=== PATIENT | female | born 1955 | race Caucasian/White ===

== ENCOUNTER → 2017-08-15 16:45 | Outpatient (CLI) | payer OTHER, SELFPAY ==
--- NOTE | 2017-08-15 17:08 | RAD_ITS ---
STUDY: X-RAY CHEST REASON FOR EXAM: Female, 62 years old. Chest pain TECHNIQUE: Frontal and lateral views of the chest COMPARISON: 08/17/2016 FINDINGS: The lungs are clear. There are no pleural effusions. There is no pneumothorax. The heart is normal in size. Again noted is a pacemaker. The visualized osseous structures are within normal limits. RAD/Chest PA and Lateral IMPRESSION: No acute thoracic pathology. Electronically Signed: Alberto Jain, at 22:00 EDT Tel , Service support ,
[2017-08-15 18:38] LABS: Absolute Lymphocyte Count 2.48 X10^3/ul (0.83-4.51); Absolute Neutrophil Count 5.9 X10^3/uL (2.0-7.7); Basophil# 0.03 X10^3/uL; Basophil% 0.3 % (0-1); Eosinophil# 0.11 X10^3/uL; Eosinophils% 1.2 % (0-5); Hematocrit 45.6 % (37-47); Lymphocyte # 2.48 X10^3/ul (4.0); Lymphocyte % 26.6 % (19-41); Mean Corp Hgb Conc 32.9 g/gl (32-36); Mean Corpuscular Hgb 30.1 pg (27.0-32.0); Mean Corpuscular Volume 91.4 fL (81-99); Mean Platelet Vol. 10.1 fl (6.2-12.0); Monocyte# 0.77 X10^3/uL; Monocyte% 8.2 % (0-10); Neutrophil # 5.94 X10^3/uL (2.7-7.7); Neutrophil % 63.6 % (47-70); Platelet Count 294 K/mm3 (150-450); RBC Distribution Width CV 12.9 % (11.6-14.6); RBC Distribution Width SD 42.9 fl (35.1-43.9); Red Blood Count 4.99 M/mm3 (4.2-5.4); White Blood Count 9.3 K/mm3 (4.4-11.0)
[2017-08-15 18:51] LABS: POSITIVE COUNT NO; POSITIVE DIFFERENTIAL NO; POSITIVE MORPHOLOGY NO
[2017-08-15 18:56] LABS: AST(SGOT) 14 U/L (15-37); Alanine Aminotransfer ALT/SGPT 23 U/L (13-56); Albumin, Serum 3.8 g/dL (3.2-5.0); Alkaline Phosphatase 76 U/L (45-117); Anion Gap 6 (5-15); BUN 12 mg/dL (7-18); BUN/Creat Ratio 17.2 RATIO (10-20); Bilirubin, Direct 0.08 mg/dL (0.00-0.30); Calcium,Total 8.9 mg/dL (8.5-10.1); Chloride 107 mmol/L (98-107); EST Glomerular Filtration Rate 91 mL/min (>60); Est Glom Filt Rate - Afr Amer 110 mL/min (>60); Globulin 3.5 g/dL (2.2-4.2); Glucose 88 mg/dL (74-106); Potassium 3.8 mmol/L (3.5-5.1); Protein, Total 7.3 g/dL (6.4-8.2); Sodium Level 140 mmol/L (136-145)
== END ==
PROVIDERS: Family Provider Family Medicine; PCP Family Medicine; Visit Provider Family Medicine
DX: R07.9 Chest pain, unspecified (principal); M32.9 Systemic lupus erythematosus, unspecified
CPT/HCPCS: 36415; 71046; 80048; 80076; 85025

== ENCOUNTER → 2017-08-21 07:24 | Outpatient (CLI) | payer OTHER, SELFPAY ==
--- NOTE | 2017-08-21 07:28 | US_ITS ---
STUDY: ABDOMINAL ULTRASOUND - RIGHT UPPER QUADRANT REASON FOR VISIT: Female, 62 years old. Right upper quadrant TECHNIQUE: Ultrasound evaluation of the right upper quadrant was performed with real-time and static ortega-scale imaging. TECHNICAL QUALITY: Adequate. COMPARISON: CT October 15, 2016 FINDINGS: Liver: The liver measures 13.8 cm. There is increased echogenicity consistent with fatty infiltration. The bile ducts are within normal limits. There is hepatic color flow. The direction of portal flow is hepatopetal. There is no demonstrated mass lesion. Gallbladder: Normal distended gallbladder. The gallbladder wall measures 3 mm. There is a negative sonographic Bell's sign. There is no pericholecystic fluid. There is either an adherent non mobile gallstone of the gallbladder vs a gallbladder polyp. This measures 3 mm. Common Bile Duct (C.B.D.): The common bile duct measures 5.6 mm. Pancreas: Normal size of the head, body of the pancreas. There is normal echogenicity of the pancreas. There is no demonstrated pancreatic mass or cyst. Pancreatic tail is not seen. Right Kidney: Normal size of the right kidney. The right kidney measures 11.2 x 5.5 x 4.4 cm. Normal renal cortex. The right cortex measures 1.5 cm. There is no demonstrated renal mass or cyst. There is no right hydronephrosis. US/Abdomen Limited IMPRESSION: There is either an adherent non mobile gallstone of the gallbladder vs a gallbladder polyp. Electronically Signed: Luis Garcia MD at 17:40 EDT , Service support ,
== END ==
PROVIDERS: Family Provider Family Medicine; PCP Family Medicine; Visit Provider Family Medicine
DX: R10.11 Right upper quadrant pain (principal)
CPT/HCPCS: 76705

== ENCOUNTER → 2017-09-06 07:50 | Outpatient (CLI) | payer OTHER, SELFPAY ==
--- NOTE | 2017-09-06 07:54 | NM_ITS ---
CLINICAL: 62-year-old female with reported history of right upper quadrant abdominal pain. RADIONUCLIDE HEPATOBILIARY SCINTIGRAPHY COMPARISON: Abdominal ultrasound report 08/21/2017 FINDINGS: Following the intravenous administration of 5.1 mCi of 99m Tc Mebrofenin, hepatobiliary images reveal: 1. Relatively prompt and homogeneous radiopharmaceutical concentration is noted by a normal sized liver. No parenchymal defects are identified. 2. Gallbladder activity is identified at 15 minutes post radiopharmaceutical administration. 3. Small intestinal tract is observed at 30 minutes following tracer injection. 4. Washout of the radiopharmaceutical by the hepatic parenchyma appears qualitatively normal. The patient was administered a fatty meal (8 ounces BOOST-30 grams fat). The post fatty meal consumption gallbladder ejection fraction calculated at 60 minutes was noted to be 36.0 % (normal greater than 30%). DC/Hepatobilliary Img w/Pharm Int IMPRESSION: 1. NORMAL 99m Tc Mebrofenin hepatobiliary imaging examination with fatty meal ingestion. A. A gallbladder ejection fraction calculated to be greater than 30% following the administration of a consumed fatty meal makes the probability of functional hepatobiliary disease (gallbladder and/or sphincter of Oddi dyskinesia) and/or organic hepatobiliary disease (chronic acalculous cholecystitis and/or cystic duct syndrome) to be low. (Arabella and Syd, J Nucl Med 43: 1603, 2002). Electronically Signed: Boogie Robledo DO at 8:18 EDT Tel , Service support ,
== END ==
PROVIDERS: Family Provider Family Medicine; PCP Family Medicine; Visit Provider Family Medicine
DX: R10.11 Right upper quadrant pain (principal)
CPT/HCPCS: 78227; A9537

== ENCOUNTER 2017-09-27 08:58 | Day surgery (SDC) | payer OTHER, SELFPAY ==
[2017-09-27 09:34] VITALS: BP 101/80; PULSE 72; RESP 14; TEMP 36.7; O2SAT 99; BMI 25.9
[2017-09-27 11:22] VITALS: BP 101/80; BP 110/66; PULSE 69; RESP 16; TEMP 36.4; O2SAT 96
[2017-09-27 11:25] VITALS: BP 101/80; BP 103/75; PULSE 64; RESP 16; O2SAT 96
--- NOTE | 2017-09-27 11:25 | OP.PCM_ITS ---
Problem List (1) Dysphagia Status: Acute Qualifiers: Dysphagia type: esophageal phase Qualified Code(s): R13.10 - Dysphagia, unspecified (2) Screen for colon cancer Status: Acute Report of Operation Date of Procedure: 09/27/17 Pre-Operative Diagnosis: 1. Dysphasia. 2. Screening colon cancer Post-Operative Diagnosis: 1. Normal EGD. 2. Normal colonoscopy Surgery/Procedure Performed:: 1. EGD. 2. Colonoscopy Description of Procedure: The major risks and benefits associated with the procedure were explained to the patient in detail. The patient verbalized understanding and agreement with the same. The patient was then placed in the left lateral decubitus position. IV sedation was started by anesthesia. The endoscope was then advanced under direct visualization over the tongue, into the esophagus , stomach and duodenum. It was slowly withdrawn and the mucosa was carefully evaluated. Duodenal mucosal abnormalities were not visualized. Antegrade and retrograde views of the stomach were normal and did not reveal ulceration. The patient did have a small hiatal hernia. Gastric folds were normal. Careful examination of the remainder of the esophagus was normal. There did not appear to be any strictured or tightened areas of the esophagus in its entirety. The scope was then withdrawn from the patient. The patient was then turned for the colonoscopy portion of the procedure. A digital rectal exam was performed. This examination was within normal limits. A well-lubricated colonoscope was then inserted into the rectum and advanced under direct visualization to the level of the cecum. The bowel prep was good. The cecum was identified by both visual and anatomic landmarks. A photograph was taken of the end of the cecum. The scope was then fully withdrawn while examining the color, texture, anatomy and integrity of the mucosa from the cecum to the anal canal. The findings were consistent with normal colonic mucosa. Upon reaching the rectum the scope was retroflexed to examine the distal rectal vault. The scope was then straightened and was completely retrieved upon exiting the anal canal and the procedure was terminated. The patient was then transferred to the recovery room in stable condition. Recommendations for follow up: 10 years
[2017-09-27 11:30] VITALS: BP 101/80; BP 105/83; PULSE 63; RESP 16; O2SAT 95
[2017-09-27 11:36] VITALS: BP 101/80; BP 108/78; PULSE 63; RESP 16; TEMP 36.3; O2SAT 95
[2017-09-27 12:15] VITALS: BP 101/80
== END 2017-09-27 12:18 | disposition home or self-care (01) ==
LOC: EN 08:58 → AC 08:59
PROVIDERS: Family Provider Family Medicine; PCP Family Medicine; Visit Provider Surgery
PROC: 0DJD8ZZ Inspection of Lower Intestinal Tract, Via Natural or Artificial Opening Endoscopic (ICD-10-PCS; CPT 45378; principal; 2017-09-27 10:10)
DX: Z12.11 Encounter for screening for malignant neoplasm of colon (principal); R13.10 Dysphagia, unspecified; K44.9 Diaphragmatic hernia without obstruction or gangrene; J45.909 Unspecified asthma, uncomplicated; E78.00 Pure hypercholesterolemia, unspecified; K58.9 Irritable bowel syndrome, unspecified; K21.9 Gastro-esophageal reflux disease without esophagitis; F32.9 Major depressive disorder, single episode, unspecified; Z79.899 Other long term (current) drug therapy; Z79.82 Long term (current) use of aspirin; Z79.51 Long term (current) use of inhaled steroids; Z95.0 Presence of cardiac pacemaker; Z87.891 Personal history of nicotine dependence
CPT/HCPCS: 43235; 45378; J7120

== ENCOUNTER → 2018-02-24 11:01 | Outpatient (CLI) | payer OTHER, SELFPAY | PROVIDERS: Family Provider Family Medicine; PCP Family Medicine; Visit Provider Family Medicine | DX: R39.15 Urgency of urination (principal) | CPT/HCPCS: 87086; 87088 ==

== ENCOUNTER → 2018-02-28 07:37 | Outpatient (CLI) | payer OTHER, SELFPAY ==
--- NOTE | 2018-02-28 07:48 | US_ITS ---
HISTORY: GB POLYP TECHNIQUE: Beltran scale and color doppler imaging was performed of the gallbladder. COMPARISON: Right upper quadrant ultrasound 08/21/[address] abdomen and pelvis 10/15/2016 FINDINGS: With comparison to previous, no significant change. The gallbladder is adequately distended. The anterior wall of the gallbladder shows a 2.5 mm intraluminal focus compatible with a small polyp, unchanged. This area is nonshadowing. No gallstones or suspicious lesion. No pericholecystic edema. The common duct measures 3 mm in diameter which is normal. Visualized portions of the liver and pancreas are unremarkable. No intrahepatic biliary dilatation. Normal right kidney. No hydronephrosis. No ascites. US/Gallbladder IMPRESSION: 1. No acute disease or significant change. 2. Small gallbladder polyp, unchanged. Otherwise negative exam. at [id number] Reported and signed by: Jeremy Vance MD Electronically Signed: Jeremy Vance, at 3:54 EDT Tel , Service support ,
== END ==
PROVIDERS: Family Provider Family Medicine; PCP Family Medicine; Referring Provider Surgery; Visit Provider Surgery
DX: K82.4 Cholesterolosis of gallbladder (principal)
CPT/HCPCS: 76705

== ENCOUNTER → 2018-05-09 08:27 | Outpatient (CLI) | payer OTHER, SELFPAY ==
--- NOTE | 2018-05-09 08:30 | RAD_ITS ---
STUDY: X-RAY - ESOPHAGUS (BARIUM SWALLOW) WITH FLUOROSCOPY REASON FOR EXAM: Female, 63 years old. 9 month history of worsening dysphagia. TECHNIQUE: 14 view(s) of the esophagus were obtained following swallowing of barium. FLUOROSCOPY TIME (if supplied): (0:30) minutes/seconds COMPARISON: None. FINDINGS: There is no demonstrated esophageal foreign body. There is no demonstrated stricture or mucosal abnormality. Normal gastroesophageal junction, without a demonstrated hiatal hernia. The patient ingested a 12 mm tablet of barium without any difficulty. Normal visualized aortic arch and descending thoracic aorta. Normal visualized pulmonary parenchyma. Normal visualized osseous structures of the thorax. RAD/Esophagus Only IMPRESSION: Normal plain film x-ray examination (barium swallow) of the esophagus. Electronically Signed: Genaro Zabala MD at 9:29 EST Tel [phone], Service support ,
== END ==
PROVIDERS: Family Provider Family Medicine; PCP Family Medicine; Referring Provider Family Medicine; Visit Provider Family Medicine
DX: R13.10 Dysphagia, unspecified (principal)
CPT/HCPCS: 74220

== ENCOUNTER 2018-10-24 11:14 | Observation (INO) | payer OTHER, SELFPAY ==
[2018-09-18 15:59] VITALS: BMI 27.7
[2018-10-24] VITALS (8 sets, daily range): BP systolic 115–155; BP diastolic 67–93; PULSE 63–69; RESP 14–18; TEMP 36.4–36.8; O2SAT 95–97; BMI 28.2; BMI 27.9
--- NOTE | 2018-10-24 11:14 | EKG12_ITS ---
Test Reason : CP Blood Pressure : / mmHG Vent. Rate : 076 BPM Atrial Rate : 076 BPM P-R Int : 232 ms QRS Dur : 090 ms QT Int : 378 ms P-R-T Axes : 033 -21 126 degrees QTc Int : 425 ms Atrial-paced rhythm with prolonged AV conduction Moderate voltage criteria for LVH, may be normal variant Cannot rule out Septal infarct , age undetermined T wave abnormality, consider lateral ischemia Abnormal ECG Confirmed by FADIA AGUILAR, EVA ([id number]), senior editor DORYS DANIELS ([id number]) on 10/28/2018 11:48:13 AM Referred By: Liset Botello Confirmed By:EVA LOAIZA MD
--- NOTE | 2018-10-24 11:23 | RAD_ITS ---
STUDY: X-RAY CHEST REASON FOR EXAM: Female, 63 years old. Chest pain TECHNIQUE: AP COMPARISON: 08/15/2017 FINDINGS: EKG leads project over the chest. Two lead cardiac conduction device is seen via the left subclavian vein with lead tips projecting over the right atrium and right ventricle, respectively. The lungs are clear and expanded. There is no demonstrated pleural abnormality. Normal size heart. Normal mediastinum and salina. Normal visualized pulmonary arteries. Normal visualized aortic arch and descending thoracic aorta. Normal visualized thoracic spine. Normal visualized ribs, clavicles, and shoulders. There is no demonstrated abnormality of the visualized soft tissue structures of the upper abdomen. RAD/Chest 1 View (Portable) IMPRESSION: Stable, nonacute portable x-ray examination of the chest. Electronically Signed: López Jose MD at 11:56 EDT , Service support ,
--- NOTE | 2018-10-24 11:23 | EKG12_ITS ---
Test Reason : CP ADMIT Blood Pressure : / mmHG Vent. Rate : 062 BPM Atrial Rate : 062 BPM P-R Int : 202 ms QRS Dur : 094 ms QT Int : 452 ms P-R-T Axes : 035 -15 120 degrees QTc Int : 458 ms Normal sinus rhythm Minimal voltage criteria for LVH, may be normal variant Septal infarct , age undetermined Nonspecific T-wave Abnormality Abnormal ECG Confirmed by FADIA AGUILAR, EVA ([id number]), film editor supervisor SHANNAN GREEN ([id number]) on 10/29/2018 12:42:01 PM Referred By: Liset Botello Confirmed By:EVA LOAIZA MD
[2018-10-24] MEDS: Aspirin 81 MG TAB.CHEW 324 MG PO (11:28)
--- NOTE | 2018-10-24 11:34 | ED.DCSUM_ITS ---
- ER Visit Summary Date of Service: 10/24/18 Chief Complaint: Chest pain, shortness of breath History of Present Illness: The patient is a 63 F presents to the emergency department with chest tightness. Patient states that over the past 3 days, she has had episodes where she felt like her heart is been racing. She had a dull ache across her anterior chest. She states that she exerts herself and walks a distance, she gets short of breath. Patient does have history of prior pacemaker implant. She has no history of coronary vascular disease. She denies any fevers or chills. She denies any weight gain. She denies any leg swelling. She did see her primary care in the office and had an EKG done yesterday. This was reviewed with her real estate acquisition analyst from [facility]. She was going to be worked up as an outpatient, but today in discussion with the nurse practitioner at her physician's office she was referred into the emergency department. She has no history of pulmonary embolus. Physical Examination: Vital signs reviewed General: Well-nourished, well-developed Head: Normocephalic, atraumatic Eyes: Pupils equal and reactive, extraocular muscles intact Neck, supple, no lymphadenopathy Heart: Regular rate and rhythm Respiratory: No distress, clear bilaterally Abdomen: Soft, nontender, nondistended, no peritoneal signs Back: Nontender Extremities: Nontender, no edema, no cords Skin: Normal color no rash Neuro: Alert and oriented, no focal or lateralizing deficits Test Results: [] Emergency Department Course and Treatment: EKG was obtained on patient arrival. There is T wave inversion across the precordium, but it is unchanged from prior. I do have concern given patient's history. She is been having exertional chest tightness and dyspnea. Chest x-ray is unremarkable. Labs including cardiac enzymes are normal. At this point, I do feel the safest thing would be observation for provocative testing. Patient was discussed with hospitalist.] Treatment Plan: [] Disposition: Admission Impression: [1. Chest pain 2. Exertional dyspnea] This note was generated with [place] [employer] dictation software. It may contain incorrect words, spelling, and punctuation that were not noted in review of the chart prior to signing ED Disposition - Plan for ED Patient: Referrals: Linda Loving DO [Primary Care Provider] -
[2018-10-24 11:36] LABS: Absolute Neutrophil Count 4.4 X10^3/uL (2.0-7.7); Basophil# 0.03 X10^3/uL; Basophil% 0.4 % (0-1); Eosinophil# 0.13 X10^3/uL; Eosinophils% 1.8 % (0-5); Hematocrit 43.6 % (37-47); Hemoglobin 14.7 g/dl (12.0-15.0); Lymphocyte % 30.2 % (19-41); Mean Corp Hgb Conc 33.7 g/gl (32-36); Mean Corpuscular Hgb 30.2 pg (27.0-32.0); Mean Corpuscular Volume 89.5 fL (81-99); Monocyte# 0.54 X10^3/uL; Monocyte% 7.4 % (0-10); Neutrophil # 4.38 X10^3/uL (2.7-7.7); Neutrophil % 60.1 % (47-70); Platelet Count 262 K/mm3 (150-450); RBC Distribution Width CV 12.4 % (11.6-14.6); RBC Distribution Width SD 40.3 fl (35.1-43.9); Red Blood Count 4.87 M/mm3 (4.2-5.4); White Blood Count 7.3 K/mm3 (4.4-11.0)
[2018-10-24 11:38] LABS: POSITIVE COUNT NO; POSITIVE DIFFERENTIAL NO; POSITIVE MORPHOLOGY NO
[2018-10-24 11:57] LABS: Anion Gap 2 (5-15); BUN 12 mg/dL (7-18); BUN/Creat Ratio 16.3 RATIO (10-20); Calcium,Total 9.1 mg/dL (8.5-10.1); Chloride 107 mmol/L (98-107); Creatinine, Serum 0.73 mg/dL (0.55-1.02); EST Glomerular Filtration Rate 85 mL/min (>60); Est Glom Filt Rate - Afr Amer 103 mL/min (>60); Glucose 98 mg/dL (74-106); Magnesium 2.2 mg/dL (1.6-2.6); Sodium Level 138 mmol/L (136-145)
--- NOTE | 2018-10-24 12:16 | HP.PCM_ITS ---
Problem List (1) Chest pain Status: Acute Qualifiers: Chest pain type: unspecified Qualified Code(s): R07.9 - Chest pain, unspecified (2) Seizure Status: Chronic (3) SLE (systemic lupus erythematosus related syndrome) Status: Chronic History of Present Illness Date of Admission: 10/24/18 Chief Complaint: Chest pain The patient is a 63 year old F with PMHx of SLE, seizure disorder, history of pacemaker for sick sinus syndrome, who comes in with complaints of chest pressure/discomfort, progressive shortness of breath especially on exertion ongoing for months worse over the last 2 days. This is after some lightheadedness and palpitation. She has a feeling of unwell. She smokes a couple of cigarettes monthly. There is a strong family history of heart disease in the mother with heart blockages, father had bypass surgery. Vitals in the ED showed temperature 97.6 F, heart rate 60, blood pressure 155/85 , respiratory rate 70, SPO2 97% on room air. CBC DM BMP was unremarkable. BM peptide was 47.7. Troponin was negative. EKG showed T wave inversions in the lateral leads, comparison with previous EKG showed the same pattern Past Medical History Past Medical History (Chronic Problems): Chronic Problems (Last Updated 09/05/18 @ 08:32 by Rosalina Middleton) Seizure (Chronic) SLE (systemic lupus erythematosus related syndrome) (Chronic) Family history of breast cancer (Chronic) Intertrigo (Chronic) Shoulder pain (Chronic) Chronic thoracic back pain (Chronic) Chronic cervical pain (Chronic) Breast hypertrophy (Chronic) Medical History: Medical History (Last Updated 09/05/18 @ 08:32 by Rosalina Middleton) Anxiety F41.9 Asthma J45.909 Dysphagia R13.10 GERD (gastroesophageal reflux disease) K21.9 Gallstones K80.20 H/O: hysterectomy Z90.710 History of pneumonia Z87.01 IBS (irritable bowel syndrome) K58.9 Lupus L93.0 Osteoarthritis M19.90 Pleural effusion J90 Seasonal allergies J30.2 Seizure R56.9 Seizure disorder G40.909 Chronic bronchitis J42 Allergies Penicillins Allergy (Verified 09/18/18 15:59) Rash epinephrine Adverse Reaction (Verified 09/18/18 15:59) Other I PASS OUT Home Medications: Ambulatory Orders Medication Instructions Recorded Albuterol IH (ProAir) [Proair Hfa 1 - 2 puff INHALATION Q4H PRN PRN 11/16/15 (SP)Vent Pts] Aspirin [Aspirin, Baby] 81 mg PO DAILY@0800 11/16/15 Budesonide/Formoterol 160/4.5 2 puff INHALATION BID 11/16/15 [Symbicort 160/4.5 Mcg Inhaler (SP)] Sertraline HCl [Zoloft] 100 mg PO DAILY 11/16/15 levETIRAcetam tablet [Keppra] 1,000 mg PO DAILY 11/16/15 Biotin 5 mg PO DAILY 10/15/16 levETIRAcetam tablet [Keppra] 1,000 mg PO QHS 10/15/16 hydroxychloroquine 200 mg tablet 200 mg PO BID 09/11/17 Bran/Gum/Fib/Taty/Psyl/Kelp/Pec 1,000 mg PO DAILY 09/19/17 [Fiber 6 Tablet] Cholecalciferol (Vitamin D3) 5,000 unit PO DAILY 09/19/17 [Vitamin D3] Cyanocobalamin [Vitamin B12] 1,000 mcg PO DAILY@0800 09/19/17 Turmeric Root Extract [Turmeric] 500 mg PO DAILY 09/19/17 meloxicam 15 mg tablet 15 mg PO PRN PRN 09/05/18 Surgical History: Surgical History (Last Updated 09/05/18 @ 08:33 by Rosalina Middleton) History of hysterectomy Z90.710 History of knee surgery Z98.890 Pacemaker Z95.0 S/P tonsillectomy Z90.89 Surgical History: hysterectomy, total knee arthroplasty, tonsillectomy, - - s/p pacemaker insertion, foot surgery Psychiatric History: No pertinent psych hx 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 pertinent DESIGN 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 history Lives: Spouse/ Significant Other Smoking Status: Current some day smoker Tobacco Use: Cigarettes Alcohol: Occasional Drugs: None - *Family History Maternal Family History: Family History (Last Updated 09/05/18 @ 08:47 by Rosalina Middleton) Mother Breast cancer CAD (coronary artery disease) Anxiety High cholesterol Skin cancer Father Cancer CAD (coronary artery disease) Asthma High cholesterol History Items: Heart Disease Paternal Family History: Family History (Last Updated 09/05/18 @ 08:47 by Rosalina Middleton) Mother Breast cancer CAD (coronary artery disease) Anxiety High cholesterol Skin cancer Father Cancer CAD (coronary artery disease) Asthma High cholesterol History Items: Heart Disease Review of Systems Constitutional: Denies: Anorexia, Chills, Fever, Night Sweats, Malaise, Weakness, Weight Change Eyes: Denies: Blurred vision, Cataracts, Conjunctivae Inflammation, Pain, Redness HEENT: Denies: Difficulty Hearing, Difficulty Swallowing, Head Aches, Hearing Changes, Sinus Congestion, Sinus Drainage Cardiovascular: Reports: Chest Pain, Chest Tightness, Light Headedness. Denies: Claudication, Orthopnea, Palpitations, Paroxysmal Noc. Dyspnea Respiratory: Reports: Shortness of Breath, Shortness of breath upon exertion. Denies: Cough, Shortness of breath at rest, Sputum production Gastrointestinal: Denies: Abdominal Pain, Nausea, Vomiting Genitourinary: Denies: Dysuria, Frequency, Hematuria, Incontinence Musculoskeletal: Denies: Joint Pain, Joint stiffness, Joint swelling, Joint Tenderness Skin: Denies: Rash, Wounds Neurological: Denies: Numbness, Tingling, Focal weakness Psychiatric: Denies: Anxiety, Depression, Homicidal Ideations, Suicidal Ideations Hematologic/ Lymphatic: Denies: Easy Bruising, Easy Bleeding VTE Information - Inpt Only VTE Present on Admission: No VTE Pharm Prophylaxis ordered?: Yes Patient Problems: Active and Suspected Problems (Last Updated 09/05/18 @ 08:32 by Rosalina Middleton) Chest pain (Acute) - Physical Exam General: Alert, Oriented x3, Cooperative, No apparent distress HEENT: Atraumatic, PERRLA, EOMI, Normocephalic Oral: Moist Mucosa Neck: Supple, No JVD, Negative Carotid Bruits Lungs: Clear to auscultation, Normal air movement Cardiovascular: Regular rate, Regular Rhythm, Normal S1, Normal S2, No murmurs Abdomen: Bowel Sounds Present, Soft, Non Tender, Non-Distended, No Hepato- splenomegaly Extremities: No edema Skin: No rashes, No breakdown Musculoskeletal: No Tenderness to Palpation of Joints or Extremities Lymphatic: No Cervical, Supraclavicular, or Inguinal Adenopathy Neurological: Cranial nerves II-XII grossly intact, Neuro grossly intact Psych/Mental Status: Normal Affect, Appropriate Vital Signs Temp Pulse Resp BP Pulse Ox 97.6 F L 65 14 151/93 H 95 10/24/18 11:15 10/24/18 12:01 10/24/18 12:01 10/24/18 12:01 10/24/18 12:01 Oxygen Delivery Method Room Air Weight: 81.7 kg Body Mass Index (BMI) 28.2 Laboratory Tests Past 24 Hrs 10/24/18 10/24/18 10/24/18 11:25 11:25 11:25 WBC 7.3 RBC 4.87 Hgb 14.7 Hct 43.6 MCV 89.5 MCH 30.2 MCHC 33.7 RDW 12.4 RDW Differential 40.3 Plt Count 262 MPV 10.0 Immature Gran % (Auto) 0.100 Neut % (Auto) 60.1 Lymph % (Auto) 30.2 [place] % (Auto) 7.4 Eos % (Auto) 1.8 Baso % (Auto) 0.4 Absolute Neuts (auto) 4.4 Absolute Lymphs (auto) 2.20 Total Counted Not Reportable Sodium 138 Potassium 4.0 Chloride 107 Carbon Dioxide 29.0 Anion Gap 2 L BUN 12 Creatinine 0.73 Estim Creat Clear Calc 78.70 Est GFR (MDRD) Af Amer 103 Est GFR (MDRD) Non-Af 85 BUN/Creatinine Ratio 16.3 Glucose 98 Calcium 9.1 Magnesium 2.2 Troponin I < 0.015 B-Natriuretic Peptide Pending Assessment/Plan All Active Problems (Last Updated 09/05/18 @ 08:32 by Rosalina Middleton) Chest pain (Acute) Dysphagia (Acute) Screen for colon cancer (Acute) 63 year old F with PMHx of SLE, seizure disorder, history of pacemaker for sick sinus syndrome, who comes in with complaints of chest pressure/discomfort, progressive shortness of breath especially on exertion ongoing for months worse over the last 2 days. 1. Chest pain, concerning for possible ACS, EKG shows T wave inversions in the lateral leads, troponins x1 negative Plan: Admit to PCU, continue to monitor on telemetry, aspirin 81 mg p.o. daily, nitro as needed 2D echo, stress test in a.m., lipid profile in a.m. 2. Seizure disorder, continue on Keppra 3. SLE, on Plaquenil 4. DVT PPx- early ambulation Code Visit OBSV E&M: 09296 Initial observation care L3
[2018-10-24 12:22] LABS: BNP,B-Type NATRIURETIC PEPTIDE 47.7 pg/mL (0-100)
[2018-10-24 13:24] LABS: Thyroid Stim Hormone (TSH) 1.53 uIU/mL (0.358-3.74)
--- NOTE | 2018-10-24 15:16 | ECHOD_ITS ---
Reason For Study: Dyspnea/SOB Procedure This was a 2D Doppler, Color Flow transthoracic echocardiogram. The exam was of adequate technical quality. Exam performed portable in patient room. Left Ventricle Normal LV size. Left ventricular systolic function is normal. The estimated ejection fraction is 60 %. Transmitral doppler flow suggestive of impaired relaxation of left ventricle. No regional wall motion abnormalities noted. Right Ventricle Normal RV size. ICD or pacer leads identified within the right ventricle. Normal systolic function. Atria The left atrium is mildly enlarged. Normal right atrium. ICD or pacer leads identified within the right atrium. No doppler evidence for ASD. Mitral Valve There is no mitral annular calcification. Normal mitral valve. Trivial mitral valve insufficiency. Tricuspid Valve Normal tricuspid valve. Mild tricuspid valve insufficiency. Right ventricular systolic pressure estimated to be 24 mmHg. Aortic Valve Trisinus/trileaflet aortic valve. Mild focal aortic valve calcification. Trivial aortic valve insufficiency. Pulmonic Valve The pulmonic valve is not well visualized. Trivial pulmonic valve insufficiency. Great Vessels Normal sized aortic root. Pericardium/Pleural No pericardial effusion. MMode/2D Measurements & Calculations LVIDd: 4.4 cm IVSd: 1.1 cm Ao root diam: 3.4 cm LVIDs: 2.6 cm LVPWd: 1.0 cm LA dimension: 3.6 cm FS: 39.8 % LAV(MOD-bp): 57.3 ml LA A4 area: 18.9 cm2 RA A4 area: 15.4 cm2 LAV(MOD-bp) Indexed: 29.8 ml/m2 LAV(MOD-sp2): 64.4 ml LAV(MOD-sp4): 49.8 ml Time Measurements MV dec time: 0.25 sec Doppler Measurements & Calculations MV E max gerardo: 90.1 cm/sec Lat Peak E' Gerardo: 11.8 cm/sec Med Peak E' Gerardo: 5.9 cm/sec MV A max gerardo: 101.4 cm/sec E/E' lat: 7.6 E/E' med: 15.2 MV E/A: 0.89 MV V2 max: 109.8 cm/sec MV P1/2t max gerardo: 95.3 cm/sec Ao V2 max: 113.6 cm/sec MV max P.8 mmHg MV P1/2t: 107.9 msec Ao max P.2 mmHg MV V2 mean: 66.1 cm/sec MV dec slope: 258.9 cm/sec2 MV mean P.0 mmHg MVA(P1/2t): 2.0 cm2 MV V2 VTI: 37.0 cm LV V1 max: 97.8 cm/sec PA V2 max: 93.4 cm/sec TR max gerardo: 228.6 cm/sec LV V1 max P.8 mmHg TR max P.9 mmHg Interpretation Summary Left ventricular systolic function is normal. The estimated ejection fraction is 60 %. The left atrium is mildly enlarged. Trivial mitral valve insufficiency. Mild tricuspid valve insufficiency. Mild focal aortic valve calcification. Trivial aortic valve insufficiency. Trivial pulmonic valve insufficiency. Right ventricular systolic pressure estimated to be 24 mmHg. Transmitral doppler flow suggestive of impaired relaxation of left ventricle ICD or pacer leads identified within the right atrium ICD or pacer leads identified within the right ventricle. Ordering Physician: Liset Botello Referring Physician: Linda Loving Performed By: Dawood Barrientos RCS
[2018-10-24] MEDS: 0.9% Normal Saline 1,000 ML 75 ML IV (15:23)
[2018-10-24] MEDS: Budesonide Respules 0.5 MG/2 ML AMPUL.NEB. INHALATION (19:12)
[2018-10-24] MEDS: Albuterol 2.5 MG/3 ML VIAL.NEB. INHALATION (19:12)
[2018-10-24] MEDS: Hydroxychloroquine 200 MG Tablet PO (21:32)
[2018-10-24] MEDS: levETIRAcetam 1,000 MG Tablet 1000 MG PO (21:33)
[2018-10-25] VITALS (7 sets, daily range): BP systolic 112–117; BP diastolic 64–78; PULSE 66–72; RESP 16; TEMP 36.5–37.1; O2SAT 94–96
[2018-10-25 04:47] LABS: Absolute Lymphocyte Count 2.95 X10^3/ul (0.83-4.51); Absolute Neutrophil Count 4.1 X10^3/uL (2.0-7.7); Basophil# 0.04 X10^3/uL; Basophil% 0.5 % (0-1); Eosinophil# 0.11 X10^3/uL; Eosinophils% 1.4 % (0-5); Hematocrit 40.8 % (37-47); Hemoglobin 13.7 g/dl (12.0-15.0); Lymphocyte # 2.95 X10^3/ul (4.0); Lymphocyte % 38.7 % (19-41); Mean Corp Hgb Conc 33.6 g/gl (32-36); Mean Corpuscular Hgb 30.7 pg (27.0-32.0); Mean Corpuscular Volume 91.5 fL (81-99); Mean Platelet Vol. 9.7 fl (6.2-12.0); Monocyte# 0.45 X10^3/uL; Monocyte% 5.9 % (0-10); Neutrophil # 4.06 X10^3/uL (2.7-7.7); Neutrophil % 53.4 % (47-70); Platelet Count 221 K/mm3 (150-450); RBC Distribution Width CV 12.6 % (11.6-14.6); RBC Distribution Width SD 41.7 fl (35.1-43.9); Red Blood Count 4.46 M/mm3 (4.2-5.4); White Blood Count 7.6 K/mm3 (4.4-11.0)
[2018-10-25 04:49] LABS: POSITIVE COUNT NO; POSITIVE DIFFERENTIAL NO; POSITIVE MORPHOLOGY NO
[2018-10-25 04:50] LABS: Prothrombin Time (Protime)PT. 12.8 SECONDS (11.7-14.9)
[2018-10-25 04:56] LABS: Anion Gap 7 (5-15); BUN 10 mg/dL (7-18); BUN/Creat Ratio 16.3 RATIO (10-20); Calcium,Total 8.5 mg/dL (8.5-10.1); Chloride 111 mmol/L (98-107); Creatinine, Serum 0.62 mg/dL (0.55-1.02); EST Glomerular Filtration Rate 105 mL/min (>60); Est Glom Filt Rate - Afr Amer 127 mL/min (>60); Estimated Creatinine Clearance 92.66 ml/min; Glucose 88 mg/dL (74-106); Sodium Level 144 mmol/L (136-145)
--- NOTE | 2018-10-25 05:55 | EKG12_ITS ---
Test Reason : AM EKG Blood Pressure : / mmHG Vent. Rate : 064 BPM Atrial Rate : 064 BPM P-R Int : 268 ms QRS Dur : 088 ms QT Int : 436 ms P-R-T Axes : 045 -13 111 degrees QTc Int : 449 ms Normal Sinus Rhythm Nonspecific T wave abnormality Abnormal ECG Confirmed by FADIA AGUILAR, EVA ([id number]), online content editor SHANNAN GREEN ([id number]) on 10/29/2018 12:41:31 PM Referred By: Liset Botello Confirmed By:EVA LOAIZA MD
[2018-10-25] MEDS: Aspirin 81 MG TAB.CHEW PO (06:00)
[2018-10-25] MEDS: Albuterol 2.5 MG/3 ML VIAL.NEB. INHALATION (07:03)
[2018-10-25] MEDS: Budesonide Respules 0.5 MG/2 ML AMPUL.NEB. INHALATION (07:03)
--- NOTE | 2018-10-25 10:07 | STRESSREP ---
Stress Test Report Date: 10-25-18 Procedure: Pharmacologic stress nuclear imaging study Indications: Chest pain; sick sinus syndrome; permanent pacemaker placement Consent: Per the patient Procedure: The patient underwent pharmacologic (Regadenoson) evaluation with a peak heart rate of 106 beats per minute (66 %predicted maximal heart rate) and a peak blood pressure of 140/90 mmHg. The baseline ECG demonstrated normal sinus rhythm; nonspecific T wave abnormality. The peak pharmacologic ECG demonstrated continued nonspecific T wave abnormality. There were no cardiac dysrhythmias pretest, during pharmacologic infusion, or recovery. There was no complaint of chest discomfort during pharmacologic infusion or recovery. The examination was discontinued secondary to completion of protocol. Impression: 1. Pharmacologic (Regadenoson) evaluation 2. Peak pharmacologic ECG with continued nonspecific T wave abnormality. 3. There were no cardiac dysrhythmias pretest, during pharmacologic infusion, or recovery. 4. Nuclear images pending Myocardial perfusion imaging study: Technique: The patient was injected with 12.0 millicuries of technetium 99m Cardiolite and subsequently rest SPECT Cardiolite nuclear imaging was obtained in the horizontal long, vertical long, and short axis views. The patient underwent pharmacologic (Regadenoson) evaluation with a peak heart rate of 106 beats per minute (66 % percent predicted maximal heart rate) and a peak blood pressure of 140/90 mmHg. The patient was injected with 35.8 millicuries of technetium 99m Cardiolite and subsequently stress SPECT Cardiolite nuclear imaging was obtained in the horizontal long, vertical long, and short axis views. A gated Cardiolite study at peak stress was obtained. Interpretation: Rest and stress SPECT Cardiolite nuclear imaging status post realignment, normalization, and attenuation correction demonstrate relative uniform tracer uptake and myocardial perfusion appearing within normal limits. There is end systolic thickening and brightening. The gated Cardiolite study demonstrates myocardial thickening and inward wall motion. The reported LVEF is 79 %. Impression: 1. Rest and stress SPECT Cardiolite nuclear imaging demonstrate relative uniform tracer uptake and myocardial perfusion appearing within normal limits. 2. The gated Cardiolite study reports an LVEF of 79 %. This note was generated with [employer] software. It may contain incorrect words, spelling, and punctuation that were not noted in checking the note before signing.
[2018-10-25] MEDS: Cyanocobalamin 500 MCG Tablet 1000 MCG PO (10:37)
[2018-10-25] MEDS: Sertraline 100 MG Tablet PO (10:38)
[2018-10-25] MEDS: levETIRAcetam 1,000 MG Tablet 1000 MG PO (10:38)
[2018-10-25] MEDS: Hydroxychloroquine 200 MG Tablet PO (10:38)
--- NOTE | 2018-10-25 10:46 | PCM.DC ---
- Discharge Diagnoses Current Active Problems: Current Active and Chronic Problems (Last Updated 09/05/18 @ 08:32 by Rosalina Middleton) Chest pain (Acute) Seizure (Chronic) SLE (systemic lupus erythematosus related syndrome) (Chronic) Reason(s) for Visit for Discharge Instructions: Chest pain, shortness of breath You will use the following diet at home:: Cardiac Your food should be the consistency of: Regular Your liquids should be the consistency of: Regular/Thin Discharge Activity: Return to Normal Activity Additional Instructions: Continue to take all your medications. Continue to be on a low salt, low fat diet. You are advised to quit smoking. Follow-up with your fraud prevention analyst as scheduled. Allergies/Adverse Reactions: Allergies Penicillins Allergy (Verified 09/18/18 15:59) Rash epinephrine Adverse Reaction (Verified 09/18/18 15:59) Other I PASS OUT Medications to take at Discharge Albuterol IH (ProAir) [Proair Hfa] 1 - 2 puff INHALATION Q4H PRN PRN 11/16/15 Aspirin [Aspirin, Baby] 81 mg PO DAILY@0800 11/16/15 Budesonide/Formoterol 160/4.5 [Symbicort 160/4.5 Mcg Inhaler (SP)] 2 puff INHALATION BID 11/16/15 Sertraline HCl [Zoloft] 100 mg PO DAILY 11/16/15 levETIRAcetam tablet [Keppra tablet] 1,000 mg PO DAILY 11/16/15 Biotin 5 mg PO DAILY 10/15/16 levETIRAcetam tablet [Keppra tablet] 1,000 mg PO QHS 10/15/16 hydroxychloroquine 200 mg tablet 200 mg PO BID 09/11/17 Bran/Gum/Fib/Taty/Psyl/Kelp/Pec [Fiber 6 Tablet] 1,000 mg PO DAILY 09/19/17 Cholecalciferol (Vitamin D3) [Vitamin D3] 5,000 unit PO DAILY 09/19/17 Cyanocobalamin [Vitamin B12] 1,000 mcg PO DAILY@0800 09/19/17 Turmeric Root Extract [Turmeric] 500 mg PO DAILY 09/19/17 meloxicam 15 mg tablet 15 mg PO PRN PRN 09/05/18 Acetaminophen [Tylenol Tablet] 650 mg PO Q6H PRN PRN tab 10/25/18 Primary Care Physician: Linda Loving DO [Primary Care Provider] - Please follow up with your Primary Care Physician in: within 1-2 weeks Test Results: Test results from this visit will be discussed in further detail at your follow-up appointment, if applicable. When: Follows with Dr. Hodges as scheduled or within 1-2 weeks Proposed Discharge Date: 10/25/18
--- NOTE | 2018-10-25 10:57 | DS.PCM_ITS ---
Discharge Date and Diagnosis Date of Admission: 10/24/18 Date of Discharge: 10/25/18 - Primary Discharge Diagnosis Active and Suspected Problems (Last Updated 09/05/18 @ 08:32 by Rosalina Middleton) Chest pain (Acute) - Secondary Discharge Diagnosis Chronic Problems (Last Updated 09/05/18 @ 08:32 by Rosalina Middleton) Seizure (Chronic) SLE (systemic lupus erythematosus related syndrome) (Chronic) Family history of breast cancer (Chronic) Intertrigo (Chronic) Shoulder pain (Chronic) Chronic thoracic back pain (Chronic) Chronic cervical pain (Chronic) Breast hypertrophy (Chronic) Hospital Course and Treatment Imaging Results: 10/25/18 05:55 Nuclear Stress Test - Chemical [NM] AM (NON MEDS) Clinical Impression(s) from Imaging Studies Chest X-Ray 10/24/18 11:23 IMPRESSION: Stable, nonacute portable x-ray examination of the chest. Electronically Signed: López Jose MD at 11:56 EDT , Service support , None Operations: None Procedures: Stress test Summary of Care Provided: 63 year old F with PMHx of SLE, seizure disorder, history of pacemaker for sick sinus syndrome, who comes in with complaints of chest pressure/discomfort, progressive shortness of breath especially on exertion ongoing for months worse over the last 2 days. EKG shows T wave inversions in the lateral leads, troponins x 3 negative. 2D echo and stress test was unremarkable. She has pacemaker was interrogated with no charges or events. She was recommended to quit smoking and follow-up with a manager field investigations and radio division officer. Subjective: On day of discharge, patient was seen and examined. Denies chest pain, dizziness. Objective: Physical Exam General: Alert, Oriented x3, Cooperative, No apparent distress HEENT: Atraumatic, PERRLA, EOMI, Normocephalic Oral: Moist Mucosa Neck: Supple, No JVD, Negative Carotid Bruits Lungs: Clear to auscultation, Normal air movement Cardiovascular: Regular rate, Regular Rhythm, Normal S1, Normal S2, No murmurs Abdomen: Bowel Sounds Present, Soft, Non Tender, Non-Distended, No Hepato- splenomegaly Extremities: No edema Skin: No rashes, No breakdown Musculoskeletal: No Tenderness to Palpation of Joints or Extremities Lymphatic: No Cervical, Supraclavicular, or Inguinal Adenopathy Neurological: Cranial nerves II-XII grossly intact, Neuro grossly intact Psych/Mental Status: Normal Affect, Appropriate - Physical Exam Vital Signs Temp Pulse Resp BP Pulse Ox 98.4 F 72 16 112/67 96 10/25/18 07:37 10/25/18 07:37 10/25/18 07:37 10/25/18 07:37 10/25/18 07:37 Oxygen Delivery Method Room Air Weight: 79.8 kg Body Mass Index (BMI) 27.9 Intake and Output for Last 24 Hours 10/23/18 10/24/18 10/25/18 23:59 23:59 23:59 Intake Total 1453 / 1453 337 / 337 Balance 1453 / 1453 337 / 337 Laboratory Tests Past 24 Hrs 10/24/18 10/24/18 10/24/18 11:25 11:25 11:25 WBC 7.3 RBC 4.87 Hgb 14.7 Hct 43.6 MCV 89.5 MCH 30.2 MCHC 33.7 RDW 12.4 RDW Differential 40.3 Plt Count 262 MPV 10.0 Immature Gran % (Auto) 0.100 Neut % (Auto) 60.1 Lymph % (Auto) 30.2 [place] % (Auto) 7.4 Eos % (Auto) 1.8 Baso % (Auto) 0.4 Absolute Neuts (auto) 4.4 Absolute Lymphs (auto) 2.20 Total Counted Not Reportable PT INR APTT Sodium 138 Potassium 4.0 Chloride 107 Carbon Dioxide 29.0 Anion Gap 2 L BUN 12 Creatinine 0.73 Estim Creat Clear Calc 78.70 Est GFR (MDRD) Af Amer 103 Est GFR (MDRD) Non-Af 85 BUN/Creatinine Ratio 16.3 Glucose 98 Calcium 9.1 Magnesium 2.2 Troponin I < 0.015 B-Natriuretic Peptide 47.7 TSH 10/24/18 10/24/18 10/24/18 11:25 14:28 17:07 WBC RBC Hgb Hct MCV MCH MCHC RDW RDW Differential Plt Count MPV Immature Gran % (Auto) Neut % (Auto) Lymph % (Auto) [place] % (Auto) Eos % (Auto) Baso % (Auto) Absolute Neuts (auto) Absolute Lymphs (auto) Total Counted PT INR APTT Sodium Potassium Chloride Carbon Dioxide Anion Gap BUN Creatinine Estim Creat Clear Calc Est GFR (MDRD) Af Amer Est GFR (MDRD) Non-Af BUN/Creatinine Ratio Glucose Calcium Magnesium Troponin I < 0.015 < 0.015 B-Natriuretic Peptide TSH 1.53 10/25/18 10/25/18 10/25/18 04:25 04:25 04:25 WBC 7.6 RBC 4.46 Hgb 13.7 Hct 40.8 MCV 91.5 MCH 30.7 MCHC 33.6 RDW 12.6 RDW Differential 41.7 Plt Count 221 MPV 9.7 Immature Gran % (Auto) 0.100 Neut % (Auto) 53.4 Lymph % (Auto) 38.7 [place] % (Auto) 5.9 Eos % (Auto) 1.4 Baso % (Auto) 0.5 Absolute Neuts (auto) 4.1 Absolute Lymphs (auto) 2.95 Total Counted Not Reportable PT 12.8 INR 1.0 APTT 25.0 Sodium 144 Potassium 4.0 Chloride 111 H Carbon Dioxide 26.0 Anion Gap 7 BUN 10 Creatinine 0.62 Estim Creat Clear Calc 92.66 Est GFR (MDRD) Af Amer 127 Est GFR (MDRD) Non-Af 105 BUN/Creatinine Ratio 16.3 Glucose 88 Calcium 8.5 Magnesium Troponin I B-Natriuretic Peptide TSH Discharge Diet: No Restrictions Discharge Activity: Return to Normal Activity Home Medications: Medications to take at Discharge Albuterol IH (ProAir) [Proair Hfa] 1 - 2 puff INHALATION Q4H PRN PRN 11/16/15 Aspirin [Aspirin, Baby] 81 mg PO DAILY@0800 11/16/15 Budesonide/Formoterol 160/4.5 [Symbicort 160/4.5 Mcg Inhaler (SP)] 2 puff INHALATION BID 11/16/15 Sertraline HCl [Zoloft] 100 mg PO DAILY 11/16/15 levETIRAcetam tablet [Keppra tablet] 1,000 mg PO DAILY 11/16/15 Biotin 5 mg PO DAILY 10/15/16 levETIRAcetam tablet [Keppra tablet] 1,000 mg PO QHS 10/15/16 hydroxychloroquine 200 mg tablet 200 mg PO BID 09/11/17 Bran/Gum/Fib/Taty/Psyl/Kelp/Pec [Fiber 6 Tablet] 1,000 mg PO DAILY 09/19/17 Cholecalciferol (Vitamin D3) [Vitamin D3] 5,000 unit PO DAILY 09/19/17 Cyanocobalamin [Vitamin B12] 1,000 mcg PO DAILY@0800 09/19/17 Turmeric Root Extract [Turmeric] 500 mg PO DAILY 09/19/17 meloxicam 15 mg tablet 15 mg PO PRN PRN 09/05/18 Acetaminophen [Tylenol Tablet] 650 mg PO Q6H PRN PRN tab 10/25/18 Primary Care Physician: Linda Loving DO [Primary Care Provider] - Please follow up with your Primary Care Physician in: within 1-2 weeks When: Follows with Dr. Hodges as scheduled or within 1-2 weeks Disposition: Home Minutes spent on discharge:: 40 Patient Condition:: Stable Medical Necessity - Tobacco Use Smoking Status: Current some day smoker Tobacco Use: Cigarettes Meaningful Use Info Meaningful Use Diagnoses (Choose all that apply): None applicable Code Visit Inpatient E&M: 98453 Disch Hosp
== END 2018-10-25 10:45 | disposition home or self-care (01) ==
LOC: ED 12:17 → PCU 12:36
PROVIDERS: Admitting Provider Internal Medicine; Emergency Provider Emergency Medicine; Family Provider Family Medicine; PCP Family Medicine; Referring Provider Internal Medicine; Visit Provider Internal Medicine
DX: R07.89 Other chest pain (principal); R06.09 Other forms of dyspnea; M32.9 Systemic lupus erythematosus, unspecified; G40.909 Epilepsy, unspecified, not intractable, without status epilepticus; K21.9 Gastro-esophageal reflux disease without esophagitis; J45.909 Unspecified asthma, uncomplicated; M19.90 Unspecified osteoarthritis, unspecified site; F17.210 Nicotine dependence, cigarettes, uncomplicated; Z95.0 Presence of cardiac pacemaker; Z79.899 Other long term (current) drug therapy; Z79.82 Long term (current) use of aspirin
CPT/HCPCS: 36415; 71045; 78452; 80048; 83735; 83880; 84443; 84484; 85025; 85610; 85730; 93005; 93017; 93306; 94640; 96360; 96361; 99218; 99285; A9500; J7030; A4216; G0378; J2785

== ENCOUNTER 2018-11-18 12:35 | Observation (INO) | payer OTHER, SELFPAY ==
[2018-09-18 15:59] VITALS: BMI 27.7
[2018-11-12 08:46] VITALS: BMI 27.9
[2018-11-18] VITALS (15 sets, daily range): BP systolic 82–127; BP diastolic 46–95; PULSE 63–85; RESP 14–20; TEMP 36.3–37.1; O2SAT 91–97; BMI 27.7
--- NOTE | 2018-11-18 00:27 | PCM.HP.BLA ---
History and Physical Date of Admission: 11/18/18 HISTORY OF PRESENT ILLNESS 63 year old woman presents with complaints of bilateral macromastia as well as associated painful symptomatology of neck pain, thoracic back pain, bilateral shoulder pain from shoulder grooving from the weight of her breasts on her bra straps, and inframammary intertrigo for which she uses powders for relief. She denies any trauma to her breasts. Denies any nipple discharge. She has seen a Chiropractor in the recent past for her painful symptomatology without much relief. Her last mammogram was 05/09/18. It showed no significant masses, calcifications, or other findings seen in either breast. There is no mammographic evidence of malignancy. Cardiac device partially obscures visualization of the left axilla. She has a family history of breast cancer. She was recently diagnosed with lupus 2 years ago and is on Plaquenil. She has had a pacemaker for 10 years in the left upper chest wall, and it was revised 2 years ago. Her next pacemaker appointment at [facility] is in November. She presents at this time for further evaluation and treatment. We have obtained medical approval for the procedure, and it is scheduled for 11/18/18. PAST MEDICAL HISTORY Anxiety Asthma Dysphagia GERD (gastroesophageal reflux disease) Gallstones History of pneumonia IBS (irritable bowel syndrome) Lupus Osteoarthritis Pleural effusion Seizure disorder Chronic bronchitis PAST SURGICAL HISTORY hysterectomy knee surgery Pacemaker tonsillectomy ALLERGIES epinephrine Penicillins MEDICATIONS Albuterol IH (ProAir) [Proair Hfa] Aspirin [Aspirin, Baby] Budesonide/Formoterol [Symbicort Inhaler (SP)] Sertraline HCl [Zoloft] Biotin levETIRAcetam tablet [Keppra tablet] hydroxychloroquine Bran/Gum/Fib/Taty/Psyl/Kelp/Pec [Fiber 6 Tablet] Cholecalciferol (Vitamin D3) [Vitamin D3] Cyanocobalamin [Vitamin B12] Turmeric Root Extract [Turmeric] meloxicam diazepam FAMILY HISTORY Mother - Breast cancer, CAD (coronary artery disease), Anxiety, High cholesterol, Skin cancer Father - Cancer, CAD (coronary artery disease), Asthma, High cholesterol SOCIAL HISTORY Smoking Status: Current some day smoker alcohol intake: current alcohol intake frequency: a few times a month substance use type: does not use REVIEW OF SYSTEMS General - Denies fever and weight loss. Has fatigue. Eyes - Denies cataracts and glaucoma. ENT - Denies nasal congestion and sore throat. Endocrine - Denies excessive thirst and urination. Skin - Denies suspicious lesions and skin cancer. Has inframammary intertrigo for which she uses powders for relief. Musculoskeletal - Has joint pain, joint stiffness, weakness of muscles and joints, and arthritis. Has neck pain and back pain. Her neck and back pain involve cervical and thoracic area. Has bilateral shoulder pain from shoulder grooving from the weight of her breasts on her bra straps. Neuro - Denies headaches. Cardiovascular - Denies chest pain and shortness of breath with exertion. Has fatigue. Had pacemaker placed 10 years ago in left upper chest wall and it was revised 2 years ago. Psych - Denies anxiety and depression. Respiratory - Denies shortness of breath and chronic cough. Has asthma. Gastrointestinal - Denies nausea, vomiting, diarrhea and constipation. Hematologic - Denies abnormal bruising and bleeding. Genitourinary - Denies hematuria and urinary frequency. PHYSICAL EXAMINATION General - Alert and oriented. Patient's bra size is DDD. HEENT - PERRL. EOMI. Throat is clear. Neck - Supple. No bony tenderness. There is some pericervical soft tissue tenderness. Lungs- Clear to auscultation. Heart - Regular rate and rhythm. Breasts - Patient has bilateral macromastia. No breast masses palpable. No axillary adenopathy noted. Distance from midclavicular line on the left to the nipple is 32 cm and from the nipple to the inframammary fold is 11 cm. Distance from midclavicular line on the right to the nipple is 32 cm and from nipple to the inframammary fold is 11 cm. Nipple areolar complex diameter is 6 cm bilaterally. No active inframammary intertrigo noted at this time. Abdomen - Soft and non distended. Back - No bony tenderness noted. There is perivertebral soft tissue tenderness in the upper thoracic area. Extremities - FROM. No axillary adenopathy. Radial pulses are palpable. There is some bilateral shoulder tenderness with shoulder grooving from the weight of her breasts on her bra straps. Neuro - CN II-XII grossly intact. Psych - Normal and mood and affect. ASSESSMENT 1. Bilateral macromastia. 2. Neck pain. 3. Thoracic back pain. 4. Bilateral shoulder pain from shoulder grooving from the weight of the breasts on her bra straps. 5. Inframammary intertrigo. 6. Family history of breast cancer. PLAN Discussed with the patient the procedure of breast reduction mammoplasty. I feel this procedure would be beneficial in this patient as it would help relieve her painful symptomatology. Her last mammogram was 05/09/18. It showed no significant masses, calcifications, or other findings seen in either breast. There is no mammographic evidence of malignancy. Cardiac device partially obscures visualization of the left axilla. At some point postoperatively in about a year, would like to get a breast reduction baseline mammogram. I would remove approximately 600 g of breast tissue per side. We will send the tissue to pathology for analysis to rule out carcinoma. Discussed with patient the extent of scarring for this procedure. The biggest risk for wound healing problems is the T-zone area. Usually wound care and sometimes antibiotics are necessary for healing in this area. She would have drains in for a few days depending on the amount of tissue that is removed. She will be on antibiotics until the drains are removed. She is at more risk of wound healing problems because of her history of lupus and being on Plaquenil when compared to the general population. In general, the final breast size will probably be in the C range. Patient voices understanding. Surgery will be done under general anesthesia with a surgical observation overnight stay in the hospital. We have obtained medical approval from her insurance carrier. The surgery is scheduled for 11/18/18. Patient was informed of the risks and complications of the procedure including alternatives to surgery. These were discussed with her personally. She voices understanding and wishes to proceed. Some of the risks and complications were included in a form from the [employer]. Patient's preop questions were answered personally and to her satisfaction. Consents have been signed. I talked to the patient's Tape Fastener Machine Operator, Dr. Hodges, who stated the pacemaker should be ok as long as the incisions are not directly over the pacemaker. I told him that the incisions are inferior to and at the nipple areolar complex. The patient was a little nervous about her upcoming surgery. I wrote a script for Valium (10 tabs) that she can take preoperatively for anxiety as well as postoperatively for muscle spasm.
--- NOTE | 2018-11-18 07:30 | BR_PTH ---
PATIENT: BIANCA JONES LOC: [id number] U#:[id number] AGE/SX: 63/F ROOM: [facility] RE11/18/[address]: Dr. Toni Sawyer MD : 1955 BED: 1 DIS: 11/19/2018 SPEC #: [id number] RECD: 11/19/18 07:54 STATUS: ANDRE REQ #: [id number] JESUS: 11/18/18 07:[address]: Toni Sawyer DEPT: SURGICAL PATHOLOGY RECD BY: Jean Claude Read ENTERED: 11/19/18 11:05 SP TYPE: MAMOPLASTY OTHR DR: Dr. Linda Loving DO Tissues: B - Right breast, NOS A - Left breast, NOS Procedures: Surgery Specimen Level IV HEADER OPERATION: Breast reduction mammoplasty PRE-OP DIAGNOSIS: Bilateral macromastia; neck pain; thoracic back pain; bilateral shoulder duran from shoulder grooving from weight of breast on bra straps; inframammary intertrigo; family history breast CA TISSUE SUBMITTED: A - Left breast tissue, B - Right breast tissue MICROSCOPIC DIAGNOSIS A. Left breast, reduction mammoplasty: Densely collagenized stroma with nonproliferative fibrocystic change. No evidence of malignancy. B. Right breast, reduction mammoplasty: Densely collagenized stroma with nonproliferative fibrocystic change. No evidence of malignancy. AM:mack 11/20/18 COMMENT Case has been reviewed in consultation with Dr. Gross who concurs with the above diagnosis. IDC:SJ MICROSCOPIC DESCRIPTION Slides are reviewed. GROSS DESCRIPTION A - Received in fixative is one container labeled with the patient's name and designated left breast tissue. The specimen consists of multiple pieces of fibroadipose tissue with a few of the pieces showing jones-white skin ellipse. The specimen weighs 668 gm and measures in aggregate 20 x 20 x 6 cm. No skin lesion is identified. Sections reveal jones-yellow adipose cut surfaces mixed with jones-white fibrous areas. No mass lesion is identified. Sections reveal yellow adipose cut surfaces with scant fibrous areas. Vice Chairman sections are submitted in six cassettes. Cassette 1 also contains the skin piece. B - Received in fixative is one container labeled with the patient's name and designated right breast tissue. The specimen consists of multiple pieces of fibroadipose tissue with a few of the pieces showing jones-white skin ellipse. The specimen weighs 690 gm and measures in aggregate 22 x 19 x 7 cm. No skin lesion is identified. Sections reveal jones-yellow adipose cut surfaces mixed with jones-white fibrous areas. No mass lesion is identified. Sections reveal yellow adipose cut surfaces with scant fibrous areas. Vice Chairman sections are submitted in six cassettes. Cassette 1 also contains the skin piece. / SJ:rg 11/19/18 TC:5 CPT: 10858 x2
--- NOTE | 2018-11-18 12:28 | OP.PCM_ITS ---
Report of Operation Date of Procedure: 11/18/18 Pre-Operative Diagnosis: 1. Bilateral macromastia. 2. Neck pain. 3. T horacic back pain. 4. Bilateral shoulder pain from shoulder grooving from the weight of the breasts on her bra straps. 5. Inframammary intertrigo. 6. Family history of breast cancer. Post-Operative Diagnosis: Same. Surgery/Procedure Performed:: Bilateral breast reduction mammaplasty. Description of Surgical Findings:: 63 year old woman presents with complaints of bilateral macromastia as well as associated painful symptomatology of neck pain, thoracic back pain, bilateral shoulder pain from shoulder grooving from the weight of her breasts on her bra straps, and inframammary intertrigo for which she uses powders for relief. She denies any trauma to her breasts. Denies any nipple discharge. She has seen a Chiropractor in the recent past for her painful symptomatology without much relief. Her last mammogram was 05/09/18. It showed no significant masses, calcifications, or other findings seen in either breast. There is no mammographic evidence of malignancy. Cardiac device partially obscures visualization of the left axilla. She has a family history of breast cancer. She was recently diagnosed with lupus 2 years ago and is on Plaquenil. She has had a pacemaker for 10 years in the left upper chest wall, and it was revised 2 years ago. Her next pacemaker appointment at [facility] is in November. Patient was informed of the risks and complications of the procedure including alternatives to surgery. These were discussed with the patient personally. Patient voices understanding and wishes to proceed. Some of the risks and complications were included in a form from the [place] [employer]. IV Fluids - 2300 ml. Urine Output - 1500 ml. Tissue removed from the left breast - 646 grams. Tissue removed from the right breast - 662 grams. I used Nathaly absorbable hemostat, (I used 4 vials, 2 in each breast). Reference Number - [id number]. Lot Number - [id number]. Expiration - June 26, 2023. acid pumper: Lobo Wilkinson. Type of Anesthesia:: General Specimen's removed: 1. Left breast tissue to Pathology. 2. Right breast tissue to Pathology. Drains: Demetrius x2 (one in each breast). Estimated Blood Loss (mL): 150 ml. Fluids Replaced: 3800 ml (IV Fluids 2300 ml, Urine Output 1500 ml). Description of Procedure: The patient was taken to the operating room and in the sitting position, preoperative markings were made. The sternum midline was marked down to the umbilicus. The inframammary folds were marked bilaterally. The midclavicular line was then marked down to the nipple, then from the nipple to the inframammary fold. The inframammary fold was then superimposed on the midclavicular line and I made a point 1 cm below that to be the new position of the nipple-areolar complex. 7 cm lines were then drawn divergent from that point to encompass the nipple-areolar complex. The distance between the divergent lines was 9 cm. The patient was then placed in the supine position and placed under general anesthesia and her breasts were prepped and draped in usual fashion. SCDs were placed for DVT prophylaxis. Perioperative antibiotics were given intravenously. A Brush catheter was also placed. I then tattooed the preoperative markings with methylene blue and 25-gauge needle. I also tattooed the 12 o'clock position of the nipple-areolar complex to help with positioning of the nipple-areolar complex when it is brought through the keyhole incision at the end of the procedure to minimize kinking and twisting of the central breast mound pedicle. I then grace straight lines down from the lines drawn divergent around the nipple-areolar complex down to the inframammary fold. The width of the pedicle is 9 cm. I then used a 42 mm circular template for a new size of the nipple-areolar complex. The central markings were infiltrated with Xylocaine and epinephrine. The central skin was then deepithelialized. I started on the left side first and then went to the right side. I then mobilized medial and lateral breast flaps at the level of Vickie's fascia down to within a centimeter of the chest wall. This was met in the midline of the breast with dissection at the level of Vickie's fascia down to within a centimeter of the chest wall. Care was taken to keep the pacemaker out away from the dissection. When I elevated the breast skin flaps superiorly, the pacemaker was palpable. No exposure of the pacemaker was seen. Once the central breast mound pedicle was from the skin envelope, the reduction was then begun. Most of the tissue was removed from the superior aspect of the breast and the lateral aspect of the breast. I then sutured the leading edge of the medial and lateral breast flaps to the midline of the inframammary fold with 2-0 Vicryl suture. The vertical incision was approximated using surgical clips. The excess tissue from the medial and lateral breast flaps were excised and the horizontal incision was approximated using surgical clips. The patient was then placed in a sitting position. Using a vertical limb length of 4 cm, I grace the new position of the new nipple-areolar complexes on both breasts. They were in good position on the central aspect of the breast mound. Good symmetry was noted between the left breast and the right breast. Good shape and contour and projection was noted and appeared clinically to be a full C cup. The patient was then placed back in the supine position and the surgical clips were removed. The breast wounds were then irrigated with saline. Hemostasis was obtained using electrocautery. The tissue removed from the left breast was 646 grams. The tissue removed from the right breast was 662 grams. The tissue that was removed from the breasts was sent to Pathology for analysis to rule out carcinoma. After hemostasis was obtained using electrocautery, I then sprayed Nathaly absorbable hemostat into both breast wounds. I used two vials for each side. I then placed a size 15 Demetrius drain into each breast wound to be brought through the lateral aspect of the horizontal incision. I then closed the breast wounds by first approximating the leading edge of the medial and lateral breast flaps to the midline of the inframammary fold with 2-0 Vicryl suture. The deep dermis and subcutaneous tissue of the vertical incision and the horizontal incisions were approximated using 3-0 Monocryl interrupted sutures. The horizontal incision was then approximated using 4-0 V-Loc unidirectional barbed running subcuticular suture. I also placed a few 4-0 Prolene vertical mattress interrupted sutures at the level of the Tzone. The vertical incision was then closed on the skin with 4-0 Prolene interrupted sutures. With a vertical limb length of 4 cm, I grace a circular incision where the nipple-areolar complex would be brought through this keyhole incision. Incisions were made and the nipple areolar complex was brought through the keyhole incision. The 12 o'clock position of the nipple-areolar complex was lined up with the 12 o'clock position of the breast skin. The nipple-areolar complex was secured to the breast skin using 3-0 Monocryl interrupted sutures for deep dermis and subcutaneous tissue. The skin was approximated using 4-0 Prolene simple interrupted sutures. This was then covered with Histoacryl skin tissue adhesive. I sutured the drain to the skin using 3-0 nylon suture. At the end of the procedure, the breasts were soft with no evidence of vascular compromise. No evidence of hematomas were noted. The nipples were viable. I then dressed the breasts with a Kerlix gauze and a surgical bra. The patient tolerated the procedure well and will be sent to the recovery room in satisfactory condition. She will be admitted for surgical observation overnight stay. She will go home tomorrow once she is tolerating oral pain medication. I will remove the drains in a few days. She will be maintained on antibiotics until the drains are removed. She will keep her head elevated during the initial postoperative period. She will be maintained on a lifting restriction and keep her head elevated during the initial postoperative period. Postoperatively, she may get a compression sports bra as well. She will have the Brush removed in the morning. She will be sent home on antibiotics and pain medicine for a few days. Sutures will be removed in 1-2 weeks. Grafts/Implants Used: None. - Complications None. - Admit VTE Documentation VTE Present on Admission: No VTE Mechan Device Prophylaxis: SCD's VTE Pharm Prophylaxis ordered?: Yes Code Visit Surgery Charges CPT - 72702 ICD-10 - N62, M54.2, M54.6, M25.519, L30.4, Z80.3 25124-97 N62, M54.2, M54.6, M25.519, L30.4, Z80.3
--- NOTE | 2018-11-18 14:56 | NURSING ---
PACU IVF BAG OF LR SET AT 60- MAR ADJUSTED ACCORDINGLY
[2018-11-18] MEDS: HYDROmorphone 1 MG/ML Syringe IV (15:05)
[2018-11-18] MEDS: Lactated Ringers 1,000 ML 60 ML IV (16:51)
[2018-11-18] MEDS: oxyCODONE 5 MG Tablet 10 MG PO ×2 (17:27→21:34)
[2018-11-18] MEDS: Albuterol 2.5 MG/3 ML VIAL.NEB. INHALATION (19:54)
[2018-11-18] MEDS: Budesonide Respules 0.5 MG/2 ML AMPUL.NEB. INHALATION (19:54)
[2018-11-18] MEDS: Docusate Sodium 100 MG Capsule PO (21:42)
[2018-11-18] MEDS: Hydroxychloroquine 200 MG Tablet PO (21:42)
[2018-11-18] MEDS: levETIRAcetam 1,000 MG Tablet 1000 MG PO (21:43)
[2018-11-19] MEDS: oxyCODONE 5 MG Tablet 10 MG PO ×4 (01:47→15:00)
[2018-11-19 02:01] VITALS: BP 110/53; PULSE 79; RESP 18; TEMP 36.8; O2SAT 93
[2018-11-19 06:05] LABS: Hematocrit 33.4 % (37-47); Hemoglobin 11.3 g/dL (12.0-15.0); Mean Corp Hgb Conc 33.8 g/dL (32-36); Mean Corpuscular Hgb 31.3 pg (27.0-32.0); Mean Corpuscular Volume 92.5 fL (81-99); Mean Platelet Vol. 10.1 fl (6.2-12.0); Platelet Count 207 K/mm3 (150-450); RBC Distribution Width CV 12.3 % (11.6-14.6); RBC Distribution Width SD 41.2 fl (35.1-43.9); Red Blood Count 3.61 M/mm3 (4.2-5.4); White Blood Count 14.3 K/mm3 (4.4-11.0)
[2018-11-19] MEDS: Enoxaparin 30 MG/0.3 ML Syringe SC (06:08)
[2018-11-19 06:26] LABS: Anion Gap 7 (5-15); BUN 14 mg/dL (7-18); BUN/Creat Ratio 22.2 RATIO (10-20); Calcium,Total 8.5 mg/dL (8.5-10.1); Chloride 109 mmol/L (98-107); Creatinine, Serum 0.63 mg/dL (0.55-1.02); EST Glomerular Filtration Rate 102 mL/min (>60); Est Glom Filt Rate - Afr Amer 123 mL/min (>60); Estimated Creatinine Clearance 91.19 ml/min; Glucose 106 mg/dL (74-106); Potassium 3.9 mmol/L (3.5-5.1); Prealbumin 20.5 mg/dL (20.0-40.0); Sodium Level 144 mmol/L (136-145)
[2018-11-19 07:07] VITALS: PULSE 82; RESP 17
[2018-11-19] MEDS: Albuterol 2.5 MG/3 ML VIAL.NEB. INHALATION (07:10)
[2018-11-19] MEDS: Budesonide Respules 0.5 MG/2 ML AMPUL.NEB. INHALATION (07:10)
[2018-11-19 07:53] VITALS: BP 98/50; PULSE 77; RESP 18; TEMP 36.9; O2SAT 92
[2018-11-19] MEDS: Sertraline 100 MG Tablet PO (10:06)
[2018-11-19] MEDS: Cyanocobalamin 500 MCG Tablet 1000 MCG PO (10:06)
[2018-11-19] MEDS: Acetaminophen 325 MG Tablet 650 MG PO (10:07)
[2018-11-19] MEDS: Hydroxychloroquine 200 MG Tablet PO (10:07)
[2018-11-19] MEDS: Docusate Sodium 100 MG Capsule PO (10:07)
[2018-11-19] MEDS: levETIRAcetam 1,000 MG Tablet 1000 MG PO (10:07)
[2018-11-19] MEDS: Lactated Ringers 1,000 ML 60 ML IV (10:08)
[2018-11-19 13:30] VITALS: BP 96/54; PULSE 72; RESP 16; TEMP 37; O2SAT 92
--- NOTE | 2018-11-19 17:37 | PCM.PN.SRG ---
Subjective: Postop #1 Patient is resting comfortably. - Physical Exam General: Alert, Oriented x3 HEENT: PERRLA, EOMI Oral: Moist Mucosa Neck: Supple Abdomen: Soft, Non-Distended Skin: Incision - Breast incisions dry and intact. Breasts are soft and symmetrical. Nipples are viable. No clinical evidence of hematoma. Minimal skin bruising that is resolving. No vascular compromise seen on the skin flaps. Neurological: Cranial nerves II-XII grossly intact Psych/Mental Status: Normal Affect, Appropriate Vital Signs Temp Pulse Resp BP Pulse Ox 98.6 F 72 16 96/54 L 92 11/19/18 13:30 11/19/18 13:30 11/19/18 13:30 11/19/18 13:30 11/19/18 13:30 Oxygen Delivery Method Room Air Weight: 177 lb 4.026 oz Body Mass Index (BMI) 27.7 Intake and Output for Last 24 Hours 11/17/18 11/18/18 11/19/18 23:59 23:59 23:59 Intake Total 3560 / 5677 4942 / 4942 Output Total 505 / 980 1225 / 1225 Balance 3055 / 4697 3717 / 3717 Drainage 135 ml. Laboratory Tests Past 24 Hrs 11/19/18 11/19/18 05:46 05:46 WBC 14.3 H RBC 3.61 L Hgb 11.3 L Hct 33.4 L MCV 92.5 MCH 31.3 MCHC 33.8 RDW Std Deviation 41.2 RDW Coeff of Pete 12.3 Plt Count 207 MPV 10.1 Sodium 144 Potassium 3.9 Chloride 109 H Carbon Dioxide 28.0 Anion Gap 7 BUN 14 Creatinine 0.63 Estim Creat Clear Calc 91.19 Est GFR (MDRD) Af Amer 123 Est GFR (MDRD) Non-Af 102 BUN/Creatinine Ratio 22.2 H Glucose 106 Calcium 8.5 Prealbumin 20.5 Medical Necessity - Tobacco Use Smoking Status: Current some day smoker Tobacco Use: Cigarettes Assessment/Plan All Active Problems (Last Updated 09/05/18 @ 08:32 by Rosalina Middleton) Superficial thrombophlebitis of left upper extremity (Acute) Swelling of left upper extremity (Acute) Chest pain (Acute) Dysphagia (Acute) Screen for colon cancer (Acute) 1. Bilateral macromastia. 2. Neck pain. 3. Thoracic back pain. 4. Bilateral shoulder pain from shoulder grooving from the weight of the breasts on her bra straps. 5. Inframammary intertrigo. 6. Family history of breast cancer. 7. s/p bilateral breast reduction mammaplasty. Breasts are soft and symmetrical. Nipples are viable. No clinical evidence of hematoma. She is tolerating po analgesia. Will remove her drains in the office later this week. Will maintain on antibiotics until the drains are removed. Discharge home today. Keep head elevated. Continue surgical bra and lifting restriction. Prealbumin was 20.5. Encourage nutritional supplementation with protein to help the healing process. Wrote scripts for Cleocin until the drains are removed (15 tabs) and for Acidophilus Probiotic to minimize colitis (10 tabs). Wrote script for Percocet for pain (40 tabs). Wrote scripts for Phenergan for nausea (30 tabs) and a refill and for Colace for constipation (60 tabs). Followup office on 11/21/18, to remove the drains.
--- NOTE | 2018-11-19 17:43 | DCINST_ITS ---
You will use the following diet at home:: No restrictions Discharge Activity: May not drive while taking narcotic pain medications., May Not Shower - until the drains are removed in the office., - - keep head elevated. no heavy liftng. May shower in (days): 3 - after the drains are removed in the office. May resume sexual activity in: No Restrictions Weight Bearing Status: Weight bearing as tolerated Lifting Restrictions: 20 lbs. Keep extremity elevated above heart level: - - elevate head. Call your doctor if your incision/area has: Continuous Slow Oozing, Sudden Increased Bleeding, Increased Pain/ Swelling, Increased Redness, Foul Smelling Discharge, Swelling at the incision site, - - nipples turning black. Call your doctor if you observe: Fever of 101 or Higher, Coldness, Increased Pain, Shortness of breath, Chest pain, Calf discomfort, Uncontrolled pain Suture Line Care: - - dry dressings daily. Change Dressing in (Days):: 1 - dry dressings daily. Cleanse incision/area with: - - may get incisions wet in the shower after the drains are removed in the office. Drain: Suction - daisy drain x2 to bulb suction. empty and record drainage output daily. Allergies/Adverse Reactions: Allergies epinephrine Allergy (Verified 11/12/18 08:45) SEIZURE I PASS OUT Penicillins Allergy (Verified 11/12/18 08:45) Rash Medications to take at Discharge Albuterol IH (ProAir) [Proair Hfa] 1 - 2 puff INHALATION Q4H PRN PRN 11/16/15 Budesonide/Formoterol 160/4.5 [Symbicort 160/4.5 Mcg Inhaler (SP)] 2 puff INHALATION BID 11/16/15 Sertraline HCl [Zoloft] 100 mg PO DAILY 11/16/15 levETIRAcetam tablet [Keppra tablet] 1,000 mg PO DAILY 11/16/15 Biotin 5 mg PO DAILY 10/15/16 levETIRAcetam tablet [Keppra tablet] 1,000 mg PO QHS 10/15/16 hydroxychloroquine 200 mg tablet 200 mg PO BID 09/11/17 Bran/Gum/Fib/Taty/Psyl/Kelp/Pec [Fiber 6 Tablet] 1,000 mg PO DAILY 09/19/17 Cholecalciferol (Vitamin D3) [Vitamin D3] 5,000 unit PO DAILY 09/19/17 Cyanocobalamin [Vitamin B12] 1,000 mcg PO DAILY@0800 09/19/17 diazepam 5 mg tablet 5 mg PO QHS PRN #10 tab 11/17/18 Acetaminophen [Tylenol Tablet] 650 mg PO Q4H PRN PRN tab 11/19/18 Albuterol Aerosols [Ventolin Aerosols] 2.5 mg INHALATION Q6HWA.RT vial.neb. 11/19/18 Budesonide Aerosol [Pulmicort Respules] 0.5 mg INHALATION Q12H.RT ampul.neb. 11/19/18 Clindamycin HCl [Cleocin] 300 mg PO TID #15 cap 11/19/18 Docusate Sodium [Colace] 100 mg PO BID #60 cap 11/19/18 Lactobacillus Acidophilus [Acidophilus Probiotic] 0.5 mg PO BID #10 tab 11/19/18 Oxycodone HCl/Acetaminophen [Percocet 5/325] 1 tab PO Q4H PRN PRN 7 Days #40 tab 11/19/18 proMETHazine tablet [Phenergan tablet] 25 mg PO 4X/DAY PRN PRN #30 tab 11/19/18 The following prescriptions were given: Lactobacillus Acidophilus [Acidophilus Probiotic] 0.5 mg PO BID #10 tab Prescription Printed Clindamycin HCl [Cleocin] 300 mg PO TID #15 cap Prescription Printed Docusate Sodium [Colace] 100 mg PO BID #60 cap Prescription Printed Oxycodone HCl/Acetaminophen [Percocet 5/325] 1 tab PO Q4H PRN PRN 7 Days #40 tab PRN Reason: Pain Prescription Printed proMETHazine tablet [Phenergan tablet] 25 mg PO 4X/DAY PRN PRN #30 tab PRN Reason: NAUSEA/VOMITING Prescription Printed Primary Care Physician: Linda Loving DO [Primary Care Provider] - Test Results: Test results from this visit will be discussed in further detail at your follow- up appointment, if applicable. Please Follow Up With: Toni Sawyer MD When: saturday11/21/18. call [phone] for appt. Proposed Discharge Date: 11/19/18
== END 2018-11-19 18:20 | disposition home or self-care (01) ==
LOC: ACINP 13:23 → MS3 14:08
PROVIDERS: Admitting Provider Surgery; Family Provider Family Medicine; PCP Family Medicine; Referring Provider Surgery; Visit Provider Surgery
PROC: 0H0U0ZZ Alteration of Left Breast, Open Approach (ICD-10-PCS; CPT 19318; principal; 2018-11-18 07:15)
DX: N62 Hypertrophy of breast (principal); L30.4 Erythema intertrigo; M54.2 Cervicalgia; M54.6 Pain in thoracic spine; F41.9 Anxiety disorder, unspecified; J45.909 Unspecified asthma, uncomplicated; K58.9 Irritable bowel syndrome, unspecified; G40.909 Epilepsy, unspecified, not intractable, without status epilepticus; M19.90 Unspecified osteoarthritis, unspecified site; K21.9 Gastro-esophageal reflux disease without esophagitis; M32.9 Systemic lupus erythematosus, unspecified; F17.210 Nicotine dependence, cigarettes, uncomplicated; Z80.3 Family history of malignant neoplasm of breast; Z79.899 Other long term (current) drug therapy; Z79.82 Long term (current) use of aspirin; Z95.0 Presence of cardiac pacemaker; E78.00 Pure hypercholesterolemia, unspecified; F32.9 Major depressive disorder, single episode, unspecified
CPT/HCPCS: 00402; 19318; 36415; 80048; 84134; 85027; 88305; 94640; 96365; 96366; 96372; 96375; 99218; J7120; G0378; G0379; J2405; Q9968

== ENCOUNTER → 2018-11-24 16:52 | Outpatient (CLI) | payer OTHER, SELFPAY ==
[2018-11-24 15:34] VITALS: BMI 27.7
--- NOTE | 2018-11-24 16:30 | VDUE_ITS ---
Reason For Study: PAIN Left Proximal Left jugular vein is spontaneous, widely patent, phasic, with no intraluminal echogenicity noted. Left subclavian vein is spontaneous, widely patent, phasic, with no intraluminal echogenicity noted. Left Arm Left axillary vein is spontaneous, patent, phasic, competent, compressible and demonstrates augmentation. Left brachial vein is compressible. Left cephalic vein is compressible. Basilic vein intraluminal echogenicity extends fromprox upper arm to mid forearm.. Left Lower Arm Left radial vein is compressible. Left ulnar vein is compressible. Interpretation Summary Deep veins of the left upper extremity are patent and compressible segmentally. There is no evidence of deep vein thrombosis. Acute superficial thrombophlebitis is noted in the left basilic vein from the proximal upper arm to the mid-forearm. The left cephalic vein is patent and compressible. Ordering Physician: Toni Sawyer Referring Physician: Linda Loving Performed By: Nolvia Cotton, GAGE, RVT ?
== END ==
PROVIDERS: Family Provider Family Medicine; PCP Family Medicine; Referring Provider Surgery; Visit Provider Surgery
DX: M79.89 Other specified soft tissue disorders (principal)
CPT/HCPCS: 93971

== ENCOUNTER → 2018-12-17 17:58 | Outpatient (CLI) | payer OTHER, SELFPAY ==
[2018-12-17 17:11] VITALS: BMI 27.7
== END ==
PROVIDERS: Family Provider Family Medicine; PCP Family Medicine; Visit Provider Nurse Practitioner Family
DX: N62 Hypertrophy of breast (principal); F17.200 Nicotine dependence, unspecified, uncomplicated
CPT/HCPCS: 87070; 87075; 87077; 87186; 87205

== ENCOUNTER → 2019-01-23 15:47 | Outpatient (CLI) | payer OTHER, SELFPAY ==
[2019-01-23 10:00] VITALS: BMI 27.7
== END ==
PROVIDERS: Family Provider Family Medicine; PCP Family Medicine; Referring Provider Nurse Practitioner Family; Visit Provider Nurse Practitioner Family
DX: T81.89XA Other complications of procedures, not elsewhere classified, initial encounter (principal)
CPT/HCPCS: 87070; 87075; 87077; 87186; 87205

== ENCOUNTER 2019-04-16 05:50 | Day surgery (SDC) | payer OTHER, SELFPAY ==
[2019-02-20 09:57] VITALS: BMI 27.7
[2019-03-20 10:11] VITALS: BMI 27.7
[2019-04-16] VITALS (7 sets, daily range): BP systolic 112–124; BP diastolic 62–85; PULSE 64–83; RESP 16–18; TEMP 36.1–36.7; O2SAT 93–100; BMI 27.4
--- NOTE | 2019-04-16 00:06 | PCM.HP.BLA ---
History and Physical Date of Admission: 04/16/19 HISTORY OF PRESENT ILLNESS 64 year old woman presents with a nonhealing ulcer right lateral nipple area that developed after a bilateral breast reduction mammaplasty on 11/18/18. She developed some postop wounds in the Tzone bilaterally which healed with wound care and antibiotics. She also developed a postop wound in the right lateral nipple area that has persisted. Wound culture from 12/17/18 grew Staphylococcus epidermidis and Corynebacterium amycolatum. She was placed on Bactrim and finished them. Wound cultures from 01/23/19 had no growth on the left breast. The right breast had MRSE and Staphylococcus epidermidis. She was placed on Levaquin and has finished them. PAST MEDICAL HISTORY Anxiety Asthma Dysphagia GERD (gastroesophageal reflux disease) Gallstones History of pneumonia IBS (irritable bowel syndrome) Lupus Osteoarthritis Pleural effusion Seizure disorder Chronic bronchitis PAST SURGICAL HISTORY hysterectomy knee surgery Pacemaker tonsillectomy bilateral breast reduction mammaplasty - 11/18/18 ALLERGIES epinephrine Penicillins MEDICATIONS Albuterol IH (ProAir) [Proair Hfa] Budesonide/Formoterol [Symbicort Inhaler (SP)] Sertraline HCl [Zoloft] Biotin levETIRAcetam tablet [Keppra tablet] hydroxychloroquine Bran/Gum/Fib/Taty/Psyl/Kelp/Pec [Fiber 6 Tablet] Cholecalciferol (Vitamin D3) [Vitamin D3] Cyanocobalamin [Vitamin B12] diazepam Tylenol Ventolin Colace Fluticasone Acidophilus Nystatin Phenergan FAMILY HISTORY Mother - Breast cancer, CAD (coronary artery disease), Anxiety, High cholesterol, Skin cancer Father - Cancer, CAD (coronary artery disease), Asthma, High cholesterol SOCIAL HISTORY Smoking Status: Current some day smoker alcohol intake: current alcohol intake frequency: a few times a month substance use type: does not use REVIEW OF SYSTEMS General - Denies fever and weight loss. Has fatigue. Eyes - Denies cataracts and glaucoma. ENT - Denies nasal congestion and sore throat. Endocrine - Denies excessive thirst and urination. Skin - Denies suspicious lesions and skin cancer. Has inframammary intertrigo for which she uses powders for relief. Musculoskeletal - Has joint pain, joint stiffness, weakness of muscles and joints, and arthritis. Has neck pain and back pain. Her neck and back pain involve cervical and thoracic area. Has nonhealing ulcer right lateral nipple after bilateral breast reduction mammaplasty. Has bilateral shoulder pain from shoulder grooving from the weight of her breasts on her bra straps. Neuro - Denies headaches. Cardiovascular - Denies chest pain and shortness of breath with exertion. Has fatigue. Had pacemaker placed 10 years ago in left upper chest wall and it was revised 2 years ago. Psych - Denies anxiety and depression. Respiratory - Denies shortness of breath and chronic cough. Has asthma. Gastrointestinal - Denies nausea, vomiting, diarrhea and constipation. Hematologic - Denies abnormal bruising and bleeding. Genitourinary - Denies hematuria and urinary frequency. PHYSICAL EXAMINATION General - Alert and oriented. Patient's bra size was DDD before the bilateral breast reduction mammaplasty. HEENT - PERRL. EOMI. Throat is clear. Neck - Supple. No bony tenderness. There is some pericervical soft tissue tenderness. Lungs- Clear to auscultation. Heart - Regular rate and rhythm. Breasts - Patient had recent bilateral breast reduction mammaplasty. Incisions are healed except for small nonhealing ulcer right lateral nipple. Measures 1 x 0.7 x 0.8 cm. Good granulation tissue seen. Edges of the ulcer show scar tissue curling inward. Abdomen - Soft and non distended. Back - No bony tenderness noted. There is perivertebral soft tissue tenderness in the upper thoracic area. Extremities - FROM. No axillary adenopathy. Radial pulses are palpable. There is some bilateral shoulder tenderness with shoulder grooving from the weight of her breasts on her bra straps. Neuro - CN II-XII grossly intact. Psych - Normal and mood and affect. ASSESSMENT 1. Nonhealing ulcer right lateral nipple. 2. H/o bilateral breast reduction mammaplasty. 3. Family history of breast cancer. 4. Smoker. PLAN Discussed with the patient that the healing scar tissue is turning inward which is making it difficult to heal. Recommend operative intervention with excisional debridement of the skin edges with complex secondary wound closure. This will give us a better chance of healing. Will culture the wound at the time of surgery. A positive culture will necessitate antibiotic therapy. Tissue will also be sent to Pathology for analysis to rule out carcinoma. Patient was informed of the risks and complications of the procedure including alternatives to surgery. These were discussed with the patient personally. Patient voices understanding and wishes to proceed. Some of the risks and complications were included in a form from the [employer]. Encouraged patient to stop smoking as it may have deleterious effects on wound healing. Surgery will be done under general anesthesia on an outpatient basis.
[2019-04-16 06:45] LABS: Hematocrit 43.6 % (37-47); Hemoglobin 14.6 g/dL (12.0-15.0); Mean Corp Hgb Conc 33.5 g/dL (32-36); Mean Corpuscular Hgb 30.1 pg (27.0-32.0); Mean Corpuscular Volume 89.9 fL (81-99); Platelet Count 273 K/mm3 (150-450); RBC Distribution Width CV 12.6 % (11.6-14.6); RBC Distribution Width SD 41.6 fl (35.1-43.9); Red Blood Count 4.85 M/mm3 (4.2-5.4); White Blood Count 6.7 K/mm3 (4.4-11.0)
[2019-04-16] MEDS: Lactated Ringers 1,000 ML 40 ML IV (06:54)
[2019-04-16] MEDS: Magnesium Sulfate 4gm/100mL 4 GM/100 ML IV.SOLN. IV (06:54)
[2019-04-16 06:57] LABS: Partial Thromboplast Time 26.3 Seconds (24.1-36.2)
[2019-04-16] MEDS: Lactated Ringers 1,000 ML 60 ML IV (07:00)
[2019-04-16 07:01] LABS: Anion Gap 4 (5-15); BUN 14 mg/dL (7-18); BUN/Creat Ratio 18.2 RATIO (10-20); Calcium,Total 8.9 mg/dL (8.5-10.1); Chloride 111 mmol/L (98-107); Creatinine, Serum 0.77 mg/dL (0.55-1.02); EST Glomerular Filtration Rate 81 mL/min (>60); Est Glom Filt Rate - Afr Amer 98 mL/min (>60); Glucose 105 mg/dL (74-106); Sodium Level 142 mmol/L (136-145)
[2019-04-16] MEDS: Scopolamine 1mg/72hr Patch 1 PATCH TRANSDERM. (07:01)
[2019-04-16] MEDS: Gabapentin 600 MG Tablet PO (07:02)
[2019-04-16] MEDS: Acetaminophen 500 MG Tablet 1000 MG PO (07:02)
[2019-04-16] MEDS: levoFLOXacin IV 500 MG/100 ML BAG 100 MG IV (07:24)
--- NOTE | 2019-04-16 07:30 | BRBX_PTH ---
PATIENT: BIANCA JONES LOC: [facility] U#:[id number] AGE/SX: 64/F ROOM: RE04/16/[address]: Dr. Toni Sawyer MD : [id number] BED: DIS: 04/16/2019 SPEC #: [id number] RECD: 04/16/19 10:11 STATUS: ANDRE ZEESHAN #: [id number] JESUS: 04/16/19 07:[address]: Toni Sawyer DEPT: SURGICAL PATHOLOGY RECD BY: Jean Claude Read ENTERED: 04/16/19 12:50 SP TYPE: BREAST BX OTHR DR: Dr. Linda Loving DO Tissues: Right breast, NOS Procedures: Surgery Specimen Level IV HEADER OPERATION: Debridement wound with secondary closure, nipple PRE-OP DIAGNOSIS: Nonhealing ulcer right lateral nipple TISSUE SUBMITTED: Right breast tissue MICROSCOPIC DIAGNOSIS Right breast tissue: Pieces of skin with underlying benign breast tissue with acute and chronic inflammation and fat necrosis. Epidermal inclusion cyst. SEVERIANO:mack 04/17/19 MICROSCOPIC DESCRIPTION Slides are reviewed. GROSS DESCRIPTION Received in fixative is one container labeled with the patient's name and designated right breast tissue. The specimen consists of a piece of skin with underlying tissue measuring 2.5 x 0.6 cm and up to 2 cm in thickness. The specimen is inked, serially sectioned and submitted entirely in three cassettes. / SEVERIANO:mack 04/16/19 TC:2 CPT: 04971
--- NOTE | 2019-04-16 08:40 | OP.PCM_ITS ---
Report of Operation Date of Procedure: 04/16/19 Pre-Operative Diagnosis: 1. Nonhealing ulcer right lateral nipple. 2. H/o bilateral breast reduction mammaplasty. 3. Family history of breast cancer. 4. Smoker. Post-Operative Diagnosis: Same. Surgery/Procedure Performed:: Surgical preparation right breast at lateral nipple with excisional debridement nonhealing ulcer with 6 cm complex secondary wound closure. Description of Surgical Findings:: 64 year old woman presents with a nonhealing ulcer right lateral nipple area that developed after a bilateral breast reduction mammaplasty on 11/18/18. She developed some postop wounds in the T[place] bilaterally which healed with wound care and antibiotics. She also developed a postop wound in the right lateral nipple area that has persisted. Wound culture from 12/17/18 grew Staphylococcus e pidermidis and Corynebacterium amycolatum. She was placed on Bactrim and finished them. Wound cultures from 01/23/19 had no growth on the left breast. The right breast had MRSE and Staphylococcus epidermidis. She was placed on Levaquin and has finished them. Patient was informed of the risks and complications of the procedure including alternatives to surgery. These were discussed with the patient personally. Patient voices understanding and wishes to proceed. Some of the risks and complications were included in a form from the [employer]. Encouraged patient to stop smoking as it may have deleterious effects on wound healing. I used Nathaly absorbable hemostat. Reference Number - [id number]. Lot Number - [id number]. Expiration - December 25, 2023. rehabilitation construction specialist: None Type of Anesthesia:: General Specimen's removed: Right breast tissue to Pathology and Microbiology. Drains: None. Estimated Blood Loss (mL): 5 ml. Description of Procedure: Patient was taken to OR in supine position and was placed under general anesthesia. The right breast was prepped and draped in the usual fashion. Ioban draping was also used. SCD's were placed for DVT prophylaxis. Perioperative antibiotics were given intravenously. Using xylocaine with epinephrine, the nonhealing ulcer right breast at lateral nipple was infiltrated. After waiting 5 minutes for the anesthetic to take effect, I made a crescenteric incision around the ulcer at the level of the lateral nipple. Dissection was carried down into the subcutaneous tissue. Extensive scar tissue was seen and excised and debrided until soft breast tissue was seen. No pus was seen. The wound was irrigated with Irrisept 0.05% Chlorhexidine solution and then followed with saline irrigation. Hemostasis was obtained with electrocautery. The tissue that was excised and debrided was sent to Pathology for analysis to rule out carcinoma and to Microbiology for culture. A positive culture will necessitate antibiotic therapy. I sprayed Nathaly absorbable hemostat into the breast wound to minimize seroma formation. I felt the wound was not large enough to warrant placement of a drain. The wound was then closed in a multiple layered complex fashion. The length of the crescenteric incision for closure was 6 cm. I used 3-0 Monocryl figure of eight interrupted sutures for the deep breast tissue. The deep dermis and subcutaneous tissue was approximated with 3-0 Monocryl interrupted sutures. The skin was approximated with 4-0 Prolene simple interrupted and vertical mattress interrupted sutures. Antibiotic ointment was applied to the incision followed by Kerlix gauze dressing and a surgical bra. Patient tolerated the procedure well and was sent to PACU in satisfactory condition. Patient will be sent home on antibiotics and pain medication. She will keep her head elevated during the initial postoperative period. Patient will followup in a week for a wound check and for discussion of the pathology report and for discussion of the microbiology report. The sutures will be removed in two weeks. Grafts/Implants Used: None. - Complications None. - Admit VTE Documentation VTE Present on Admission: No VTE Mechan Device Prophylaxis: SCD's VTE Pharm Prophylaxis ordered?: No Code Visit Surgery Charges CPT - 40513 ICD-10 - L98.492, N62, M32.9, F17.200 48521 L98.492, N62, M32.9, F17.200
--- NOTE | 2019-04-16 09:04 | PCM.DC ---
You will use the following diet at home:: No restrictions, Other - encourage nutritional supplementation with protein to help the healing process. Discharge Activity: May Shower - in two days., - - no heavy lifting. keep head elevated. May shower in (days): 2 May resume sexual activity in: No Restrictions Weight Bearing Status: Weight bearing as tolerated Lifting Restrictions: 20 lbs. Keep extremity elevated above heart level: - - elevate head. Call your doctor if your incision/area has: Continuous Slow Oozing, Sudden Increased Bleeding, Increased Pain/ Swelling, Increased Redness, Foul Smelling Discharge, Swelling at the incision site Call your doctor if you observe: Fever of 101 or Higher, Coldness, Increased Pain, Shortness of breath, Chest pain, Calf discomfort, Uncontrolled pain Suture Line Care: - - dry dressing daily. Change Dressing in (Days):: 2 - dry dressing daily. Remove Dressing in (days):: 2 Cleanse incision/area with: - - may get incision wet in the shower in two days. Allergies/Adverse Reactions: Allergies epinephrine Allergy (Verified 04/16/19 06:37) SEIZURE I PASS OUT Penicillins Allergy (Verified 04/16/19 06:37) Rash Medications to take at Discharge Albuterol IH (ProAir) [Proair Hfa] 1 - 2 puff INHALATION Q4H PRN PRN 11/16/15 Sertraline HCl [Zoloft] 100 mg PO DAILY 11/16/15 levETIRAcetam tablet [Keppra tablet] 1,000 mg PO DAILY 11/16/15 Biotin 5 mg PO DAILY 10/15/16 levETIRAcetam tablet [Keppra tablet] 1,000 mg PO QHS 10/15/16 hydroxychloroquine 200 mg tablet 200 mg PO BID 09/11/17 Bran/Gum/Fib/Taty/Psyl/Kelp/Pec [Fiber 6 Tablet] 1,000 mg PO DAILY 09/19/17 Cholecalciferol (Vitamin D3) [Vitamin D3] 5,000 unit PO DAILY 09/19/17 Cyanocobalamin [Vitamin B12] 1,000 mcg PO DAILY@0800 09/19/17 diazepam 5 mg tablet 5 mg PO QHS PRN #10 tab 11/17/18 Albuterol Aerosols [Ventolin Aerosols] 2.5 mg INHALATION Q6HWA.RT vial.neb. 11/19/18 Budesonide Aerosol [Pulmicort Respules] 0.5 mg INHALATION Q12H.RT ampul.neb. 11/19/18 Docusate Sodium [Colace] 100 mg PO BID #60 cap 11/19/18 nystatin 100,000 unit/mL oral suspension 5 ml PO 4X/DAY 14 Days #300 ml 01/20/19 Fluticasone/Vilanterol [Breo Ellipta 200-25 Mcg INH] 1 puff IH DAILY 04/15/19 Lactobacillus Acidophilus/Fos [Acidophilus Probiotic Tablet] 1 ea PO BID #20 tab 04/16/19 Oxycodone HCl/Acetaminophen [Percocet 5/325] 1 tab PO Q6H PRN PRN 7 Days #30 tab 04/16/19 levoFLOXacin tablet [Levaquin tablet] 500 mg PO DAILY #10 tab 04/16/19 levoFLOXacin tablet [Levaquin tablet] 500 mg PO DAILY #10 tab 04/16/19 proMETHazine tablet [Phenergan tablet] 25 mg PO 4X/DAY PRN PRN #30 tab 04/16/19 The following prescriptions were given: Lactobacillus Acidophilus/Fos [Acidophilus Probiotic Tablet] 1 ea PO BID #20 tab Transmission Status: Received by [facility] #30 levoFLOXacin tablet [Levaquin tablet] 500 mg PO DAILY #10 tab Transmission Status: Received by [facility] #30 levoFLOXacin tablet [Levaquin tablet] 500 mg PO DAILY #10 tab Transmission Status: Received by [facility] #30 Oxycodone HCl/Acetaminophen [Percocet 5/325] 1 tab PO Q6H PRN PRN 7 Days #30 tab PRN Reason: Pain Score 4-5/10 Transmission Status: Received by [facility] #30 proMETHazine tablet [Phenergan tablet] 25 mg PO 4X/DAY PRN PRN #30 tab PRN Reason: Nausea Transmission Status: Received by [facility] #30 Primary Care Physician: Linda Loving DO [Primary Care Provider] - Test Results: Test results from this visit will be discussed in further detail at your follow-up appointment, if applicable. Please Follow Up With: Toni Sawyer MD When: one week. call [phone] for appt. Proposed Discharge Date: 04/16/19
[2019-04-16] MEDS: oxyCODONE 5 MG Tablet PO ×2 (09:29)
== END 2019-04-16 11:18 | disposition home or self-care (01) ==
LOC: SDC 05:51 → AC 05:52
PROVIDERS: Anesthesiology; Family Provider Family Medicine; PCP Family Medicine; Referring Provider Surgery; Visit Provider Surgery
PROC: (CPT 13160; principal; 2019-04-16 07:15)
DX: L98.492 Non-pressure chronic ulcer of skin of other sites with fat layer exposed (principal); N60.81 Other benign mammary dysplasias of right breast; N62 Hypertrophy of breast; Z80.3 Family history of malignant neoplasm of breast; M32.9 Systemic lupus erythematosus, unspecified; F32.9 Major depressive disorder, single episode, unspecified; F41.9 Anxiety disorder, unspecified; J45.909 Unspecified asthma, uncomplicated; M19.90 Unspecified osteoarthritis, unspecified site; G40.909 Epilepsy, unspecified, not intractable, without status epilepticus; F17.200 Nicotine dependence, unspecified, uncomplicated; Z95.0 Presence of cardiac pacemaker; Z79.899 Other long term (current) drug therapy
CPT/HCPCS: 00400; 13160; 15002; 36415; 80048; 85027; 85730; 87015; 87070; 87075; 87102; 87116; 87176; 87205; 87206; 88305; J7120; J2405

== ENCOUNTER → 2019-05-08 09:05 | Outpatient (CLI) | payer OTHER, SELFPAY ==
[2019-04-16 07:06] VITALS: BMI 27.4
[2019-04-28 09:43] VITALS: BMI 27.4
--- NOTE | 2019-05-08 09:07 | US_ITS ---
STUDY: ABDOMINAL ULTRASOUND - RIGHT UPPER QUADRANT REASON FOR VISIT: Female, 64 years old F/U GALLBLADDER POLYP TECHNIQUE: Ultrasound evaluation of the right upper quadrant was performed with real-time and static ortega-scale imaging. TECHNICAL QUALITY: Limited. Examination limited by bowel gas. COMPARISON: 02/28/2018. FINDINGS: Liver: The liver measures 16.5 cm. There is increased echogenicity consistent with fatty infiltration. The bile ducts are within normal limits. There is hepatic color flow. The direction of portal flow is hepatopetal. There is no demonstrated mass lesion. Gallbladder: Normal distended gallbladder. The gallbladder wall measures 1.9 mm. There is a negative sonographic Bell''s sign. There is no pericholecystic fluid. A small gallbladder polyp demonstrated measuring 0.2 x 0.2 cm. No gallstones or sludge. Common Bile Duct (C.B.D.): The common bile duct measures 4.0 mm. Pancreas: Partial obscuration of the head and tail of the pancreas with normal size of the visualized head, body and tail of the pancreas. There is normal echogenicity of the visualized pancreas. There is no demonstrated pancreatic mass or cyst. Right Kidney: Normal size of the right kidney. The right kidney measures 10.7 x 6.2 x 4.3 cm. Normal renal cortex. The right cortex measures 1.2 cm. There is no demonstrated renal mass or cyst. There is no right hydronephrosis. US/Abdomen Limited IMPRESSION: Small gallbladder polyp measuring 0.3 x 0.2 cm with no stones or signs of acute cholecystitis. Diffuse fatty liver. Suboptimally seen pancreas, remainder of the right upper quadrant ultrasound unremarkable. Electronically Signed: Oly Kirk MD at 4:02 EST , Service support ,
== END ==
PROVIDERS: Family Provider Family Medicine; PCP Family Medicine; Referring Provider Surgery; Visit Provider Surgery
DX: L98.492 Non-pressure chronic ulcer of skin of other sites with fat layer exposed (principal); M32.9 Systemic lupus erythematosus, unspecified; T81.89XA Other complications of procedures, not elsewhere classified, initial encounter
CPT/HCPCS: 76705; 87070; 87205

== ENCOUNTER 2019-06-12 16:31 | Emergency (ER) | payer OTHER, SELFPAY ==
[2019-05-29 10:07] VITALS: BMI 27.4
[2019-06-12 16:35] VITALS: BP 132/87; PULSE 70; RESP 15; TEMP 37; O2SAT 96; BMI 29.1
--- NOTE | 2019-06-12 17:23 | NURSING ---
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 no answer. pt does not wish to have a drug screen done at this time. states will talk to her boss tomorrow.
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
[2019-06-12] MEDS: Acetaminophen 500 MG Tablet 1000 MG PO (17:36)
[2019-06-12 17:40] VITALS: BP 141/91; RESP 18
== END 2019-06-12 17:50 | disposition home or self-care (01) ==
LOC: ED 17:41
PROVIDERS: Emergency Provider Emergency Medicine; PCP Family Medicine
DX: S09.90XA Unspecified injury of head, initial encounter (principal); Y04.2XXA Assault by strike against or bumped into by another person, initial encounter; Y93.F9 Activity, other caregiving; Y92.199 Unspecified place in other specified residential institution as the place of occurrence of the external cause; Y99.0 Civilian activity done for income or pay; G40.909 Epilepsy, unspecified, not intractable, without status epilepticus; M32.9 Systemic lupus erythematosus, unspecified; F17.200 Nicotine dependence, unspecified, uncomplicated; Z79.899 Other long term (current) drug therapy; Z88.0 Allergy status to penicillin; Z90.710 Acquired absence of both cervix and uterus; Z95.0 Presence of cardiac pacemaker
CPT/HCPCS: 99283

== ENCOUNTER 2019-06-16 17:42 | Emergency (ER) | payer OTHER, SELFPAY ==
[2019-06-16 16:44] VITALS: BMI 29.0
[2019-06-16 17:44] VITALS: BP 138/87; PULSE 72; RESP 18; TEMP 36.6; O2SAT 96; BMI 27.4
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
[2019-06-16] MEDS: Ondansetron ODT 4 MG Tablet 8 MG PO (20:10)
[2019-06-16 20:11] VITALS: BP 143/101; PULSE 67; RESP 16; O2SAT 94
== END 2019-06-16 20:13 | disposition home or self-care (01) ==
LOC: ED 18:22
PROVIDERS: Emergency Provider Emergency Medicine; PCP Family Medicine
DX: S06.0X0A Concussion without loss of consciousness, initial encounter (principal); Y04.2XXA Assault by strike against or bumped into by another person, initial encounter; Y93.F9 Activity, other caregiving; Y92.199 Unspecified place in other specified residential institution as the place of occurrence of the external cause; Y99.0 Civilian activity done for income or pay; G40.909 Epilepsy, unspecified, not intractable, without status epilepticus; M32.9 Systemic lupus erythematosus, unspecified; M54.6 Pain in thoracic spine; G89.29 Other chronic pain; F17.200 Nicotine dependence, unspecified, uncomplicated; Z79.82 Long term (current) use of aspirin; Z79.899 Other long term (current) drug therapy; Z88.0 Allergy status to penicillin; Z90.710 Acquired absence of both cervix and uterus; Z95.0 Presence of cardiac pacemaker
CPT/HCPCS: 70450; 99283

== ENCOUNTER 2019-08-03 13:00 | Outpatient (RCR) | payer OTHER, SELFPAY ==
[2019-06-22 15:34] VITALS: BMI 27.4
[2019-07-03 10:05] VITALS: BMI 27.4
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
--- NOTE | 2019-08-05 15:00 | HP.PTDCSUM ---
It has been my pleasure to treat BIANCA JONES referred by SOTO Jimenez, with the diagnosis of Contusion, head for a total of 11 visit(s). Discharge Date: 08/05/19 Please see the following information for a summary of their discharge status. Subjective: Back to work today. I have a headache. 10/06. % Improvement: 95 Objective/Function: continues to have mild symptoms with ground to overheads. went for a walk and lifted weights on saturday, yoga and a walk yesterday. compliant with home exercises. Goal 1:: VOR without goofy symptoms x 1 minute Goal Progress: Goal Met Goal 2:: patient feel 90% better with focus and concentration/dizzyness Goal Progress: Goal Met Goal 3:: Patient back to normal workout without any symptoms. Goal Progress: ready Goal 4:: Pt ready to return to work without screentime limitations. Goal Progress: Goal Met Goal 5:: DHI < 10% disability. Goal Progress: ? Plan: Pt cancelled last visit as she is doing well adn can do her exercises at home. She does not wish to reschedule follow up due to doing well and approval expiring. D/C If there are questions or concerns regarding this patient's physical therapy, please feel free to call me at [phone]. Thank you for the referral of this patient. Sincerely, Julian Mei, DPT, OCS, CSCS
== END 2019-08-03 19:00 | disposition home or self-care (01) ==
LOC: PT 13:00
PROVIDERS: PCP Family Medicine; Referring Provider Physician Assistant Surgical; Visit Provider Physician Assistant Surgical
DX: S00.83XD Contusion of other part of head, subsequent encounter (principal)
CPT/HCPCS: 97110; 97162; 97530

== ENCOUNTER → 2019-11-03 17:41 | Outpatient (CLI) | payer OTHER, SELFPAY ==
[2019-07-31 10:00] VITALS: BMI 27.4
== END ==
PROVIDERS: PCP Family Medicine; Referring Provider Family Medicine; Visit Provider Family Medicine
DX: Z20.828 Contact with and (suspected) exposure to other viral communicable diseases (principal)
CPT/HCPCS: 87635; G2023; U0003

== ENCOUNTER 2019-12-28 09:45 | Emergency (ER) | payer OTHER, SELFPAY ==
[2019-07-31 10:00] VITALS: BMI 27.4
[2019-12-28 09:48] VITALS: BP 140/103; PULSE 63; RESP 16; TEMP 36.3; O2SAT 96; BMI 27.4
--- NOTE | 2019-12-28 09:58 | CT_ITS ---
STUDY: CT ABDOMEN AND PELVIS WITH CONTRAST REASON FOR EXAM: Female, 64 years old. RLQ PAIN X 4 DAYS RADIATION DOSAGE (If Supplied By Facility): CTDIvol = ( 14.22 ) mGy, DLP = ( 1033.49 ) mGycm TECHNIQUE: Transaxial images were obtained from the dome of the diaphragm to the symphysis pubis without oral contrast. Oral and IV Gastrografin and 100mL Isovue-300 was administered. Sagittal and coronal images were reconstructed. Individualized dose optimization techniques were used for this CT. COMPARISON: None. FINDINGS: The visualized lung bases are unremarkable. The visualized portions of the heart are within normal limits. There is decreased attenuation of the liver consistent with steatosis. Normal gallbladder and extrahepatic biliary system. Normal spleen. Normal pancreas. Normal bilateral adrenal glands. Unremarkable right kidney. Unremarkable left kidney. Normal visualized stomach. Normal small intestine. Normal colon. The appendix is visualized and appears normal. Normal abdominal aorta. Normal inferior vena cava. Normal retroperitoneum. Normal urinary bladder. Normal abdominal wall. Normal osseous structures. CT/Abdomen/Pelvis WITH Contrast IMPRESSION: The appendix is visualized and appears normal. Electronically Signed: Milagro Mahmood MD at 12:58 EDT Tel , Service support ,
--- NOTE | 2019-12-28 09:59 | ED.VISSUMM ---
- ER Visit Summary Date of Service: 12/28/19 Chief Complaint: Abdominal pain History of Present Illness: The patient is a 64 F presenting with right lower quadrant abdominal pain. Patient states this started 3 days ago. She has pain in the right lower quadrant. She has associated nausea and vomiting. She states she had diarrhea on Saturday but this has resolved. She denies urinary complaints. Denies fever. She has had a decreased appetite. Denies other complaints. Physical Examination: Vitals are stable. Patient is afebrile. Alert no acute distress. HEENT exam is unremarkable. Neck is supple. Lungs are clear and equal bilaterally. Heart is regular rate and rhythm. Abdomen is soft right lower quadrant tenderness with no guarding or rebound Extremities are unremarkable. Skin is warm and dry. Remainder of exam is unremarkable. Emergency Department Course and Treatment: Patient was given IV morphine, Zofran. CBC, chemistries unremarkable. Liver lipase normal. Urinalysis unremarkable. CT abdomen pelvis shows the appendix is visualized and appears normal. On re-evaluation, patient is resting comfortably. She feels improved. She is given prescription for Bentyl and Zofran. She is advised to follow-up with her primary care physician. Advised return to ED for worsening complaints. Disposition: Discharge home Impression: Abdominal pain This note was generated with Peer5 dictation software. It may contain incorrect words, spelling, and punctuation that were not noted in review of the chart prior to signing ED Disposition - Plan for ED Patient: Instructions: ED Abdominal Pain Unkn Cause Fem Prescriptions: Dicyclomine HCl [Bentyl] 20 mg PO TIDAC #20 cap Prescription Printed Ondansetron [Zofran Odt] 4 mg PO Q8H PRN PRN #10 tab PRN Reason: Nausea Prescription Printed Referrals: Garland Soto MD [STAFF PHYSICIAN] - Linda Loving DO [Primary Care Provider] -
[2019-12-28 10:07] LABS: Absolute Lymphocyte Count 1.78 X10^3/uL (0.83-4.51); Absolute Neutrophil Count 6.1 X10^3/uL (2.0-7.7); Basophil# 0.06 X10^3/uL; Basophil% 0.7 % (0-1); Eosinophil# 0.12 X10^3/uL; Eosinophils% 1.3 % (0-5); Hematocrit 46.8 % (37-47); Hemoglobin 15.2 g/dL (12.0-15.0); Lymphocyte # 1.78 X10^3/ul (4.0); Mean Corp Hgb Conc 32.5 g/dL (32-36); Mean Corpuscular Hgb 30.4 pg (27.0-32.0); Mean Corpuscular Volume 93.6 fL (81-99); Mean Platelet Vol. 9.7 fl (6.2-12.0); Monocyte# 0.82 X10^3/uL; Monocyte% 9.2 % (0-10); NRBC Flagged by Analyzer 0 % (0-5); Neutrophil # 6.12 X10^3/uL (2.7-7.7); Neutrophil % 68.7 % (47-70); Platelet Count 299 K/mm3 (150-450); RBC Distribution Width CV 12.7 % (11.6-14.6); RBC Distribution Width SD 43.5 fl (35.1-43.9); White Blood Count 8.9 K/mm3 (4.4-11.0)
[2019-12-28] MEDS: Ondansetron 4 MG/2 ML Vial IV (10:12)
[2019-12-28] MEDS: Morphine 4 MG/ML Syringe IV (10:12)
[2019-12-28 10:23] LABS: ALB/GLOB Ratio 1.2 RATIO (0.9-2.4); AST(SGOT) 12 U/L (15-37); Alanine Aminotransfer ALT/SGPT 28 U/L (13-56); Albumin, Serum 4.3 g/dL (3.2-5.0); Alkaline Phosphatase 74 U/L (45-117); Anion Gap 4 (5-15); BUN 11 mg/dL (7-18); BUN/Creat Ratio 15.3 RATIO (10-20); Calcium,Total 9.5 mg/dL (8.5-10.1); Chloride 109 mmol/L (98-107); Creatinine, Serum 0.72 mg/dL (0.55-1.02); EST Glomerular Filtration Rate 87 mL/min (>60); Est Glom Filt Rate - Afr Amer 105 mL/min (>60); Estimated Creatinine Clearance 75.84 ml/min; Globulin 3.5 g/dL (2.2-4.2); Glucose 98 mg/dL (74-106); Lipase 152 U/L (73-393); Potassium 4.2 mmol/L (3.5-5.1); Protein, Total 7.8 g/dL (6.4-8.2); Sodium Level 142 mmol/L (136-145)
[2019-12-28 10:40] LABS: Bacteria 0 SEEN /hpf (None Seen); Mucous, Urine 0 SEEN /hpf (<or=2+); Red Blood Cells-Urine 0 SEEN /hpf (0-5); White Blood Cells 0 SEEN /hpf (0-5)
[2019-12-28 10:57] LABS: Color, Urine Yellow (Yellow); Glucose, Dipstick Normal (Normal); Ketone-Dipstick Negative (Negative); Leukocyte Esterase-Dipstick Negative /ul (Negative); Nitrite-Dipstick Negative (Negative); Occult Blood-Urine Negative /ul (Negative); Protein-Dipstick Negative (Negative); Urine Bilirubin Dipstick Negative (Negative); Urine Clarity Sl. Cloudy (Clear); Urine Urobilinogen Normal (Normal); Urine pH 6.5 (5.0 - 8.0)
[2019-12-28 11:04] LABS: Squamous Epithelial Cells - UA 0-5 SEEN /hpf (5-10)
[2019-12-28 12:32] VITALS: RESP 18
--- NOTE | 2019-12-28 13:25 | ED.DEP ---
ED Disposition - Plan for ED Patient: Instructions: ED Abdominal Pain Unkn Cause Fem Prescriptions: Dicyclomine HCl [Bentyl] 20 mg PO TIDAC #20 cap Prescription Printed Ondansetron [Zofran Odt] 4 mg PO Q8H PRN PRN #10 tab PRN Reason: Nausea Prescription Printed Referrals: Linda Loving DO [Primary Care Provider] - Garland Soto MD [STAFF PHYSICIAN] -
== END 2019-12-28 13:47 | disposition home or self-care (01) ==
PROVIDERS: Emergency Provider Emergency Medicine; PCP Family Medicine
DX: R10.31 Right lower quadrant pain (principal); R11.2 Nausea with vomiting, unspecified; Z79.82 Long term (current) use of aspirin
CPT/HCPCS: 74177; 80053; 81001; 83690; 85025; 96374; 96375; 99283; J7050; Q9967; A4216; J2405

== ENCOUNTER → 2020-01-01 07:56 | Outpatient (CLI) | payer OTHER, SELFPAY ==
[2019-12-30 09:25] VITALS: BMI 27.4
--- NOTE | 2020-01-01 07:56 | NM_ITS ---
CLINICAL: 64-year-old female with reported history of right upper quadrant abdominal pain and nausea. CCK RADIONUCLIDE HEPATOBILIARY SCINTIGRAPHY COMPARISON: CT of the abdomen-pelvis report 12/28/2019 fatty meal hepatobiliary scintigraphy study report 09/06/2017 FINDINGS: Following the intravenous administration of 6.0 mCi of 99m Tc Mebrofenin, hepatobiliary images reveal: 1. Relatively prompt and homogeneous radiopharmaceutical concentration is noted by a normal sized liver. No parenchymal defects are identified. 2. Gallbladder activity is identified at 10 minutes post radiopharmaceutical administration. 3. Small intestinal tract is observed at 30 minutes following tracer injection. 4. Washout of the radiopharmaceutical by the hepatic parenchyma appears qualitatively normal. Cholecystokinin (0.02 ug/kg) was administered intravenously over a 30-minute period. The post CCK gallbladder ejection fraction calculated at 20 minutes following Cholecystokinin administration was noted to be 84.0 % (normal greater than 35%). During 30 minutes of post CCK imaging, there is no scintigraphic evidence of reflux of the radiotracer into the common hepatic duct or refilling of the gallbladder. [place]/Hepatobilliary Img w/Pharm Int IMPRESSION: 1. NORMAL 99m Tc Mebrofenin hepatobiliary imaging examination with Cholecystokinin. A. A gallbladder ejection fraction calculated to be greater than 35% following the administration of Cholecystokinin makes the probability of functional hepatobiliary disease (gallbladder and/or sphincter of Oddi dyskinesia) and/or organic hepatobiliary disease (chronic acalculous cholecystitis and/or cystic duct syndrome) to be low. (Waleska Krause et al, Journal of Nuclear Medicine 32:1695, 1990). B. Overall compared to the previous fatty meal hepatobiliary scintigraphy study report dated 09/06/2017, there is no significant interval change. Electronically Signed: Boogie Robledo DO at 23:00 EDT Tel , Service support ,
== END ==
PROVIDERS: PCP Family Medicine; Referring Provider Surgery; Visit Provider Surgery
DX: R10.11 Right upper quadrant pain (principal)
CPT/HCPCS: 78227; A9537; J2805

== ENCOUNTER → 2020-01-06 15:43 | Outpatient (CLI) | payer OTHER, SELFPAY ==
[2020-01-05 14:33] VITALS: BMI 27.4
--- NOTE | 2020-01-06 15:58 | RAD_ITS ---
STUDY: X-RAY CHEST REASON FOR EXAM: Female, 64 years old. COUGH, MILD WHEEZE, NAUSEA. UNDERLYING ASTHMA TECHNIQUE: Frontal and lateral views of the chest. COMPARISON: 10/24/2018. FINDINGS: Normal lung volumes. Ill-defined focal pulmonary opacity in the right apex measuring 5.4 cm greatest dimension. This was not present previously. It could represent infiltrate or mass. CT with contrast is recommended. Mild atelectasis or scarring suggested in both lung bases. Normal size heart. Pacemaker is seen with leads terminating in the right atrium and right ventricle. Normal mediastinum and salina. Normal visualized pulmonary arteries. Normal visualized aortic arch and descending thoracic aorta. Normal visualized thoracic spine. Normal visualized ribs, clavicles, and shoulders. There is no demonstrated abnormality of the visualized soft tissue structures of the upper abdomen. RAD/Chest PA and Lateral IMPRESSION: Ill-defined focal pulmonary opacity in the right apex measuring 5.4 cm greatest dimension. Possible mass. CT with contrast is recommended. Electronically Signed: Roberto Santamaria MD at 19:40 EDT , Service support ,
== END ==
PROVIDERS: PCP Family Medicine; Referring Provider Family Medicine; Visit Provider Family Medicine
DX: R05 Cough (principal)
CPT/HCPCS: 71046

== ENCOUNTER → 2020-01-07 14:55 | Outpatient (CLI) | payer OTHER, SELFPAY ==
[2020-01-05 14:33] VITALS: BMI 27.4
--- NOTE | 2020-01-07 15:07 | CT_ITS ---
STUDY: CT CHEST WITH CONTRAST REASON FOR EXAM: Female, 64 years old. OPACITY IN RT LUNG RADIATION DOSAGE (If Supplied By Facility): CTDIvol = ( 13.74 ) mGy, DLP = ( 477.91 ) mGycm TECHNIQUE: Transaxial imaging was performed following intravenous administration of IV 100mL Isovue-300. Individualized dose optimization techniques were used for this CT. COMPARISON: None. FINDINGS: Normal lung volumes. Widespread bilateral pulmonary opacities are seen. These are prominent in both apices right worse than left, the right perihilar region, patchy foci of pulmonary opacities are seen in both lower lobes, lingula, and lung bases. No pleural effusions. Normal heart and pericardium. Pacemaker is seen with leads terminating in the right atrium and right ventricle. Normal mediastinum. Normal hilar regions. Normal enhanced pulmonary arteries. Normal aorta arch and descending thoracic aorta. Normal osseous structures. There is no demonstrated abnormality of the visualized upper abdomen. CT/Chest WITH Contrast IMPRESSION: Widespread bilateral pulmonary opacities, most consistent with nonspecific multifocal pneumonia. Electronically Signed: Roberto Santamaria MD at 22:56 EDT , Service support ,
== END ==
PROVIDERS: PCP Family Medicine; Referring Provider Family Medicine; Visit Provider Family Medicine
DX: R91.8 Other nonspecific abnormal finding of lung field (principal); R05 Cough
CPT/HCPCS: 71260; Q9967

== ENCOUNTER → 2020-01-15 17:04 | Outpatient (CLI) | payer OTHER, SELFPAY ==
[2019-07-31 10:00] VITALS: BMI 27.4
[2020-01-05 14:33] VITALS: BMI 27.4
== END ==
PROVIDERS: PCP Family Medicine; Referring Provider Family Medicine; Visit Provider Family Medicine
DX: Z20.828 Contact with and (suspected) exposure to other viral communicable diseases (principal)
CPT/HCPCS: 87635; C9803; U0003

== ENCOUNTER → 2020-02-29 15:07 | Outpatient (CLI) | payer OTHER, SELFPAY ==
[2020-01-05 14:33] VITALS: BMI 27.4
--- NOTE | 2020-02-29 15:11 | RAD_ITS ---
STUDY: X-RAY CHEST REASON FOR EXAM: Female, 64 years old. Cough, recently had pneumonia about 3 weeks ago. TECHNIQUE: PA and lateral views of the chest. COMPARISON: 01/06/2020. CT chest 01/07/2020. FINDINGS: There is a multilead permanent pacemaker. Airspace disease in the right upper lung has improved, near completely resolved in the left upper lung. Airspace disease in the bilateral mid and lower lung parenchyma has increased. There is no demonstrated pleural abnormality. Normal size heart. Normal mediastinum and salina. Normal visualized pulmonary arteries. Normal visualized aortic arch and descending thoracic aorta. Normal visualized thoracic spine. Normal visualized ribs, clavicles, and shoulders. There is no demonstrated abnormality of the visualized soft tissue structures of the upper abdomen. RAD/Chest PA and Lateral IMPRESSION: Bilateral infiltrates/pneumonia mid and lower lung parenchyma, improved aeration in the right upper lung, near complete resolution of disease in the left upper lung. Electronically Signed: Julia Rosario MD at 5:41 EST , Service support ,
== END ==
PROVIDERS: PCP Family Medicine; Visit Provider Family Medicine
DX: J45.30 Mild persistent asthma, uncomplicated (principal)
CPT/HCPCS: 71046

== ENCOUNTER 2020-03-07 17:45 | Inpatient (IN) | payer OTHER, SELFPAY ==
[2020-01-05 14:33] VITALS: BMI 27.4
[2020-03-07] VITALS (7 sets, daily range): BP systolic 123–138; BP diastolic 37–82; PULSE 75–94; RESP 18–20; TEMP 36.6–37.3; O2SAT 89–98; BMI 27.3; BMI 27.8; BMI 27.9
--- NOTE | 2020-03-07 18:50 | ED.DCSUM_ITS ---
History of Present Illness Chief Complaint: Shortness of Breath Informant: Patient Narrative: Patient sent to the emergency department for admission for acute interstitial pneumonitis. Patient sees Dr. Joy for pulmonology. He reports to me as does she that during the second week of December she developed pleuritic pain on the right chest. She had an x-ray thought to have a possible mass. CT scan showed bilateral parenchymal disease coarse interstitial no air bronchograms. She was given antibiotics with about 30% improvement followed by 10 days of steroids with a 90% improvement. For mid-January for the next 3 weeks she reportedly was doing well up until 28 February. She then developed cough mostly nonproductive. She had worsening x-ray on February 28. She was treated with Levaquin and is currently on day 6 with 1 more dose tomorrow. She was tested for the coronavirus about 1-1/2 weeks ago and negative. She does carry a diagnosis of lupus and is on Plaquenil. She has no documented history of lupus lung disease. In the office she reports she had oxygen levels around 90 to 91% and did desaturate down to 87. - Past Medical History (1) SLE (systemic lupus erythematosus related syndrome) Status: Chronic (2) Seizure Status: Chronic Past Medical History - Allergies and Home Meds Allergies/Adverse Reactions: Allergies epinephrine Allergy (Verified 03/07/20 17:45) SEIZURE I PASS OUT Penicillins Allergy (Verified 03/07/20 17:45) Rash Primary Care Physician: Linda Loving DO [Primary Care Provider] - Prior records reviewed: Yes Surgical History: noncontributory, hysterectomy, total knee arthroplasty, tonsillectomy, - - s/p pacemaker insertion, foot surgery Smoking Status: Former smoker Drugs: None - Family History Maternal Family History: Family History (Last Reviewed 01/05/20 @ 14:32 by Mackenzie Fried) Mother Breast cancer CAD (coronary artery disease) Anxiety High cholesterol Skin cancer Father Cancer CAD (coronary artery disease) Asthma High cholesterol Family History: Reports: Heart Disease Paternal Family History: Family History (Last Reviewed 01/05/20 @ 14:32 by Mackenzie Fried) Mother Breast cancer CAD (coronary artery disease) Anxiety High cholesterol Skin cancer Father Cancer CAD (coronary artery disease) Asthma High cholesterol Family History: Reports: Heart Disease Review of Systems General: Denies: Chills, Fever, Sweats Eyes: Denies: Visual changes - bilaterally, Diplopia ENT: Denies: Rhinorrhea, Sore throat Cardiovascular: Denies: Chest pain, Palpitations Respiratory: Reports: Dyspnea, Cough. Denies: Dyspnea on exertion Gastrointestinal: Denies: Abdominal pain, Nausea, Vomiting, Diarrhea, Melena, Hematochezia Genitourinary: Denies: Dysuria, Hematuria, Frequency Musculoskeletal: Denies: Back pain, Extremity Pain Skin: Denies: Rash, Wounds Neurological: Denies: Headache, Weakness, Numbness Physical Exam Vital Signs/Narrative: Vital Signs Temp Pulse Resp BP Pulse Ox 03/07/20 17:45 97.9 F 94 18 135/37 H 90 Inital Vital Signs reviewed: Yes General: Well nourished, Well developed, No Acute Distress Head: Normocephalic, Atraumatic Eyes: Perrl, EOMI ENT: Moist mucous membranes, No rhinorrhea Neck: Supple, Nontender Cardiovascular: Regular rate, Regular rhythm, No murmurs Respiratory: No distress, CTA bilaterally, Chest nontender, - - Decreased breath sounds Abdomen: Soft, Nontender, Nondistended, Normal bowel sounds Back: Nontender, Normal Inspection Extremities: Nontender, No edema Skin: Normal color, No rash Neurological: Alert, Oriented x3, Cranial nerves II-XII grossly intact, Normal Strength, Normal Sensation Psychological: Normal affect, Normal Mood ED Disposition - Plan for ED Patient: Disposition: Acute Care [facility] Diagnosis: Acute interstitial pneumonitis, Hypoxemia Referrals: Linda Loving DO [Primary Care Provider] -
[2020-03-07 19:21] LABS: Absolute Neutrophil Count 8.4 X10^3/uL (2.0-7.7); Basophil# 0.08 X10^3/uL; Basophil% 0.7 % (0-1); Eosinophil# 0.55 X10^3/uL; Eosinophils% 4.8 % (0-5); Hematocrit 44.2 % (37-47); Hemoglobin 14.5 g/dL (12.0-15.0); Lymphocyte % 13.9 % (19-41); Mean Corp Hgb Conc 32.8 g/dL (32-36); Mean Corpuscular Hgb 30.1 pg (27.0-32.0); Mean Corpuscular Volume 91.7 fL (81-99); Mean Platelet Vol. 9.5 fl (6.2-12.0); Monocyte# 0.81 X10^3/uL; NRBC Flagged by Analyzer 0 % (0-5); Neutrophil # 8.44 X10^3/uL (2.7-7.7); Neutrophil % 73.3 % (47-70); Platelet Count 451 K/mm3 (150-450); RBC Distribution Width CV 12.1 % (11.6-14.6); RBC Distribution Width SD 40.6 fl (35.1-43.9); Red Blood Count 4.82 M/mm3 (4.2-5.4); White Blood Count 11.5 K/mm3 (4.4-11.0)
[2020-03-07 19:27] LABS: Erythrocyte Sedimentation Rate 47 mm/hr (0-30)
[2020-03-07 19:39] LABS: ALB/GLOB Ratio 0.8 RATIO (0.9-2.4); AST(SGOT) 8 U/L (15-37); Alanine Aminotransfer ALT/SGPT 15 U/L (13-56); Albumin, Serum 3.1 g/dL (3.2-5.0); Alkaline Phosphatase 97 U/L (45-117); Anion Gap 8 (5-15); BUN 11 mg/dL (7-18); BUN/Creat Ratio 13.5 RATIO (10-20); Calcium,Total 8.7 mg/dL (8.5-10.1); Chloride 104 mmol/L (98-107); Creatinine, Serum 0.81 mg/dL (0.55-1.02); EST Glomerular Filtration Rate 76 mL/min (>60); Est Glom Filt Rate - Afr Amer 92 mL/min (>60); Estimated Creatinine Clearance 70.03 ml/min; Glucose 100 mg/dL (74-106); Potassium 3.9 mmol/L (3.5-5.1); Protein, Total 7.1 g/dL (6.4-8.2); Sodium Level 138 mmol/L (136-145)
[2020-03-07] MEDS: Ipratropium/Albuterol Sulfate 3 ML AMPUL.NEB INHALATION (19:40)
--- NOTE | 2020-03-07 19:54 | CT_ITS ---
STUDY: CT CHEST WITHOUT CONTRAST REASON FOR EXAM: Female, 64 years old. SOB x 1 week. History of lupus and pacemaker RADIATION DOSAGE (If Supplied By Facility): CTDIvol = ( 10.68 ) mGy, DLP = ( 371.05 ) mGycm TECHNIQUE: Transaxial imaging was performed without the administration of intravenous contrast material. Multiplanar coronal and sagittal images were reformatted. Individualized dose optimization techniques were used for this CT. COMPARISON: 01/07/2020 FINDINGS: There are bilateral ground glass, patchy and linear opacities throughout the lungs. Normal heart and pericardium. There is a dual-lead pacer device in place. Normal mediastinum. Normal hilar regions. Normal unenhanced pulmonary arteries. Normal aorta arch and descending thoracic aorta. There are multi-level degenerative changes of the thoracic spine. There is no demonstrated abnormality of the visualized upper abdomen. CT/Chest without Contrast IMPRESSION: Bilateral patchy, groundglass and linear opacities suggestive of underlying multifocal pneumonia associated with atelectasis. Electronically Signed: Malorie Garcia MD at 20:24 EST Tel , Service support ,
[2020-03-07] MEDS: MethylPREDNISolone 125 MG/2 ML Vial 60 MG IV (20:16)
[2020-03-07] MEDS: Ceftriaxone 1 GM/50 ML BAG IV (20:18)
[2020-03-07] MEDS: 0.9% Normal Saline 1,000 ML 150 ML IV (20:56)
--- NOTE | 2020-03-07 22:53 | HP.PCM_ITS ---
Problem List (1) Acute hypoxemic respiratory failure Status: Acute (2) Seizure disorder Status: Chronic (3) Acute interstitial pneumonitis Status: Acute (4) Hypoxemia Status: Acute (5) Nonhealing skin ulcer with fat layer exposed Status: Chronic (6) Superficial thrombophlebitis of left upper extremity Status: Resolved Comment: left basilic vein from proximal upper arm to mid forearm (7) Current smoker on some days Status: Chronic (8) Swelling of left upper extremity Status: Resolved (9) Seizure Status: Chronic (10) SLE (systemic lupus erythematosus related syndrome) Status: Chronic (11) Family history of breast cancer Status: Chronic (12) Intertrigo Status: Chronic (13) Shoulder pain Status: Chronic (14) Chronic thoracic back pain Status: Chronic (15) Chronic cervical pain Status: Chronic (16) Breast hypertrophy Status: Chronic History of Present Illness Date of Admission: 03/07/20 Chief Complaint: SOB The patient is a 64 year old F with a significant history of lupus; asthma; seizure disorder and permanent pacemaker who presents to the emergency department with persistent shortness of breath. In December 2019 patient had a chest x-ray which appeared abnormal. Patient has been on multiple courses of antibiotics and steroids. She has intermittent productive cough which on rare occasions is productive for greenish sputum. She was subsequently referred to Dr. Joy's photoengraving machine operator/tender. Upon seeing Dr. Joy patient was sent to the emergency department for admission. Past Medical History Past Medical History (Chronic Problems): Chronic Problems (Last Reviewed 03/07/20 @ 23:[address] Sukhwinder Muse MD) Seizure disorder (Chronic) Nonhealing skin ulcer with fat layer exposed (Chronic) Current smoker on some days (Chronic) Seizure (Chronic) SLE (systemic lupus erythematosus related syndrome) (Chronic) Family history of breast cancer (Chronic) Intertrigo (Chronic) Shoulder pain (Chronic) Chronic thoracic back pain (Chronic) Chronic cervical pain (Chronic) Breast hypertrophy (Chronic) Medical History: Medical History (Last Reviewed 03/07/20 @ 23:[address] Sukhwinder Muse MD) Intertrigo (Chronic) L30.4 Shoulder pain (Chronic) M25.519 Chronic thoracic back pain (Chronic) M54.6, G89.29 Chronic cervical pain (Chronic) M54.2, G89.29 Breast hypertrophy (Chronic) N62 Anxiety F41.9 Asthma J45.909 Difficulty balancing R29.818 Dysphagia R13.10 Fatigue R53.83 GERD (gastroesophageal reflux disease) K21.9 Gallstones K80.20 History of pneumonia Z87.01 IBS (irritable bowel syndrome) K58.9 Loss of consciousness R40.20 Lupus L93.0 Osteoarthritis M19.90 Pleural effusion J90 Seasonal allergies J30.2 Seizure R56.9 Seizure disorder G40.909 Chronic bronchitis J42 Allergies epinephrine Allergy (Verified 03/07/20 17:45) SEIZURE I PASS OUT Penicillins Allergy (Verified 03/07/20 17:45) Rash Home Medications: Ambulatory Orders Medication Instructions Recorded hydroxychloroquine 200 mg tablet 200 mg PO BID 09/11/17 Cholecalciferol (Vitamin D3) 5,000 unit PO DAILY 09/19/17 [Vitamin D3] Cyanocobalamin [Vitamin B12] 1,000 mcg PO DAILY@0800 09/19/17 aspirin 81 mg chewable tablet 81 mg PO DAILY 06/16/19 Calcium Polycarbophil [Fibercon] 2 tab PO DAILY 12/28/19 Fluticasone/Vilanterol [Breo 1 puff INHALATION DAILY 03/07/20 Ellipta 200-25 Mcg INH] Levetiracetam [Keppra] 1,000 mg PO BID 03/07/20 Sertraline HCl [Zoloft] 100 mg PO DAILY 03/07/20 Surgical History: Surgical History (Last Reviewed 03/07/20 @ 23:[address] Sukhwinder Muse MD) H/O: hysterectomy Z90.710 History of hysterectomy Z90.710 History of knee surgery Z98.890 Pacemaker Z95.0 S/P tonsillectomy Z90.89 S/P bilateral breast reduction Z98.890 bilateral breast reduction mammaplasty. Tissue removed from the left breast was 646 grams. Tissue removed from the right breast was 662 grams. 11/18/18 Status post repair of complex wound Z98.890 surgical preparation right breast at lateral nipple with excisional debridement nonhealing ulcer with 6 cm complex secondary wound closure - 04/16/19 Surgical History: hysterectomy, total knee arthroplasty, tonsillectomy, - - s/p pacemaker insertion, foot surgery Psychiatric History: No pertinent psych hx TALEND ETL DEVELOPER History: No pertinent TALEND ETL DEVELOPER history Smoking Status: Former smoker Drugs: None - *Family History Maternal Family History: Family History (Last Reviewed 03/07/20 @ 23:[address] Sukhwinder Muse MD) Mother Breast cancer CAD (coronary artery disease) Anxiety High cholesterol Skin cancer Father Cancer CAD (coronary artery disease) Asthma High cholesterol History Items: Heart Disease Paternal Family History: Family History (Last Reviewed 03/07/20 @ 23:[address] Sukhwinder Muse MD) Mother Breast cancer CAD (coronary artery disease) Anxiety High cholesterol Skin cancer Father Cancer CAD (coronary artery disease) Asthma High cholesterol History Items: Heart Disease Review of Systems Constitutional: Denies: Chills, Fever, Weight Change HEENT: Denies: Head Aches, Sinus Congestion, Sinus Drainage Cardiovascular: Denies: Chest Pain, Palpitations Respiratory: Reports: Cough, Shortness of Breath, Sputum production, Wheezing. Denies: Shortness of breath at rest Gastrointestinal: Denies: Abdominal Pain, Nausea, Vomiting Genitourinary: Denies: Dysuria Musculoskeletal: Denies: Joint Pain, Joint Tenderness Skin: Denies: Rash, Wounds Neurological: Denies: Numbness, Tingling, Focal weakness Psychiatric: Denies: Anxiety, Depression, Homicidal Ideations, Suicidal Ideations Hematologic/ Lymphatic: Denies: Easy Bruising, Easy Bleeding VTE Information - Inpt Only VTE Present on Admission: No VTE Mechan Device Prophylaxis: SCD's VTE Pharm Prophylaxis ordered?: No Patient Problems: Active and Suspected Problems (Last Reviewed 03/07/20 @ 23:[address] Sukhwinder Muse MD) Acute interstitial pneumonitis (Acute) Hypoxemia (Acute) Acute hypoxemic respiratory failure (Acute) - Physical Exam Vitals/I&O's: Vital Signs Temp Pulse Resp BP Pulse Ox 97.8 F 79 20 H 131/82 H 98 03/07/20 22:32 03/07/20 22:32 03/07/20 22:32 03/07/20 22:32 03/07/20 22:32 Oxygen Flow Rate (L/min) 2 Oxygen Delivery Method Nasal Cannula Weight: 79.2 kg Body Mass Index (BMI) 27.3 Intake and Output for Last 24 Hours 03/05/20 03/06/20 03/07/20 23:59 23:59 23:59 Intake Total 50 / 50 Balance 50 / 50 General: Alert, Oriented x3, Cooperative HEENT: Atraumatic, PERRLA, EOMI, Normocephalic Neck: Supple, No JVD, Negative Carotid Bruits Lungs: Rales Cardiovascular: Regular rate, Normal S1, Normal S2, No murmurs Abdomen: Bowel Sounds Present, Soft, Non Tender Extremities: No edema, Capillary Refill Less than 3 Seconds Skin: No rashes, No breakdown Musculoskeletal: No Tenderness to Palpation of Joints or Extremities Neurological: Cranial nerves II-XII grossly intact Psych/Mental Status: Normal Affect, Appropriate Laboratory Results 03/07/20 19:10: WBC 11.5 H, RBC 4.82, Hgb 14.5, Hct 44.2, MCV 91.7, MCH 30.1, MCHC 32.8, RDW Std Deviation 40.6, RDW Coeff of Pete 12.1, Plt Count 451 H, MPV 9.5, Immature Gran % (Auto) 0.300, Neut % (Auto) 73.3 H, Lymph % (Auto) 13.9 L, [place] % (Auto) 7.0, Eos % (Auto) 4.8, Baso % (Auto) 0.7, Absolute Neuts (auto) 8.4 H, Absolute Lymphs (auto) 1.60, Nucleated RBC % 0, ESR 47 H 03/07/20 19:10: Sodium 138, Potassium 3.9, Chloride 104, Carbon Dioxide 26.0, Anion Gap 8, BUN 11, Creatinine 0.81, Estim Creat Clear Calc 70.03, Est GFR (MDRD) Af Amer 92, Est GFR (MDRD) Non-Af 76, BUN/Creatinine Ratio 13.5, Glucose 100, Calcium 8.7, Total Bilirubin 0.30, AST 8 L, ALT 15, Alkaline Phosphatase 97, C-React Prot Ext Range 87.70 H, Total Protein 7.1, Albumin 3.1 L, Globulin 4.0, Albumin/Globulin Ratio 0.8 L 03/07/20 19:10: Lactic Acid 1.0 03/07/20 19:35: COVID-19 ([facility]UMI) Not Detected Current Medications Sodium Chloride () 1,000 mls @ 150 mls/hr IV .Q6H40M ADRI Last Admin: 03/07/20 20:56 Dose: 150 mls/hr Documented by: Assessment/Plan All Active Problems (Last Reviewed 03/07/20 @ 23:[address] Sukhwinder Muse MD) Acute interstitial pneumonitis (Acute) Hypoxemia (Acute) Acute hypoxemic respiratory failure (Acute) Superficial thrombophlebitis of left upper extremity (Resolved) Swelling of left upper extremity (Resolved) Acute hypoxemic respiratory insufficiency secondary to acute interstitial pneumonitis. Patient required oxygen supplementation to maintain appropriate oxygen saturation. Chest CT interpreted by radiologist and actual chest CT image independently reviewed by myself: Bilateral patchy, groundglass and linear opacities suggestive of underlying multifocal pneumonia associated with atelectasis. Sent to the emergency department by Dr. Joy he with plan to admit and with the following recommendations: Rocephin 1 g every 24 hours; Solu-Medrol 60 mg IV every 12 hours first dose now; hold aspirin products for possible bronchoscopy on Saturday03/09/2003/18/2020. Ordered as recommended. Also recommended was repeat Covid test that returned negative. Also respiratory pathogen panel was ordered and the ED recommendation; follow. Incentive spirometer ordered Oxygen as needed. Consult to Dr. Joy, photoengraving machine operator/tender. History of asthma On Breo Ellipta. Albuterol and Pulmicort ordered while inpatient. Seizure disorder Keppra continued SLE Plaquenil continued Depression/anxiety Zoloft continued DVT prophylaxis Declined subcutaneous injection. SCD ordered. Encouraged to ambulate. Inpatient E&M: 62333 Init Hosp L2
[2020-03-08] VITALS (15 sets, daily range): BP systolic 110–136; BP diastolic 66–90; PULSE 73–91; RESP 16–26; TEMP 36.6–37.1; O2SAT 90–96
[2020-03-08] MEDS: levETIRAcetam 1,000 MG Tablet 1000 MG PO ×3 (00:32→22:21)
[2020-03-08] MEDS: Hydroxychloroquine 200 MG Tablet PO (00:33)
[2020-03-08] MEDS: MethylPREDNISolone 125 MG/2 ML Vial 60 MG IV ×2 (06:25→22:20)
[2020-03-08] MEDS: Albuterol 2.5 MG/3 ML VIAL.NEB. INHALATION ×3 (07:16→18:41)
[2020-03-08 07:19] LABS: Absolute Lymphocyte Count 0.86 X10^3/uL (0.83-4.51); Absolute Neutrophil Count 6.4 X10^3/uL (2.0-7.7); Basophil# 0.03 X10^3/uL; Basophil% 0.4 % (0-1); Eosinophil# 0.12 X10^3/uL; Eosinophils% 1.6 % (0-5); Hematocrit 40.6 % (37-47); Hemoglobin 12.9 g/dL (12.0-15.0); Lymphocyte # 0.86 X10^3/ul (4.0); Lymphocyte % 11.4 % (19-41); Mean Corp Hgb Conc 31.8 g/dL (32-36); Mean Corpuscular Hgb 29.5 pg (27.0-32.0); Mean Corpuscular Volume 92.9 fL (81-99); Mean Platelet Vol. 9.7 fl (6.2-12.0); Monocyte# 0.12 X10^3/uL; Monocyte% 1.6 % (0-10); NRBC Flagged by Analyzer 0 % (0-5); Neutrophil # 6.39 X10^3/uL (2.7-7.7); Neutrophil % 84.6 % (47-70); POSITIVE MORPHOLOGY YES; Platelet Count 430 K/mm3 (150-450); RBC Distribution Width CV 11.9 % (11.6-14.6); RBC Distribution Width SD 40.9 fl (35.1-43.9); Red Blood Count 4.37 M/mm3 (4.2-5.4); White Blood Count 7.6 K/mm3 (4.4-11.0)
[2020-03-08 07:25] LABS: Differential Indicated SCAN CRITERIA MET
--- NOTE | 2020-03-08 07:37 | PN_ITS ---
Patient Problems: Active and Suspected Problems (Last Reviewed 03/07/20 @ 23:[address] Sukhwinder Muse MD) Acute interstitial pneumonitis (Acute) Hypoxemia (Acute) Acute hypoxemic respiratory failure (Acute) Subjective: Patient since admission with improvement in her dyspnea, still ongoing coughing and fatigue but significantly improved with administration of steroids she notes. Patient evaluation today also by Dr. Joy with intention for continued antibiotic therapy, steroid regimen as well as planned 03/09/2020 bronchoscopy with likely intention for BAL cultures. Patient denies fevers, chills, nausea, emesis, abdominal pain, chest pain. Objective: Physical Examination: General: awake, alert, oriented x 3 and cooperative, seated upright in the medical surgical bed, fatigued appearance otherwise no acute distress. Skin: normal color, turgor, no icterus, cyanosis. HEENT: AT/NC, EOMI, PERRLA, mildly dry MM, improved since initial ED presentation. Lungs: Diminished breath sounds, greater bases, improved effort, soft occasional end expiratory wheeze, no rales or rhonchi. Heart: Regular rate and rhythm; no gallop, rub audible. Abdomen: soft, NTTP, ND, normal BS. Extremities: no cyanosis, clubbing, or edema. Neurological: patient awake, alert, oriented as noted; cognitive function in tact; pupils equally reactive to light and accomodation; cranial nerves II-XII grossly normal, moving all 4 extremities, no focal deficits, strength moderately to severely global decrease secondary to acute presentation. Psychiatric: affect appears fatigued otherwise normal, no acute evidence of depressive or anxiety feelings. Vitals/I&O's: Vital Signs Temp Pulse Resp BP Pulse Ox 97.9 F 74 20 H 115/69 91 03/08/20 05:45 03/08/20 07:17 03/08/20 07:17 03/08/20 05:45 03/08/20 07:17 Oxygen Flow Rate (L/min) 2 Oxygen Delivery Method Nasal Cannula Weight: 178 lb 2.136 oz Body Mass Index (BMI) 27.8 Intake and Output for Last 24 Hours 03/06/20 03/07/20 03/08/20 23:59 23:59 23:59 Intake Total 50 / 350 1850 / 1850 Output Total 0 / 0 Balance 50 / 350 1850 / 1850 Laboratory Results 03/07/20 19:10: WBC 11.5 H, RBC 4.82, Hgb 14.5, Hct 44.2, MCV 91.7, MCH 30.1, MCHC 32.8, RDW Std Deviation 40.6, RDW Coeff of Pete 12.1, Plt Count 451 H, MPV 9.5, Immature Gran % (Auto) 0.300, Neut % (Auto) 73.3 H, Lymph % (Auto) 13.9 L, [place] % (Auto) 7.0, Eos % (Auto) 4.8, Baso % (Auto) 0.7, Absolute Neuts (auto) 8.4 H, Absolute Lymphs (auto) 1.60, Nucleated RBC % 0, ESR 47 H 03/07/20 19:10: Sodium 138, Potassium 3.9, Chloride 104, Carbon Dioxide 26.0, Anion Gap 8, BUN 11, Creatinine 0.81, Estim Creat Clear Calc 70.03, Est GFR (MDRD) Af Amer 92, Est GFR (MDRD) Non-Af 76, BUN/Creatinine Ratio 13.5, Glucose 100, Calcium 8.7, Total Bilirubin 0.30, AST 8 L, ALT 15, Alkaline Phosphatase 97, C-React Prot Ext Range 87.70 H, Total Protein 7.1, Albumin 3.1 L, Globulin 4.0, Albumin/Globulin Ratio 0.8 L 03/07/20 19:10: Lactic Acid 1.0 03/07/20 19:35: COVID-19 (BHUMI) Not Detected 03/08/20 06:26: FRANCES Screen Pending, JULIO CESAR-1 Antibody Pending, SS-A/Ro IgG Antibody Pending, SS-B/La IgG Antibody Pending, Sm (Basilio) Antibody Pending, RUBBER PRODUCTION MACHINE OPERATOR Antibody Pending, Scl-70 Scleroderma Ab Pending, Double Strand DNA Ab Pending, Centromere B Antibody Pending 03/08/20 06:26: WBC 7.6, RBC 4.37, Hgb 12.9, Hct 40.6, MCV 92.9, MCH 29.5, MCHC 31.8 L, RDW Std Deviation 40.9, RDW Coeff of Pete 11.9, Plt Count 430, MPV 9.7, Immature Gran % (Auto) 0.400, Neut % (Auto) 84.6 H, Lymph % (Auto) 11.4 L, [place] % (Auto) 1.6, Eos % (Auto) 1.6, Baso % (Auto) 0.4, Absolute Neuts (auto) 6.4, Absolute Lymphs (auto) 0.86, Nucleated RBC % 0, ESR Pending 03/08/20 06:26: Sodium Pending, Potassium Pending, Chloride Pending, Carbon Dioxide Pending, Anion Gap Pending, BUN Pending, Creatinine Pending, Est GFR (MDRD) Af Amer Pending, Est GFR (MDRD) Non-Af Pending, BUN/Creatinine Ratio Pending, Glucose Pending, Calcium Pending, C-React Prot Ext Range Pending Current Medications Acetaminophen (Acetaminophen 325 Mg Tablet) 650 mg PO Q6H PRN PRN PRN Reason: Pain Score 1-10/Temp > 100.7 F Albuterol Sulfate (Albuterol 2.5 Mg/3 Ml Vial.Neb.) 2.5 mg INHALATION Q6HWA.RT [facility] Last Admin: 03/08/20 07:16 Dose: 2.5 mg Documented by: Calcium Polycarbophil (Calcium Polycarbophil 625 Mg Tablet) 1,250 mg PO DAILY [facility] Cholecalciferol (Cholecalciferol (Vit D3) 1,000 Unit (25mcg)) 5,000 unit PO DAILY [facility] Cyanocobalamin (Cyanocobalamin 500 Mcg Tablet) 1,000 mcg PO DAILY@0800 [facility] Hydroxychloroquine Sulfate (Hydroxychloroquine 200 Mg Tablet) 200 mg PO BID [facility] Last Admin: 03/08/20 00:33 Dose: 200 mg Documented by: Ceftriaxone Sodium 2 gm/ (Sodium Chloride) 50 mls @ 100 mls/hr IV Q24 [facility] Azithromycin 500 mg/ Dextrose 255 mls @ 250 mls/hr IV Q24 [facility] Levetiracetam (Levetiracetam 1,000 Mg Tablet) 1,000 mg PO BID [facility] Last Admin: 03/08/20 00:32 Dose: 1,000 mg Documented by: Melatonin (Melatonin 3 Mg Tablet) 3 mg PO QHS PRN PRN PRN Reason: INSOMNIA Methylprednisolone (Methylprednisolone 125 Mg/2 Ml Vial) 60 mg IV Q12 [facility] Last Admin: 03/08/20 06:25 Dose: 60 mg Documented by: Ondansetron HCl (Ondansetron 4 Mg/2 Ml Vial) 4 mg IV Q8H PRN PRN PRN Reason: NAUSEA/VOMITING Sertraline HCl (Sertraline 100 Mg Tablet) 100 mg PO DAILY ADRI Sodium Chloride (0.9% Saline Lock 10 Ml Syringe) 10 - 40 ml IV UD PRN PRN Reason: SALINE FLUSH STROKE Vital Signs/Narrative: Vital Signs Temp Pulse Resp BP Pulse Ox 03/08/20 07:17 74 20 H 91 03/08/20 05:45 97.9 F 73 16 115/69 96 03/08/20 05:30 96 Medical Necessity - Tobacco Use Smoking Status: Former smoker Tobacco Use: Cigarettes Assessment/Plan All Active Problems (Last Reviewed 03/07/20 @ 23:[address] Sukhwinder Muse MD) Acute interstitial pneumonitis (Acute) Hypoxemia (Acute) Acute hypoxemic respiratory failure (Acute) Superficial thrombophlebitis of left upper extremity (Resolved) Swelling of left upper extremity (Resolved) The patient is a 64 y/o F w/ PMHx: Hx Tobacco use, Seizure disorder, SLE, Chronic pain syndrome secondary to chronic back pain, Asthma following w/ Dr. Joy who presents to the [facility] ED on 03/07/20 with history of worsening dyspnea, cough as well as chest x-ray outpatient prompting requested admission per jane oneil's compliance vice president. 1. Acute Hypoxia secondary to Acute Asthma Exacerbation secondary to Acute Interstitial Pneumonitis: ED presentation with patient decreasing 90% on room air at rest with decreased greater than 88% on room air with activity, ED CBC with WC 11.5 with left shift, ESR 47, CRP 87.7, Covid testing negative, negative respiratory viral panel, CT chest with bilateral patchy ground-glass and linear opacities suggestive of underlying multifocal pneumonia with atelectasis. Patient admitted to the medical surgical floor, maintain on oxygen with wean as tolerated to room air, continue ATC albuterol, maintain on IV solumedrol, maintain on IV Rocephin and Azithromycin, HOB, IS parameters w/ pending sputum cultures and urine antigens as well as immunological work-up inclusive of FRANCES screen, Julio Cesar 1 antibody, SS?A/R IgG, SS?B/LA IgG antibody, Basilio antibody, RUBBER PRODUCTION MACHINE OPERATOR antibody, SCL?70 scleroderma antibody, double-stranded ALESHA antibody, centromere B antibody to be followed by patient's compliance vice president, Dr. Joy, continued evaluation per Dr. Joy with planned 03/09/2020 bronchoscopy. 2. Seizure disorder: We will continue patient home Keppra regimen. 3. Anxiety and depression: We will continue patient home Zoloft regimen. 4. Former tobacco use: Encourage continued tobacco cessation. 5. SLE: We will continue patient home hydroxychloroquine regimen. 6. Chronic pain syndrome: Secondary to chronic back pain: Encourage continued positional changes, as needed regimens as needed. 7. DVT prophylaxis: SCDs, hold chemoprophylaxis given planned 03/09/2020 bronchoscopy. 8. Code status: Full Code. Inpatient E&M: 79619 Subs Hosp L3
[2020-03-08 07:51] LABS: Anion Gap 6 (5-15); BUN 8 mg/dL (7-18); BUN/Creat Ratio 13.5 RATIO (10-20); Calcium,Total 8.3 mg/dL (8.5-10.1); Chloride 112 mmol/L (98-107); Creatinine, Serum 0.59 mg/dL (0.55-1.02); EST Glomerular Filtration Rate 109 mL/min (>60); Erythrocyte Sedimentation Rate 37 mm/hr (0-30); Est Glom Filt Rate - Afr Amer 132 mL/min (>60); Estimated Creatinine Clearance 96.14 ml/min; Glucose 134 mg/dL (74-106); Potassium 4.2 mmol/L (3.5-5.1); Sodium Level 142 mmol/L (136-145)
[2020-03-08] MEDS: Cyanocobalamin 500 MCG Tablet 1000 MCG PO (09:11)
[2020-03-08] MEDS: Sertraline 100 MG Tablet PO (09:11)
[2020-03-08] MEDS: 0.9% Saline Lock 10 ML Syringe IV (10:40)
--- NOTE | 2020-03-08 10:45 | CASEMGMT ---
ILYA AQUINO Face to Face with patient for initial transition planning/care coordination assessment. RN CM introduced self and role at [facility]. Patient lying in bed, alert and oriented. Patient willing to participate in assessment and is able to answer all questions appropriately. Care providers, pharmacy, and demographics verified. Patient wishes to discharge home, denies need for home health at this time. Patient states she has no further needs or concerns at this time. CM to follow for discharge planning needs that may arise. PCP: Fabienne Specialists: Rufino, charge loader; Maxi, clamper; Mckayla, neurologist; Tracie, inspector integrated circuits [facility] Preferred Pharmacy: [facility] Insurance: MMO Prescription Benefit: yes Living Will/HPOA: yes, Juan Pavon LNOK: Living Arrangements: Patient states she lives with in a 1 story home with 3 steps and railing to enter the home. Patient states she is independent at home. Transportation: self, DME/HHC: Patient states she has nebulizer at home. Patient denies need for HHC. Disposition Plan: Patient to discharge home with family support and follow-up plans in place. Colette OLIVO, RN, CM
--- NOTE | 2020-03-08 11:53 | NURSING ---
Notified RT of increase in oxygen and pt requesting breathing tx.
--- NOTE | 2020-03-08 14:12 | NURSING ---
Patient becoming very short of breath with 15-20 minutes recovery time following activity. Spoke with patient and head gauge unit operator about using bedside commode to limit strenuous activity.
--- NOTE | 2020-03-08 16:20 | CHAPLAIN ---
Type of Pastoral Visit _x__ Initial Visit ___ Follow-up Visit ___ On-call Visit ___ General Patient Visit ___ Spiritual Assessment ___ Family Conference ___ Bereavement ___ Rapid Response ___ Code Blue ___ Other (describe below) Pastoral Care Referral From _x__ Patient ___ Family ___ Nurse ___ Physician ___ Speech Language Pathology Assistant ___ Watch Leader ___ Other (describe below) Sacrament/Intervention _x__ Active listening ___ Anointing ___ Congregation ___ Bereavement ___ Communion _x__ Bettina exploration ___ ___ Life review _x__ Prayer ___ Reconciliation ___ Sacrament of Sick _x__ Supportive presence ___ Wedding ___ Other (describe below) Pastoral Comments patient indicates her needs as the uncertainty of new issues with her breathing and being here without visitors is lonely; pt requests prayers because I know that will help me; pt is of the Zoroastrian bettina but is not currently attending oriental orthodox services; pt discusses her need to find a oriental orthodox community
[2020-03-09] VITALS (19 sets, daily range): BP systolic 108–140; BP diastolic 63–90; PULSE 68–98; RESP 16–20; TEMP 36.4–37.2; O2SAT 87–95; BMI 27.8
--- NOTE | 2020-03-09 | FLU_PTH ---
PATIENT: BIANCA JONES LOC: MS3 U#:[id number] AGE/SX: 64/F ROOM: DE321 RE03/07/[address]: Dr. Debbie Chin MD : [id number] BED: 1 DIS: 03/09/2020 SPEC #: [id number] RECD: 03/09/20 14:11 STATUS: ANDRE REAbe #: [id number] JESUS: 03/09/20 00:[address]: Doug Joy V DEPT: CYTOLOGY RECD BY: Mervin Reina ENTERED: 03/10/20 08:36 SP TYPE: Fluid OTHR DR: MD Dr. Sukhwinder Esteves MD Dr. Lisa Malys, Tissues: Bronchus of right middle lobe Procedures: Special Stain Group II Special Stain Group I Surgery Specimen Level IV AFB Stain (control) GMS Stain (control) Cytospin Fluid HEADER OPERATION: Bronchoscopy (MAC) PRE-OP DIAGNOSIS: Acute interstitial pneumonitis; hypoxemia TISSUE SUBMITTED: Bronchoscopy fluid for cytology DIAGNOSIS CYTOLOGY Bronchoscopy fluid for cytology (cytospin and cell block): Negative for malignant cells. Special stain for fungi is positive for organisms (septate hyphae and spores), consistent with aspergillus species; matched control is appropriate. Special stain for acid fast bacilli is negative for organisms; matched control is appropriate. See comment. SJ:mack 03/11/20 COMMENT Correlation with clinical, radiologic findings and appropriate follow up are necessary. This case is discussed with Dr. Joy on 03/11/20. CYTOLOGY STUDY Slides are reviewed. CYTOLOGY GROSS Received is 25 ml of red cloudy fluid labeled with the patient's name and and designated per the requisition as bronchoscopy. Submitted for cytology preparation including cell block. / mack 03/10/20 TC:2 CPT: 68929, 82621, 12745 x2
[2020-03-09 05:33] LABS: Absolute Lymphocyte Count 0.88 X10^3/uL (0.83-4.51); Basophil# 0.02 X10^3/uL; Basophil% 0.1 % (0-1); Hematocrit 42.4 % (37-47); Hemoglobin 13.5 g/dL (12.0-15.0); Lymphocyte # 0.88 X10^3/ul (4.0); Lymphocyte % 6.3 % (19-41); Mean Corp Hgb Conc 31.8 g/dL (32-36); Mean Corpuscular Hgb 29.7 pg (27.0-32.0); Mean Corpuscular Volume 93.2 fL (81-99); Mean Platelet Vol. 9.9 fl (6.2-12.0); Monocyte# 0.09 X10^3/uL; Monocyte% 0.6 % (0-10); NRBC Flagged by Analyzer 0 % (0-5); Neutrophil # 13.03 X10^3/uL (2.7-7.7); Neutrophil % 92.7 % (47-70); Platelet Count 453 K/mm3 (150-450); RBC Distribution Width CV 11.9 % (11.6-14.6); RBC Distribution Width SD 41.2 fl (35.1-43.9); Red Blood Count 4.55 M/mm3 (4.2-5.4); White Blood Count 14.1 K/mm3 (4.4-11.0)
[2020-03-09 05:58] LABS: ALB/GLOB Ratio 0.8 RATIO (0.9-2.4); AST(SGOT) 9 U/L (15-37); Alanine Aminotransfer ALT/SGPT 15 U/L (13-56); Albumin, Serum 2.9 g/dL (3.2-5.0); Alkaline Phosphatase 83 U/L (45-117); Anion Gap 6 (5-15); BUN 13 mg/dL (7-18); BUN/Creat Ratio 15.8 RATIO (10-20); Calcium,Total 8.8 mg/dL (8.5-10.1); Chloride 109 mmol/L (98-107); Creatinine, Serum 0.82 mg/dL (0.55-1.02); EST Glomerular Filtration Rate 75 mL/min (>60); Est Glom Filt Rate - Afr Amer 90 mL/min (>60); Estimated Creatinine Clearance 69.17 ml/min; Globulin 3.7 g/dL (2.2-4.2); Glucose 145 mg/dL (74-106); Potassium 4.2 mmol/L (3.5-5.1); Protein, Total 6.6 g/dL (6.4-8.2); Sodium Level 141 mmol/L (136-145)
[2020-03-09] MEDS: Albuterol 2.5 MG/3 ML VIAL.NEB. INHALATION (06:44)
--- NOTE | 2020-03-09 07:03 | PCM.PN.HOSP ---
Patient Problems: Active and Suspected Problems (Last Reviewed 03/07/20 @ 23:[address] Sukhwinder Muse MD) Acute interstitial pneumonitis (Acute) Hypoxemia (Acute) Acute hypoxemic respiratory failure (Acute) Subjective: Patient overnight with no acute events per self and per nursing report. Patient did have transient increase in her oxygen requirement the evening prior but improved and states she is feeling less dyspneic this morning, less coughing with continued similar antibiotic therapy and steroid regimen. Planned bronchoscopy this afternoon and per discussion with pulmonary medicine possible discharge pending response following bronchoscopy. Patient denies fevers, chills, nausea, emesis, abdominal pain, chest pain. Objective: Physical Examination: General: awake, alert, oriented x 3 and cooperative, seated upright in the medical surgical bed, less fatigued than day prior, more comfortable. Skin: normal color, turgor, no icterus, cyanosis. HEENT: AT/NC, EOMI, PERRLA, MMM Lungs: Diminished breath sounds, greater bases, right greater than left, resolved prior noted wheezing, no obvious rales or rhonchi. Heart: Regular rate and rhythm; no gallop, rub audible. Abdomen: soft, NTTP, ND, normal BS. Extremities: no cyanosis, clubbing, or edema. Neurological: patient awake, alert, oriented as noted; cognitive function intact; pupils equally reactive to light and accomodation; cranial nerves II-XII grossly normal, moving all 4 extremities, no focal deficits, strength removed, mildly to moderately global decrease secondary to acute presentation. Psychiatric: affect appears improved, more normal, no acute evidence of depressive or anxiety feelings. Vitals/I&O's: Vital Signs Temp Pulse Resp BP Pulse Ox 97.9 F 68 16 140/90 H 92 03/09/20 04:00 03/09/20 06:45 03/09/20 06:45 03/09/20 04:00 03/09/20 06:45 Oxygen Flow Rate (L/min) 3 Oxygen Delivery Method Nasal Cannula Weight: 178 lb 2.136 oz Body Mass Index (BMI) 27.8 Intake and Output for Last 24 Hours 03/07/20 03/08/20 03/09/20 23:59 23:59 23:59 Intake Total 50 / 350 4005 / 4005 300 / 300 Output Total 0 / 0 Balance 50 / 350 4005 / 4005 300 / 300 Microbiology Past 72 Hours 03/07/20 19:35 Mucosa - Nose Respiratory Panel (PCR) - Final Laboratory Results 03/08/20 06:26: FRANCES Screen Pending, JULIO CESAR-1 Antibody Pending, SS-A/Ro IgG Antibody Pending, SS-B/La IgG Antibody Pending, Sm (Basilio) Antibody Pending, AIRLINE STATION AGENT Antibody Pending, Scl-70 Scleroderma Ab Pending, Double Strand DNA Ab Pending, Centromere B Antibody Pending 03/08/20 06:26: WBC 7.6, RBC 4.37, Hgb 12.9, Hct 40.6, MCV 92.9, MCH 29.5, MCHC 31.8 L, RDW Std Deviation 40.9, RDW Coeff of Pete 11.9, Plt Count 430, MPV 9.7, Immature Gran % (Auto) 0.400, Neut % (Auto) 84.6 H, Lymph % (Auto) 11.4 L, [place] % (Auto) 1.6, Eos % (Auto) 1.6, Baso % (Auto) 0.4, Absolute Neuts (auto) 6.4, Absolute Lymphs (auto) 0.86, Nucleated RBC % 0, ESR 37 H 03/08/20 06:26: Sodium 142, Potassium 4.2, Chloride 112 H, Carbon Dioxide 24.0, Anion Gap 6, BUN 8, Creatinine 0.59, Estim Creat Clear Calc 96.14, Est GFR (MDRD) Af Amer 132, Est GFR (MDRD) Non-Af 109, BUN/Creatinine Ratio 13.5, Glucose 134 H, Calcium 8.3 L, C-React Prot Ext Range 62.30 H 03/09/20 05:06: WBC 14.1 H, RBC 4.55, Hgb 13.5, Hct 42.4, MCV 93.2, MCH 29.7, MCHC 31.8 L, RDW Std Deviation 41.2, RDW Coeff of Pete 11.9, Plt Count 453 H, MPV 9.9, Immature Gran % (Auto) 0.300, Neut % (Auto) 92.7 H, Lymph % (Auto) 6.3 L, [place] % (Auto) 0.6, Eos % (Auto) 0.0, Baso % (Auto) 0.1, Absolute Neuts (auto) 13.0 H, Absolute Lymphs (auto) 0.88, Nucleated RBC % 0 03/09/20 05:06: Sodium 141, Potassium 4.2, Chloride 109 H, Carbon Dioxide 26.0, Anion Gap 6, BUN 13, Creatinine 0.82, Estim Creat Clear Calc 69.17, Est GFR (MDRD) Af Amer 90, Est GFR (MDRD) Non-Af 75, BUN/Creatinine Ratio 15.8, Glucose 145 H, Calcium 8.8, Total Bilirubin 0.30, AST 9 L, ALT 15, Alkaline Phosphatase 83, Total Protein 6.6, Albumin 2.9 L, Globulin 3.7, Albumin/Globulin Ratio 0.8 L Current Medications Acetaminophen (Acetaminophen 325 Mg Tablet) 650 mg PO Q6H PRN PRN PRN Reason: Pain Score 1-10/Temp > 100.7 F Albuterol Sulfate (Albuterol 2.5 Mg/3 Ml Vial.Neb.) 2.5 mg INHALATION Q6HWA.RT [facility] Last Admin: 03/09/20 06:44 Dose: 2.5 mg Documented by: Calcium Polycarbophil (Calcium Polycarbophil 625 Mg Tablet) 1,250 mg PO DAILY [facility] Last Admin: 03/08/20 09:11 Dose: 1,250 mg Documented by: Cholecalciferol (Cholecalciferol (Vit D3) 1,000 Unit (25mcg)) 5,000 unit PO DAILY [facility] Last Admin: 03/08/20 09:11 Dose: 5,000 unit Documented by: Cyanocobalamin (Cyanocobalamin 500 Mcg Tablet) 1,000 mcg PO DAILY@0800 [facility] Last Admin: 03/08/20 09:11 Dose: 1,000 mcg Documented by: Ceftriaxone Sodium 2 gm/ (Sodium Chloride) 50 mls @ 100 mls/hr IV Q24 [facility] Last Infusion: 03/08/20 11:09 Dose: Infused Documented by: Azithromycin 500 mg/ Dextrose 255 mls @ 250 mls/hr IV Q24 [facility] Last Infusion: 03/08/20 12:44 Dose: Infused Documented by: Levetiracetam (Levetiracetam 1,000 Mg Tablet) 1,000 mg PO BID [facility] Last Admin: 03/08/20 22:21 Dose: 1,000 mg Documented by: Melatonin (Melatonin 3 Mg Tablet) 3 mg PO QHS PRN PRN PRN Reason: INSOMNIA Methylprednisolone (Methylprednisolone 125 Mg/2 Ml Vial) 60 mg IV Q12 [facility] Last Admin: 03/08/20 22:20 Dose: 60 mg Documented by: Ondansetron HCl (Ondansetron 4 Mg/2 Ml Vial) 4 mg IV Q8H PRN PRN PRN Reason: NAUSEA/VOMITING Sertraline HCl (Sertraline 100 Mg Tablet) 100 mg PO DAILY [facility] Last Admin: 03/08/20 09:11 Dose: 100 mg Documented by: Sodium Chloride (0.9% Saline Lock 10 Ml Syringe) 10 - 40 ml IV UD PRN PRN Reason: SALINE FLUSH Last Admin: 03/08/20 10:40 Dose: 10 ml Documented by: STROKE Vital Signs/Narrative: Vital Signs Temp Pulse Resp BP Pulse Ox 03/09/20 06:45 68 16 92 03/09/20 05:00 18 95 03/09/20 04:00 97.9 F 77 16 140/90 H 95 Medical Necessity - Tobacco Use Smoking Status: Former smoker Tobacco Use: Cigarettes Assessment/Plan All Active Problems (Last Reviewed 03/07/20 @ 23:[address] Sukhwinder Muse MD) Acute interstitial pneumonitis (Acute) Hypoxemia (Acute) Acute hypoxemic respiratory failure (Acute) Superficial thrombophlebitis of left upper extremity (Resolved) Swelling of left upper extremity (Resolved) The patient is a 64 y/o F w/ PMHx: Hx Tobacco use, Seizure disorder, SLE, Chronic pain syndrome secondary to chronic back pain, Asthma following w/ Dr. Joy who presents to the [facility] ED on 03/07/20 with history of worsening dyspnea, cough as well as chest x-ray outpatient prompting requested admission per patient's concrete inspector. 1. Acute Hypoxia secondary to Acute Asthma Exacerbation secondary to Acute Interstitial Pneumonitis: ED presentation with patient decreasing 90% on room air at rest with decreased greater than 88% on room air with activity, ED CBC with WC 11.5 with left shift, ESR 47, CRP 87.7, Covid testing negative, negative respiratory viral panel, CT chest with bilateral patchy ground-glass and linear opacities suggestive of underlying multifocal pneumonia with atelectasis. Patient admitted to the medical surgical floor, maintained on oxygen with wean as tolerated to room air with initially 03/08/2020 evening increased oxygen needs but clinically improved into the morning, continue ATC albuterol, maintained on IV solumedrol, maintained on IV Rocephin and Azithromycin, HOB, IS parameters w/ pending sputum cultures, negative urine antigens, negative PCR as well as immunological work-up inclusive of FRANCES screen, Julio Cesar 1 antibody, SS?A/R IgG, SS?B/LA IgG antibody, Basilio antibody, AIRLINE STATION AGENT antibody, SCL?70 scleroderma antibody, double-stranded ALESHA antibody, centromere B antibody to be followed by patient's concrete inspector, Dr. Joy. 03/09/[address] Joy with planned BAL. Will await reassessment following bronchoscopy for possible discharge to home. 2. Seizure disorder: We will continue patient home Keppra regimen. 3. Anxiety and depression: We will continue patient home Zoloft regimen. 4. Former tobacco use: Encourage continued tobacco cessation. 5. SLE: We will continue patient home hydroxychloroquine regimen. 6. Chronic pain syndrome: Secondary to chronic back pain: Encourage continued positional changes, as needed regimens as needed. 7. DVT prophylaxis: SCDs, pending reassessment may resume chemoprophylaxis versus discharge as noted. 8. Code status: Full Code. Inpatient E&M: 96929 Subs Hosp L2
[2020-03-09] MEDS: 0.9% Saline Lock 10 ML Syringe IV ×2 (10:18→14:51)
[2020-03-09] MEDS: MethylPREDNISolone 125 MG/2 ML Vial 60 MG IV (10:20)
--- NOTE | 2020-03-09 10:44 | PCM.PROGNOTE ---
Patient Problems: Active and Suspected Problems (Last Reviewed 03/07/20 @ 23:[address] Sukhwinder Muse MD) Acute interstitial pneumonitis (Acute) Hypoxemia (Acute) Acute hypoxemic respiratory failure (Acute) - Physical Exam Vitals/I&O's: Vital Signs Temp Pulse Resp BP Pulse Ox 99.0 F 74 18 114/68 95 03/09/20 08:58 03/09/20 08:58 03/09/20 08:58 03/09/20 08:58 03/09/20 08:58 Oxygen Flow Rate (L/min) 3 Oxygen Delivery Method Nasal Cannula Weight: 80.8 kg Body Mass Index (BMI) 27.8 Intake and Output for Last 24 Hours 03/07/20 03/08/20 03/09/20 23:59 23:59 23:59 Intake Total 50 / 350 4005 / 4005 300 / 300 Output Total 0 / 0 Balance 50 / 350 4005 / 4005 300 / 300 General: Alert, Oriented x3, Cooperative HEENT: Atraumatic, PERRLA, EOMI, Normocephalic Oral: Moist Mucosa Neck: Supple, No JVD, Negative Carotid Bruits Lungs: - - Diminished breath sounds right base fine rales left chest 20% right base 10% Rales no wheezing, expiratory phase slightly prolonged dry cough but less pronounced, good expansion of the chest no accessory muscle use cough on full inspiration Cardiovascular: Regular rate, No murmurs, - - Resolved tachycardia Abdomen: Bowel Sounds Present, Soft, Non Tender Extremities: No edema, Capillary Refill Less than 3 Seconds Skin: No rashes, No breakdown Musculoskeletal: No Tenderness to Palpation of Joints or Extremities Neurological: Cranial nerves II-XII grossly intact Psych/Mental Status: Normal Affect, Appropriate Microbiology Past 72 Hours 03/07/20 19:35 Mucosa - Nose Respiratory Panel (PCR) - Final Laboratory Results 03/09/20 05:06: WBC 14.1 H, RBC 4.55, Hgb 13.5, Hct 42.4, MCV 93.2, MCH 29.7, MCHC 31.8 L, RDW Std Deviation 41.2, RDW Coeff of Pete 11.9, Plt Count 453 H, MPV 9.9, Immature Gran % (Auto) 0.300, Neut % (Auto) 92.7 H, Lymph % (Auto) 6.3 L, [place] % (Auto) 0.6, Eos % (Auto) 0.0, Baso % (Auto) 0.1, Absolute Neuts (auto) 13.0 H, Absolute Lymphs (auto) 0.88, Nucleated RBC % 0 03/09/20 05:06: Sodium 141, Potassium 4.2, Chloride 109 H, Carbon Dioxide 26.0, Anion Gap 6, BUN 13, Creatinine 0.82, Estim Creat Clear Calc 69.17, Est GFR (MDRD) Af Amer 90, Est GFR (MDRD) Non-Af 75, BUN/Creatinine Ratio 15.8, Glucose 145 H, Calcium 8.8, Total Bilirubin 0.30, AST 9 L, ALT 15, Alkaline Phosphatase 83, Total Protein 6.6, Albumin 2.9 L, Globulin 3.7, Albumin/Globulin Ratio 0.8 L Current Medications Acetaminophen (Acetaminophen 325 Mg Tablet) 650 mg PO Q6H PRN PRN PRN Reason: Pain Score 1-10/Temp > 100.7 F Albuterol Sulfate (Albuterol 2.5 Mg/3 Ml Vial.Neb.) 2.5 mg INHALATION Q6HWA.RT [facility] Last Admin: 03/09/20 06:44 Dose: 2.5 mg Documented by: Calcium Polycarbophil (Calcium Polycarbophil 625 Mg Tablet) 1,250 mg PO DAILY [facility] Last Admin: 03/09/20 09:34 Dose: Not Given Documented by: Cholecalciferol (Cholecalciferol (Vit D3) 1,000 Unit (25mcg)) 5,000 unit PO DAILY [facility] Last Admin: 03/09/20 09:34 Dose: Not Given Documented by: Cyanocobalamin (Cyanocobalamin 500 Mcg Tablet) 1,000 mcg PO DAILY@0800 [facility] Last Admin: 03/09/20 09:34 Dose: Not Given Documented by: Ceftriaxone Sodium 2 gm/ (Sodium Chloride) 50 mls @ 100 mls/hr IV Q24 [facility] Last Admin: 03/09/20 10:19 Dose: 100 mls/hr Documented by: Azithromycin 500 mg/ Dextrose 255 mls @ 250 mls/hr IV Q24 [facility] Last Infusion: 03/08/20 12:44 Dose: Infused Documented by: Levetiracetam (Levetiracetam 1,000 Mg Tablet) 1,000 mg PO BID [facility] Last Admin: 03/08/20 22:21 Dose: 1,000 mg Documented by: Melatonin (Melatonin 3 Mg Tablet) 3 mg PO QHS PRN PRN PRN Reason: INSOMNIA Methylprednisolone (Methylprednisolone 125 Mg/2 Ml Vial) 60 mg IV Q12 [facility] Last Admin: 03/09/20 10:20 Dose: 60 mg Documented by: Ondansetron HCl (Ondansetron 4 Mg/2 Ml Vial) 4 mg IV Q8H PRN PRN PRN Reason: NAUSEA/VOMITING Sertraline HCl (Sertraline 100 Mg Tablet) 100 mg PO DAILY [facility] Last Admin: 03/09/20 09:34 Dose: Not Given Documented by: Sodium Chloride (0.9% Saline Lock 10 Ml Syringe) 10 - 40 ml IV UD PRN PRN Reason: SALINE FLUSH Last Admin: 03/09/20 10:18 Dose: 10 ml Documented by: Medical Necessity - Tobacco Use Smoking Status: Former smoker Tobacco Use: Cigarettes Assessment/Plan All Active Problems (Last Reviewed 03/07/20 @ 23:[address] Sukhwinder Muse MD) Acute interstitial pneumonitis (Acute) Hypoxemia (Acute) Acute hypoxemic respiratory failure (Acute) Superficial thrombophlebitis of left upper extremity (Resolved) Swelling of left upper extremity (Resolved) Continues to respond to Solu-Medrol 2/kg/day There is less chest wall pain The patient has improved dyspnea Exertional dyspnea still noted walking 10 feet, desaturations noted walking 10 feet Currently on oxygen at 3 L Viral panel negative Sputum pending Coronavirus negative The case was discussed with the local city detective who will follow the patient in 2 to 4 weeks line Shift to oral antibiotics, recall that the patient just finished a course of Levaquin and oral antibiotics might include a cephalosporin for another 3 days If there is any suggestion of staff over Pseudomonas on the bronchial lavage, and antibiotic changes warranted I would recommend discharge on 30 mg prednisone twice daily for 3 days then 30 mg a day following until office visit in 1 to 2 weeks On follow-up I will take x-ray, CRP and plan pulmonary function studies The case is discussed with Dr. Chin and with her city detective All questions were addressed about bronchoscopy today including risks and benefits of the procedure. Consent is obtained. The patient is in agreement with bronchoscopy with lavage, remain off of aspirin and Plavix for another 5 days. Patients with lupus pneumonitis tend to have a vascular component which can produce hemoptysis As for discharge the patient might be able to be discharged today with supplemental O2 or tomorrow on room air depending on saturations after the procedure Acceptable saturation is 90% or better I suggest Phenergan with codeine on discharge 1 teaspoon 3 times a day Aerosol treatments and incentive spirometry will be of less value given the fact that this inflammatory process will take at least 4 weeks to resolve Bronchial lavage will be sent for AFB fungal bacterial cultures as well as pneumocystis
--- NOTE | 2020-03-09 12:15 | EKG12_ITS ---
Test Reason : POST OP Blood Pressure : / mmHG Vent. Rate : 074 BPM Atrial Rate : 074 BPM P-R Int : 190 ms QRS Dur : 086 ms QT Int : 410 ms P-R-T Axes : 037 -11 073 degrees QTc Int : 455 ms Normal sinus rhythm T wave abnormality, consider lateral ischemia Abnormal ECG When compared with ECG of 09-MAR-2020 13:36, MANUAL COMPARISON REQUIRED, DATA IS UNCONFIRMED Confirmed by VIVIANE AGUILAR, PATTI ([id number]), general expeditor SHANNAN GREEN ([id number]) on 03/14/2020 1:14:28 PM Referred By: Sukhwinder Muse Confirmed By:VAUGHN PAN MD
[2020-03-09] MEDS: Phenylephrine 0.25% 15 ML NASAL.SRY 15 SPRAY NASAL (12:58)
[2020-03-09] MEDS: Lidocaine 2% Jelly 1 APPLIC Tube (13:20)
[2020-03-09 13:27] LABS: ANTINUCLEAR ANTIBODIES DIRECT Negative (Negative)
--- NOTE | 2020-03-09 13:36 | EKG12_ITS ---
Test Reason : PREOP Blood Pressure : / mmHG Vent. Rate : 072 BPM Atrial Rate : 072 BPM P-R Int : 238 ms QRS Dur : 084 ms QT Int : 426 ms P-R-T Axes : 029 -09 007 degrees QTc Int : 466 ms Atrial-paced rhythm with prolonged AV conduction Nonspecific T wave abnormality Abnormal ECG Confirmed by VIVIANE AGUILAR, PATTI ([id number]), graphics editor DORYS DANIELS ([id number]) on 03/15/2020 9:56:50 AM Referred By: Sukhwinder Muse Confirmed By:VAUGHN PAN MD
--- NOTE | 2020-03-09 13:42 | OP.BRONCH_ITS ---
Patient Name: Perla Pavon Procedure Date: 03/09/2020 12:39 PM Date of : 1955 Age: 64 Procedure: Bronchoscopy Indications: Diffuse infiltrate Providers: Doug Joy MD Referring MD: Sukhwinder Muse Medicines: Lidocaine 2% applied to nares 1 mL, Lidocaine 2% applied to cords 4 mL, Lidocaine 2% subglottic space 4 mL Complications: No immediate complications Procedure: Pre-Anesthesia Assessment: - A History and Physical has been performed. The patient's medications, allergies and sensitivities have been reviewed. After I obtained informed consent, the scope was passed under direct vision. Throughout the procedure, the patient's blood pressure, pulse, and oxygen saturations were monitored continuously. The Bronchoscope was introduced through the mouth and advanced to the tracheobronchial tree of both lungs. The procedure was accomplished without difficulty. Moderate Sedation: An independent trained observer was present and continuously monitored the patient. Findings: The endotracheal tube is in good position. The visualized portion of the trachea is of normal caliber. The darius is sharp. The tracheobronchial tree was examined to at least the first subsegmental level. Bronchial mucosa and anatomy are normal; there are no endobronchial lesions, and no secretions. The oropharynx appears normal. The larynx appears normal. The vocal cords appear normal. The subglottic space is normal. The trachea is of normal caliber. The darius is sharp. The tracheobronchial tree was examined to at least the first subsegmental level. Bronchial mucosa and anatomy are normal; there are no endobronchial lesions, and no secretions. Bronchoalveolar lavage was performed in the RML lateral segment (B4) and in the RML medial segment (B5) of the lung and sent for cell count, bacterial culture, viral smears & culture, and fungal & AFB analysis, cell count, bacterial culture, viral smears & culture, fungal & AFB analysis and cytology for immunocompromised host protocol and cell count and differential. 100 mL of fluid were instilled. 30 mL were returned. The return was bloody. There were no mucoid plugs in the return fluid. Impression: - Diffuse infiltrate - The airway examination was normal. - The airway examination was normal. - Bronchoalveolar lavage was performed. Recommendation: - Observe patient in PACU for 1 hour for observation. Procedure Code(s): --- Professional --- 72793, Bronchoscopy, rigid or flexible, including fluoroscopic guidance, when performed; with bronchial alveolar lavage Diagnosis Code(s): --- Professional --- R91.8, Other nonspecific abnormal finding of lung field CPT copyright 2017 [employer]. All rights reserved. The codes documented in this report are preliminary and upon loader malt house review may be revised to meet current compliance requirements. MD Doug Montes MD 03/09/2020 1:42:26 PM This report has been signed electronically. Number of Addenda: 0 Note Initiated On: 03/09/2020 12:39 PM
[2020-03-09 14:31] LABS: Cytology, Body Fluid / CSF SEE PATHOLOGY REPORT
[2020-03-09] MEDS: Acetaminophen/Codeine #3 Tablet 1 TABLET PO (15:10)
--- NOTE | 2020-03-09 15:18 | PCM.DC ---
- Discharge Diagnoses Current Active Problems: Current Active and Chronic Problems (Last Reviewed 03/07/20 @ 23:[address] Sukhwinder Muse MD) 1. Acute Hypoxia secondary to Acute Asthma Exacerbation secondary to Acute Interstitial Pneumonitis, Possible Lupus Pneumonitis 2. Seizure disorder 3. Anxiety and depression 4. Former tobacco use 5. SLE 6. Chronic pain syndrome You will use the following diet at home:: Regular Your food should be the consistency of: Regular Your liquids should be the consistency of: Regular/Thin Discharge Activity: May not drive while taking narcotic pain medications., - - Mild activity until re-assessment per Dr. Joy. Avoid moderate or aggressive activity until cleared. Call your doctor if you observe: Fever of 101 or Higher, Inability to urinate, Inability to have a bowel movement, Shortness of breath, Dizziness, Fainting spells, Chest pain, Uncontrolled pain Instructions: ED PNEUMONITIS Adult, Using Oxygen at Home, Using Oxygen Safely, Traveling with Oxygen Pending Tests on Discharge: Pending immunological testing and bronchoscopy BAL cultures per Pulmonary at discharge. These will be reviewed with you at your follow-up or you will be contacted if an antibiotic change is necessary. Allergies/Adverse Reactions: Allergies epinephrine Allergy (Verified 03/07/20 17:45) SEIZURE I PASS OUT Penicillins Allergy (Verified 03/07/20 17:45) Rash Medications to take at Discharge hydroxychloroquine 200 mg tablet 200 mg PO BID 09/11/17 Cholecalciferol (Vitamin D3) [Vitamin D3] 5,000 unit PO DAILY 09/19/17 Cyanocobalamin [Vitamin B12] 1,000 mcg PO DAILY@0800 09/19/17 Fluticasone/Vilanterol [Breo Ellipta 200-25 Mcg INH] 1 puff INHALATION DAILY 03/07/20 Levetiracetam [Keppra] 1,000 mg PO BID 03/07/20 Sertraline HCl [Zoloft] 100 mg PO DAILY 03/07/20 Albuterol IH (ProAir) [Proair Hfa] 2 puff INHALATION Q6H PRN 7 Days #1 inhaler 03/09/20 Azithromycin 500 mg PO DAILY #1 tab 03/09/20 Cefdinir [Omnicef [equiv]] 300 mg PO Q12H #6 cap 03/09/20 Prednisone 10 mg PO UD 14 Days #51 tab 03/09/20 proMETHazine/codeine soln [Phenergan with Codeine oral solution] 5 ml PO TID PRN 5 Days #4 ml 03/09/20 The following prescriptions were given: Azithromycin 500 mg PO DAILY #1 tab Transmission Status: Pending to [facility] Cefdinir [Omnicef [equiv]] 300 mg PO Q12H #6 cap Transmission Status: Pending to [facility] proMETHazine/codeine soln [Phenergan with Codeine oral solution] 5 ml PO TID PRN 5 Days #4 ml PRN Reason: coughing Prescription Printed Prednisone 10 mg PO UD 14 Days #51 tab Prescription Printed Albuterol IH (ProAir) [Proair Hfa] 2 puff INHALATION Q6H PRN 7 Days #1 inhaler PRN Reason: dyspnea, wheezing Transmission Status: Pending to [facility] Primary Care Physician: Linda Loving DO [Primary Care Provider] - Please follow up with your Primary Care Physician in: Follow-up within 2-3 days to review admission. Test Results: Test results from this visit will be discussed in further detail at your follow-up appointment, if applicable. Please Follow Up With: Doug Joy MD When: Follow-up within 1-2 weeks. Please Follow Up With: Rheumatology When: Please follow-up with your sewer line repairer within 2-4 weeks. Proposed Discharge Date: 03/09/20
--- NOTE | 2020-03-09 15:25 | DS.PCM_ITS ---
Discharge Date and Diagnosis - Problem List Patient Problems: Active and Suspected Problems (Last Reviewed 03/07/20 @ 23:[address] Sukhwinder Muse MD) Acute interstitial pneumonitis (Acute) Hypoxemia (Acute) Acute hypoxemic respiratory failure (Acute) Date of Admission: 03/07/20 Date of Discharge: 03/09/20 - Primary Discharge Diagnosis Acute Problems: Active Problems (Last Reviewed 03/07/20 @ 23:[address] Sukhwinder Muse MD) 1. Acute Hypoxia secondary to Acute Asthma Exacerbation secondary to Acute Interstitial Pneumonitis, Possible Lupus Pneumonitis 2. Seizure disorder 3. Anxiety and depression 4. Former tobacco use 5. SLE 6. Chronic pain syndrome - Secondary Discharge Diagnosis Chronic Problems: Chronic Problems (Last Reviewed 03/07/20 @ 23:[address] Sukhwinder Muse MD) Seizure disorder (Chronic) Nonhealing skin ulcer with fat layer exposed (Chronic) Current smoker on some days (Chronic) Seizure (Chronic) SLE (systemic lupus erythematosus related syndrome) (Chronic) Family history of breast cancer (Chronic) Intertrigo (Chronic) Shoulder pain (Chronic) Chronic thoracic back pain (Chronic) Chronic cervical pain (Chronic) Breast hypertrophy (Chronic) Hospital Course and Treatment Pulmonary medicine Operations: None Procedures: Bronchoscopy, EKG Summary of Care Provided: The patient is a 64 y/o F w/ PMHx: Hx Tobacco use, Seizure disorder, SLE, Chronic pain syndrome secondary to chronic back pain, Asthma following w/ Dr. Joy who presented to the [facility] ED on 03/07/20 with history of worsening dyspnea, cough as well as chest x-ray outpatient prompting requested admission per patient's veneer grader. ED presentation with patient decreasing 90% on room air at rest with decreased greater than 88% on room air with activity, ED CBC with WC 11.5 with left shift, ESR 47, CRP 87.7, Covid testing negative, negative respiratory viral panel, CT chest with bilateral patchy ground-glass and linear opacities suggestive of underlying multifocal pneumonia with atelectasis. Patient admitted to the medical surgical floor, maintained on oxygen with wean as tolerated to room air with initially 03/08/2020 evening increased oxygen needs but clinically improved into the morning, continue ATC albuterol, maintained on IV solumedrol, maintained on IV Rocephin and Azithromycin, HOB, IS parameters w/ pending sputum cultures, negative urine antigens, negative PCR as well as immunological work-up inclusive of FRANCES screen, Julio Cesar 1 antibody, SS?A/R IgG, SS?B/LA IgG antibody, Basilio antibody, INTERNAL COMBUSTION ENGINE INSPECTOR antibody, SCL?70 scleroderma antibody, double-stranded ALESHA antibody, centromere B antibody to be followed by patient's veneer grader, Dr. Joy. 03/09/[address] Joy with BAL with evidence of right middle lobe infiltrate with BAL performed. Following bronchoscopy per pulmonary given stable patient discharged to home with follow-up with pulmonary medicine within 1 to 2 weeks, rheumatology within 2 to 4 weeks, PCP within 2 to 3 days on regimen of 30 mg prednisone twice daily x3 days then transition to 30 mg daily until follow-up office visit with 3 additional days of antibiotic therapy including 1 additional day azithromycin and 3 days of Omnicef with plan antibiotic change if BAL culture results and any alteration needs. Per Dr. Joy also gave patient prescription for Phenergan with codeine at discharge. Patient oxygenation assessment for discharge home with noted 93% on room air at rest, 87% on room air ambulating and improvement to 93% on 3 L nasal cannula. Patient was set up for discharge home on 3 L nasal cannula. Patient Problems: Active and Suspected Problems (Last Reviewed 03/07/20 @ 23:[address] Sukhwinder Muse MD) Acute interstitial pneumonitis (Acute) Hypoxemia (Acute) Acute hypoxemic respiratory failure (Acute) - Physical Exam Vitals/I&O's: Vital Signs Temp Pulse Resp BP Pulse Ox 98.8 F 77 16 108/63 92 03/09/20 14:53 03/09/20 14:53 03/09/20 14:53 03/09/20 14:53 03/09/20 14:53 Oxygen Flow Rate (L/min) 2 Oxygen Delivery Method Nasal Cannula Weight: 178 lb 2.136 oz Body Mass Index (BMI) 27.8 Intake and Output for Last 24 Hours 03/07/20 03/08/20 03/09/20 23:59 23:59 23:59 Intake Total 50 / 350 4005 / 4005 605 / 605 Output Total 0 / 0 Balance 50 / 350 4005 / 4005 605 / 605 Microbiology Past 72 Hours 03/08/20 23:35 Urine, Clean Catch Legionella Antigen - Final 03/08/20 23:35 Urine, Clean Catch Streptococcus pneumoniae Antigen (M - Final 03/08/20 22:50 Sputum, Expectorated/Coughed Gram Stain - Final 03/07/20 19:35 Mucosa - Nose Respiratory Panel (PCR) - Final Laboratory Results 03/08/20 06:26: FRANCES Screen Negative, JULIO CESAR-1 Antibody Not Reportable, SS-A/Ro IgG Antibody Not Reportable, SS-B/La IgG Antibody Not Reportable, Sm (Basilio) Antibody Not Reportable, INTERNAL COMBUSTION ENGINE INSPECTOR Antibody Not Reportable, Scl-70 Scleroderma Ab Not Reportable, Double Strand DNA Ab Not Reportable, Centromere B Antibody Not Reportable 03/09/20 05:06: WBC 14.1 H, RBC 4.55, Hgb 13.5, Hct 42.4, MCV 93.2, MCH 29.7, MCHC 31.8 L, RDW Std Deviation 41.2, RDW Coeff of Pete 11.9, Plt Count 453 H, MPV 9.9, Immature Gran % (Auto) 0.300, Neut % (Auto) 92.7 H, Lymph % (Auto) 6.3 L, [place] % (Auto) 0.6, Eos % (Auto) 0.0, Baso % (Auto) 0.1, Absolute Neuts (auto) 13.0 H, Absolute Lymphs (auto) 0.88, Nucleated RBC % 0 03/09/20 05:06: Sodium 141, Potassium 4.2, Chloride 109 H, Carbon Dioxide 26.0, Anion Gap 6, BUN 13, Creatinine 0.82, Estim Creat Clear Calc 69.17, Est GFR (MDRD) Af Amer 90, Est GFR (MDRD) Non-Af 75, BUN/Creatinine Ratio 15.8, Glucose 145 H, Calcium 8.8, Total Bilirubin 0.30, AST 9 L, ALT 15, Alkaline Phosphatase 83, Total Protein 6.6, Albumin 2.9 L, Globulin 3.7, Albumin/Globulin Ratio 0.8 L 03/09/20 14:27: Fluid Source Pending, Fluid Color Pending, Fluid Appearance Pending, Fluid WBC Pending, Fluid RBC Pending, Fluid Tot Cell Count Pending, Fl Pathologist Comment Pending, Fluid Comment 2 Pending 03/09/20 14:27: Miscellaneous Cytology Pending Current Medications Acetaminophen (Acetaminophen 325 Mg Tablet) 650 mg PO Q6H PRN PRN PRN Reason: Pain Score 1-10/Temp > 100.7 F Albuterol Sulfate (Albuterol 2.5 Mg/3 Ml Vial.Neb.) 2.5 mg INHALATION Q6HWA.RT [facility] Last Admin: 03/09/20 06:44 Dose: 2.5 mg Documented by: Calcium Polycarbophil (Calcium Polycarbophil 625 Mg Tablet) 1,250 mg PO DAILY [facility] Last Admin: 03/09/20 09:34 Dose: Not Given Documented by: Cholecalciferol (Cholecalciferol (Vit D3) 1,000 Unit (25mcg)) 5,000 unit PO DAILY [facility] Last Admin: 03/09/20 09:34 Dose: Not Given Documented by: Cyanocobalamin (Cyanocobalamin 500 Mcg Tablet) 1,000 mcg PO DAILY@0800 [facility] Last Admin: 03/09/20 09:34 Dose: Not Given Documented by: Ceftriaxone Sodium 2 gm/ (Sodium Chloride) 50 mls @ 100 mls/hr IV Q24 [facility] Last Infusion: 03/09/20 10:49 Dose: Infused Documented by: Azithromycin 500 mg/ Dextrose 255 mls @ 250 mls/hr IV Q24 [facility] Last Infusion: 03/09/20 12:04 Dose: Infused Documented by: Sodium Chloride () 250 mls @ 15 mls/hr IV .[id number] PRN PRN Reason: Additional IVPB Infusion Levetiracetam (Levetiracetam 1,000 Mg Tablet) 1,000 mg PO BID [facility] Last Admin: 03/09/20 11:01 Dose: Not Given Documented by: Melatonin (Melatonin 3 Mg Tablet) 3 mg PO QHS PRN PRN PRN Reason: INSOMNIA Methylprednisolone (Methylprednisolone 125 Mg/2 Ml Vial) 60 mg IV Q12 [facility] Last Admin: 03/09/20 10:20 Dose: 60 mg Documented by: Ondansetron HCl (Ondansetron 4 Mg/2 Ml Vial) 4 mg IV Q8H PRN PRN PRN Reason: NAUSEA/VOMITING Sertraline HCl (Sertraline 100 Mg Tablet) 100 mg PO DAILY [facility] Last Admin: 03/09/20 09:34 Dose: Not Given Documented by: Sodium Chloride (0.9% Saline Lock 10 Ml Syringe) 10 - 40 ml IV UD PRN PRN Reason: SALINE FLUSH Last Admin: 03/09/20 14:51 Dose: 10 ml Documented by: Discharge Activity: May not drive while taking narcotic pain medications., - - Mild activity until re-assessment per Dr. Joy. Avoid moderate or aggressive activity until cleared. Call your doctor if you observe: Fever of 101 or Higher, Inability to urinate, Inability to have a bowel movement, Shortness of breath, Dizziness, Fainting spells, Chest pain, Uncontrolled pain Home Medications: Medications to take at Discharge hydroxychloroquine 200 mg tablet 200 mg PO BID 09/11/17 Cholecalciferol (Vitamin D3) [Vitamin D3] 5,000 unit PO DAILY 09/19/17 Cyanocobalamin [Vitamin B12] 1,000 mcg PO DAILY@0800 09/19/17 Fluticasone/Vilanterol [Breo Ellipta 200-25 Mcg INH] 1 puff INHALATION DAILY 03/07/20 Levetiracetam [Keppra] 1,000 mg PO BID 03/07/20 Sertraline HCl [Zoloft] 100 mg PO DAILY 03/07/20 Albuterol IH (ProAir) [Proair Hfa] 2 puff INHALATION Q6H PRN 7 Days #1 inhaler 03/09/20 Azithromycin 500 mg PO DAILY #1 tab 03/09/20 Cefdinir [Omnicef [equiv]] 300 mg PO Q12H #6 cap 03/09/20 Prednisone 10 mg PO UD 14 Days #51 tab 03/09/20 proMETHazine/codeine soln [Phenergan with Codeine oral solution] 5 ml PO TID PRN 5 Days #4 ml 03/09/20 Following Prescriptions Were Given to Patient: Azithromycin 500 mg PO DAILY #1 tab Transmission Status: Received by [facility] Cefdinir [Omnicef [equiv]] 300 mg PO Q12H #6 cap Transmission Status: Received by [facility] proMETHazine/codeine soln [Phenergan with Codeine oral solution] 5 ml PO TID PRN 5 Days #4 ml PRN Reason: coughing Prescription Printed Prednisone 10 mg PO UD 14 Days #51 tab Prescription Printed Albuterol IH (ProAir) [Proair Hfa] 2 puff INHALATION Q6H PRN 7 Days #1 inhaler PRN Reason: dyspnea, wheezing Transmission Status: Received by [facility] Primary Care Physician: Linda Loving DO [Primary Care Provider] - Please follow up with your Primary Care Physician in: Follow-up within 2-3 days to review admission. Please Follow Up With: Doug Joy MD When: Follow-up within 1-2 weeks. Please Follow Up With: Rheumatology When: Please follow-up with your operations and intelligence assistant within 2-4 weeks. Patient Instructions: Traveling with Oxygen, Using Oxygen Safely, Using Oxygen at Home, ED PNEUMONITIS Adult Disposition: Home with Home Health Minutes spent on discharge:: 35 Patient Condition:: Fair Medical Necessity - Tobacco Use Smoking Status: Former smoker Tobacco Use: Cigarettes Meaningful Use Info Meaningful Use Diagnoses (Choose all that apply): None applicable Inpatient E&M: [id number] [facility]
[2020-03-09 16:26] LABS: Appearance/Body Fluid CLOUDY; Color/Body Fluid RED; Red Cell Count/Body Fluid 8300 /mm3; Source- Body Fluid BRONCHIAL LAVAGE
[2020-03-09 16:28] LABS: White Blood Count/Body Fluid 30 /mm3
--- NOTE | 2020-03-09 17:17 | CASEMGMT ---
Social Work Note SW updated that pt will need oxygen at discharge. Charge Nurse spoke with pt, pt has no preference in company as long as the company accepts pt's insurance. LINN placed a call to [facility], spoke with Customer Service. SW updated that [facility] is in network with pt's insurance (MMO). SW completed quick script and faxed to [facility] with facesheet, insurance cards, oxygen testing, and discharge summary. LINN placed another call to [facility] and spoke with Margarita. LINN informed [place] that oxygen script has been faxed and tank will need to be delivered to [facility]. SW in to speak with pt. SW introduced self and role at [facility]. Pt is alert and orientated x3. LINN updated pt that oxygen script was sent to [facility] and per [facility] they accept pt's insurance. LINN explained that a tank will be delivered to [facility] and the product support representative will go over the information with pt. LINN informed pt that pt will need to call [facility] once she arrives home and [facility] will come to pt's home to set up concentrator with pt. Pt states understanding, denied additional needs or concerns. Colette Joiner BREAD ICER, PACU RN
[2020-03-09 18:04] LABS: Lymphocytes 5 %; Monocytes 1 %; Neutrophil (Segs) 47 %; Other Cell Type/BF 47 %
[2020-03-09 18:06] LABS: Body Fluid QC Type(s) BF1Q
[2020-03-10 13:39] LABS: Pathologist Comment/Body Fluid Reviewed
--- NOTE | 2020-03-10 15:34 | CASEMGMT ---
RN CM Discharge F/U Phone Call LACMckenna: 11 Strata: 3 Discharge date: 03/09/2020 Call date: 03/10/2020 Call time: [id number] Admission dx: Acute hypoxemic resp insufficiency Pt states has been doing 'good' since discharge. Pt states plans to call Dr. Joy or PCP tomorrow to see if she needs to continue with her aspirin as it had been stopped for procedure. This RN CM reassured her that speaking with them would be the best option, voiced understanding. Pt states she has not set up any f/u appt's yet and then became very quiet and didn't really answer question about appt or O2 set up at home. This RN CM then asked about suggestions for WC at this time and pt states 'We don't have time to get into all that at this time.' This RN CM then asked if everything was ok with pt and she said 'There are too many things to discuss and this call is useless as well because you will not answer my question either.' This RN CM advised pt again that physician needs to make decisions in regards to whether pt should or should not take her med and to f/u with them would be best. Pt then hung up on this RN CM at that time. Message left for Enrrique, pt advocate, in regards to pt at this time. SStkavitha RN CM
== END 2020-03-09 18:52 | disposition home or self-care (01) | DRG 196 ==
LOC: ED 22:20 → MS3 22:56
PROVIDERS: Internal Medicine Pulmonary Disease; Admitting Provider Hospitalist; Emergency Provider Emergency Medicine; PCP Family Medicine; Referring Provider Hospitalist; Visit Provider Family Medicine
PROC: 0BJ08ZZ Inspection of Tracheobronchial Tree, Via Natural or Artificial Opening Endoscopic (ICD-10-PCS; CPT 31622; principal; 2020-03-09 12:40)
DX: J84.114 Acute interstitial pneumonitis (principal); J96.01 Acute respiratory failure with hypoxia; J45.901 Unspecified asthma with (acute) exacerbation; Z79.899 Other long term (current) drug therapy; M32.9 Systemic lupus erythematosus, unspecified; G40.909 Epilepsy, unspecified, not intractable, without status epilepticus; G89.4 Chronic pain syndrome; K21.9 Gastro-esophageal reflux disease without esophagitis; F32.9 Major depressive disorder, single episode, unspecified; F41.9 Anxiety disorder, unspecified; F17.210 Nicotine dependence, cigarettes, uncomplicated; Z78.0 Asymptomatic menopausal state; Z79.82 Long term (current) use of aspirin; Z79.51 Long term (current) use of inhaled steroids; Z87.01 Personal history of pneumonia (recurrent); Z86.72 Personal history of thrombophlebitis; Z87.891 Personal history of nicotine dependence; Z95.0 Presence of cardiac pacemaker
CPT/HCPCS: 71250; 80048; 80053; 83605; 85025; 85652; 86038; 86140; 86225; 86235; 87015; 87070; 87077; 87101; 87116; 87205; 87206; 87449; 87633; 87635; 88108; 88305; 88312; 88313; 89050; 93005; 94640; 97802; 99251; 99285; J7030; A4216; G0463; J0696; U0002

== ENCOUNTER → 2020-03-14 09:30 | Outpatient (CLI) | payer OTHER, SELFPAY ==
[2020-03-09 11:36] VITALS: BMI 27.8
--- NOTE | 2020-03-14 09:52 | RAD_ITS ---
STUDY: X-RAY CHEST REASON FOR EXAM: Female, 64 years old. PNEUMONIA F/U. HX SOB, COUGH. PT ST IMPROVEMENT TECHNIQUE: PA and lateral views of the chest. COMPARISON: Comparison is made with prior study dated 02/29/2020. FINDINGS: Since prior study, there has been moderate degree of improved aeration of both lungs. Persistent atelectasis and/or infiltrates persist at the lung bases slightly worse on the right side. There is no demonstrated pleural abnormality. Normal size heart. A left-sided dual-chamber pacemaker is seen. Normal mediastinum and salina. Normal visualized pulmonary arteries. There is atherosclerotic tortuosity of the aortic arch and descending thoracic aorta. Normal visualized thoracic spine. Normal visualized ribs, clavicles, and shoulders. There is no demonstrated abnormality of the visualized soft tissue structures of the upper abdomen. RAD/Chest PA and Lateral IMPRESSION: Improved aeration as compared to prior study. Residual increased markings at the lung bases persist slightly worse on the right side. Electronically Signed: Genaro Zabala, at 14:00 EST , Service support ,
[2020-03-14 12:11] LABS: CRP < 2.90 mg/L (0.0-3.0)
== END ==
PROVIDERS: PCP Family Medicine; Referring Provider Internal Medicine Pulmonary Disease; Visit Provider Internal Medicine Pulmonary Disease
DX: J18.9 Pneumonia, unspecified organism (principal)
CPT/HCPCS: 36415; 71046; 86140

== ENCOUNTER → 2020-03-30 12:10 | Outpatient (CLI) | payer OTHER, SELFPAY ==
[2020-03-09 11:36] VITALS: BMI 27.8
[2020-03-30 12:16] LABS: Bacteria 0 SEEN /hpf (None Seen); Mucous, Urine 0 SEEN /hpf (<or=2+); Red Blood Cells-Urine 0 SEEN /hpf (0-5); White Blood Cells 0 SEEN /hpf (0-5)
[2020-03-30 12:57] LABS: Color, Urine Yellow (Yellow); Glucose, Dipstick Normal (Normal); Ketone-Dipstick Negative (Negative); Leukocyte Esterase-Dipstick Negative /ul (Negative); Nitrite-Dipstick Negative (Negative); Occult Blood-Urine Negative /ul (Negative); Protein-Dipstick Negative (Negative); Urine Bilirubin Dipstick Negative (Negative); Urine Clarity Sl. Cloudy (Clear); Urine Urobilinogen Normal (Normal); Urine pH 6.5 (5.0 - 8.0)
[2020-03-30 13:09] LABS: Squamous Epithelial Cells - UA 0-5 SEEN /hpf (5-10)
[2020-03-30 13:15] LABS: Absolute Lymphocyte Count 1.75 X10^3/uL (0.83-4.51); Absolute Neutrophil Count 8.7 X10^3/uL (2.0-7.7); Basophil# 0.03 X10^3/uL; Basophil% 0.3 % (0-1); Eosinophil# 0.04 X10^3/uL; Eosinophils% 0.4 % (0-5); Hematocrit 47.7 % (37-47); Hemoglobin 14.9 g/dL (12.0-15.0); Lymphocyte # 1.75 X10^3/ul (4.0); Mean Corp Hgb Conc 31.2 g/dL (32-36); Mean Corpuscular Hgb 29.9 pg (27.0-32.0); Mean Corpuscular Volume 95.8 fL (81-99); Mean Platelet Vol. 9.7 fl (6.2-12.0); Monocyte% 3.7 % (0-10); NRBC Flagged by Analyzer 0 % (0-5); Neutrophil # 8.68 X10^3/uL (2.7-7.7); Neutrophil % 79.1 % (47-70); Platelet Count 241 K/mm3 (150-450); RBC Distribution Width CV 13.5 % (11.6-14.6); RBC Distribution Width SD 47.9 fl (35.1-43.9); Red Blood Count 4.98 M/mm3 (4.2-5.4)
[2020-03-30 13:26] LABS: ALB/GLOB Ratio 1.3 RATIO (0.9-2.4); AST(SGOT) 9 U/L (15-37); Alanine Aminotransfer ALT/SGPT 29 U/L (13-56); Albumin, Serum 3.9 g/dL (3.2-5.0); Alkaline Phosphatase 57 U/L (45-117); Anion Gap 6 (5-15); BUN 13 mg/dL (7-18); BUN/Creat Ratio 15.1 RATIO (10-20); CRP < 2.90 mg/L (0.0-3.0); Calcium,Total 9.1 mg/dL (8.5-10.1); Chloride 106 mmol/L (98-107); Creatinine, Serum 0.86 mg/dL (0.55-1.02); EST Glomerular Filtration Rate 71 mL/min (>60); Est Glom Filt Rate - Afr Amer 86 mL/min (>60); Globulin 2.9 g/dL (2.2-4.2); Glucose 111 mg/dL (74-106); Potassium 4.2 mmol/L (3.5-5.1); Protein, Total 6.8 g/dL (6.4-8.2); Sodium Level 141 mmol/L (136-145)
[2020-03-30 13:34] LABS: Erythrocyte Sedimentation Rate 2 mm/hr (0-30)
[2020-03-31 16:09] LABS: Complement C3 78 mg/dL (82-167)
[2020-03-31 16:17] LABS: Anti-dsDNA Ab 5 IU/mL (0-9)
== END ==
PROVIDERS: PCP Family Medicine
DX: M32.9 Systemic lupus erythematosus, unspecified (principal)
CPT/HCPCS: 36415; 80053; 81001; 85025; 85652; 86140; 86160; 86225

== ENCOUNTER → 2020-04-05 10:43 | Outpatient (CLI) | payer OTHER, SELFPAY ==
[2020-03-09 11:36] VITALS: BMI 27.8
--- NOTE | 2020-04-05 10:56 | RAD_ITS ---
STUDY: X-RAY CHEST REASON FOR EXAM: Female, 65 years old. PNEUMONITIS SINCE -- LUPUS TECHNIQUE: PA and lateral views of the chest. COMPARISON: Comparison is made with prior study dated 03/14/2020. FINDINGS: Minimal residual increased linear markings are seen in the right middle lobe. Minimal left basilar atelectasis is seen as well. There is no demonstrated pleural abnormality. Normal size heart. A left-sided dual-chamber pacemaker is seen. Normal mediastinum and salina. Normal visualized pulmonary arteries. Normal visualized aortic arch and descending thoracic aorta. Normal visualized thoracic spine. Normal visualized ribs, clavicles, and shoulders. There is no demonstrated abnormality of the visualized soft tissue structures of the upper abdomen. RAD/Chest PA and Lateral IMPRESSION: Improved aeration of both lungs with minimal linear changes at both lung bases. Electronically Signed: Genaro Zabala, at 15:55 EST , Service support ,
[2020-04-05 11:38] LABS: Hematocrit 43.6 % (37-47); Mean Corp Hgb Conc 32.1 g/dL (32-36); Mean Corpuscular Volume 93.4 fL (81-99); Mean Platelet Vol. 9.6 fl (6.2-12.0); Platelet Count 243 K/mm3 (150-450); RBC Distribution Width CV 13.4 % (11.6-14.6); RBC Distribution Width SD 46.2 fl (35.1-43.9); Red Blood Count 4.67 M/mm3 (4.2-5.4); White Blood Count 10.7 K/mm3 (4.4-11.0)
[2020-04-05 12:08] LABS: AST(SGOT) 8 U/L (15-37); Alanine Aminotransfer ALT/SGPT 28 U/L (13-56); Albumin, Serum 3.7 g/dL (3.2-5.0); Alkaline Phosphatase 52 U/L (45-117); BUN 12 mg/dL (7-18); Bilirubin, Direct 0.09 mg/dL (0.00-0.30); CPK Total, Creatine Kinase 67 U/L (26-192); Globulin 2.9 g/dL (2.2-4.2); Protein, Total 6.6 g/dL (6.4-8.2)
== END ==
PROVIDERS: PCP Family Medicine; Visit Provider Internal Medicine Pulmonary Disease
DX: J18.9 Pneumonia, unspecified organism (principal); J45.909 Unspecified asthma, uncomplicated; R05 Cough
CPT/HCPCS: 36415; 71046; 80076; 82550; 84520; 85027

== ENCOUNTER → 2020-05-06 07:29 | Outpatient (CLI) | payer OTHER, SELFPAY ==
[2020-03-09 11:36] VITALS: BMI 27.8
--- NOTE | 2020-05-06 07:31 | BI_ITS ---
MAMMOGRAPHY - BILATERAL SCREENING REASON FOR EXAM: Female, 65 years old. Routine annual screening examination. PERTINENT HISTORY: Mother with breast cancer. Prior bilateral breast reduction surgery. TECHNIQUE: Digital bilateral breast nic (3D mammographic acquisition) in the CC and MLO projections. 2-D mediolateral oblique (MLO) and craniocaudad (CC) views of both breasts were obtained. CAD: Full Field Digital Mammography with Computer Added Detection was performed. COMPARISON: Comparison is made with prior examination dated 05/09/2018. FINDINGS: Breast Composition: There are scattered areas of fibroglandular density. There now is evidence of a 6.3 mm x 8.1 mm nodule in the slightly inferior lateral portion of the right breast. Correlation with ultrasound is recommended for further evaluation. A left-sided pacemaker battery pack is seen in the axillary region of the left breast. No other significant abnormalities are identified. BI/SCREEN MAMM (CAD) W/NIC BILAT IMPRESSION: 6.3 mm x 8.1 mm nodule in the slightly inferior lateral portion of the right breast. Correlation with ultrasound is recommended. ASSESSMENT CATEGORY: BIRADS Category 0: Incomplete. Need additional imaging evaluation. A letter regarding these results will be sent to the patient by the facility within 30 days. Approximately 10% of breast cancers are not detected by mammography. A normal mammogram should not delay biopsy of a clinically suspicious abnormality. [id number] Electronically Signed: Genaro Zabala, at 8:47 EST , Service support ,
== END ==
PROVIDERS: PCP Family Medicine; Referring Provider Family Medicine; Visit Provider Family Medicine
DX: Z12.31 Encounter for screening mammogram for malignant neoplasm of breast (principal)
CPT/HCPCS: 77063; 77067

== ENCOUNTER → 2020-05-09 14:32 | Outpatient (CLI) | payer OTHER, SELFPAY ==
[2020-03-09 11:36] VITALS: BMI 27.8
--- NOTE | 2020-05-09 14:33 | US_ITS ---
STUDY: ULTRASOUND BREAST - RIGHT REASON FOR EXAM: Female, 65 years old. Abnormal screening mammogram. TECHNIQUE: Axial and longitudinal images of the RIGHT breast were performed with a high resolution ultrasound transducer. # OF IMAGES: 53 COMPARISON: Comparison is made with prior mammogram dated 05/06/2020. FINDINGS: RIGHT Breast: The mammographic abnormality corresponds to an 8 mm x 7 mm x 4 mm cyst along the superficial aspect of the breast at 7 o''clock position and 4 cm from the nipple. US/Breast Limited Unilateral IMPRESSION: Superficial cyst measuring 8 mm x 7 mm x 4 mm corresponds with mammographic abnormality. ASSESSMENT CATEGORY: BIRADS Category 2: Benign. A letter regarding these results will be sent to the patient by the facility within 30 days. Electronically Signed: Genaro Zabala, at 15:41 EST , Service support ,
[2020-05-09 15:26] LABS: Erythrocyte Sedimentation Rate 12 mm/hr (0-30)
[2020-05-09 15:29] LABS: Hematocrit 43.4 % (37-47); Mean Corp Hgb Conc 32.3 g/dL (32-36); Mean Corpuscular Hgb 30.1 pg (27.0-32.0); Mean Corpuscular Volume 93.3 fL (81-99); Mean Platelet Vol. 9.2 fl (6.2-12.0); Platelet Count 300 K/mm3 (150-450); RBC Distribution Width CV 14.2 % (11.6-14.6); RBC Distribution Width SD 48.9 fl (35.1-43.9); Red Blood Count 4.65 M/mm3 (4.2-5.4); White Blood Count 9.3 K/mm3 (4.4-11.0)
[2020-05-09 15:37] LABS: AST(SGOT) 11 U/L (15-37); Alanine Aminotransfer ALT/SGPT 25 U/L (13-56); Albumin, Serum 3.6 g/dL (3.2-5.0); Alkaline Phosphatase 65 U/L (45-117); BUN 11 mg/dL (7-18); Protein, Total 6.6 g/dL (6.4-8.2)
== END ==
PROVIDERS: Internal Medicine Pulmonary Disease; PCP Family Medicine; Referring Provider Family Medicine; Visit Provider Family Medicine
DX: R92.2 Inconclusive mammogram (principal); J18.9 Pneumonia, unspecified organism; R05 Cough; J45.909 Unspecified asthma, uncomplicated
CPT/HCPCS: 36415; 76642; 80076; 84520; 85027; 85652

== ENCOUNTER → 2020-07-25 13:49 | Outpatient (CLI) | payer OTHER, SELFPAY ==
--- NOTE | 2020-07-25 14:10 | RAD_ITS ---
STUDY: X-RAY CHEST REASON FOR EXAM: Female, 65 years old. Shortness of breath, got tested for covid today, hx of pneumonia x 2 last year. TECHNIQUE: PA and lateral views of the chest. COMPARISON: Comparison is made with prior study dated 04/05/2020. FINDINGS: Mild increased linear markings at the lung bases with areas of confluence. This is worse in the left lower lobe. This may represent bibasilar infiltrates. Follow-up is recommended. There is no demonstrated pleural abnormality. Normal size heart. Normal mediastinum and salina. Normal visualized pulmonary arteries. Normal visualized aortic arch and descending thoracic aorta. Normal visualized thoracic spine. Normal visualized ribs, clavicles, and shoulders. There is no demonstrated abnormality of the visualized soft tissue structures of the upper abdomen. RAD/Chest PA and Lateral IMPRESSION: Increased markings in both lower lobes slightly worse on the left side. Early bibasilar infiltrates should be ruled out. Electronically Signed: Genaro Zabala MD at 18:50 EDT , Service support ,
[2020-07-25 15:41] LABS: Probe Check PASS; Specimen Processing Control PASS
== END ==
PROVIDERS: Referring Provider Nurse Practitioner Acute Care; Visit Provider Nurse Practitioner Acute Care
DX: R06.02 Shortness of breath (principal); R05 Cough; Z20.822 Contact with and (suspected) exposure to COVID-19
CPT/HCPCS: 71046; 87635; C9803; U0002

== ENCOUNTER → 2020-08-19 10:41 | Outpatient (CLI) | payer OTHER, SELFPAY ==
--- NOTE | 2020-08-19 10:44 | RAD_ITS ---
INDICATION: shortness of breath EXAMINATION/TECHNIQUE: X-RAY - XR Chest 2 Views COMPARISON: 07/25/2020. FINDINGS: Left-sided cardiac device. Bilateral interstitial and airspace opacities. The cardiomediastinal silhouette is unremarkable. No pleural effusion or pneumothorax. No acute osseous abnormalities. RAD/Chest PA and Lateral IMPRESSION: Bilateral interstitial and airspace opacities could represent infection and/or edema. Electronically Signed: Manas Vines MD at 17:19 EDT Tel , Service support ,
[2020-08-19 11:11] LABS: Absolute Lymphocyte Count 1.71 X10^3/uL (0.83-4.51); Absolute Neutrophil Count 5.4 X10^3/uL (2.0-7.7); Basophil# 0.04 X10^3/uL; Basophil% 0.5 % (0-1); Eosinophils% 4.9 % (0-5); Hematocrit 45.1 % (37-47); Hemoglobin 14.3 g/dL (12.0-15.0); Lymphocyte # 1.71 X10^3/ul (0.83-4.51); Lymphocyte % 20.9 % (19-41); Mean Corp Hgb Conc 31.7 g/dL (32-36); Mean Corpuscular Hgb 29.7 pg (27.0-32.0); Mean Corpuscular Volume 93.6 fL (81-99); Mean Platelet Vol. 9.4 fl (6.2-12.0); Monocyte# 0.59 X10^3/uL; Monocyte% 7.2 % (0-10); NRBC Flagged by Analyzer 0 % (0-5); Neutrophil # 5.41 X10^3/uL (2.7-7.7); Neutrophil % 66.3 % (47-70); Platelet Count 245 K/mm3 (150-450); RBC Distribution Width CV 12.3 % (11.6-14.6); RBC Distribution Width SD 42.6 fl (35.1-43.9); Red Blood Count 4.82 M/mm3 (4.2-5.4); White Blood Count 8.2 K/mm3 (4.4-11.0)
[2020-08-19 11:33] LABS: ALB/GLOB Ratio 1.2 RATIO (0.9-2.4); AST(SGOT) 23 U/L (15-37); Alanine Aminotransfer ALT/SGPT 45 U/L (13-56); Albumin, Serum 3.8 g/dL (3.2-5.0); Alkaline Phosphatase 71 U/L (45-117); Anion Gap 3 (5-15); BUN 11 mg/dL (7-18); BUN/Creat Ratio 13.1 RATIO (10-20); Calcium,Total 9.2 mg/dL (8.5-10.1); Chloride 108 mmol/L (98-107); Cholesterol 284 mg/dL (200); Creatinine, Serum 0.84 mg/dL (0.55-1.02); EST Glomerular Filtration Rate 73 mL/min (>60); Est Glom Filt Rate - Afr Amer 88 mL/min (>60); Globulin 3.2 g/dL (2.2-4.2); Glucose 94 mg/dL (74-106); High Density Lipoprotein 79 mg/dL; Potassium 3.7 mmol/L (3.5-5.1); Sodium Level 140 mmol/L (136-145); Triglycerides 120 mg/dL; Very Low Density Lipoprotein 24 mg/dL (5-40)
== END ==
PROVIDERS: PCP Family Medicine; Referring Provider Nurse Practitioner Acute Care; Visit Provider Nurse Practitioner Acute Care
DX: R06.02 Shortness of breath (principal); E78.2 Mixed hyperlipidemia; E78.5 Hyperlipidemia, unspecified; Z51.81 Encounter for therapeutic drug level monitoring
CPT/HCPCS: 36415; 71046; 80053; 80061; 85025

== ENCOUNTER → 2020-08-22 14:36 | Outpatient (CLI) | payer OTHER, SELFPAY ==
--- NOTE | 2020-08-22 14:39 | EKG12_ITS ---
Test Reason : MED CHANGE Blood Pressure : / mmHG Vent. Rate : 077 BPM Atrial Rate : 077 BPM P-R Int : 170 ms QRS Dur : 134 ms QT Int : 358 ms P-R-T Axes : 010 -21 126 degrees QTc Int : 405 ms Normal sinus rhythm Left ventricular hypertrophy Poor R wave progression Septal MS, age undetermined, cannot be excluded ST/T wave abnormality, consider metabolic effect, medication effect, myocardial ischemia Abnormal ECG Confirmed by FADIA AGUILAR, EVA ([id number]), editor managing newspaper DORYS DANIELS ([id number]) on 08/23/2020 8:37:48 AM Referred By: Steven Thornton Confirmed By:EVA LOAIZA MD
== END ==
PROVIDERS: PCP Family Medicine; Referring Provider Internal Medicine Critical Care Medicine; Visit Provider Internal Medicine Critical Care Medicine
DX: R09.02 Hypoxemia (principal)
CPT/HCPCS: 93005

== ENCOUNTER → 2020-08-24 11:53 | Outpatient (CLI) | payer OTHER, SELFPAY | PROVIDERS: PCP Family Medicine; Referring Provider Nurse Practitioner Acute Care; Visit Provider Nurse Practitioner Acute Care | DX: R05 Cough (principal) | CPT/HCPCS: 87070; 87101; 87106; 87205 ==

== ENCOUNTER → 2021-03-20 | Outpatient (CLI) | payer OTHER, SELFPAY | END | disposition home or self-care (01) | LOC: LABSPEC 12:39 | PROVIDERS: PCP Family Medicine; Visit Provider Family Medicine | DX: Z20.828 Contact with and (suspected) exposure to other viral communicable diseases (principal) | CPT/HCPCS: 87633; 87635; U0005; U0003 ==

== ENCOUNTER 2021-06-06 18:00 | Outpatient (CLI) | payer OTHER, SELFPAY | END 2021-06-06 23:59 | disposition home or self-care (01) | PROVIDERS: PCP Family Medicine; Visit Provider Family Medicine | DX: U07.1 COVID-19 (principal) | CPT/HCPCS: 87635; U0003; U0005 ==

== ENCOUNTER → 2022-05-18 | Outpatient (CLI) | payer MEDICARE, OTHER, SELFPAY ==
[2022-05-18 11:40] LABS: Erythrocyte Sedimentation Rate 4 mm/hr (0-30)
[2022-05-18 11:57] LABS: ALB/GLOB Ratio 1.4 RATIO (0.9-2.4); AST(SGOT) 16 U/L (15-37); Alanine Aminotransfer ALT/SGPT 26 U/L (13-56); Albumin, Serum 3.9 g/dL (3.2-5.0); Alkaline Phosphatase 53 U/L (45-117); Anion Gap 7 (5-15); BUN 11 mg/dL (7-18); BUN/Creat Ratio 14.9 RATIO (10-20); CRP 8.51 mg/L (0.0-3.0); Calcium,Total 9.1 mg/dL (8.5-10.1); Chloride 110 mmol/L (98-107); Creatinine, Serum 0.74 mg/dL (0.55-1.02); EST Glomerular Filtration Rate 84 mL/min (>60); Est Glom Filt Rate - Afr Amer 102 mL/min (>60); Globulin 2.8 g/dL (2.2-4.2); Glucose 103 mg/dL (74-106); Lipase 135 U/L (73-393); Potassium 4.2 mmol/L (3.5-5.1); Protein, Total 6.7 g/dL (6.4-8.2); Sodium Level 145 mmol/L (136-145)
== END | disposition home or self-care (01) ==
LOC: LAB 10:17
PROVIDERS: PCP Family Medicine; Referring Provider Family Medicine; Visit Provider Family Medicine
DX: R19.7 Diarrhea, unspecified (principal); R10.9 Unspecified abdominal pain; R30.0 Dysuria
CPT/HCPCS: 36415; 80053; 83690; 85652; 86140; 87086; 87088

== ENCOUNTER → 2022-05-25 | Outpatient (CLI) | payer MEDICARE, OTHER, SELFPAY ==
--- NOTE | 2022-05-25 07:58 | US_ITS ---
STUDY: ABDOMINAL ULTRASOUND REASON FOR EXAM: Female, 67 years old. ABD PAIN, diarrhea TECHNIQUE: Transabdominal ultrasound was performed with real-time and static ortega scale imaging. TECHNICAL QUALITY: Adequate. COMPARISON: Comparison is made with prior study dated 05/08/2019. FINDINGS: Liver: The liver measures 17.7 cm. There is increased echogenicity consistent with fatty infiltration. The bile ducts are within normal limits. There is hepatic color flow. The direction of portal flow is hepatopetal. There is no demonstrated mass lesion. Portal vein measurement: Gallbladder: Normal distended gallbladder. The gallbladder wall measures 2.4 mm. There is a negative sonographic Bell''s sign. There is no pericholecystic fluid. There are no gallstones. There is a 2 mm polyp adherent to the gallbladder wall. Common Bile Duct (C.B.D.): The common bile duct measures 3.4 mm. Pancreas: Normal size of the head, body and tail of the pancreas. 2 There is no demonstrated pancreatic mass or cyst. Spleen: Normal size of the spleen. The spleen measures 10.8 cm x 4.3 cm x 4 cm. Right Kidney: Normal size of the right kidney. The right kidney measures 10.4 cm x 4.5 cm x 4.6 cm. Normal renal cortex. The right cortex measures 1.7 cm. There is no demonstrated renal mass or cyst. There is no right hydronephrosis. Left Kidney: Normal size of the left kidney. The left kidney measures 9.8 cm x 4.5 cm x 4.7 cm. Normal renal cortex. The left cortex measures 1.4 cm. There is a 1.2 cm x 1.2 cm x 1.2 cm left renal cyst. There is no left hydronephrosis. Aorta: Unremarkable. I.V.C.: The IVC is patent. There is no ascites. US/Abdomen Complete IMPRESSION: Borderline hepatomegaly. Fatty infiltration of the liver. Stable 2 mm gallbladder polyp. Small left renal cyst. Electronically Signed: Genaro Zabala MD at 14:17 EST ,
== END | disposition home or self-care (01) ==
LOC: US 07:56
PROVIDERS: PCP Family Medicine; Visit Provider Family Medicine
DX: K80.20 Calculus of gallbladder without cholecystitis without obstruction (principal); R19.7 Diarrhea, unspecified; R10.9 Unspecified abdominal pain
CPT/HCPCS: 76700

== ENCOUNTER → 2022-06-25 | Outpatient (CLI) | payer MEDICARE, OTHER, SELFPAY ==
--- NOTE | 2022-06-25 09:54 | NM_ITS ---
CLINICAL: 67-year-old female with history of abdominal pain. RADIONUCLIDE HEPATOBILIARY SCINTIGRAPHY COMPARISON: Previous hepatobiliary scintigraphy study dated 01/01/2020, abdominal ultrasound report 05/25/2022 FINDINGS: Following the intravenous administration of 5.0 mCi of 99m Tc Mebrofenin, hepatobiliary images reveal: 1. Relatively prompt and homogeneous radiopharmaceutical concentration is noted by a normal sized liver. No parenchymal defects are identified. 2. Gallbladder activity is identified at 15 minutes post radiopharmaceutical administration. 3. Small intestinal tract is observed at 45 minutes following tracer injection. 4. Washout of the radiopharmaceutical by the hepatic parenchyma appears qualitatively normal. Cholecystokinin (0.02 ug/kg) was administered intravenously over a 30-minute period. The post CCK gallbladder ejection fraction calculated at 20 minutes following Cholecystokinin administration was noted to be 91.0 % (normal greater than 35%) compared to 84% defined on the examination dated 01/01/2020. During 30 minutes of post CCK imaging, there is no scintigraphic evidence of reflux of the radiotracer into the common hepatic duct or refilling of the gallbladder. There is scintigraphic evidence of post CCK duodenal gastric reflux. NM/Hepatobilliary Img w/Pharm Int IMPRESSION: 1. A gallbladder ejection fraction calculated to be greater than 35% following the administration of Cholecystokinin makes the probability of functional hepatobiliary disease (gallbladder and/or sphincter of Oddi dyskinesia) and/or organic hepatobiliary disease (chronic acalculous cholecystitis and/or cystic duct syndrome) to be low. (Waleska Krause et al, Journal of Nuclear Medicine 32:1695, 1990). 2. There is scintigraphic evidence of post CCK duodenal-gastric reflux. (Deysi et al, Nucl Med Mirella [employer] Press pg. 35, 1980). 3. Compared to the study dated 01/01/2020, there is interim development of post cholecystokinin duodenal-gastric reflux. Electronically Signed: Boogie Robledo, at 19:48 EST ,
== END | disposition home or self-care (01) ==
PROVIDERS: PCP Family Medicine; Referring Provider Family Medicine; Visit Provider Family Medicine
DX: K80.20 Calculus of gallbladder without cholecystitis without obstruction (principal); R19.7 Diarrhea, unspecified; R10.9 Unspecified abdominal pain
CPT/HCPCS: 78227; A9537; J2805

== ENCOUNTER → 2022-07-23 | Outpatient (CLI) | payer MEDICARE, OTHER, SELFPAY ==
--- NOTE | 2022-07-23 09:09 | RAD_ITS ---
HISTORY: PAIN. TECHNIQUE: XR Hips Bilateral with Pelvis when performed; 2 Views. COMPARISON: CT 12/28/2019. FINDINGS: OSSEOUS STRUCTURES: No acute displaced fracture identified. Note that overlapping bowel shadows may obscure osseous detail. Mineralization unremarkable. JOINT SPACES: No dislocation. Very mild degenerative changes of the hips with small osteophytes. RAD/Hips B/L min 2 views w/ Pelvis IMPRESSION: No acute displaced fracture or dislocation identified. Electronically Signed: Laura Amaya MD at 10:48 EDT ,
[2022-07-23 10:12] LABS: Erythrocyte Sedimentation Rate < 1 mm/hr (0-30)
[2022-07-23 10:16] LABS: Absolute Lymphocyte Count 1.95 X10^3/uL (0.83-4.51); Absolute Neutrophil Count 3.3 X10^3/uL (2.0-7.7); Basophil# 0.06 X10^3/uL; Eosinophil# 0.14 X10^3/uL; Eosinophils% 2.4 % (0-5); Hematocrit 43.3 % (37-47); Hemoglobin 13.8 g/dL (12.0-15.0); Lymphocyte # 1.95 X10^3/ul (0.83-4.51); Lymphocyte % 33.2 % (19-41); Mean Corp Hgb Conc 31.9 g/dL (32-36); Mean Corpuscular Hgb 30.1 pg (27.0-32.0); Mean Corpuscular Volume 94.3 fL (81-99); Mean Platelet Vol. 10.1 fl (6.2-12.0); Monocyte# 0.41 X10^3/uL; NRBC Flagged by Analyzer 0 % (0-5); Neutrophil # 3.29 X10^3/uL (2.7-7.7); Neutrophil % 56.1 % (47-70); Platelet Count 266 K/mm3 (150-450); RBC Distribution Width CV 12.2 % (11.6-14.6); RBC Distribution Width SD 42.5 fl (35.1-43.9); Red Blood Count 4.59 M/mm3 (4.2-5.4); White Blood Count 5.9 K/mm3 (4.4-11.0)
[2022-07-23 10:46] LABS: ALB/GLOB Ratio 1.4 RATIO (0.9-2.4); AST(SGOT) 14 U/L (15-37); Alanine Aminotransfer ALT/SGPT 26 U/L (13-56); Albumin, Serum 3.9 g/dL (3.2-5.0); Alkaline Phosphatase 63 U/L (45-117); Anion Gap 3 (5-15); BUN 12 mg/dL (7-18); BUN/Creat Ratio 15.9 RATIO (10-20); CRP 3.96 mg/L (0.0-3.0); Calcium,Total 9.2 mg/dL (8.5-10.1); Chloride 109 mmol/L (98-107); Creatinine, Serum 0.76 mg/dL (0.55-1.02); EST Glomerular Filtration Rate 82 mL/min (>60); Est Glom Filt Rate - Afr Amer 99 mL/min (>60); Globulin 2.8 g/dL (2.2-4.2); Glucose 99 mg/dL (74-106); LDH 185 U/L (84-246); Potassium 3.9 mmol/L (3.5-5.1); Protein, Total 6.7 g/dL (6.4-8.2); Sodium Level 141 mmol/L (136-145)
[2022-07-24 14:09] LABS: PROEL- A/G Ratio 1.7 (0.7-1.7); PROEL- Alpha-1 Globulin 0.2 g/dL (0.0-0.4); PROEL- Alpha-2 Globulin 0.7 g/dL (0.4-1.0); PROEL- Beta Globulin 0.9 g/dL (0.7-1.3); PROEL- Gamma Globulin 0.6 g/dL (0.4-1.8); PROEL- Globulin, Total 2.4 g/dL (2.2-3.9); PROEL- TOTAL PROTEIN 6.4 g/dL (6.0-8.5)
== END | disposition home or self-care (01) ==
LOC: LAB 08:59
PROVIDERS: PCP Family Medicine; Referring Provider Family Medicine; Visit Provider Family Medicine
DX: R10.9 Unspecified abdominal pain (principal); M32.9 Systemic lupus erythematosus, unspecified; M79.10 Myalgia, unspecified site; Z51.81 Encounter for therapeutic drug level monitoring; M25.551 Pain in right hip; M25.552 Pain in left hip
CPT/HCPCS: 36415; 73521; 80053; 83615; 84165; 85025; 85652; 86140

== ENCOUNTER → 2023-02-04 | Outpatient (CLI) | payer MEDICARE, OTHER, SELFPAY ==
[2023-02-04 17:54] LABS: Absolute Lymphocyte Count 1.68 X10^3/uL (0.83-4.51); Absolute Neutrophil Count 3.7 X10^3/uL (2.0-7.7); Basophil# 0.04 X10^3/uL; Basophil% 0.7 % (0-1); Eosinophil# 0.07 X10^3/uL; Eosinophils% 1.2 % (0-5); Hematocrit 43.2 % (37-47); Hemoglobin 14.3 g/dL (12.0-15.0); Lymphocyte # 1.68 X10^3/ul (0.83-4.51); Lymphocyte % 28.7 % (19-41); Mean Corp Hgb Conc 33.1 g/dL (32-36); Mean Corpuscular Hgb 30.3 pg (27.0-32.0); Mean Corpuscular Volume 91.5 fL (81-99); Mean Platelet Vol. 10.7 fl (6.2-12.0); Monocyte# 0.39 X10^3/uL; Monocyte% 6.7 % (0-10); NRBC Flagged by Analyzer 0 % (0-5); Neutrophil # 3.66 X10^3/uL (2.7-7.7); Neutrophil % 62.4 % (47-70); Platelet Count 273 K/mm3 (150-450); RBC Distribution Width CV 11.9 % (11.6-14.6); Red Blood Count 4.72 M/mm3 (4.2-5.4); White Blood Count 5.9 K/mm3 (4.4-11.0)
[2023-02-04 18:21] LABS: ALB/GLOB Ratio 1.4 RATIO (0.9-2.4); AST(SGOT) 20 U/L (15-37); Alanine Aminotransfer ALT/SGPT 31 U/L (13-56); Alkaline Phosphatase 56 U/L (45-117); Anion Gap 8 (5-15); BUN 7 mg/dL (7-18); BUN/Creat Ratio 10.9 RATIO (10-20); Chloride 105 mmol/L (98-107); Creatinine, Serum 0.64 mg/dL (0.55-1.02); EST Glomerular Filtration Rate 98 mL/min (>60); Est Glom Filt Rate - Afr Amer 118 mL/min (>60); Globulin 2.8 g/dL (2.2-4.2); Glucose 97 mg/dL (74-106); Potassium 4.1 mmol/L (3.5-5.1); Protein, Total 6.8 g/dL (6.4-8.2); Sodium Level 138 mmol/L (136-145)
== END | disposition home or self-care (01) ==
PROVIDERS: Family Medicine; PCP Nurse Practitioner Family; Referring Provider Nurse Practitioner Family; Visit Provider Nurse Practitioner Family
DX: R10.31 Right lower quadrant pain (principal)
CPT/HCPCS: 36415; 80053; 85025

== ENCOUNTER → 2023-02-11 | Outpatient (CLI) | payer MEDICARE, OTHER, SELFPAY ==
--- NOTE | 2023-02-11 07:36 | US_ITS ---
STUDY: ABDOMINAL ULTRASOUND REASON FOR EXAM: Female, 67 years old. RT SIDED PAIN,DIARRHEA TECHNIQUE: Transabdominal ultrasound was performed with real-time and static ortega scale imaging. TECHNICAL QUALITY: Limited. Examination limited due to a combination of factors including obesity and bowel gas. COMPARISON: 05/25/2022. FINDINGS: Liver: The liver measures 17.4 cm. There is increased echogenicity consistent with fatty infiltration. The bile ducts are within normal limits. There is hepatic color flow. The direction of portal flow is hepatopetal. There is no demonstrated mass lesion. Portal vein measurement: Gallbladder: Normal distended gallbladder. The gallbladder wall measures 2.8 mm. There is a negative sonographic Bell''s sign. There is no pericholecystic fluid. There are no gallstones. There is a 4 mm polyp. Common Bile Duct (C.B.D.): The common bile duct measures 4 mm. Pancreas: Normal size of the head, body and tail of the pancreas. There is normal echogenicity of the pancreas. There is no demonstrated pancreatic mass or cyst. Spleen: Normal size of the spleen. The spleen measures 11.0 cm. Right Kidney: Normal size of the right kidney. The right kidney measures 10.5 cm. Normal renal cortex. The right cortex measures 1.5 cm. There is no demonstrated renal mass or cyst. There is no right hydronephrosis. Left Kidney: Normal size of the left kidney. The left kidney measures 10.6 cm. Normal renal cortex. The left cortex measures 1.4 cm. There is a 1.2 cm cyst. There is no left hydronephrosis. Aorta: 2.7 cm. I.V.C.: The IVC is patent. There is no ascites. US/Abdomen Complete IMPRESSION: Limited as above. Small gallbladder polyp. No acute or significant abnormalities. Electronically Signed: Roberto Santamaria MD at 22:52 EDT ,
== END | disposition home or self-care (01) ==
LOC: US 07:33
PROVIDERS: PCP Family Medicine; Referring Provider Nurse Practitioner Family; Visit Provider Nurse Practitioner Family
DX: R10.9 Unspecified abdominal pain (principal); R19.7 Diarrhea, unspecified
CPT/HCPCS: 76700

== ENCOUNTER → 2023-03-04 | Outpatient (CLI) | payer MEDICARE, OTHER, SELFPAY ==
--- NOTE | 2023-03-04 17:44 | CT_ITS ---
INDICATION: Abdominal pain EXAMINATION: CT ABDOMEN AND PELVIS with CONTRAST - CT Abdomen And Pelvis W/ Contrast Injection TECHNIQUE: Multiple axial images were obtained of the abdomen and pelvis following administration of IV contrast. Planar reconstructions obtained. A radiation dose optimization technique was used for this scan. RADIATION DOSAGE (If Supplied By Facility): CTDIvol = ( 13.59 ) mGy, DLP = ( 905.81 ) mGycm IV Contrast dosage and agent: 100 mL Isovue-370 Oral contrast: Oral contrast is present. COMPARISON: No pertinent previous studies for comparison.. FINDINGS: LOWER THORAX: Lungs are clear. Cardiac contour is normal, no pericardial effusion. No coronary vascular calcifications noted. Transvenous pacer leads are present. HEPATOBILIARY: Liver: The liver is homogeneous and shows no evidence of focal lesion. There is diffuse fatty infiltration. Gallbladder: The gallbladder is unremarkable. Pancreas: Pancreas is normal size configuration and density. No mass is noted. Spleen: The spleen is homogeneous and normal in size. . BOWEL: Stomach: The stomach is normal in size configuration, no evidence of focal masses, abnormal calcifications. No hiatal hernia noted. Bowel: Small and large have normal configuration, no masses or bowel obstruction noted. Appendix: The visualized appendix has normal appearance.: GENITOURINARY: Adrenals: Both adrenal glands are normal in size. Kidneys: Kidneys appear symmetric in size. No calcifications are seen in the collecting system. There is no hydronephrosis or surrounding fluid. Bladder: Normal Pelvic organs: The visualized pelvic organs are normal in size and configuration. No masses or adenopathy noted. RETROPERITONEUM: There is normal appearance of the abdominal aorta and inferior vena cava. LYMPH NODES: No evidence of retroperitoneal or para-aortic masses fluid collections or adenopathy. PERITONEAL CAVITY: No ascites noted ANTERIOR ABDOMINAL WALL: Normal, no hernia identified. BONES AND SOFT TISSUES: The skeleton shows no evidence for fractures or destructive lesions. OTHER: None CT/Abdomen/Pelvis WITH Contrast IMPRESSION: 1. No masses bowel obstruction abscess free fluid or free air. A normal appendix is identified. 2. No evidence of renal calcifications or obstructive uropathy. 3. No evidence cholelithiasis. 4. Diffuse hepatic steatosis is noted. Electronically Signed: Boogie Alva MD at 19:47 EST ,
== END | disposition home or self-care (01) ==
LOC: CT 17:42
PROVIDERS: PCP Family Medicine; Referring Provider Surgery; Visit Provider Surgery
DX: R10.9 Unspecified abdominal pain (principal)
CPT/HCPCS: 74177; Q9967

== ENCOUNTER 2023-05-22 12:19 | Day surgery (SDC) | payer MEDICARE, OTHER, SELFPAY ==
--- NOTE | 2023-05-09 10:26 | EKG12_ITS ---
Test Reason : PRE OP Blood Pressure : / mmHG Vent. Rate : 079 BPM Atrial Rate : 042 BPM P-R Int : 000 ms QRS Dur : 092 ms QT Int : 354 ms P-R-T Axes : 000 -28 079 degrees QTc Int : 405 ms Normal sinus rhythm Abnormal ECG Confirmed by JUSTIN AGUILAR, PHILIP ([id number]), photography editor SHANE YANEZ ([id number]) on 05/10/2023 7:27:59 AM Referred By: Garland Soto Confirmed By:PHILIP ANDERSON MD
[2023-05-09 11:46] LABS: Partial Thromboplast Time 25.3 Seconds (24.1-36.2)
[2023-05-22] VITALS (10 sets, daily range): BP systolic 113–155; BP diastolic 69–93; PULSE 62–75; RESP 16–18; TEMP 36.2–37.4; O2SAT 93–99; BMI 26.3
--- NOTE | 2023-05-22 | GALL_PTH ---
PATHOLOGY RESULTS PATIENT: BIANCA JONES LOC: [facility] [place] [facility] [place] U[place][id number] AGE/SX: 68/F ROOM: RE05/22/[address]: Dr. Garland Soto MD : [id number] BED: DIS: 05/22/2023 SPEC #: [id number] RECD: 05/22/23 15:47 STATUS: ANDRE REAbe #: [id number] JESUS: 05/22/23 00:[address]: Garland Soot DEPT: SURGICAL PATHOLOGY RECD BY: Gabriele Hilliard ENTERED: 05/23/23 08:46 SP TYPE: CASIE STAHL DR: Dr. Linda Loving DO Tissues: Gallbladder, NOS Procedures: Surgery Specimen Level III HEADER OPERATION: Laparoscopic cholecystectomy with IOC PRE-OP DIAGNOSIS: Dyskinesia of gallbladder, polyp of gallbladder TISSUE SUBMITTED: Gallbladder MICROSCOPIC DIAGNOSIS Gallbladder, cholecystectomy: Mild chronic cholecystitis and cholesterolosis. See comment. SJ:mack 05/24/2023 COMMENT No stones are identified in the container or in the gallbladder. MICROSCOPIC DESCRIPTION Slides are reviewed. GROSS DESCRIPTION Received is one container labeled with the patient's name and designated gallbladder. The specimen consists of a gallbladder measuring 9.0 cm in length and up to 4.0 cm in diameter. The external surface is pink-jones, smooth and glistening for the most part. Focally it is granular, hemorrhagic and contains cautery artifact. The gallbladder contains green-yellow mucoid bile. No stones are identified in the container or in the gallbladder. The mucosa is bile-stained and without any mass lesions. The gallbladder wall measures up to 0.1 cm in thickness. The mucosa also shows several yellowish streaks consistent with cholesterolosis. Home Health Billing Specialist sections from the gallbladder and the cystic duct are submitted in one cassette. / SJ:mack 05/23/2023 TC:3 CPT: 82581
--- OUTSIDE RECORDS SUMMARY | 2023-05-22 12:49 | XMS RPT_ITS | CCD ---
Author Name Unknown Address [address] [place] [address] Organization [facility] Care Team Providers Care Welfare Worker Name Role Phone FLOR BATEMAN (FEL) Unavailable Unavailab FLOR Mccoy (FEL) Unavailable Unavailab le CHRIS, TAYLOR F Unavailable Unavailable CHRIS, TAYLOR F Unavailable Unavailable NO REFERRING Unavailable Unavailable CHRIS, TAYLOR F Unavailable Unavailable CHRIS, TAYLOR F Unavailable Unavailable NO REFERRING Unavailable Unavailable CHRIS, TAYLOR F Unavailable Unavailable [facility] Unavailable Unavailable Linda Loving Unavailable KENA DUARTE JR. Unavailable Unavailabl e LINDA LOVING Unavailable Unavailable DR LINDA LOVING DO Primary Care Physician Erica Loving DOa Willi Primary Care Provider [phone] No, Referral Unavailable Unavailable Yunior Hodges MD Unavailable Linda Loving DO Primary Care Provider Yunior Hodges MD Unavailable Linda Loving DO Primary Care Provider Fabienne JIMENEZ Linda A Primary Care Provider No, Referral Unavailable Unavailable Yunior Hodges MD Unavailable Linda Loving Unavailable Unavailable Unavailable DO LINDA LOVING Primary Care Unavailable DO LINDA LOVING Referring Unavailable DO ABIMBOLA BUTLER Attending Unavailable No, Referral Unavailable Unavailable Yunior Hodges MD Unavailable DEREJE CHAPPELL Attending Unavailable LINDA LOVING Primary Care Unavailable LANDRY, DEREJE Attending Unavailable MALYS, LINDA A Primary Care Unavailable MALYS, LINDA A Primary Care Unavailable LANDRY, DEREJE Referring Unavailable LANDRY, DEREJE Referring Unavailable MALYS, LINDA A Primary Care Unavailable KALKA, MIRIAM Referring Unavailable MALYS, LINDA A Primary Care Unavailable FADELL, MEIER A Attending Unavailable MALYS, LINDA A Primary Care Unavailable LANDRY, DEREJE Referring Unavailable MALYS, LINDA A Primary Care Unavailable MARY, YUNIOR Referring Unavailable MALYS, LINDA A Primary Care Unavailable ANINA, LUZ Attending Unavailable MALYS, LINDA A Primary Care Unavailable NAINA, LUZ Referring Unavailable MALYS, LINDA A Primary Care Unavailable LANDRY, DEREJE Referring Unavailable MALYS, LINDA A Primary Care Unavailable KALKA, MIRIAM Referring Unavailable MALYS, LINDA A Primary Care Unavailable MALYS, LINDA A Referring Unavailable MALYS, LINDA A Primary Care Unavailable SALINAS HASSAN Attending Unavailable MALYS, LINDA A Referring Unavailable MALYS, LINDA A Primary Care Unavailable ENEIDA, SHWETA Attending Unavailable MALYS, LINDA A Primary Care Unavailable MALYS, LINDA A Primary Care Unavailable SHREYA GRULLON Referring Unavailabl e AMORY, SHREYA RAY Attending Unavailabl e MALYS, LINDA A Primary Care Unavailable ENEIDA, SHWETA Referring Unavailable MALYS, LINDA A Primary Care Unavailable ENEIDA, SHWETA Referring Unavailable MALYS, LINDA A Primary Care Unavailable CHRIS, TAYLOR Attending Unavailable MALYS, LINDA A Primary Care Unavailable KALKA, MIRIAM Referring Unavailable MALYS, LINDA A Primary Care Unavailable Allergies Allergy Classification Reported Allergen(s) Allergy Type Date of Onset Reaction(s) Facility (20 sources) EPINEPHrine; Translations: [EPINEPHRINE] Drug Allergy 9 [facility] (15 sources) Penicillins; Translations: [PENICILLINS] Propensity to adverse reactions to drug (disorder) 5 Rash [facility] (4 sources) OTHER; Translations: [OTHER] Propensity to adverse reactions (disorder) 7 [facility] (1 source) Penicillin; Translations: [penicillin] Drug Allergy [facility] (20 sources) Environmental allergies [Other] Propensity to adverse reactions 7 [facility] Medications Current Medications Medication Drug Class(es) Dates Sig (Normalized) Sig (Original) azithromycin 500 mg oral tablet (1 source) Macrolide Antimicrobial Start: 05-23-2022 End: 05-26-2022 take 1 tablet by mouth once daily azithromycin (ZITHROMAX) 500 mg tablet Indications: Shigella infection Take 1 tablet by mouth once daily for 3 days. 3 tablet 0 05/23/2022 05/26/2022 Active Completed/Discontinued Medications Medication Drug Class(es) Dates Sig (Normalized) Sig (Original) [id number] 200 actuat albuterol 0.09 mg/actuat metered dose inhaler (20 sources) beta2-Adrenergic Agonist Start: 01-07-2023 take 2 puff(s) by inhalation every six hours as needed for cough albuterol HFA (PROAIR HFA) 90 mcg/actuation inhaler Indications: Interstitial pulmonary disease (HCC) , Lung nodules , Mild persistent asthma without complication , Nocturnal hypoxia , Shortness of breath , Systemic lupus erythematosus, unspecified SLE type, unspecified organ involvement status (HCC) , AGUILA (obstructive sleep apnea) Inhale 2 Puffs as instructed every 6 hours as needed for wheezing/shortness of breath (or cough). 18 g 3 01/07/2023 Active Problems Active Problems Problem Classification Problem Date Documented Da te Episodic/Chronic Abdominal pain (2 sources) Upper abdominal pain; Translations: [Right upper quadrant pain] Episodic Anxiety disorders (20 sources) Anxiety; Translations: [Anxiety state] Onset: 7 10-08-2016 Chronic Asthma (20 sources) Uncomplicated mild persistent asthma; Translations: [Mild persistent asthma, uncomplicated] Onset: 1 09-19-2020 Chronic Cardiac dysrhythmias (20 sources) Sinus node dysfunction; Translations: [Sick sinus syndrome] Onset: 9 Chronic Complications of surgical procedures or medical care (1 source) Non dose-related adverse reaction to medication; Translations: [Unspecified adverse effect of drug or medicament, initial encounter] Episodic Conduction disorders (20 sources) Cardiac pacemaker in situ; Translations: [Presence of cardiac pacemaker] Onset: 9 11-29-2008 Chronic Diseases of white blood cells (2 sources) Leukocytosis; Translations: [Leukocytosis] Onset: 7 10-26-2016 Chronic Disorders of lipid metabolism (20 sources) Hyperlipidemia; Translations: [Hyperlipidemia, unspecified] Onset: 6 01-25-2006 Chronic Epilepsy; convulsions (20 sources) Localization-related (focal) (partial) symptomatic epilepsy and epileptic syndromes with complex partial seizures, intractable, without status epilepticus; Translations: [Epilepsy] Onset: 7 10-08-2016 Chronic Esophageal disorders (20 sources) Gastroesophageal reflux disease; Translations: [Gastro-esophageal reflux disease without esophagitis] Onset: 1 12-12-2020 Chronic Esophageal disorders (3 sources) Presbyesophagus; Translations: [Other specified disorders of esophagus] Episodic Immunity disorders (20 sources) Hypogammaglobulinemia; 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] Onset: 1 09-29-2020 Chronic Intestinal infection (2 sources) Infection by Shigella; Translations: [Shigellosis, unspecified] Episodic Mood disorders (20 sources) Recurrent major depression in partial remission; Translations: [Major depressive disorder, recurrent, in partial remission] Onset: 6 02-27-2016 Chronic Nutritional deficiencies (1 source) Vitamin D deficiency; Translations: [Vitamin D deficiency] Onset: 7 10-08-2016 Chronic Osteoarthritis (6 sources) Degenerative joint disease of hand; Translations: [Arthritis] Onset: 7 10-08-2016 Chronic Other acquired deformities (1 source) Scoliosis deformity of spine; Translations: [Scoliosis] Onset: 7 10-26-2016 Chronic Other acquired deformities (1 source) Scoliosis of lumbar spine Chronic Other aftercare (1 source) Taking high risk medication; Translations: [Other residential (current) drug therapy] 04-10-2023 Episodic Other aftercare (2 sources) Other extermination supervisor (current) drug therapy; Translations: [High risk medication use] Onset: 3 Episodic Other bone disease and musculoskeletal deformities (3 sources) Osteopenia; Translations: [Other specified disorders of bone density and structure, multiple sites] Episodic Other female genital disorders (1 source) Vaginal irritation; Translations: [Other specified noninflammatory disorders of vagina] Episodic Other gastrointestinal disorders (3 sources) Irritable bowel syndrome; Translations: [Irritable bowel syndrome] Chronic Other gastrointestinal disorders (3 sources) Esophageal dysphagia; Translations: [Other dysphagia] Episodic Other gastrointestinal disorders (1 source) Loose stool; Translations: [Other fecal abnormalities] Episodic Other hematologic conditions (3 sources) Immune system finding; Translations: [Other specified abnormalities of plasma proteins] Episodic Other lower respiratory disease (20 sources) Interstitial lung disease; Translations: [Interstitial pulmonary disease, unspecified] Onset: 1 12-12-2020 Chronic Other lower respiratory disease (2 sources) Interstitial pulmonary disease, unspecified; Translations: [ILD (interstitial lung disease) (HCC)] Onset: 3 Chronic Other lower respiratory disease (1 source) Restrictive lung disease; Translations: [Other disorders of lung] Episodic Other upper respiratory disease (20 sources) Allergic rhinitis; Translations: [Allergic rhinitis, unspecified] Onset: 7 02-03-2007 Chronic Other upper respiratory disease (2 sources) Allergic rhinitis due to house dust mite; Translations: [Other allergic rhinitis] Chronic Other upper respiratory disease (2 sources) Allergic rhinitis due to pollen; Translations: [Allergic rhinitis due to pollen] Chronic Pleurisy; pneumothorax; pulmonary collapse (4 sources) Pleural effusion; Translations: [Pleurisy] Onset: 7 10-26-2016 Episodic Residual codes; unclassified (20 sources) Hypersomnia; Translations: [Hypersomnia, unspecified] Onset: 7 07-10-2006 Chronic Residual codes; unclassified (20 sources) Hypoxia; Translations: [Idiopathic sleep related nonobstructive alveolar hypoventilation] Onset: 1 09-29-2020 Chronic Residual codes; unclassified (20 sources) Obstructive sleep apnea syndrome; Translations: [Obstructive sleep apnea (adult) (pediatric)] Onset: 2 06-20-2021 Chronic Residual codes; unclassified (2 sources) Abnormal finding on evaluation procedure; Translations: [Abnormal immunological finding in serum] Onset: 7 10-26-2016 Episodic Residual codes; unclassified (1 source) Postmenopausal state; Translations: [Asymptomatic menopausal state] 04-10-2023 Episodic Residual codes; unclassified (2 sources) Asymptomatic menopausal state; Translations: [Postmenopausal] Onset: 3 Episodic Spondylosis; intervertebral disc disorders; other back problems (4 sources) Degeneration of lumbar intervertebral disc; Translations: [Degeneration of cervical intervertebral disc] Onset: 7 10-26-2016 Chronic Systemic lupus erythematosus and connective tissue disorders (20 sources) Systemic lupus erythematosus; Translations: [Systemic lupus erythematosus, unspecified] Onset: 7 10-26-2016 Chronic Unclassified (2 sources) Unknown / UNK(Unknown) Onset: 5 Unclassified (2 sources) Long-term current use of aspirin; Translations: [extermination supervisor (current) use of aspirin] Onset: 7 10-08-2016 Unclassified (2 sources) Drug indicated; Translations: [Long-term use of Plaquenil] Onset: 7 10-26-2016 Unclassified (2 sources) Drug therapy finding; Translations: [Long-term current use of high risk medication other than anticoagulant] Onset: 7 10-26-2016 Unclassified (2 sources) Patient encounter status; Translations: [Encounter for long-term (current) use of non-steroidal anti-inflammatories] Onset: 7 10-26-2016 Past or Other Problems Problem Classification Problem Date Documented Date Episodic/Chronic Allergic reactions (20 sources) Allergy to penicillin; Translations: [Allergy status to penicillin] Onset: 09-29-2020 09-29-2020 Episodic Cardiac dysrhythmias (18 sources) Palpitations; Translations: [Palpitations] Onset: 08-08-2022 Episodic Coma; stupor; and brain damage (20 sources) Daytime somnolence; Translations: [Somnolence] Onset: 09-29-2020 09-29-2020 Episodic Genitourinary symptoms and ill-defined conditions (2 sources) Urgent desire to urinate; Translations: [Urgency of urination] Onset: 06-18-2022 Episodic Immunizations and screening for infectious disease (20 sources) Anti-nuclear factor positive; 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] Onset: 10-08-2016 10-08-2016 Episodic Malaise and fatigue (9 sources) Fatigue; Translations: [Malaise and fatigue] Onset: 10-08-2016 10-08-2016 Episodic Nonspecific chest pain (20 sources) Chest pain; Translations: [Chest pain, unspecified] Onset: 07-03-2021 Episodic Nutritional deficiencies (1 source) Cobalamin deficiency; Translations: [Vitamin B12 deficiency] Onset: 10-08-2016 10-08-2016 Episodic Other bone disease and musculoskeletal deformities (1 source) Osteochondropathy; Translations: [Disorder of bone and cartilage] Onset: 10-08-2016 Resolved: 10-08-2016 10-08-2016 Chronic Other bone disease and musculoskeletal deformities (2 sources) Other specified disorders of bone density and structure, multiple sites; Translations: [Osteopenia of multiple sites] Onset: 10-05-2022 Episodic Other connective tissue disease (1 source) Pain in right hand; Translations: [Bilateral hand pain] Onset: 10-08-2016 10-08-2016 Episodic Other connective tissue disease (1 source) Pain in right foot; Translations: [Bilateral foot pain] Onset: 10-08-2016 10-08-2016 Episodic Other connective tissue disease (1 source) Calcaneal spur, right foot; Translations: [Bilateral calcaneal spurs] Onset: 10-26-2016 10-26-2016 Episodic Other female genital disorders (1 source) Other specified noninflammatory disorders of vagina; Translations: [Vaginal irritation] Onset: 06-18-2022 Episodic Other lower respiratory disease (20 sources) Dyspnea; Translations: [Shortness of breath] Onset: 09-19-2020 09-19-2020 Episodic Other lower respiratory disease (20 sources) Multiple nodules of lung; Translations: [Other nonspecific abnormal finding of lung field] Onset: 09-19-2020 09-19-2020 Episodic Other lower respiratory disease (20 sources) History of recurrent pneumonia; Translations: [Personal history of pneumonia (recurrent)] Onset: 09-29-2020 09-29-2020 Episodic Other lower respiratory disease (20 sources) Hypoxemia; Translations: [Hypoxemia] Onset: 12-12-2020 12-12-2020 Episodic Other non-traumatic joint disorders (1 source) Pain in right wrist; Translations: [Bilateral wrist pain] Onset: 10-08-2016 10-08-2016 Episodic Other screening for suspected conditions (not mental disorders or infectious disease) (9 sources) Elevated C-reactive protein (CRP); Translations: [Patient encounter status] Onset: 10-26-2016 10-26-2016 Episodic Spondylosis; intervertebral disc disorders; other back problems (2 sources) Thoracic back pain; Translations: [Neck pain] Onset: 10-08-2016 10-08-2016 Episodic Syncope (20 sources) Syncope; Translations: [Syncope and collapse] Onset: 03-28-2009 03-28-2009 Episodic Unclassified (1 source) Bilateral calcaneal spurs Unclassified (1 source) CRP elevated Results Test Name Value Interpretation Reference Range Facil ity Vital Signs Date Time Vital Sign Value Performing Clinician Faci lity 04-10-2023 10:23-0500 Body height 167.6 cm Dereje Chappell MD Work Phone: [facility] 04-10-2023 10:23-0500 Body temperature 98.29 [degF] Dereje Chappell MD Work Phone: [facility] 04-10-2023 10:23-0500 Body weight 73.53 kg Dereje Chappell MD Work Phone: [facility] 04-10-2023 10:23-0500 Diastolic blood pressure 76 mm[Hg] Dereje Chappell MD Work Phone: [facility] 04-10-2023 10:23-0500 Heart rate 87 /min Dereje Chappell MD Work Phone: [facility] 04-10-2023 10:23-0500 Systolic blood pressure 118 mm[Hg] Dereje Chappell MD Work Phone: [facility] 09-27-2022 15:12-0400 Body height 170.18 cm Linda Loving Work Phone: [facility] Work Phone: 09-27-2022 15:12-0400 Body mass index (BMI) [Ratio] 26.65 kg/m2 Linda Willi Malys Work Phone: [facility] Work Phone: 09-27-2022 15:12-0400 Body surface area Derived from formula 1.89 m2 Linda Loving Work Phone: [facility] Work Phone: 09-27-2022 15:12-0400 Body weight 77.17 kg Linda Loving Work Phone: [facility] Work Phone: 08-23-2022 10:44-0400 Body weight 76.66 kg Gabo Corona MD Work Phone: [facility] 08-23-2022 10:44-0400 Diastolic blood pressure 81 mm[Hg] Gabo Corona MD Work Phone: [facility] 08-23-2022 10:44-0400 Heart rate 66 /min Gabo Corona MD Work Phone: [facility] 08-23-2022 10:44-0400 Respiratory rate 16 /min Gabo Corona MD Work Phone: [facility] 08-23-2022 10:44-0400 SaO2% (BldA) [Mass fraction] 98 % Gabo Corona MD Work Phone: [facility] 08-23-2022 10:44-0400 Systolic blood pressure 144 mm[Hg] Gabo Corona MD Work Phone: [facility] 08-08-2022 13:04-0400 Body height 170.2 cm Shreya [place] DO Work Phone: [facility] 08-08-2022 13:04-0400 Body weight 77.11 kg Shreya [place] DO Work Phone: [facility] 08-08-2022 13:04-0400 Diastolic blood pressure 72 mm[Hg] Shreya [place] DO Work Phone: [facility] 08-08-2022 13:04-0400 Heart rate 81 /min Shreya [place] DO Work Phone: [facility] 08-08-2022 13:04-0400 SaO2% (BldA) [Mass fraction] 96 % Shreya Grullon DO Work Phone: [facility] 08-08-2022 13:04-0400 Systolic blood pressure 126 mm[Hg] Shreya Grullon DO Work Phone: [facility] 06-18-2022 07:26-0500 Body weight 77.66 kg Shweta Sylmar SIDER MECHANIC.[employer]PENTER LABOR SUPERVISOR Work Phone: [facility] 06-18-2022 07:26-0500 Diastolic blood pressure 70 mm[Hg] Shweta Sylmar SIDER MECHANIC.CARPENTER LABOR SUPERVISOR Work Phone: [facility] 06-18-2022 07:26-0500 Systolic blood pressure 120 mm[Hg] Shweta Sylmar SIDER MECHANIC.CARPENTER LABOR SUPERVISOR Work Phone: [facility] 05-14-2022 14:48-0500 Body height 170.2 cm Miriam Kalka PA-C Work Phone: [facility] 05-14-2022 14:48-0500 Body weight 77.34 kg Miriam Kalka PA-C Work Phone: [facility] 05-14-2022 14:48-0500 Diastolic blood pressure 76 mm[Hg] Miriam Kalka PA-C Work Phone: [facility] 05-14-2022 14:48-0500 Heart rate 71 /min Miriam Kalka PA-C Work Phone: [facility] 05-14-2022 14:48-0500 Systolic blood pressure 118 mm[Hg] Miriam Kalka PA-C Work Phone: [facility] 03-01-2022 10:48-0400 Body height 170.2 cm Carri David SIDER MECHANIC.CARPENTER LABOR SUPERVISOR Work Phone: [facility] 03-01-2022 10:48-0400 Body weight 77.11 kg Carri David SIDER MECHANIC.CARPENTER LABOR SUPERVISOR Work Phone: [facility] 03-01-2022 10:48-0400 Diastolic blood pressure 84 mm[Hg] Carri David SIDER MECHANIC.[employer]PENTER LABOR SUPERVISOR Work Phone: [facility] 03-01-2022 10:48-0400 Heart rate 76 /min Carri David SIDER MECHANIC.CARPENTER LABOR SUPERVISOR Work Phone: [facility] 03-01-2022 10:48-0400 SaO2% (BldA) [Mass fraction] 97 % Carri David SIDER MECHANIC.CARPENTER LABOR SUPERVISOR Work Phone: [facility] 03-01-2022 10:48-0400 Systolic blood pressure 130 mm[Hg] Carri David SIDER MECHANIC.CARPENTER LABOR SUPERVISOR Work Phone: [facility] 02-05-2022 08:14-0400 Body height 169.7 cm Respiratory Wstr Work Phone: [facility] 02-05-2022 08:14-0400 Body weight 74.39 kg Respiratory Wstr Work Phone: [facility] 02-05-2022 08:14-0400 Heart rate 73 /min Respiratory Wstr Work Phone: [facility] 02-05-2022 08:14-0400 Respiratory rate 12 /min Respiratory Wstr Work Phone: [facility] 02-05-2022 08:14-0400 SaO2% (BldA) [Mass fraction] 98 % Respiratory Wstr Work Phone: [facility] 09-05-2021 10:52-0400 Body weight 79.83 kg Nel Estrella MD Work Phone: [facility] 09-05-2021 10:52-0400 Diastolic blood pressure 67 mm[Hg] Nel Estrella MD Work Phone: [facility] 09-05-2021 10:52-0400 Heart rate 69 /min Nel Estrella MD Work Phone: [facility] 09-05-2021 10:52-0400 SaO2% (BldA) [Mass fraction] 95 % Nel Estrella MD Work Phone: [facility] 09-05-2021 10:52-0400 Systolic blood pressure 123 mm[Hg] Nel Estrella MD Work Phone: [facility] 07-03-2021 19:09-0500 Body temperature 97.7 [degF] KASSIDY REICHFIELD DO [facility] 07-03-2021 19:09-0500 Diastolic blood pressure 94 mm[Hg] KASSIDY REICHFIELD DO [facility] 07-03-2021 19:09-0500 Heart rate 78 /min KASSIDY REICHFIELD DO [facility] 07-03-2021 19:09-0500 Respiratory rate 24 /min KASSIDY REICHFIELD DO [facility] 07-03-2021 19:09-0500 Systolic blood pressure 141 mm[Hg] KASSIDY REICHFIELD DO [facility] Encounters Encounter Date Encounter Type Care Provider Facility Start: 05-20-2023 End: 05-20-2023 ambulatory SALINAS HASSAN Facility:[facility] Start: 04-24-2023 End: 04-24-2023 ambulatory DEREJE CHAPPELL Facility:[facility] Start: 04-10-2023 End: 04-11-2023 ambulatory DEREJE CHAPPELL [facility] Start: 04-10-2023 End: 04-10-2023 Patient encounter procedure Dereje Chappell MD Work Phone: [facility] Procedures Date Procedure Procedure Detail Performing Clinician Start: 03-20-2023 PACEMAKER REMOTE CHECK Kena Danielle MD Work Phone: Start: 12-25-2022 PACEMAKER CLINIC CHECK Kena Danielle MD Work Phone: Start: 12-20-2022 PACEMAKER REMOTE CHECK Kena Danielle MD Work Phone: Start: 12-17-2022 PACEMAKER REMOTE CHECK Kena Danielle MD Work Phone: Start: 10-23-2022 PACEMAKER REMOTE CHECK Kena Danielle MD Work Phone: Start: 08-22-2022 Diagnostic mammograp hy computer-aided detcj uni Shweta Sylmar SIDER MECHANIC.CARPENTER LABOR SUPERVISOR Work Phone: Start: 07-02-2022 End: 07-02-2022 Mammography Shweta Eneida SIDER MECHANIC.C INDUSTRIAL DESIGNER Work Phone: Start: 06-22-2022 PACEMAKER REMOTE CHECK Patricia Rankin MD Work Phone: Start: 06-18-2022 Urnls dip stick/tabl et rgnt auto w/o microscopy Shweta Eneida SIDER MECHANIC.CARPENTER LABOR SUPERVISOR Work Phone: Start: 03-19-2022 PACEMAKER REMOTE CHECK Patricia Rankin MD Work Phone: Start: 02-05-2022 Noninvasive ear/puls e oximetry multiple deter Laura VALERA Work Phone: Start: 02-05-2022 Co diffusing capacity D lili VALERA Work Phone: Start: 01-29-2022 PACEMAKER CLINIC CHECK Patricia Rankin MD Work Phone: Start: 12-18-2021 PACEMAKER REMOTE CHECK Patricia Rankin MD Work Phone: Start: 09-18-2021 Myocardial spect mul tiple studies Shreya Grullon DO Work Phone: Start: 09-18-2021 PACEMAKER REMOTE CHECK Patricia Rankin MD Work Phone: Start: 09-05-2021 ALLERGEN SKIN TEST-PENICILLIN Nel Estrella MD Work Phone: Start: 05-09-2018 Mammography Miriam larson PA-C Work Phone: Start: 04-18-2018 Lipid 1996 panel - S bryanna or Plasma Kena Danielle MD Work Phone: Start: 09-19-2013 Colonoscopy Miriam Hyman neo PA-C Work Phone: Start: 09-19-2013 Lipid 1996 panel - S bryanna or Plasma Luz Solo PA-C Work Phone: Colonoscopy Linda Loving Work Phone: Hysterectomy Lindawilli Loving Work Phone: Insertion of pacemak er pulse generator Lindawilli Loving Work Phone: Operative procedure on knee Lindawilli Loving Work Phone: Reduction mammoplasty Linda Willi Loving Work Phone: Tonsillectomy Linda Willi Loving Work Phone: Plan of Treatment Date Care Activity Detail Author Start: 04-10-2026 Diabetes Screening Diabetes Screening [facility] Start: 11-11-2025 PNEUMOCOCCAL: 65+ (3 - PPSV23 if available, else PCV20) PNEUMOCOCCAL: 65+ (3 - PPSV23 if available, else PCV20) [facility] Start: 10-15-2025 DIABETES SCREEN DIABETES SCREEN [facility] Start: 10-15-2025 Diabetes Screening Diabetes Screening [facility] Start: 03-30-2025 DIABETES SCREEN DIABETES SCREEN [facility] Start: 09-05-2024 DIABETES SCREEN DIABETES SCREEN [facility] Start: 10-14-2023 DIABETES SCREEN DIABETES SCREEN [facility] Start: 07-03-2023 Mammography [facility] Start: 07-03-2023 Screening for malignant neoplasm of breast Mammogram Screening [facility] Start: 04-18-2023 Lipid 1996 panel - Serum or Plasma Lipid Screening [facility] Start: 04-18-2023 Lipid panel Lipid Screening [facility] Start: 12-28-2022 Influenza vaccination [facility] Start: 11-20-2022 COLON, Provider: Abimbola Butler, Status: Pen, Time: 12:00 PM COLON, Provider: Abimbola Butler, Status: Pen, Time: 12:00 PM [facility] Work Phone: Start: 05-09-2022 End: 07-09-2022 Urinalysis complete panel - Urine URINALYSIS, WITH MICROSCOPIC Lab Routine Undifferentiated connective tissue disease (HCC) ILD (interstitial lung disease) (HCC) Malaise and fatigue Hypogammaglobulinemia (HCC) Osteopenia of multiple sites Low serum complement C3 Expected: 05/09/2022, Expires: 07/09/2022 [facility] Work Phone: Immunizations Immunization Date Immunization Notes Care Provider Fa cili 05-14-2022 pneumococcal (PCV20) vaccine, 20 valent (PREVNAR 20) Miriam Stout PA-C Work Phone: [facility] 11-11-2020 pneumococcal polysaccharide vaccine, 23 valent Nel Estrella MD Work Phone: [facility] 09-29-2020 pneumococcal conjuga te vaccine, 13 valent Miriam Stout PA-C Work Phone: [facility] 01-27-2015 influenza, seasonal, injectable, preservative free Miriam Stout PA-C Work Phone: [facility] 01-27-2015 influenza virus vacc ine, unspecified formulation Luz Solo PA-C Work Phone: [facility] 01-25-2006 tetanus toxoid, redu joselyn diphtheria toxoid, and acellular pertussis vaccine, adsorbed Miriam Stout PA-C Work Phone: [facility] Work Phone: Payers Date Payer Category Payer Private Health Insurance [facility] AARP SUPPLEMENT [id number] 2022-Present [phone] [address] [place] [address] Indemnity [id number] 2022 Unknown [id number] 2022 Medicare [id number] 2022 Medicare [id number] 2019 Unknown [id number] 2019 Unknown MMO MMO [employer] [id number] 2019-Present [phone] [address] [place] [address] O [id number] 2019 Unknown [id number] 1957 Unknown [id number] Social History Date Type Detail Facility Start: 05-03-2017 Tobacco smoking stat [facility] Current some day smoker [facility] Work Phone: End: 09-19-2000 History of tobacco use Cigarette Smoker [facility] Work Phone: Sex Assigned At Not on file [facility] Work Phone: Start: 1955 Sex Assigned At Female [facility] Start: 09-19-2020 End: 02-05-2022 Tobacco smoking status NHIS Ex-smoker [facility] End: 09-19-2000 History of tobacco use Current smoker [facility] Start: 09-19-2020 End: 10-05-2022 Cigarettes smoked current (pack per day) - Reported 0.5 [facility] Start: 09-19-2020 End: 02-05-2022 Tobacco use and exposure Smokeless tobacco non-user [facility] Start: 07-13-2021 End: 04-10-2023 Alcohol intake Current drinker of alcohol (finding) [facility] Start: 09-29-2020 History SDOH Alcohol Comment socially-3 drinks per week [facility] Start: 12-29-2020 End: 02-05-2022 Tobacco Comment quit around 2010 [facility] Start: 07-03-2021 End: 09-18-2021 Exposure to SARS-CoV-2 (event) Not sure [facility] Start: 08-29-2021 End: 01-30-2022 Exposure to SARS-CoV-2 (event) Unable to assess [facility] Start: 10-05-2022 End: 02-17-2023 Tobacco use panel [facility] Adult Depression Screening Assessment 0 [facility] Start: 06-25-2020 Gender identity Identifies as female gender (finding) [facility] Start: 06-25-2020 Sexual orientation Heterosexual (fin lety) [facility] Clinical Notes 10-02-2020 to 05-20-2023 Dereje Chappell MD - 04/10/2023 10:23 AM Luz Lopez PA-C - 02/18/2023 11:41 AM EDTTelephone Encounter - Justa Neil APRN.[employer] - 01/07/2023 3:26 PM EDTPatient Instructions Note Date & Type Note Facility 05-20-2023 Note HNO ID: [id number] Author: SALINAS HASSAN MD Service: ? Author Type: Physician Type: Progress Notes Filed: 05/20/2023 14:01 Note Text: EP STAFF NOTE: Please note: This note has been produced using speech recognition software and may contain errors related to that system including grammar, punctuation, spelling, gender and words and phrases that may be inappropriate ECG: PE: Vitals: BP 120/72 Pulse 63 Ht 167.6 cm (5' 6 ) Wt 75.3 kg (166 lb 0.1 oz) SpO2 96% BMI 26.79 kg/m? General: Appears well nourished. In no acute distress. Skin: No clubbing. No cyanosis. Eyes: EOMI Oropharynx: No oral lesions. Neck: no JVD. Lungs: Unlabored Heart: RRR Abdomen: nontender Extremities: No peripheral edema bilaterally. Neuro: Oriented x3, alert, cooperative, gait coordinated. DEVICE CHECK: PRESENTS FOR: Remote alert for RA lead failure detected (RA lead check). Switch of RA pacing to unipolar because of bipolar failure reported on Dec 17, 2022 6:00:00 PM PRESENTING EGM: /VS UNDERLYING RHYTHM: SR BATTERY STATUS: Estimated time remaining to ROSETTA is 40%. COUNTERS SINCE: 01/29/2022 ATRIAL ARRHYTHMIAS: There were 0 triggered episodes of atrial high rates. VENTRICULAR ARRHYTHMIAS: There has been 1 new ventricular detections since the last evaluation. EGM shows NSVT. LEAD MEASUREMENTS: RA Capture, sensing, and impedances in Bipolar and Unipolar are appropriate. RV capture and sensing is appropriate. The pacing outputs maintain safety margin. Review of the lead impedance trends are normal. IMPLANT SITE/ SYMPTOMS: The incision and pocket are pain-free (0/10), well healed and without signs of erosion or infection. OTHER DIAGNOSTICS: RA pacing 78% and RV pacing 3% PROGRAMMING CHANGES MADE TODAY: Per [employer] [facility], tested RA unipolar and bipolar with measurements WNL. Programmed RA Pace/Sense from Unipolar back to Bipolar as recommended by [employer] [facility]. Adjusted RV output based on today's testing. FOLLOW UP: Remotes every 3 months and yearly in-clinic device checks. Caridad Velarde RN remote : PRESENTING EGM: NA BATTERY STATUS: Estimated time remaining to ROSETTA is 35%. COUNTERS SINCE: 12/29/22 ATRIAL ARRHYTHMIAS: There have been no atrial detections. VENTRICULAR ARRHYTHMIAS: There have been no ventricular detections. LEAD MEASUREMENTS: Sensing is appropriate. Review of the lead impedance trends are normal. OTHER DIAGNOSTICS: RA pacing 79%, RV pacing 7%. FOLLOW UP: Continue 3 month remote transmissions and yearly in-clinic interrogations. Rae Tirpathi RN Today: PRESENTS FOR: Appt with Dr. Hassan PRESENTING EGM: /VS UNDERLYING RHYTHM: Sinus rhythm BATTERY STATUS: Estimated time remaining to ROSETTA is 2 years, 8 months, 35%. COUNTERS SINCE 12/25/2022 ATRIAL ARRHYTHMIAS: None VENTRICULAR ARRHYTHMIAS: There have been no ventricular detections since the last evaluation. LEAD MEASUREMENTS: Capture and sensing are appropriate. The pacing outputs maintain safety margin. Review of the lead impedance trends are normal. IMPLANT SITE/ SYMPTOMS: The incision and pocket are pain-free (0/10), well healed and without signs of erosion or infection. No arm swelling, syncope, pre-syncope or device related pocket stimulation. OTHER DIAGNOSTICS: RA pacing 77%. Total V pacing 6% PROGRAMMING CHANGES MADE TODAY: None FOLLOW UP: Patient will continue with every 3 month remote transmissions and annual in-clinic visits. 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 TTE 2020: - The left ventricle is normal in size. Left ventricular systolic function is normal. EF = 63 ? 5% (3D) Grade I left ventricular diastolic dysfunction. GLS= -17.5% Normal. - The right ventricle is normal in size. Right ventricular systolic function is normal. - Mild tricuspid regurgitation. - Exam was compared with the prior echocardiographic exam performed on 11/25/2008. There is no significant change. stress 2021: CONCLUSIONS: 1. SPECT Perfusion Study: Normal. 2. There is no scintigraphic evidence for inducible ischemia. 3. No evidence of scarred myocardium. 4. Left ventricle is small. The left ventricle systolic function is normal. 5. This is a low risk scan. Gated Stress IR:3D LVEF % 87 IMPRESSION / PLAN: Dr. Hodges patient 68 y/o with vasovagal syncope and SSS s/p Dual chamber pacemaker (2008). : Remote alert for RA lead failure detected. Switch of RA pacing to unipolar because of bipolar failure reported on Dec 17, 2022 6:00:00 PM Switched back to bipolar at check 12-25-22: Per [employer] [facility], tested RA unipolar and bipolar with measurements WNL. Programmed RA Pace/Sense from Unipolar back to Bipolar as recommended by tech services. Adjusted RV output based on today's testing. (more content not included)... [facility] 04-24-2023 Note HNO ID: [id number] Author: Je Vang RT(R) Service: ? Author Type: Technologist Type: Progress Notes Filed: 04/24/2023 9:16 AM Note Text: Radiology Service Progress Note PATIENT NAME: Perla Pavon DATE OF SERVICE: April 24, 2023 TIME: 9:02 AM PATIENT IDENTITY VERIFICATION COMPLETED USING TWO (2) IDENTIFIERS: Name and Date of confirmed by patient verbally. FALL SCREENING: Has the patient had 2 falls in the last year or 1 fall with injury or currently using an Ambulatory Assistive Device (Walker, Cane, Wheelchair, Crutches, etc.)? No PATIENT GENDER DATA: Female. status: : No status: NO. PATIENT RELEVANT IMPLANT DATA REVIEWED: Not Applicable RADIOLOGY DEPARTMENT: Bone Density PERIPHERAL IV DATA: Not applicable SIGNED BY: RT Rita(R) April 24, 2023 9:02 AM [facility] 04-10-2023 Note HNO ID: [id number] Author: Luz Kasper RT(R) Service: Radiology Author Type: Technologist Type: Progress Notes Filed: 04/10/2023 11:05 AM Note Text: Radiology Service Progress Note PATIENT NAME: Perla Pavon DATE OF SERVICE: April 10, 2023 TIME: 11:05 AM PATIENT IDENTITY VERIFICATION COMPLETED USING TWO (2) IDENTIFIERS: Name and Date of confirmed by patient verbally and Name and Date of confirmed by identification band. FALL SCREENING: Has the patient had 2 falls in the last year or 1 fall with injury or currently using an Ambulatory Assistive Device (Walker, Cane, Wheelchair, Crutches, etc.)? No PATIENT GENDER DATA: Female. status: : No status: NO. PATIENT RELEVANT IMPLANT DATA REVIEWED: Not Applicable RADIOLOGY DEPARTMENT: General X-ray: Exam(s) Completed: Upper Extremity X-Ray(s): Hand, bilateral PERIPHERAL IV DATA: Not applicable SIGNED BY: RT Nick(R) April 10, 2023 11:05 AM [facility] 04-10-2023 Note HNO ID: [id number] Author: Dereje Chappell MD Service: ? 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 She has hypogammaglobulinemia and has seen straight tooth gear generator operator but not on any immunoglobulins, being monitored. She denies any recent infections. She has mild pain 1/10 mostly in the hands especially left. She is noted some swelling in the left hand. Stiffness is 30 minutes in the morning. She has no chest pain, shortness of breath or cough. She continues to be on Plaquenil 300 mg daily-dose adjusted February 2022 based on weight. She exercises regularly and has been working on weight loss. She has a history of recurrent infections in the past and hypogammaglobulinemia. She has seen technology education teacher for interstitial lung disease-recent CAT scan December 2020 showed 90% improvement. She is also being evaluated for aspiration pneumonia as she has acid reflux and has seen doctor of dental surgery. She had testing for doctor of dental surgery and found to have esophageal dysmotility. she was hospitalized February 2020 for almost 4 months for interstitial lung disease. She was initially suspected to have pneumonia but had persistent symptoms in spite of treatment. Multiple biopsies have shown minimal inflammatory infiltrate in September 2020. She has done multiple courses of steroids. She has mild fatigue. She is on medications for seizures with Keppra. As enzymes have been normal. She had low IgG and IgM on previous labs but while on steroids. She has history of photosensitivity. Bone density scan February 2021 showed mild osteopenia with T score -1.6 with low fracture risk. New patient visit December 29, 2020 Perla Pavon is a 65 year old female who presents with history of lupus?/Undifferentiated connective tissue disease?-History of positive FRANCES, low C3(in June 2017) primarily with pulmonary symptoms and being evaluated for interstitial lung disease is here for evaluation. She was diagnosed with lupus by her ship engines operating engineer in [place] around 10 years ago and has been on Plaquenil 200 mg twice daily since. She is up-to-date with her eye exam. More recently she saw Dr. German who continued her on her Plaquenil. She has been following up closely with her technology education teacher for pulmonary infiltrates. She has had cough, trouble breathing since December 2019 and was hospitalized in February 2020. She was initially suspected to have pneumonia but has had persistent symptoms and is being evaluated for interstitial lung disease. She has had multiple biopsies which showed minimal inflammatory infiltrate on bronchoscopy in September 2020. She has done course of steroids-during hospitalization February 2020 for around 4 months and then went off steroids and then resumed again 2 months later and then recently went off in July 2020. Most recent CAT scan done few days ago shows improvement in overall infiltrates. She describes some photosensitivity and some blotching of her skin on her chest and arms intermittently but no other rashes. She gets occasional mouth sores. She describes some fatigue and has mild dry mouth. She has trouble swallowing and is scheduled for EGD for evaluation. She has acid reflux and hiatal hernia. 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 She is on treatment for anxiety and depression. She describes mild pain 2/10 in the ankles and wrist which is infrequent usually around once a week and worse with activity. She has no stiffness in the morning and no swelling. She takes meloxicam as needed. She has seen straight tooth gear generator operator and has low IgG and IgM. Recent serologies October 2020 showed FRANCES 1: 160 but rest of lupus [id number] DNA, ALESHA panel was negative, rheumatoid factor, anti-CCP negative and ANCA negative. Muscle enzymes are also normal. December 12, 2020-office note from Dr. GABO FABIAN Echo 08/2020: EF normal, grade I diastolic dysfunction, RV normal, mild TR. RVSP normal CXR 06/2016: new small bilateral pleural effusions Blood work: IgE antiaspergillus, IgE, IgG antiaspergillus, aspergillus galactomannan, fungitell assay, ESR, CRP, all WNL. TRAVIS showed low IgG and low IgM. To note that prior records showed PPD negative PFT 09/2020: FVC lower limit of normal at 75% and DLCO mildly decreased at 64% EXNO at 23 Walking titration, sat 92% on RA and lowest sat 87% on RA and needs 2LNC on exertion IgE antiaspergillus, IgG antiaspergillus, aspergillus galactomannan assay, fungitell assay, ESR, CRP, PANCA, CANCA, anti DSDNA, CK, HIV all negative FRANCES at 1/160 however reflex negative Hepatitis serologies negative esophagram showed reflux to mid esophagus. CT chest 09/2020: bilateral ground glass and nodular opacities. P (more content not included)... 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 She has hypogammaglobulinemia and has seen straight tooth gear generator operator but not on any immunoglobulins, being monitored. She denies any recent infections. She has mild pain 1/10 mostly in the hands especially left. She is noted some swelling in the left hand. Stiffness is 30 minutes in the morning. She has no chest pain, shortness of breath or cough. She continues to be on Plaquenil 300 mg daily-dose adjusted February 2022 based on weight. She exercises regularly and has been working on weight loss. She has a history of recurrent infections in the past and hypogammaglobulinemia. She has seen technology education teacher for interstitial lung disease-recent CAT scan December 2020 showed 90% improvement. She is also being evaluated for aspiration pneumonia as she has acid reflux and has seen doctor of dental surgery. She had testing for doctor of dental surgery and found to have esophageal dysmotility. she was hospitalized February 2020 for almost 4 months for interstitial lung disease. She was initially suspected to have pneumonia but had persistent symptoms in spite of treatment. Multiple biopsies have shown minimal inflammatory infiltrate in September 2020. She has done multiple courses of steroids. She has mild fatigue. She is on medications for seizures with Keppra. As enzymes have been normal. She had low IgG and IgM on previous labs but while on steroids. She has history of photosensitivity. Bone density scan February 2021 showed mild osteopenia with T score -1.6 with low fracture risk. New patient visit December 29, 2020 Perla Pavon is a 65 year old female who presents with history of lupus?/Undifferentiated connective tissue disease?-History of positive FRANCES, low C3(in June 2017) primarily with pulmonary symptoms and being evaluated for interstitial lung disease is here for evaluation. She was diagnosed with lupus by her ship engines operating engineer in [place] around 10 years ago and has been on Plaquenil 200 mg twice daily since. She is up-to-date with her eye exam. More recently she saw Dr. German who continued her on her Plaquenil. She has been following up closely with her technology education teacher for pulmonary infiltrates. She has had cough, trouble breathing since December 2019 and was hospitalized in February 2020. She was initially suspected to have pneumonia but has had persistent symptoms and is being evaluated for interstitial lung disease. She has had multiple biopsies which showed minimal inflammatory infiltrate on bronchoscopy in September 2020. She has done course of steroids-during hospitalization February 2020 for around 4 months and then went off steroids and then resumed again 2 months later and then recently went off in July 2020. Most recent CAT scan done few days ago shows improvement in overall infiltrates. She describes some photosensitivity and some blotching of her skin on her chest and arms intermittently but no other rashes. She gets occasional mouth sores. She describes some fatigue and has mild dry mouth. She has trouble swallowing and is scheduled for EGD for evaluation. She has acid reflux and hiatal hernia. 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 She is on treatment for anxiety and depression. She describes mild pain 2/10 in the ankles and wrist which is infrequent usually around once a week and worse with activity. She has no stiffness in the morning and no swelling. She takes meloxicam as needed. She has seen straight tooth gear generator operator and has low IgG and IgM. Recent serologies October 2020 showed FRANCES 1: 160 but rest of lupus immaq-unhacj-rwmgqnra DNA, ALESHA panel was negative, rheumatoid factor, anti-CCP negative and ANCA negative. Muscle enzymes are also normal. December 12, 2020-office note from Dr. GABO FABIAN Echo 08/2020: EF normal, grade I diastolic dysfunction, RV normal, mild TR. RVSP normal CXR 06/2016: new small bilateral pleural effusions Blood work: IgE antiaspergillus, IgE, IgG antiaspergillus, aspergillus galactomannan, fungitell assay, ESR, CRP, all WNL. TRAVIS showed low IgG and low IgM. To note that prior records showed PPD negative PFT 09/2020: FVC lower limit of normal at 75% and DLCO mildly decreased at 64% EXNO at 23 Walking titration, sat 92% on RA and lowest sat 87% on RA and needs 2LNC on exertion IgE antiaspergillus, IgG antiaspergillus, aspergillus galactomannan assay, fungitell assay, ESR, CRP, PANCA, CANCA, anti DSDNA, CK, HIV all negative FRANCES at 1/160 however reflex negative Hepatitis serologies negative esophagram showed reflux to mid esophagus. CT chest 09/2020: bilateral ground glass and nodular opacities. 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 Camara PAST SURGICAL HISTORY OF 1971 right knee surgery TONSILLECTOMY HX 1961 TOTAL ABDOMINAL HYSTERECT W/WO RMVL TUBE OVARY 03/04/2009 Hysterectomy, ANANDA Health Maintenance Procedures Covid-19 Vaccine(1) Never done Annual PCP Team Chronic Disease Visit Never done Shingrix Vaccine(1 of 2) Never done Colorectal Cancer Screening due on 09/19/2014 DTaP,Tdap,Td Vaccine(2 - Td or Tdap) due on 01/26/2016 RSV Vaccine(1 - 1-dose 60+ series) Never done Advance Directive Discussion Never done Influenza Vaccine(1) due on 12/28/2022 Lipid Screening due on 04/18/2023 Mammogram Screening due on 07/03/2023 Discussed health maintenance, including regular aerobic exercise, low fat diet, and periodic exams. Health Maintenance Immunizations Given Immunizations: Immunization History Administered Date(s) Administered influenza (IIV3) vaccine, trivalent, PF (AFLURIA, FLUARIX, FLULAVAL, FLUVIRIN, FLUZONE) 01/27/2015 pneumococcal (PCV13) vaccine, 13 valent (PREVNAR 13) 09/29/2020 pneumococcal (PCV20) vaccine, 20 valent (PREVNAR 20) 05/14/2022 pneumococcal (PPV23) vaccine, 23 valent (PNEUMOVAX 23) 11/11/2020 tetanus diphtheria pertussis (Tdap) vaccine, age 7+ yr (ADACEL, BOOSTRIX) 01/25/2006 tuberculin skin test (TST-PPD), purified protein derivative, intradermal 06/02/2012 Current Outpatient Medications Medication Sig levETIRAcetam (KEPPRA) 750 mg tablet Take 2 tablets by mouth every morning AND 1.5 tablets daily at bedtime. albuterol HFA (PROAIR HFA) 90 mcg/actuation inhaler Inhale 2 Puffs as instructed every 6 hours as needed for wheezing/shortness of breath (or cough). fluticasone-vilanterol (BREO ELLIPTA) 100-25 mcg/dose inhaler Inhale 1 Inhalation as instructed once daily. hydrOXYchloroQUINE (PLAQUENIL) 200 mg tablet TAKE ONE AND ONE-HALF TABLETS BY MOUTH EVERY DAY pantoprazole DR (PROTONIX) 40 mg tablet Take 1 tablet by mouth once daily. dicyclomine (BENTYL) 10 mg capsule TAKE ONE CAPSULE BY MOUTH THREE TIMES A DAY NEEDED FOR ABDOMINAL PAIN Lactobacillus acidophilus (PROBIOTIC ORAL) Take by mouth. ondansetron orally disintegrating (ZOFRAN ODT) 4 mg disintegrating tablet TAKE 1 TABLET BY MOUTH EVERY 8 HOURS NEEDED FOR NAUSEA AND VOMITING sertraline (ZOLOFT) 100 mg tablet Take 100 mg by mouth once daily. biotin 1,000 mcg chew Take 10,000 mcg by mouth twice daily. Pt takes three tabs in the morning and two tabs at night. cyanocobalamin (VITAMIN B-12) 1,000 mcg tab Take 1,000 mcg by mouth once daily. calcium-cholecalciferol, D3, 250-125 mg-unit per tablet Take 1 tablet by mouth once daily. FIBERCON 625 MG TAB 2 po daily No current facility-administered medications for this visit. ALLERGIES Allergen Reactions Environmental Aller* Dust mites, weeds, ragweed Epinephrine intolerance per pt;caused her to black out FAMILY HISTORY Problem Relation Age of Onset Cancer Father throat cancer Heart Father Asthma Father other (Vascular Dementia) Father Breast Cancer Mother Stroke Maternal Grandfather other (hyperlipidemia) Maternal Grandfather multiple relatives Social History Tobacco Use Smoking status: Former Packs/day: 0.50 Years: 10.00 Additional pack years: 0.00 Total pack years: 5.00 Types: Cigarettes Quit date: 09/19/2000 Years since quittin.5 Smokeless tobacco: Never Tobacco comments: quit around 2010 Vaping Use Vaping Use: Never used Substance Use Topics Alcohol use: Yes Comment: socially-3 drinks per week Drug use: No History Review: I have reviewed and modified as needed, the following during this visit: Allergies, Past Medical History, Past Surgical History, Past Family History, Past Social History. Review of Systems CONSTITUTIONAL: Recent Weight Gain: No Recent Weight Loss: No Fatigue: Yes Weakness: No Fever: No EYES: Pain: No Redness: No Loss of vision: No Double or blurred vision: No Dryness: No Feels like something in eye: No Itching eyes: No VFIC-[id number]-THROAT: Ringing in ears: No Loss of hearing: No Nosebleeds: No Loss of smell: No Dryness in nose: No Runny Nose: No Sore tongue: No Bleeding gums: No Sores in mouth: no Loss of taste: No Dryness of mouth: No Frequent sore throats: No Hoarseness: No Difficulty in swallowing: Yes CARDIOVASCULAR: Pain in chest: Yes Irregular heart beat: No Sudden changes in heart beat: No High blood pressure: No Heart murmurs: No RESPIRATORY: Shortness of breath: Yes Difficulty in breathing at night: No Swollen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 will suddenly lose focus or have trouble walking, lasting seconds. Driving - can suddenly feel lost, but it only lasts 10 seconds or less Sleeps 6-8 hours/night. Does not feel refreshed in AM; states she does snore. Still has pacer (not able to have MRI); grain manager has told her she uses pacer 60-70% of the time. She still wants to try decreasing LEV. Notes from 11/26/2016 visit LAST SEEN: 02/27/2016 At 02/27/2016 visit we decreased LEV from 1500 mg BID to 1000/1500 and she reports improvement in cognition. No clear seizures. Last seizure was 05/2013. She was diagnosed with SLE a month ago; bronchitis, pleurisy, joint pain for past 4-5 months Started to be evaluated 3-4 months ago. Asthma 11/2015; pleurisy 07/2016, then joint pain, trouble walking, nausea, headaches. Pulm referred to Rheum; xrays showed mild OA; Rheum is Dr. Kena Ibarra in [place], [place] Since 10/22/2016, started on Plaquenil. Plans to see SLE specialist in [place]. 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 PCP increased Zoloft. New PCP: Linda Loving in [place] Card/pacer: Dr. Hodges at [facility] Pulm: Shreya Joy in [place] [facility]: recently had baseline exam Notes from 02/27/2016: Last seen: 02/03/2015 by Ann Queen At 02/03/2015 visit, no recent seizures so no changes were made to LEV 1500 mg BID. Pacemaker battery was replaced 11/2015. In past two years, she notes weird things: -trouble with mind drifting, poor concentration, can't stay focused. -poor memory everyday, gradually worsening the last 1-2 years -poor balance, all of a sudden will wobble for a second, about once per month -trouble with spelling -can't do jigsaw puzzles at all (relatively sudden change about 6 months ago) -periods of confusion; was in [facility] [place] a few months ago, then sent to ED (per [facility] last visit at in [place] was 08/26/2015, for headache); she gets lost, lasting 5-10 minutes -nausea every morning in last 2 months; she wakes up with it and it lasts 2 hours Examples of confusion: she was driving last week when she suddenly became disoriented, anxious; this lasted for about one minute, then she was fine. 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 She describes lapses in time vs. poor concentration. Per , no clear episodes of vacant staring, no speech arrest Last clear seizure was 05/2013: described as a jolt to the head; if standing, has to grab something; notes change in facial expression, vacant staring for less than 10 seconds, no myoclonic jerks. She wonders if Keppra is causing lethargy, trouble with concentration. 01/2013 - we increased Keppra from 1000 mg BID to 1500 mg BID due to episodes of right arm and leg numbness; no further episodes of right arm and leg numbness after 05/2013 Her PCP retired recently. She needs prescriptions because she has not established with a new PCP yet. Neuropsychology testing scheduled for 03/20/2016 in [place], ordered by outside neurologist. She also notes left inner foot sharp pain, lasting 3-4 hours, occurring weekly, starting 6 months ago. About 4 months ago, she was in so much pain she passed out. SEIZURE HISTORY (from 08/20/2008 initial visit, with updates): Spring 2006 (at 51 years of age) - she began to have strong jolts - she would have to grab on to prevent herself from falling, lasting seconds; these evolved to staring episodes - she may be partially aware of people talking and asking her questions but she is unable to respond. These lasted less than 60 seconds, sometimes only 2-3 seconds and were occurring weekly to daily. EEG 07/29/2006 - interpreted as abnormal due to right temporal epileptiform focus (report only) She was started on Topamax - seizures were worse, balance problems She went to another neurologist in [place] (Dr. Castle) - he confirmed epilepsy; repeat EEG 03/08/2008 showed right parietal intermittent slowing but without clear epileptiform changes ([facility]). She was changed to Keppra and Zonegran. At time of 08/20/2008 visit here she was having clusters of seizures (up to 8/day) 2-3 days/week, on LEV 1000 BID and ZNS 50 BID. Admitted to EMU October 2008 to confirm diagnosis of epilepsy - no seizures recorded but she did have dramatic episode of vasovagal syncope with asystole. Pacer implanted at that time. She had h/o of vasovagal syncope since 10 years of age. Upon discharge, she continued to take Keppra and had no seizures from October 2008 to Feb 2010 when she started to taper Keppra from 1000 mg/day to 500 mg/day. Seizures returned, described as, just like a jolt to the head, similar but not as intense as when they first started in 2006; then she feels confused for a few seconds. No one seems to notice. Her body does not physically jerk. Afterwards, she feels spacey, tired for 1 minute. At first seizures were once a month, but they became more frequent until she increased her LEV dose back to 1000 mg/day May 2010. In July 2010 we increased LEV to 1000 mg BID due to frequent seizures, 1-3/day. When we saw her October 2010, seizures were improved. When seen November 2011, she reported no recent seizures since July 2010 after missing LEV doses; we continued LEV 1000 mg BID. When seen Jan 2013, we increased Keppra from 1000 mg BID to 1500 mg BID due to episodes of right arm and leg numbness; no further episodes of right arm and leg numbness after 05/2013. When seen Jan 2014 and Jan 2015 she was seizure-free; last jolt in 2011, last numbness episode 05/2013. At 01/2016 visit she reported cognitive symptoms which she attributed to LEV; we reduced LEV from 1500 mg BID to 1000/1500 and she reported improvement in cognition. At 10/10/2018 visit we reduced LEV dose from 1000/1500 to 1000 BID. She reported less drowsiness on lower LEV dose. She did well for a year, but had two brief seizures 09/2019 after missing AEDs a few different nights, likely 3 doses. She had a jolt for a second, two on the same day, no LOC, did not fall, was alone. When seizures recurred 09/2020, we increased LEV to 1250 BID, then subsequently changed it to 1000/1500. RISK FACTORS FOR SEIZURES 1. Head Trauma (yes, thrown from a horse in 1998, with LOC for about 1 minute, did not go to hospital but several days later she had severe headaches); 2. HEALTH SPECIALIST Infections (no); 3. Family History of Seizures (no); 4. Developmental Delay (no); 5. Febrile Seizures (no); 6. HEALTH SPECIALIST Tumors (no); 7. HEALTH SPECIALIST Vascular Disease (no); 8. Significant Medical History (see below). AEDs at 10/10/2018 visit: LEV 1000 mg qAM, 1500 mg qPM (530-6A when waking, 10-11P when going to bed; varies on the weekends) Forgets dose: once every few months may fall asleep before evening dose Side effects: none AEDs at 11/06/2019 visit: LEV 1000 mg BID Forgets a dose about once per month AEDs at 11/01/2020 visit: LEV 1250 mg BID (increased 10/26/2020) AEDs: (04/12/2021, 06/04/2022) visit LEV 1500mg BID Current AEDs LEV 1125/1500 Past AEDs: TPM, ZNS PAST MEDICAL HISTORY Allergic Rhinitis, Cause Unspecified (Allergic rhinitis) Generalized Anxiety Disorder (Anxiety, Generalized) Irritable Bowel Syndrome (Irritable bowel) SLE diagnosed 09/2016 Asthma diagnosed in 2015 Pulmonary aspergillosis diagnosed 02/2020 AGUILA diagnosed 03/2021 SOCIAL HISTORY: with adult children. Driving Status: Driving currently. Tobacco Use: Quit 2005. Alcohol Use: Yes (socially) DATA reviewed: per patient [facility] EEG ~30 years ago was abnl Long EEG (02/06/2013): normal Long EEG (12/09/2017): IS gen and regional left and right temporal Video-EEG (11/23/2008): This two day video-EEG evaluation is consistent with the diagnosis of convulsive syncope. The patient experienced 32 seconds asystole after placement of a heparin lock, which resulted in a brief generalized asymmetric tonic seizure. The EEG during the asytole showed generalized slowing followed by generalized suppression of the background activity. Patient care was transferred to EP service and a temporary pacer wire was placed. She is scheduled for definitive pacemaker placement in the next few days. The patient will be re-scheduled for another EMU evaluation if events persist after pacemaker placement. EEG 04/05/[address] head 02/20/2013: Relatively subtle chronic microvascular ischemic change. No acute findings. 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 We had decreased LEV at 09/2018 visit at patient's request due to suspected cognitive side effects. Recurrence of jolts 01/05/2021 so we increased LEV to 1500 BID. EEG 04/05/2021 was normal but did not record a jolt. -Complaints of worsening memory since 2012, possibly related to depression and/or side effects to medication. Decreasing LEV seemed to help. -Episodes of transient numbness in right arm and leg in 2012, which resolved in 2013, potentially related to stress, sleep deprivation related to caring for her father who eventually August 2013. Subsequent intermittent right arm numbness, typically in association with wrist pain attributed to SLE. -Depression, stable. -Diagnosis of SLE 12/2015 with unclear connection to her seizures, unable to have MRI due to pacer 06/04/2022 update: no seizures since late 2020/early 2021; she wants to try decreasing LEV again 02/18/2023 update: one jolt lasting a brief second without LOC or impaired awareness 6 weeks ago. Remains on LEV 1500/1125 PLAN: 1. Continue LEV 1500/1125 Refills sent. 2. LEV level 3. Patient will send in BMV form 3. RTC 4-6 months. I spent a total of 20 minutes on the date of the service which included preparing to see the patient, [id number] patient care, obtaining and/or reviewing separately obtained history, counseling and educating the patient/family/caregiver, and ordering medications, tests, or procedures. Luz Solo PA-C documented in this encounter [facility] 01-07-2023 Miscellaneous Notes Albuterol rx approved Encounter started under spouse's name. Albuterol rx pending for provider to review. Left pt VM to call office back to see what questions she has for Laura in regards to her spouse. Please note Laura is out of the office til 01/09 and messages are being answered by covering provider. Please start encounter under spouse name if appropriate. Patient has been identified by name and date of : Yes Requested Prescriptions Pending Prescriptions Disp Refills albuterol HFA (PROAIR HFA) 90 mcg/actuation inhaler 18 g 3 Sig: Inhale 2 Puffs as instructed every 6 hours as needed for wheezing/shortness of breath (or cough). RX INSTRUCTIONS: Patient aware RX will be sent to pharmacy. No need to notify patient. Tiffani Michael MA Perla Pavon is calling [facility] today with concern regarding albuterol prescription patient would like to have another refill on it. Please send to [facility] in [place], [place] Patient is also calling in regards to spouse as well. Patient wanted Laura to know patient's was in a terrible accident and that he has a traq now. Please call patient to discuss different options. Patient has been identified by name and birthdate. Duration of symptoms: N/A Person calling: self Call patient at: on cell [phone] (home) [phone] (cell) Was an appointment scheduled: No Closing statement: Prior Authorization Calls: Thank you for calling [facility], your call will be returned within the next 24 hours or next business day. Laura Melendez documented in this encounter [facility] 11-12-2022 Miscellaneous Notes Pharmacy faxed requesting the following refill. Requested Prescriptions Pending Prescriptions Disp Refills hydrOXYchloroQUINE (PLAQUENIL) 200 mg tablet [Pharmacy Med Name: HYDROXYCHLOROQUINE SULFATE 200 TABS] 135 tablet 1 Sig: TAKE ONE AND ONE-HALF TABLETS BY MOUTH EVERY DAY Patient last appointment: Visit date not found Next Appointment: 04/10/2023 Patient Phone numbers: [phone] (home) [phone] (work) Request is for script(s) to be escript to pharmacy. Valerie Smalls MA documented in this encounter [facility] 10-05-2022 Note HNO ID: [id number] Author: Dereje Chappell MD Service: ? Author Type: Physician Type: Progress Notes Filed: 10/05/2022 9:55 AM Note Text: Subjective A phone visit telemedicine visit was substituted for a protocol-required in-person visit because of the recent COVID-19 pandemic which has caused disruption in normal operations spanning access to care, medical treatment, medications, etc. This phone or virtual visit was conducted to prevent exposure of the patient to the virus and to optimize the patient's safety that comes with inherent limitations of a phone encounter. I have communicated my name and active licensure. The patient's identity and physical location were verified at the time of this visit. Either the patient or their legal benefits representative has been informed of the risks and benefits of -- and alternatives to -- treatment through a remote evaluation and consents to proceed with the evaluation remotely. 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 She has hypogammaglobulinemia and has seen straight tooth gear generator operator but not on any immunoglobulins, being monitored. She denies much joint pain today. She has no rashes, chest pain or shortness of breath. She is up-to-date with her eye exam. At her last visit February 2022 she was asked to lower Plaquenil to 300 mg daily based on weight but after a week or 2 she noticed increased generalized pain and decided to increase dose. Symptoms went away with increasing dose. She gives a history of recurrent infections but no infections recently. She has seen technology education teacher for interstitial lung disease-recent CAT scan December 2020 showed 90% improvement. She is also being evaluated for aspiration pneumonia as she has acid reflux and has seen doctor of dental surgery. She had testing for doctor of dental surgery and found to have esophageal dysmotility. She has found to have low immunoglobulins and was following up closely with her straight tooth gear generator operator in the past but has not seen them recently. she was hospitalized February 2020 for almost 4 months for interstitial lung disease. She was initially suspected to have pneumonia but had persistent symptoms in spite of treatment. Multiple biopsies have shown minimal inflammatory infiltrate in September 2020. She has done multiple courses of steroids. She has mild fatigue. She is on medications for seizures with Keppra. As enzymes have been normal. She had low IgG and IgM on previous labs but while on steroids. She has history of photosensitivity. Bone density scan February 2021 showed mild osteopenia with T score -1.6 with low fracture risk. New patient visit December 29, 2020 Perla Pavon is a 65 year old female who presents with history of lupus?/Undifferentiated connective tissue disease?-History of positive FRANCES, low C3(in June 2017) primarily with pulmonary symptoms and being evaluated for interstitial lung disease is here for evaluation. She was diagnosed with lupus by her ship engines operating engineer in [place] around 10 years ago and has been on Plaquenil 200 mg twice daily since. She is up-to-date with her eye exam. More recently she saw Dr. German who continued her on her Plaquenil. She has been following up closely with her technology education teacher for pulmonary infiltrates. She has had cough, trouble breathing since December 2019 and was hospitalized in February 2020. She was initially suspected to have pneumonia but has had persistent symptoms and is being evaluated for interstitial lung disease. She has had multiple biopsies which showed minimal inflammatory infiltrate on bronchoscopy in September 2020. She has done course of steroids-during hospitalization February 2020 for around 4 months and then went off steroids and then resumed again 2 months later and then recently went off in July 2020. Most recent CAT scan done few days ago shows improvement in overall infiltrates. She describes some photosensitivity and some blotching of her skin on her chest and arms intermittently but no other rashes. She gets occasional mouth sores. She describes some fatigue and has mild dry mouth. She has trouble swallowing and is scheduled for EGD for evaluation. She has acid reflux and hiatal hernia. 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 She is on treatment for anxiety and depression. She describes mild pain 2/10 in the ankles and wrist which is infrequent usually around once a week and worse with activity. She has no stiffness in the morning and no swelling. She takes meloxicam as needed. She has seen straight tooth gear generator operator and has low IgG and IgM. Recent serologies October 2020 showed FRANCES 1: 160 but rest of lupus [id number] DNA, ALESHA panel was negative, rheumatoid factor, anti-CCP negative and ANCA negative. Muscle enzymes are also normal. December 12, 2020-office note from (more content not included)... [facility] 10-05-2022 Miscellaneous Notes Pt sent response through [employer]. Pt notified and verbalized understanding. Pt ask if she should keep albuterol for as needed as well as the Symbicort. Pt states ok to send her a [employer] message with response. Images from the original note were not included. Humaira Nixon I tried to call Perla to explain to her the new inhaler and left her a VM Please in regarding to her message below if you could call her and advise her that I discontinued her BREO and sent her a prescription for symbicort. Please advise her that the symbicort can be used instead of the BREO, but as needed, meaning anytime she has symptoms she can use the symbicort 2 puffs, up to 5 puffs a day not to be exceeded. This will replace BREO, at the same time, does not have to be taken everyday and rather can be used as needed. Please advise her however that this is a puffer like the albuterol and not a powder inhaler like the BREO If any questions to let me know Thank you Gabo Michael MA routed conversation to You 9 hours ago (8:33 AM) Tiffani Michael MA Robinson, Lori A 9 hours ago (8:33 AM) Dear Perla, Thank you for your request. This message has been forwarded to the provider for review. Thank you for contacting us through [employer] and have a nice day, Your Pulmonary Care Team This [employer] message has not been read. Perla Pavon [facility] (supporting Gabo Corona MD) Yesterday (5:50 PM) Pineda Fabian, Per our discussion at our last visit I would like to discontinue the Breo inhaler. I have 20 days left on it. We discussed a new inhaler to replace the Breo and I could use it as much as needed but not necessarily daily. I still have the Albuterol as well. Could you prescribe the new medication for me at a three month supply and call it in to [facility] in [place]? I wish and your family well in all your endeavors. I thank you once again for truly saving my life . You were and are a God send. I will miss you. Perla documented in this encounter [facility] 09-26-2022 Miscellaneous Notes Patient has been identified by name and date of : Yes Requested Prescriptions Pending Prescriptions Disp Refills BREO ELLIPTA 100-25 mcg/dose inhaler 180 Each 3 Sig: Inhale 1 Inhalation as instructed once daily. RX INSTRUCTIONS: Pharmacy initiated this request. No need to notify patient. Tiffani Michael MA JELENA: 08/23/2022 Future OV: 02/18/2023 documented in this encounter [facility] 08-23-2022 Note HNO ID: [id number] Author: Gabo Corona MD Service: ? Author Type: Physician Type: Progress Notes Filed: 08/23/2022 8:24 PM Note Text: Pulmonary Outpatient Visit . Patient Name: Perla Pavon PRIMARY CARE PHYSICIAN: Linda Loving DO CHIEF COMPLAINT: Follow Up HISTORY OF PRESENT ILLNESS: Perla Pavon is a 67 year old female, BMI 26.47 kg/m2, with a history of mild asthma, lung nodules, Aguila and mild SOB is here for a pulmonary and sleep reassessment Ros significant for GERd, mild SOB on exertion, intermittent cough, allergic rhinitis, anxiety and depression. 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 Camara PAST SURGICAL HISTORY OF 1971 right knee surgery TONSILLECTOMY HX 1961 TOTAL ABDOMINAL HYSTERECT W/WO RMVL TUBE OVARY 03/04/2009 Hysterectomy, ANANDA FAMILY HISTORY Problem Relation Age of Onset Cancer Father throat cancer Heart Father Asthma Father other (Vascular Dementia) Father Breast Cancer Mother Stroke Maternal Grandfather other (hyperlipidemia) Maternal Grandfather multiple relatives Social History Tobacco Use Smoking status: Former Packs/day: 0.50 Years: 10.00 Pack years: 5.00 Types: Cigarettes Quit date: 09/19/2000 Years since quittin.9 Smokeless tobacco: Never Tobacco comments: quit around 2010 Vaping Use Vaping Use: Never used Substance Use Topics Alcohol use: Yes Comment: socially-3 drinks per week Drug use: No I have personally reviewed the patient past medical history, surgical history, as well as the family and social history. Nothing has changed except what is discussed below. ALLERGIES: ALLERGIES Allergen Reactions Environmental Aller* Dust mites, weeds, ragweed Epinephrine intolerance per pt;caused her to black out CURRENT OUTPATIENT MEDICATIONS: pantoprazole DR (PROTONIX) 40 mg tablet Take 1 tablet by mouth once daily. dicyclomine (BENTYL) 10 mg capsule TAKE ONE CAPSULE BY MOUTH THREE TIMES A DAY NEEDED FOR ABDOMINAL PAIN hydrOXYchloroQUINE (PLAQUENIL) 200 mg tablet TAKE 1 AND 1/2 TABLETS BY MOUTH ONCE DAILY (Patient taking differently: Take 200 mg by mouth twice daily.) levETIRAcetam (KEPPRA) 750 mg tablet Take 1.5 tablets by mouth twice daily. (Patient taking differently: Take 750 mg by mouth. Takes 3.5 tablets daily) Lactobacillus acidophilus (PROBIOTIC ORAL) Take by mouth. BREO ELLIPTA 100-25 mcg/dose inhaler Inhale 1 Inhalation as instructed once daily. albuterol HFA (PROAIR HFA) 90 mcg/actuation inhaler Inhale 2 Puffs as instructed every 6 hours as needed for wheezing/shortness of breath (or cough). ondansetron orally disintegrating (ZOFRAN ODT) 4 mg disintegrating tablet TAKE 1 TABLET BY MOUTH EVERY 8 HOURS NEEDED FOR NAUSEA AND VOMITING sertraline (ZOLOFT) 100 mg tablet Take 100 mg by mouth once daily. biotin 1,000 mcg chew Take 10,000 mcg by mouth twice daily. Pt takes three tabs in the morning and two tabs at night. cyanocobalamin (VITAMIN B-12) 1,000 mcg tab Take 1,000 mcg by mouth once daily. calcium-cholecalciferol, D3, 250-125 mg-unit per tablet Take 1 tablet by mouth once daily. FIBERCON 625 MG TAB 2 po daily COMPLETE REVIEW OF SYSTEMS: As above PHYSICAL EXAM: BP 144/81 Pulse 66 Resp 16 Wt 76.7 kg (169 lb) SpO2 98% BMI 26.47 kg/m? General appearance: Well appearing, alert, in no acute distress, well-hydrated, well nourished. Head: Normocephalic, no masses, lesions, tenderness or abnormalities Lungs: clear to auscultation. No wheezing, rhonchi, rales Extremities: No deformities, edema, skin discoloration, clubbing or cyanosis. DATA: Diagnostic tests reviewed for today's visit, films/specimens were personally reviewed by me: Echo 08/2020: EF normal, grade I diastolic dysfunction, RV normal, mild TR. RVSP normal CXR 06/2016: new small bilateral pleural effusions Blood work: IgE antiaspergillus, IgE, IgG antiaspergillus, aspergillus galactomannan, fungitell assay, ESR, CRP, all WNL. TRAVIS showed low IgG and low IgM. To note that prior records elina (more content not included)... [facility] [place] 08-23-2022 History of Present illness Narrative Images from the original note were not included. Pulmonary Outpatient Visit . Patient Name: Perla Pavon PRIMARY CARE PHYSICIAN: Linda Loving DO CHIEF COMPLAINT: Follow Up HISTORY OF PRESENT ILLNESS: Perla Pavon is a 67 year old female, BMI 26.47 kg/m2, with a history of mild asthma, lung nodules, Aguila and mild SOB is here for a pulmonary and sleep reassessment Ros significant for GERd, mild SOB on exertion, intermittent cough, allergic rhinitis, anxiety and depression. (Please see Assessment and Plan for further HPI details) PAST MEDICAL HISTORY Diagnosis Date Allergic rhinitis, cause unspecified Allergic rhinitis Asthma COVID-19 virus detected 06/07/2021 Epilepsy ([facility]) on Keppra Generalized anxiety disorder Anxiety, Generalized History of pneumonia ILD (interstitial lung disease) ([facility]) hospitalized 02/2020 Immunodeficiency (cell-mediated) ([facility]) Irritable bowel syndrome Irritable bowel Lupus ([facility]) diag around 2010 AGUILA (obstructive sleep apnea) 06/20/2021 Recurrent major depressive disorder, in partial remission ([facility]) 02/27/2016 PAST SURGICAL HISTORY Procedure Laterality Date ANES PERMANENT TRANSVENOUS PACEMAKER INSERTION Permanent Pacemakerm 11/04 BREAST REDUCTION Bilateral 11/18/2018 COLONOSCOPY SCREENING 09/27/2017 normal EGD 02/02/2021 EGD W/O BRSH SPEC VARICIES INJ 09/27/2017 normal MANOMETRY ESOPHAGEAL 07/13/2021 Dr. Camara PAST SURGICAL HISTORY OF 1971 right knee surgery TONSILLECTOMY HX 1961 TOTAL ABDOMINAL HYSTERECT W/WO RMVL TUBE OVARY 03/04/2009 Hysterectomy, ANANDA FAMILY HISTORY Problem Relation Age of Onset Cancer Father throat cancer Heart Father Asthma Father other (Vascular Dementia) Father Breast Cancer Mother Stroke Maternal Grandfather other (hyperlipidemia) Maternal Grandfather multiple relatives Social History Tobacco Use Smoking status: Former Packs/day: 0.50 Years: 10.00 Pack years: 5.00 Types: Cigarettes Quit date: 09/19/2000 Years since quittin.9 Smokeless tobacco: Never Tobacco comments: quit around 2010 Vaping Use Vaping Use: Never used Substance Use Topics Alcohol use: Yes Comment: socially-3 drinks per week Drug use: No I have personally reviewed the patient past medical history, surgical history, as well as the family and social history. Nothing has changed except what is discussed below. ALLERGIES: ALLERGIES Allergen Reactions Environmental Aller* Dust mites, weeds, ragweed Epinephrine intolerance per pt;caused her to black out CURRENT OUTPATIENT MEDICATIONS: pantoprazole DR (PROTONIX) 40 mg tablet Take 1 tablet by mouth once daily. dicyclomine (BENTYL) 10 mg capsule TAKE ONE CAPSULE BY MOUTH THREE TIMES A DAY NEEDED FOR ABDOMINAL PAIN hydrOXYchloroQUINE (PLAQUENIL) 200 mg tablet TAKE 1 AND 1/2 TABLETS BY MOUTH ONCE DAILY (Patient taking differently: Take 200 mg by mouth twice daily.) levETIRAcetam (KEPPRA) 750 mg tablet Take 1.5 tablets by mouth twice daily. (Patient taking differently: Take 750 mg by mouth. Takes 3.5 tablets daily) Lactobacillus acidophilus (PROBIOTIC ORAL) Take by mouth. BREO ELLIPTA 100-25 mcg/dose inhaler Inhale 1 Inhalation as instructed once daily. albuterol HFA (PROAIR HFA) 90 mcg/actuation inhaler Inhale 2 Puffs as instructed every 6 hours as needed for wheezing/shortness of breath (or cough). ondansetron orally disintegrating (ZOFRAN ODT) 4 mg disintegrating tablet TAKE 1 TABLET BY MOUTH EVERY 8 HOURS NEEDED FOR NAUSEA AND VOMITING sertraline (ZOLOFT) 100 mg tablet Take 100 mg by mouth once daily. biotin 1,000 mcg chew Take 10,000 mcg by mouth twice daily. Pt takes three tabs in the morning and two tabs at night. cyanocobalamin (VITAMIN B-12) 1,000 mcg tab Take 1,000 mcg by mouth once daily. calcium-cholecalciferol, D3, 250-125 mg-unit per tablet Take 1 tablet by mouth once daily. FIBERCON 625 MG TAB 2 po daily COMPLETE REVIEW OF SYSTEMS: As above PHYSICAL EXAM: BP 144/81 Pulse 66 Resp 16 Wt 76.7 kg (169 lb) SpO2 98% BMI 26.47 kg/m General appearance: Well appearing, alert, in no acute distress, well-hydrated, well nourished. Head: Normocephalic, no masses, lesions, tenderness or abnormalities Lungs: clear to auscultation. No wheezing, rhonchi, rales Extremities: No deformities, edema, skin discoloration, clubbing or cyanosis. DATA: Diagnostic tests reviewed for today's visit, films/specimens were personally reviewed by me: Echo 08/2020: EF normal, grade I diastolic dysfunction, RV normal, mild TR. RVSP normal CXR 06/2016: new small bilateral pleural effusions Blood work: IgE antiaspergillus, IgE, IgG antiaspergillus, aspergillus galactomannan, fungitell assay, ESR, CRP, all WNL. TRAVIS showed low IgG and low IgM. To note that prior records showed PPD negative PFT 09/2020: FVC lower limit of normal at 75% and DLCO mildly decreased at 64% EXNO at 23 Walking titration, sat 92% on RA and lowest sat 87% on RA and needs 2LNC on exertion IgE antiaspergillus, IgG antiaspergillus, aspergillus galactomannan assay, fungitell assay, ESR, CRP, PANCA, CANCA, anti DSDNA, CK, HIV all negative FRANCES at 1/160 however reflex negative Hepatitis serologies negative esophagram showed reflux to mid esophagus. CT chest 09/2020: bilateral ground glass and nodular opacities. Overnight trending pulse ox on CPAP 05/2021 showed 18 minutes with sat less than 88% and CARMEN at 6 Sleep study 02/2021: severe AGUILA with aHI at 31 and suprine at 38 PAP titration needs: auto CPAP 8-[address] chest 11/2020: IMPRESSION: Regions of atelectasis or scarring are seen within the superior segment of the lower lobes, bilaterally. Regions of atelectasis seen elsewhere within the lungs. Interval marked improvement, with near resolution of multifocal bilateral airspace opacities, when compared to the prior examination, suggesting nearly completely resolved infectious or inflammatory disease. Stable subcentimeter pulmonary nodules, measuring up to 5 mm in size. Prominent, less than 1 cm bilateral hilar lymph nodes, likely reactive. 08/2021: cardiac stress test: low risk scan and normal EF 01/2022: walking titration: no need for O2 on exertion PFT Spirometry is normal. The diffusing capacity is normal. CT chest 01/2022: Couple of stable 2 mm pulmonary nodules. No new or enlarging pulmonary nodules identified. ASSESSMENT AND PLAN: I have collected the history from the patient and chart. I have personally examined the patient, and have also independently reviewed the imaging and any available laboratory data. I addressed the questions of the patient, and patient has expressed understanding and acceptance of my answers. (Some elements are copied from my previous notes. Those elements are relevant and needed for today's assessment and plan. Those elements have been updated where appropriate and all reflect current medical decision making from today August 23, 2022 Problem List Items Addressed This Visit Pulmonary Mild persistent asthma without complication - Primary Relevant Orders OTHER ACCESSORY Lung nodules Relevant Orders OTHER ACCESSORY AGUILA (obstructive sleep apnea) Relevant Orders OTHER ACCESSORY Allergy/Immunology Low serum IgG1 and IgM levels 1)J84.9 Interstitial lung disease (HCC) (primary encounter diagnosis) Comment: PFT 09/2020: FVC lower limit of normal at 75% and DLCO mildly decreased at 64% EXNO at 23 Walking titration, sat 92% on RA and lowest sat 87% on RA and needs 2LNC on exertion IgE antiaspergillus, IgG antiaspergillus, aspergillus galactomannan assay, fungitell assay, ESR, CRP, PANCA, CANCA, anti DSDNA, CK, HIV all negative FRANCES at 1/160 however reflex negative Hepatitis serologies negative Bronchoscopay, fungal, aFB and nocardia and legionall and tissue cultures all negative TBB: Together, these biopsies consist of 9 fragments of alveolated lung parenchyma and 2 of bronchial wall. The airspaces contain an occasional macrophage and there an occasional (rare) focus of minimal chronic (lymphocytic) inflammation. No granulomas or malignant cells are identified. There is no evidence of significant tissue eosinophilia. There is no evidence of vasculitis/capillaritis, aspirated particulate material, or viral inclusions. esophagram showed reflux to mid esophagus. CT chest 09/2020: bilateral ground glass and nodular opacities. Possible organizing pneumonia, vs recurrent aspiration pneumonia vs other ILD Prior diagnosis of invasive pulmonary aspergillosis is questionable as patient improved on multiple courses of steroids and ATB. Aspergillus was seen on BAL? ==> CT chest 11/2020: IMPRESSION: Regions of atelectasis or scarring are seen within the superior segment of the lower lobes, bilaterally. Regions of atelectasis seen elsewhere within the lungs. Interval marked improvement, with near resolution of multifocal bilateral airspace opacities, when compared to the prior examination, suggesting nearly completely resolved infectious or inflammatory disease. Stable subcentimeter pulmonary nodules, measuring up to 5 mm in size. Prominent, less than 1 cm bilateral hilar lymph nodes, likely reactive. ==> patient markedly improved clinically Also markedly improved CT chest ==> CT chest 01/2022: Couple of stable 2 mm pulmonary nodules. No new or enlarging pulmonary nodules identified. No need for further repeat CT chest for now unless changes in clinical condition. Smoker 5 pack years and quit in 2000 2)R91.8 Lung nodules Comment: repeat CT chest as above 3)R06.02 Shortness of breath Comment: grade I diastolic HF on echo Improved 08/2021: cardiac stress test: low risk scan and normal EF 01/2022: walking titration: no need for O2 on exertion PFT Spirometry is normal. The diffusing capacity is normal. CT chest 01/2022: Couple of stable 2 mm pulmonary nodules. No new or enlarging pulmonary nodules identified. 4)G47.34 Nocturnal hypoxia Comment: sat today 98% on RA at rest prior 92% No need further for oxygen at rest nor on exertion 01/2022: walking titration: no need for O2 on exertion Overnight trending pulse ox on CPAP 05/2021 showed 18 minutes with sat less than 88% and CARMEN at 6 Sleep study 02/2021: severe AGUILA with aHI at 31 and suprine at 38 PAP titration needs: auto CPAP 8-18 cm H2O 5)M32.9 Systemic lupus erythematosus, unspecified SLE type, unspecified organ involvement status (HCC) Comment: cause of OP or NSIP on CT Repeat CT chest was negative Referred to rheumatology Not on any treatment currently 6)R76.8 Low serum IgG1 and IgM levels Comment: prior effect of multiple course of steroids vs true immunodeficiency Cause of recurrent pneumonia? 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 7)AGUILA G47.33 Overnight trending pulse ox on CPAP 05/2021 showed 18 minutes with sat less than 88% and CARMEN at 6 Sleep study 02/2021: severe AGUILA with aHI at 31 and suprine at 38 PAP titration needs: auto CPAP 8-18 cm H2O ==> compliant and benefiting from the treatment Download 08/22/2022: shows 100% compliance, on auto cPAP 5-18 cm H2O, 95th percentile leaks at 0.8 and residual AHI at 0.3 EPSS at 6 9)K21.9 Gastroesophageal reflux disease, unspecified whether esophagitis present Comment: confirmed on esophagram On PPI 10)mild persistent asthma Doing well on BREO once daily and albuterol PRN Advised to avoid all triggers Will consider tapering treatment on next visit in 6 months Uptodate on the prevnar 20 and 13 and 23 Return in about 6 months (around 02/22/2023). Thank you for the opportunity to participate in the care of Perla Pavon , please do not hesitate to contact me anytime if any questions. GABO FABIAN M.D. [facility] FRCP(G) ATS August 23, 2022 8:15 PM documented in this encounter [facility] 08-22-2022 Note HNO ID: [id number] Author: RT Liz(R) Service: ? Author Type: Technologist Type: Progress Notes Filed: 08/22/2022 8:49 AM Note Text: Radiology Service Progress Note PATIENT NAME: Perla Pavon DATE OF SERVICE: August 22, 2022 TIME: 8:49 AM PATIENT IDENTITY VERIFICATION COMPLETED USING TWO (2) IDENTIFIERS: Name and Date of confirmed by patient verbally. FALL SCREENING: Has the patient had 2 falls in the last year or 1 fall with injury or currently using an Ambulatory Assistive Device (Walker, Cane, Wheelchair, Crutches, etc.)? No PATIENT GENDER DATA: Female. status: : No status: NO. PATIENT RELEVANT IMPLANT DATA REVIEWED: Not Applicable RADIOLOGY DEPARTMENT: Mammography PERIPHERAL IV DATA: Not applicable SIGNED BY: RT Liz(R) August 22, 2022 8:49 AM [facility] [place] 08-22-2022 History of Present illness Narrative Radiology Service Progress Note PATIENT NAME: Perla Pavon DATE OF SERVICE: August 22, 2022 TIME: 8:49 AM PATIENT IDENTITY VERIFICATION COMPLETED USING TWO (2) IDENTIFIERS: Name and Date of confirmed by patient verbally. FALL SCREENING: Has the patient had 2 falls in the last year or 1 fall with injury or currently using an Ambulatory Assistive Device (Walker, Cane, Wheelchair, Crutches, etc.)? No PATIENT GENDER DATA: Female. status: : No status: NO. PATIENT RELEVANT IMPLANT DATA REVIEWED: Not Applicable RADIOLOGY DEPARTMENT: Mammography PERIPHERAL IV DATA: Not applicable SIGNED BY: RT Liz(R) August 22, 2022 8:49 AM documented in this encounter [facility] 08-08-2022 Note HNO ID: [id number] Author: Shreya Grullon, DO Service: ? Author Type: Physician Type: Progress Notes Filed: 08/08/2022 2:09 PM Note Text: Heart and Vascular [place] Ronnell Rothman Department of Cardiovascular Medicine SECTION OF [facility] CARDIOLOGY/[facility] OUTPATIENT VISIT DATE August 08, 2022 OUTPATIENT VISIT TYPE ESTABLISHED PATIENT Name: Perla Pavon : 1955 Date: August 08, 2022 PRIMARY CARE PHYSICIAN: Linda Loving [address] [facility] [address] REFERRING PHYSICIAN: Shreya Grullon [address] [address] CHIEF COMPLAINT: Patient presents with: Cardiology Follow Up : Still having heart fluttering every couple days - lasts 1 to 30 mins. [employer] has not alerted her to any arrhythmias IMPRESSION / PLAN: 1. History of sick sinus syndrome status post dual-chamber pacemaker placement in 2008 and replaced on December 16, 2015 with a Biotronik. Patient is being seen in the device clinic with her last remote interrogation on June 22 20222021 showing atrial paced rhythm and 2% ventricular pacing. She is due for an in person pacemaker interrogation in January 2023 and of asked her to discuss with the device clinic about changing her reports to showing the time left to ROSETTA and not the percentage. 2. Recurrent chest pain. Patient has a complex history of esophageal motility disorder and pain related to her GI symptoms and has been stable recently with no concerns. She did have an exercise stress physiology test last year which showed no evidence of ischemia but no imaging stress test performed in the past. Lexiscan nuclear stress test was normal on September 18, 2021. 3. Palpitations most likely secondary to PACs/PVCs. Patient is stable with no evidence of significant concerns but does have sometimes daily palpitations. I did discuss with her about potentially placing her on a beta-bertha and she was questioning the type of beta-bertha which may actually simultaneously help her esophageal motility disorder but could not recall what she has been told her in the past. She will discuss the particular medication with her GI doctor with her upcoming visit in 1 month. She does not require medication at this time but could consider it in the future. 4. History of lupus erythematosus. 5. History of epilepsy. 6. History of persistent dysphagia with esophageal gastric junction outflow obstruction and esophageal motility disorder. 7. History of asthma with interstitial lung disease. 8. History of depression. Follow Up Instructions Return in about 1 year (around 08/09/2023). ORDERS FOR TODAY'S VISIT: No orders found for this visit on 08/08/22. HISTORY OF PRESENT ILLNESS: Ms. Pavon is a 67 year old female with a past history of sick sinus syndrome status post Biotronik permanent pacemaker placement, lupus erythematosus, recent diagnosis of esophageal gastric junction outflow obstruction, asthma, interstitial lung disease, epilepsy and depression who presents today for follow-up. She has continued to have some palpitations at times on a daily basis. PAST MEDICAL HISTORY Diagnosis Date Allergic rhinitis, cause unspecified Allergic rhinitis Asthma COVID-19 virus detected 06/07/2021 Epilepsy ([facility]) on Keppra Generalized anxiety disorder Anxiety, Generalized History of pneumonia ILD (interstitial lung disease) ([facility]) hospitalized 02/2020 Immunodeficiency (cell-mediated) ([facility]) Irritable bowel syndrome Irritable bowel Lupus ([facility]) diag around 2010 AGUILA (obstructive sleep apnea) 06/20/2021 Recurrent major depressive disorder, in partial remission ([facility]) 02/27/2016 PAST SURGICAL HISTORY Procedure Laterality Date ANES PERMANENT TRANSVENOUS PACEMAKER INSERTION Permanent Pacemakerm 11/04 BREAST REDUCTION Bilateral 11/18/2018 COLONOSCOPY SCREENING 09/27/2017 normal EGD 02/02/2021 EGD W/O BRSH SPEC VARICIES INJ 09/27/2017 normal MANOMETRY ESOPHAGEAL 07/13/2021 Dr. Camara PAST SURGICAL HISTORY OF 1971 right knee surgery TONSILLECTOMY HX 1961 TOTAL ABDOMINAL HYSTERECT W/WO RMVL TUBE OVARY 03/04/2009 Hysterectomy, ANANDA SOCIAL HISTORY Social History Tobacco Use Smoking status: Former Packs/day: 0.50 Years: 10.00 Pack years: 5.00 Types: Cigarettes Quit date: 09/19/2000 Years since quittin.8 Smokeless tobacco: Never Tobacco comments: quit around 2010 Vaping Use Vaping Use: Never used Substance Use Topics Alcohol use: Yes Comment: socially-3 drinks per week Drug use: No FAMILY HISTORY Problem Relation Age of Onset Cancer Father throat cancer Heart Father Asthma Father other (Vascular Dementia) Father Breast Cancer Mother Stroke Maternal Grandfather other (hyperlipidemia) Maternal Grandfather multiple relatives ALLERGIES: ALLERGIES Allergen Reaction (more content not included)... [facility] [place] 08-08-2022 History of Present illness Narrative Images from the original note were not included. Heart and Vascular [place] Ronnell Rothman Department of Cardiovascular Medicine SECTION OF [facility]OLOG[facility] OUTPATIENT VISIT DATE August 08, 2022 OUTPATIENT VISIT TYPE ESTABLISHED PATIENT Name: Perla Pavon : 1955 Date: August 08, 2022 PRIMARY CARE PHYSICIAN: Linda Loving [address] [place] [address] REFERRING PHYSICIAN: Shreya Grullon [address] [address] CHIEF COMPLAINT: Patient presents with: Cardiology Follow Up : Still having heart fluttering every couple days - lasts 1 to 30 mins. [employer] has not alerted her to any arrhythmias IMPRESSION / PLAN: 1. History of sick sinus syndrome status post dual-chamber pacemaker placement in 2008 and replaced on December 16, 2015 with a Biotronik. Patient is being seen in the device clinic with her last remote interrogation on June 22 20222021 showing atrial paced rhythm and 2% ventricular pacing. She is due for an in person pacemaker interrogation in January 2023 and of asked her to discuss with the device clinic about changing her reports to showing the time left to ROSETTA and not the percentage. 2. Recurrent chest pain. Patient has a complex history of esophageal motility disorder and pain related to her GI symptoms and has been stable recently with no concerns. She did have an exercise stress physiology test last year which showed no evidence of ischemia but no imaging stress test performed in the past. Lexiscan nuclear stress test was normal on September 18, 2021. 3. Palpitations most likely secondary to PACs/PVCs. Patient is stable with no evidence of significant concerns but does have sometimes daily palpitations. I did discuss with her about potentially placing her on a beta-bertha and she was questioning the type of beta-bertha which may actually simultaneously help her esophageal motility disorder but could not recall what she has been told her in the past. She will discuss the particular medication with her GI doctor with her upcoming visit in 1 month. She does not require medication at this time but could consider it in the future. 4. History of lupus erythematosus. 5. History of epilepsy. 6. History of persistent dysphagia with esophageal gastric junction outflow obstruction and esophageal motility disorder. 7. History of asthma with interstitial lung disease. 8. History of depression. Follow Up Instructions Return in about 1 year (around 08/09/2023). ORDERS FOR TODAY'S VISIT: No orders found for this visit on 08/08/22. HISTORY OF PRESENT ILLNESS: Ms. Pavon is a 67 year old female with a past history of sick sinus syndrome status post Biotronik permanent pacemaker placement, lupus erythematosus, recent diagnosis of esophageal gastric junction outflow obstruction, asthma, interstitial lung disease, epilepsy and depression who presents today for follow-up. She has continued to have some palpitations at times on a daily basis. PAST MEDICAL HISTORY Diagnosis Date Allergic rhinitis, cause unspecified Allergic rhinitis Asthma COVID-19 virus detected 06/07/2021 Epilepsy ([facility]) on Keppra Generalized anxiety disorder Anxiety, Generalized History of pneumonia ILD (interstitial lung disease) ([facility]) hospitalized 02/2020 Immunodeficiency (cell-mediated) ([facility]) Irritable bowel syndrome Irritable bowel Lupus ([facility]) diag around 2010 AGUILA (obstructive sleep apnea) 06/20/2021 Recurrent major depressive disorder, in partial remission ([facility]) 02/27/2016 PAST SURGICAL HISTORY Procedure Laterality Date ANES PERMANENT TRANSVENOUS PACEMAKER INSERTION Permanent Pacemakerm 11/04 BREAST REDUCTION Bilateral 11/18/2018 COLONOSCOPY SCREENING 09/27/2017 normal EGD 02/02/2021 EGD W/O BRSH SPEC VARICIES INJ 09/27/2017 normal MANOMETRY ESOPHAGEAL 07/13/2021 Dr. Camara PAST SURGICAL HISTORY OF 1971 right knee surgery TONSILLECTOMY HX 1961 TOTAL ABDOMINAL HYSTERECT W/WO RMVL TUBE OVARY 03/04/2009 Hysterectomy, ANANDA SOCIAL HISTORY Social History Tobacco Use Smoking status: Former Packs/day: 0.50 Years: 10.00 Pack years: 5.00 Types: Cigarettes Quit date: 09/19/2000 Years since quittin.8 Smokeless tobacco: Never Tobacco comments: quit around 2010 Vaping Use Vaping Use: Never used Substance Use Topics Alcohol use: Yes Comment: socially-3 drinks per week Drug use: No FAMILY HISTORY Problem Relation Age of Onset Cancer Father throat cancer Heart Father Asthma Father other (Vascular Dementia) Father Breast Cancer Mother Stroke Maternal Grandfather other (hyperlipidemia) Maternal Grandfather multiple relatives ALLERGIES: ALLERGIES Allergen Reactions Environmental Aller* Dust mites, weeds, ragweed Epinephrine intolerance per pt;caused her to black out MEDICATIONS: pantoprazole DR (PROTONIX) 40 mg tablet Take 1 tablet by mouth once daily. dicyclomine (BENTYL) 10 mg capsule TAKE ONE CAPSULE BY MOUTH THREE TIMES A DAY NEEDED FOR ABDOMINAL PAIN hydrOXYchloroQUINE (PLAQUENIL) 200 mg tablet TAKE 1 AND 1/2 TABLETS BY MOUTH ONCE DAILY (Patient taking differently: Take 200 mg by mouth twice daily.) levETIRAcetam (KEPPRA) 750 mg tablet Take 1.5 tablets by mouth twice daily. (Patient taking differently: Take 750 mg by mouth. Takes 3.5 tablets daily) Lactobacillus acidophilus (PROBIOTIC ORAL) Take by mouth. BREO ELLIPTA 100-25 mcg/dose inhaler Inhale 1 Inhalation as instructed once daily. albuterol HFA (PROAIR HFA) 90 mcg/actuation inhaler Inhale 2 Puffs as instructed every 6 hours as needed for wheezing/shortness of breath (or cough). ondansetron orally disintegrating (ZOFRAN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 BID. Pacemaker battery was replaced 11/2015. In past two years, she notes weird things: -trouble with mind drifting, poor concentration, can't stay focused. -poor memory everyday, gradually worsening the last 1-2 years -poor balance, all of a sudden will wobble for a second, about once per month -trouble with spelling -can't do jigsaw puzzles at all (relatively sudden change about 6 months ago) -periods of confusion; was in [facility] [place] a few months ago, then sent to ED (per [facility] last visit at in [place] was 08/26/2015, for headache); she gets lost, lasting 5-10 minutes -nausea every morning in last 2 months; she wakes up with it and it lasts 2 hours Examples of confusion: she was driving last week when she suddenly became disoriented, anxious; this lasted for about one minute, then she was fine. 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 She describes lapses in time vs. poor concentration. Per , no clear episodes of vacant staring, no speech arrest Last clear seizure was 05/2013: described as a jolt to the head; if standing, has to grab something; notes change in facial expression, vacant staring for less than 10 seconds, no myoclonic jerks. She wonders if Keppra is causing lethargy, trouble with concentration. 01/2013 - we increased Keppra from 1000 mg BID to 1500 mg BID due to episodes of right arm and leg numbness; no further episodes of right arm and leg numbness after 05/2013 Her PCP retired recently. She needs prescriptions because she has not established with a new PCP yet. Neuropsychology testing scheduled for 03/20/2016 in [place], ordered by outside neurologist. She also notes left inner foot sharp pain, lasting 3-4 hours, occurring weekly, starting 6 months ago. About 4 months ago, she was in so much pain she passed out. SEIZURE HISTORY (from 08/20/2008 initial visit, with updates): Spring 2006 (at 51 years of age) - she began to have strong jolts - she would have to grab on to prevent herself from falling, lasting seconds; these evolved to staring episodes - she may be partially aware of people talking and asking her questions but she is unable to respond. These lasted less than 60 seconds, sometimes only 2-3 seconds and were occurring weekly to daily. EEG 07/29/2006 - interpreted as abnormal due to right temporal epileptiform focus (report only) She was started on Topamax - seizures were worse, balance problems She went to another neurologist in [place] (Dr. Castle) - he confirmed epilepsy; repeat EEG 03/08/2008 showed right parietal intermittent slowing but without clear epileptiform changes ([facility]). She was changed to Keppra and Zonegran. At time of 08/20/2008 visit here she was having clusters of seizures (up to 8/day) 2-3 days/week, on LEV 1000 BID and ZNS 50 BID. Admitted to EMU October 2008 to confirm diagnosis of epilepsy - no seizures recorded but she did have dramatic episode of vasovagal syncope with asystole. Pacer implanted at that time. She had h/o of vasovagal syncope since 10 years of age. Upon discharge, she continued to take Keppra and had no seizures from October 2008 to Feb 2010 when she started to taper Keppra from 1000 mg/day to 500 mg/day. Seizures returned, described as, just like a jolt to the head, similar but not as intense as when they first started in 2006; then she feels confused for a few seconds. No one seems to notice. Her body does not physically jerk. Afterwards, she feels spacey, tired for 1 minute. At first seizures were once a month, but they became more frequent until she increased her LEV dose back to 1000 mg/day May 2010. In July 2010 we increased LEV to 1000 mg BID due to frequent seizures, 1-3/day. When we saw her October 2010, seizures were improved. When seen November 2011, she reported no recent seizures since July 2010 after missing LEV doses; we continued LEV 1000 mg BID. When seen Jan 2013, we increased Keppra from 1000 mg BID to 1500 mg BID due to episodes of right arm and leg numbness; no further episodes of right arm and leg numbness after 05/2013. When seen Jan 2014 and Jan 2015 she was seizure-free; last jolt in 2011, last numbness episode 05/2013. At 01/2016 visit she reported cognitive symptoms which she attributed to LEV; we reduced LEV from 1500 mg BID to 1000/1500 and she reported improvement in cognition. At 10/10/2018 visit we reduced LEV dose from 1000/1500 to 1000 BID. She reported less drowsiness on lower LEV dose. She did well for a year, but had two brief seizures 09/2019 after missing AEDs a few different nights, likely 3 doses. She had a jolt for a second, two on the same day, no LOC, did not fall, was alone. When seizures recurred 09/2020, we increased LEV to 1250 BID, then subsequently changed it to 1000/1500. RISK FACTORS FOR SEIZURES 1. Head Trauma (yes, thrown from a horse in 1998, with LOC for about 1 minute, did not go to hospital but several days later she had severe headaches); 2. HEALTH SPECIALIST Infections (no); 3. Family History of Seizures (no); 4. Developmental Delay (no); 5. Febrile Seizures (no); 6. HEALTH SPECIALIST Tumors (no); 7. HEALTH SPECIALIST Vascular Disease (no); 8. Significant Medical History (see below). AEDs at 10/10/2018 visit: LEV 1000 mg qAM, 1500 mg qPM (530-6A when waking, 10-11P when going to bed; varies on the weekends) Forgets dose: once every few months may fall asleep before evening dose Side effects: none AEDs at 11/06/2019 visit: LEV 1000 mg BID Forgets a dose about once per month AEDs at 11/01/2020 visit: LEV 1250 mg BID (increased 10/26/2020) Current AEDs: (04/12/2021, 06/04/2022) LEV 1500 BID Past AEDs: TPM, ZNS PAST MEDICAL HISTORY Allergic Rhinitis, Cause Unspecified (Allergic rhinitis) Generalized Anxiety Disorder (Anxiety, Generalized) Irritable Bowel Syndrome (Irritable bowel) SLE diagnosed 09/2016 Asthma diagnosed in 2016 Pulmonary aspergillosis diagnosed 02/2020 AGUILA diagnosed 03/2021 SOCIAL HISTORY: with adult children. Driving Status: Driving currently. Tobacco Use: Quit 2005. Alcohol Use: Yes (socially) DATA reviewed: per patient [facility] EEG ~30 years ago was abnl Long EEG (02/06/2013): normal Long EEG (12/09/2017): IS gen and regional left and right temporal Video-EEG (11/23/2008): This two day video-EEG evaluation is consistent with the diagnosis of convulsive syncope. The patient experienced 32 seconds asystole after placement of a heparin lock, which resulted in a brief generalized asymmetric tonic seizure. The EEG during the asytole showed generalized slowing followed by generalized suppression of the background activity. Patient care was transferred to EP service and a temporary pacer wire was placed. She is scheduled for definitive pacemaker placement in the next few days. The patient will be re-scheduled for another EMU evaluation if events persist after pacemaker placement. EEG 04/05/[address] head 02/20/2013: Relatively subtle chronic microvascular ischemic change. No acute findings. 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 We had decreased LEV at 09/2018 visit at patient's request due to suspected cognitive side effects. Recurrence of jolts 01/05/2021 so we increased LEV to 1500 BID. EEG 04/05/2021 was normal but did not record a jolt. -Complaints of worsening memory since 2012, possibly related to depression and/or side effects to medication. Decreasing LEV seemed to help. -Episodes of transient numbness in right arm and leg in 2012, which resolved in 2013, potentially related to stress, sleep deprivation related to caring for her father who eventually August 2013. Subsequent intermittent right arm numbness, typically in association with wrist pain attributed to SLE. -Depression, stable. -Diagnosis of SLE 12/2015 with unclear connection to her seizures, unable to have MRI due to pacer 06/04/2022 update: no seizures since late 2020/early 2021; she wants to try decreasing LEV again PLAN: 1. Decrease Keppra from 1500 BID to 1500 mg in AM, 1125 mg in PM (using 750 mg tabs, 2 tabs in AM and 1.5 tabs in PM) for 2 weeks, then, assuming no recurrence of seizures, she can reduce to 1125 mg BID (1.5 tabs BID). Refills sent. 2. She is to call if seizures recur. 3. RTC 4-6 months. Taylor Chris MD documented in this encounter [facility] 06-04-2022 Miscellaneous Notes Pharmacy faxed requesting the following refill. Requested Prescriptions Pending Prescriptions Disp Refills hydrOXYchloroQUINE (PLAQUENIL) 200 mg tablet [Pharmacy Med Name: HYDROXYCHLOROQUINE 200 MG TAB] 135 tablet 1 Sig: TAKE 1 AND 1/2 TABLETS BY MOUTH ONCE DAILY Patient last appointment: Visit date not found Next Appointment: 09/04/2022 Patient Phone numbers: [phone] (home) [phone] (work) Request is for script(s) to be escript to pharmacy. Valerie Smalls MA documented in this encounter [facility] 05-30-2022 Miscellaneous Notes Pharmacy faxed requesting the following refill. Requested Prescriptions Pending Prescriptions Disp Refills hydrOXYchloroQUINE (PLAQUENIL) 200 mg tablet 135 tablet 1 Sig: Take 1.5 tablets by mouth once daily. Patient last appointment: Visit date not found Next Appointment: 09/04/2022 Patient Phone numbers: [phone] (home) [phone] (work) Request is for script(s) to be escript to pharmacy. Valerie Smalls MA documented in this encounter [facility] 05-23-2022 Miscellaneous Notes Informed of positive shiga toxin on stool panel. Still having persistent loose stools, worsened after meals. Will treat with Suprax due to drug interactions with Plaquenil. Discussed contact precautions. 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 Miriam Stout PA-C documented in this encounter [facility] 05-16-2022 Miscellaneous Notes Patient phones requesting refills as follows: Requested Prescriptions Pending Prescriptions Disp Refills pantoprazole DR (PROTONIX) 40 mg tablet [Pharmacy Med Name: PANTOPRAZOLE SOD DR 40 MG TAB] 180 tablet 1 Sig: TAKE 1 TABLET BY MOUTH TWICE A DAY TAKE 30 MINUTES BEFORE MEAL Please review and advise. Ebonie Villegas Ma documented in this encounter [facility] 05-14-2022 History of Present illness Narrative CHIEF COMPLAINT: Patient presents with: Esophageal Dysphagia HPI Perla Pavon is a 67 year old female here today for Esophageal Dysphagia. Change in Bms started 2 weeks ago. Having 8 Bms per day, loose, no blood. Abd pain is in upper/lower abd, associated with postprandial nausea. PCP ordered labs, HIDA, RUQ US today. Prevoiusly dx with EGJ outflow obstruction. Intermittent dysphagia, taking Protonix BID/altoids with relief. Denies unintentional weight loss, recent antibiotics. Denies fevers, sweats, chills. OV 07/2021 EGD 01/2021 was unremarkable. Started on Protonix 40 mg BID for persistent dysphagia. Advised HREM which showed evidence of EGJ outflow obstruction. Advised pt to try altoid mints sublingually before each meal which she includes have helped somewhat for her. Current Outpatient Medications Medication Sig Lactobacillus acidophilus (PROBIOTIC ORAL) Take by mouth. hydrOXYchloroQUINE (PLAQUENIL) 200 mg tablet Take 1.5 tablets by mouth once daily. pantoprazole DR (PROTONIX) 40 mg tablet TAKE 1 TABLET BY MOUTH TWICE A DAY TAKE 30 MINUTES BEFORE MEAL BREO ELLIPTA 100-25 mcg/dose inhaler Inhale 1 Inhalation as instructed once daily. levETIRAcetam (KEPPRA) 750 mg tablet Take 2 tablets by mouth twice daily. albuterol HFA (PROAIR HFA) 90 mcg/actuation inhaler Inhale 2 Puffs as instructed every 6 hours as needed for wheezing/shortness of breath (or cough). ondansetron orally disintegrating (ZOFRAN ODT) 4 mg disintegrating tablet TAKE 1 TABLET BY MOUTH EVERY 8 HOURS NEEDED FOR NAUSEA AND VOMITING sertraline (ZOLOFT) 100 mg tablet Take 100 mg by mouth once daily. biotin 1,000 mcg chew Take 10,000 mcg by mouth twice daily. Pt takes three tabs in the morning and two tabs at night. cyanocobalamin (VITAMIN B-12) 1,000 mcg tab Take 1,000 mcg by mouth once daily. calcium-cholecalciferol, D3, 250-125 mg-unit per tablet Take 1 tablet by mouth once daily. FIBERCON 625 MG TAB 2 po daily No current facility-administered medications for this visit. ALLERGIES Allergen Reactions Environmental Aller* Dust mites, weeds, ragweed Epinephrine intolerance per pt;caused her to black out Social History Tobacco Use Smoking status: Former Packs/day: 0.50 Years: 10.00 Pack years: 5.00 Types: Cigarettes Quit date: 09/19/2000 Years since quittin.6 Smokeless tobacco: Never Tobacco comments: quit around 2010 Vaping Use Vaping Use: Never used Substance Use Topics Alcohol use: Yes Comment: socially-3 drinks per week Drug use: No PAST MEDICAL HISTORY Diagnosis Date Allergic rhinitis, cause unspecified Allergic rhinitis Asthma COVID-19 virus detected 06/07/2021 Epilepsy (HCC) on Keppra Generalized anxiety disorder Anxiety, Generalized History of pneumonia ILD (interstitial lung disease) ([facility]) hospitalized 02/2020 Immunodeficiency (cell-mediated) ([facility]) Irritable bowel syndrome Irritable bowel Lupus ([facility]) diag around 2010 AGUILA (obstructive sleep apnea) 06/20/2021 Recurrent major depressive disorder, in partial remission ([facility]) 02/27/2016 PAST SURGICAL HISTORY Procedure Laterality Date ANES PERMANENT TRANSVENOUS PACEMAKER INSERTION Permanent Pacemakerm 11/04 BREAST REDUCTION Bilateral 11/18/2018 COLONOSCOPY SCREENING 09/27/2017 normal EGD 02/02/2021 EGD W/O BRSH SPEC VARICIES INJ 09/27/2017 normal MANOMETRY ESOPHAGEAL 07/13/2021 Dr. Camara PAST SURGICAL HISTORY OF 1971 right knee surgery TONSILLECTOMY HX 1961 TOTAL ABDOMINAL HYSTERECT W/WO RMVL TUBE OVARY 03/04/2009 Hysterectomy, ANANDA FAMILY HISTORY Problem Relation Age of Onset Cancer Father throat cancer Heart Father Asthma Father other (Vascular Dementia) Father Breast Cancer Mother Stroke Maternal Grandfather other (hyperlipidemia) Maternal Grandfather multiple relatives REVIEW OF SYSTEMS Review of Systems HENT: Positive for sore throat and trouble swallowing. Respiratory: Positive for apnea, cough and wheezing. Cardiovascular: Positive for palpitations. Gastrointestinal: Positive for diarrhea. Change in Bowel Habits All other systems reviewed and are negative. PHYSICAL EXAM BP 118/76 Pulse 71 Ht 5' 7 (1.70m) Wt 170 lb 8 oz (77.3kg) BMI 26.70 kg/(m^2). Physical Exam Constitutional: General: She is not in acute distress. Appearance: Normal appearance. She is normal weight. She is not ill-appearing, toxic-appearing or diaphoretic. HENT: Head: Normocephalic and atraumatic. Nose: Nose normal. Eyes: General: No scleral icterus. Right eye: No discharge. Left eye: No discharge. Extraocular Movements: Extraocular movements intact. Conjunctiva/sclera: Conjunctivae normal. Pupils: Pupils are equal, round, and reactive to light. Cardiovascular: Rate and Rhythm: Normal rate and regular rhythm. Pulses: Normal pulses. Heart sounds: Normal heart sounds. No murmur heard. No friction rub. No gallop. Pulmonary: Effort: No respiratory distress. Breath sounds: Normal breath sounds. No stridor. No wheezing, rhonchi or rales. Chest: Chest wall: No tenderness. Abdominal: General: Abdomen is flat. Bowel sounds are normal. There is no distension. Palpations: Abdomen is soft. There is no mass. Tenderness: There is no abdominal tenderness. There is no right CVA tenderness, left CVA tenderness, guarding or rebound. Hernia: No hernia is present. Musculoskeletal: General: Normal range of motion. Cervical back: Normal range of motion and neck supple. Skin: General: Skin is warm and dry. Neurological: General: No focal deficit present. Mental Status: She is alert and oriented to person, place, and time. Psychiatric: Mood and Affect: Mood normal. Behavior: Behavior normal. Assessment/Plan (R19.5) Loose stools (primary encounter diagnosis) (R10.11, R10.12) Bilateral upper abdominal pain (K22.2) Esophagogastric junction outflow obstruction 1. Loose stools - C. DIFFICILE PCR - ENTERIC BACTERIAL PANEL BY PCR - CRYPTOSPORIDIUM AND GIARDIA ANTIGENS BY EIA - Stool studies to r/o ID - Avoid Imodium - Encouraged oral hydration with electrolyte rich beverages - If WNL, will plan for colonosocopy 2. Bilateral upper abdominal pain - PCP ordered HIDA, RUQ US, labs today, pt to notify me of results - Will order Bentyl to take PRN 3. Esophagogastric junction outflow obstruction - Continue Protonix 40 mg BID - Takes Altoid PRN, helps somewhat - Discussed swallowing center referral, which she would like to wait on currently as sx have been stable overall/not losing weight I spent a total of 20 minutes on the date of the service which included preparing to see the patient, [id number] patient care, completing clinical documentation, obtaining and/or reviewing separately obtained history, performing a medically appropriate examination, counseling and educating the patient/family/caregiver, ordering medications, tests, or procedures, communicating with other HCPs (not separately reported), independently interpreting results (not separately reported), communicating results to the patient/family/caregiver, and care coordination (not separately reported). Miriam Stout PA-C May 14, 2022 3:00 PM documented in this encounter [facility] 05-09-2022 Miscellaneous Notes Patient requesting order for repeat Urinalysis. Thanks, Dixie Cary LPN Order pended for your review and signature. documented in this encounter [facility] 04-11-2022 Miscellaneous Notes Pneumovax documented. [place] allergy nurses: Please add Pneumovax administered on November 11, 2020 to the patient's immunization record. Discussed laboratory results and treatment plan with the patient. Patient reports that, although she had only 1 acute visit to her physician for acute illness in the past several months, she had also been prescribed antibiotics for infections via telephone encounters. Recommendations: Receive Prevnar 20. Patient instructed to contact the office after she was received this vaccine and I will order postvaccination pneumococcal IgG titers at that time. Recommended patient document infections and treatment to review at her next visit. Follow-up in 6 months. Plan to obtain repeat IgG, IgA and IgM at that time. Nel Estrella MD Nurse calling back from Dr. Loving's office. Patient received Prevnar 13 on 09-29-20 and Pneumovax on 11-11-20. The patient did not have any vaccines administered last November. Nurse will fax her immunization record. LM on Dr. Loving's nurses voicemail. Will await call back. Please request immunization record from patients PCP to clarify whether or not she received the pneumovax. . Nel Estrella MD Please see [facility] message. documented in this encounter [facility] 03-28-2022 Miscellaneous Notes Medical records release faxed to her office. Will place on physician desk once received. Please request medical records from the patient's primary care physician Dr. Loving. I would like to review records from at least the past 6 months. Discussed with the patient today during our virtual visit. Nel Estrella MD documented in this encounter [facility] 03-28-2022 History of Present illness Narrative VIRTUAL VISIT PROGRESS NOTE This is a virtual visit. It required patient-provider interaction for the medical decision making as documented below. Perla Pavon is a 66 year old female with a history of allergic rhinitis (dust mites, weeds, ragweed) mild persistent asthma, GERD and hypogammaglobulinemia who presents for a follow-up visit. Her last visit was September 05, 2021. She reports that, since her last visit, she has experienced a respiratory infection approximately once per month. Symptoms will include cough, chest tightness and sometimes fever. If symptoms persist for 1 week or longer, her primary care physician will typically prescribe antibiotics which she takes with improvement in her symptoms. She believes she has taken 6-7 courses of antibiotics since her last visit. No other infections such as pneumonia, cellulitis or dental infection since her last visit. She continues to follow-up with pulmonary medicine regarding her asthma. Reports that overall her asthma symptoms have been well controlled. Compliant with use of Breo Ellipta. Infrequent use of albuterol for acute symptoms. Denies treatment with systemic corticosteroids, ER visits or hospitalizations for respiratory symptoms. On February 05, 2022, repeat CT chest showed a couple stable 2 mm nodules. There was no mention of bronchiectasis. Spirometry and DLCO were normal. 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 Patient was also evaluated previously by Dr. Perry in allergy/immunology. (From initial visit on 09/05/21 This is a consultation requested by Dr. Fabian for an allergy and immunology evaluation. My final recommendations will be communicated back to the requesting healthcare provider(s) by way of shared medical record or via [place] mail. Perla Pavon is a 66 year old female who presents for further evaluation of hypogammaglobulinemia. On August 18, 2021, IgG was below normal at 503 mg/dL, IgA was normal at 167 mg/dL, IgM was below normal at 26 mg/dL and IgE was 2.7 KU/liter. On October 03, 2020, IgG was 504, IgA 163 and IgM 26. On [facility] immunodeficiency panel completed on October 03, 2020, B-cell count was at the lower limit of normal. CD4/CD8 ratio was elevated. She previously has taken multiple courses of stomach corticosteroids, however, hypogammaglobulinemia has persisted despite avoiding treatment with systemic corticosteroids for the past 18 months. She takes Plaquenil for connective tissue disease. She has received Prevnar 13. She reports that she received the Pneumovax through her primary care physician's office several months ago. Regarding infections, in February,, she was hospitalized for 6 weeks for pneumonia with persistent pulmonary infiltrates. Patient underwent bronchoscopy which did not identify an infectious etiology. No other prior hospitalizations for infections. In the past year, she has taken 2-3 courses of antibiotics for sinusitis and/or bronchitis. Visualized paranasal sinuses were clear on CT brain completed in 2012. In May,, she was treated for COVID-19 as an outpatient. Denies a history of cutaneous infections including abscesses, cellulitis and shingles. Denies a history of dental infections. Denies a history of recurring urinary tract infections. She has a history of loose stools associated with irritable bowel syndrome but denies gastrointestinal infections such as Giardia, C. difficile etc. There is no family history of immunodeficiency. On CT chest completed December 26, 2020, regions of atelectasis or scarring were seen within the lower lobes bilaterally. Regions of atelectasis were also seen elsewhere within the lungs. Interval marked improvement compared to CT completed September 28, 2020. Stable pulmonary nodules, measuring up to 5 mm in size. Prominent, less than 1 cm bilateral hilar lymph nodes were noted. Repeat CT chest has been ordered by pulmonary medicine. She has a history of mild persistent asthma. Symptoms include cough, chest tightness and shortness of breath. She uses short acting beta agonists for acute symptoms up to once per week. Denies nocturnal awakenings due to respiratory symptoms in the past month. Denies treatment with systemic steroids or ER visits for respiratory symptoms in the past year. No prior hospitalizations for asthma. She will be having a cardiac stress test completed to rule out cardiac etiology for the shortness of breath. On October 05, 2020, FVC was reduced with a normal FEV1 and FEV1/FVC ratio. Exhaled nitric oxide was 23 PPB. She takes Protonix 40 mg twice daily with good control of her GERD symptoms. She notes very mild nasal and ocular symptoms in the fall. Allergy skin tests completed in this office in 2006 were positive to dust mites, weeds and ragweed. History of large local reactions to insect stings. REVIEW OF SYSTEMS: Negative for skin rash and skin lesions All other review of systems negative except for those listed above. PAST MEDICAL HISTORY Diagnosis Date Allergic rhinitis, cause unspecified Allergic rhinitis Asthma COVID-19 virus detected 06/07/2021 Epilepsy ([facility]) on Keppra Generalized anxiety disorder Anxiety, Generalized History of pneumonia ILD (interstitial lung disease) ([facility]) hospitalized 02/2020 Immunodeficiency (cell-mediated) ([facility]) Irritable bowel syndrome Irritable bowel Lupus ([facility]) diag around 2010 AGUILA (obstructive sleep apnea) 06/20/2021 Recurrent major depressive disorder, in partial remission ([facility]) 02/27/2016 MEDICATIONS: hydrOXYchloroQUINE (PLAQUENIL) 200 mg tablet Take 1.5 tablets by mouth once daily. pantoprazole DR (PROTONIX) 40 mg tablet TAKE 1 TABLET BY MOUTH TWICE A DAY TAKE 30 MINUTES BEFORE MEAL BREO ELLIPTA 100-25 mcg/dose inhaler Inhale 1 Inhalation as instructed once daily. levETIRAcetam (KEPPRA) 750 mg tablet Take 2 tablets by mouth twice daily. albuterol HFA (PROAIR HFA) 90 mcg/actuation inhaler Inhale 2 Puffs as instructed every 6 hours as needed for wheezing/shortness of breath (or cough). ondansetron orally disintegrating (ZOFRAN ODT) 4 mg disintegrating tablet TAKE 1 TABLET BY MOUTH EVERY 8 HOURS NEEDED FOR NAUSEA AND VOMITING sertraline (ZOLOFT) 100 mg tablet Take 100 mg by mouth once daily. albuterol (PROVENTIL) 2.5 mg /3 mL (0.083 %) nebulizer solution Use 3 mL via nebulizer every 4 hours as needed for Wheezing/Shortness of Breath. Use over 5-15minutes. biotin 1,000 mcg chew Take 10,000 mcg by mouth twice daily. Pt takes three tabs in the morning and two tabs at night. cyanocobalamin (VITAMIN B-12) 1,000 mcg tab Take 1,000 mcg by mouth once daily. calcium-cholecalciferol, D3, 250-125 mg-unit per tablet Take 1 tablet by mouth once daily. FIBERCON 625 MG TAB 2 po daily ALLERGIES: Allergies As of Date: 03/28/2022 Allergen Noted Reaction ENVIRONMENTAL ALLERGIES [OTHER] 02/05/2007 EPINEPHRINE 11/23/2008 Fully Assessed 03/05/2022 PAST SURGICAL HISTORY Procedure Laterality Date ANES PERMANENT TRANSVENOUS PACEMAKER INSERTION Permanent Pacemakerm 11/04 BREAST REDUCTION Bilateral 11/18/2018 COLONOSCOPY SCREENING 09/27/2017 normal EGD 02/02/2021 EGD W/O BRSH SPEC VARICIES INJ 09/27/2017 normal MANOMETRY ESOPHAGEAL 07/13/2021 Dr. Camara PAST SURGICAL HISTORY OF 1971 right knee surgery TONSILLECTOMY HX 1961 TOTAL ABDOMINAL HYSTERECT W/WO RMVL TUBE OVARY 03/04/2009 Hysterectomy, ANANDA FAMILY HISTORY: Allergic rhinitis:yes: dad and daughter. Asthma: yes: dad. Eczema: no. Cystic fibrosis: no. Immunodeficiency: no. 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 Pets in the home: There are no pets in the home Outdoor animals: There are no outdoor animals Tobacco smoke: No exposure in the home. VIDEO EXAM: (if completed, performed via video enabled technology) GENERAL: alert and appropriate, in no distress, well-hydrated, well nourished, and happy, smiling, interactive SKIN: no rash noted HEAD: normocephalic, no abnormality or lesion noted EYES: no injection and visual acuity is grossly normal EARS: external ears normal NOSE: external nose normal without rhinorrhea NECK: full ROM, no cervical LNs noted RESPIRATORY: breathing non-labored NEUROLOGIC: no obvious deficit ALLERGY SKIN TESTS on September 05, 2021:Negative to penicillin and Pre-Pen on both prick and intradermal tests. Patient took a test dose of amoxicillin 250 mg by mouth and was monitored in the office for 30 minutes afterwards. The patient tolerated the amoxicillin without adverse reaction. ASSESSMENT/PLAN: 1.) Hypogammaglobulinemia with stable but low IgG and IgM since September,, treatment with Plaquenil and systemic corticosteroids may have contributed to these low levels: Repeat laboratory evaluation will be obtained as follows: IGG, IGA BLD, IGM, TETANUS ANTIBODY IGG, DIPHTHERIA IGG ABS, PNEUMOCOCCAL IGG ABS, 23 SEROTYPES, CBC + DIFF Recommend that the patient receive the Pneumovax and then have repeat pneumococcal IgG titers completed 1 month post vaccination. She plans to receive the Pneumovax at her primary care physician's office. Outside records from her primary care physician have been requested for review. Depending on clinical course and test results, treatment with IgG replacement therapy may be considered. The risks, benefits, alternatives and personnel for treatment with IgG replacement therapy were discussed with the patient. At this point she prefers to hold off if possible. 2.) Mild persistent asthma: Continue Breo Ellipta 100-25 1 inhalation once daily. Rinse mouth out after use. Continue albuterol HFA inhaler with spacer or albuterol 2.5 mg nebulized every 4 hours as needed. 3.) Allergic rhinitis: Aggressive environmental controls. The patient may also take [id number] loratidine (Claritin) 10 mg, cetirizine (Zyrtec) 10 mg, levocetirizine (xyzal) 5 mg OR fexofenadine (Zahra) 180 mg once daily as needed for itching, sneezing or runny nose. She may use [id number] Patanol, Pataday or Zaditor eyedrops as needed. 4.) Discussed medication dosage, usage, side effects, and goals of treatment in detail. 5.) Patient will be contacted regarding laboratory results and further recommendations regarding follow-up will be made at that time- patient will return sooner should new symptoms or problems arise. Patient was also instructed to contact the office with the date that she receives the Pneumovax so that repeat pneumococcal IgG titers may be ordered at that time. Nel Estrella MD documented in this encounter [facility] 03-28-2022 Nurse Note Pt states is still getting sick about once a month. Pt states usually URI, typically has to call pcp for antibiotic. Breo 1 puff once a day. Has not used albuterol at all. documented in this encounter [facility] 03-05-2022 History of Present illness Narrative Subjective A phone visit telemedicine visit was substituted for a protocol-required in-person visit because of the recent COVID-19 pandemic which has caused disruption in normal operations spanning access to care, medical treatment, medications, etc. This phone or virtual visit was conducted to prevent exposure of the patient to the virus and to optimize the patient's safety that comes with inherent limitations of a phone encounter. 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 Her pain today is 2/10 in the knees and ankles. She has no swelling. Stiffness is 30 minutes in the morning. She denies any rashes. She has had recent upper respiratory infection given a Zithromax with improvement. She continues to get recurrent infections and has an appointment coming up with straight tooth gear generator operator to discuss hypoglobulinemia and treatment. She has stayed on Plaquenil 400 mg daily and has not missed any doses. She has noticed some fluttering of her heart recently and has seen grain manager and being evaluated. She has had some weight loss recently. She has seen technology education teacher and being evaluated for interstitial lung disease-recent CAT scan December 2020 showed 90% improvement. She is also being evaluated for aspiration pneumonia as she has acid reflux and has seen doctor of dental surgery. She had testing for doctor of dental surgery and found to have esophageal dysmotility. She has found to have low immunoglobulins and was following up closely with her straight tooth gear generator operator in the past but has not seen them recently. she was hospitalized February 2020 for almost 4 months for interstitial lung disease. She was initially suspected to have pneumonia but had persistent symptoms in spite of treatment. Multiple biopsies have shown minimal inflammatory infiltrate in September 2020. She has done multiple courses of steroids. She has mild fatigue. She is on medications for seizures with Keppra. As enzymes have been normal. She had low IgG and IgM on previous labs but while on steroids. She has history of photosensitivity. Bone density scan February 2021 showed mild osteopenia with T score -1.6 with low fracture risk. New patient visit December 29, 2020 Perla Pavon is a 65 year old female who presents with history of lupus?/Undifferentiated connective tissue disease?-History of positive FRANCES, low C3(in June 2017) primarily with pulmonary symptoms and being evaluated for interstitial lung disease is here for evaluation. She was diagnosed with lupus by her ship engines operating engineer in [place] around 10 years ago and has been on Plaquenil 200 mg twice daily since. She is up-to-date with her eye exam. More recently she saw Dr. German who continued her on her Plaquenil. She has been following up closely with her technology education teacher for pulmonary infiltrates. She has had cough, trouble breathing since December 2019 and was hospitalized in February 2020. She was initially suspected to have pneumonia but has had persistent symptoms and is being evaluated for interstitial lung disease. She has had multiple biopsies which showed minimal inflammatory infiltrate on bronchoscopy in September 2020. She has done course of steroids-during hospitalization February 2020 for around 4 months and then went off steroids and then resumed again 2 months later and then recently went off in July 2020. Most recent CAT scan done few days ago shows improvement in overall infiltrates. She describes some photosensitivity and some blotching of her skin on her chest and arms intermittently but no other rashes. She gets occasional mouth sores. She describes some fatigue and has mild dry mouth. She has trouble swallowing and is scheduled for EGD for evaluation. She has acid reflux and hiatal hernia. 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 She is on treatment for anxiety and depression. She describes mild pain 2/10 in the ankles and wrist which is infrequent usually around once a week and worse with activity. She has no stiffness in the morning and no swelling. She takes meloxicam as needed. She has seen straight tooth gear generator operator and has low IgG and IgM. Recent serologies October 2020 showed FRANCES 1: 160 but rest of lupus mlvue-[id number]-wzkkucsn DNA, ALESHA panel was negative, rheumatoid factor, anti-CCP negative and ANCA negative. Muscle enzymes are also normal. December 12, 2020-office note from Dr. GABO FABIAN Echo 08/2020: EF normal, grade I diastolic dysfunction, RV normal, mild TR. RVSP normal CXR 06/2016: new small bilateral pleural effusions Blood work: IgE antiaspergillus, IgE, IgG antiaspergillus, aspergillus galactomannan, fungitell assay, ESR, CRP, all WNL. TRAVIS showed low IgG and low IgM. To note that prior records showed PPD negative PFT 09/2020: FVC lower limit of normal at 75% and DLCO mildly decreased at 64% EXNO at 23 Walking titration, sat 92% on RA and lowest sat 87% on RA and needs 2LNC on exertion IgE antiaspergillus, IgG antiaspergillus, aspergillus galactomannan assay, fungitell assay, ESR, CRP, PANCA, CANCA, anti DSDNA, CK, HIV all negative FRANCES at 1/160 however reflex negative Hepatitis serologies negative esophagram showed reflux to mid esophagus. CT chest 09/2020: bilateral ground glass and nodular opacities. PAST MEDICAL HISTORY Diagnosis Date Allergic rhinitis, cause unspecified Allergic rhinitis Asthma COVID-19 virus detected 06/07/2021 Epilepsy ([facility]) on Keppra Generalized anxiety disorder Anxiety, Generalized History of pneumonia ILD (interstitial lung disease) ([facility]) hospitalized 02/2020 Immunodeficiency (cell-mediated) ([facility]) Irritable bowel syndrome Irritable bowel Lupus ([facility]) diag around 2010 AGUILA (obstructive sleep apnea) 06/20/2021 Recurrent major depressive disorder, in partial remission ([facility]) 02/27/2016 PAST SURGICAL HISTORY Procedure Laterality Date ANES PERMANENT TRANSVENOUS PACEMAKER INSERTION Permanent Pacemakerm 11/04 BREAST REDUCTION Bilateral 11/18/2018 COLONOSCOPY SCREENING 09/27/2017 normal EGD 02/02/2021 EGD W/O BRSH SPEC VARICIES INJ 09/27/2017 normal MANOMETRY ESOPHAGEAL 07/13/2021 Dr. Camara PAST SURGICAL HISTORY OF 1971 right knee surgery TONSILLECTOMY HX 1961 TOTAL ABDOMINAL HYSTERECT W/WO RMVL TUBE OVARY 03/04/2009 Hysterectomy, ANANDA Health Maintenance Procedures COVID-19 VACCINE(1) Never done ANNUAL PCP TEAM CHRONIC DISEASE VISIT Never done SHINGRIX VACCINE(1 of 2) Never done COLORECTAL CANCER SCREENING due on 09/19/2014 DTAP,TDAP,TD(2 - Td or Tdap) due on 01/26/2016 LIPID SCREEN due on 09/19/2018 PAP TESTING due on 09/19/2018 HPV TESTING due on 09/19/2018 MAMMOGRAM due on 05/09/2019 PNEUMOCOCCAL(2 - PPSV23 if available, else PCV20) due on 09/29/2021 INFLUENZA(1) due on 12/28/2021 Discussed health maintenance, including regular aerobic exercise, low fat diet, and periodic exams. Health Maintenance Immunizations Given Immunizations: Immunization History Administered Date(s) Administered Influenza Seasonal Trivalent Inj Pres Free 01/27/2015 PPD ([place]) 06/02/2012 Pneumococcal-13 Vac Conjugate 09/29/2020 Tdap (Age 7+) 01/25/2006 Current Outpatient Medications Medication Sig hydrOXYchloroQUINE (PLAQUENIL) 200 mg tablet Take 1.5 tablets by mouth once daily. pantoprazole DR (PROTONIX) 40 mg tablet TAKE 1 TABLET BY MOUTH TWICE A DAY TAKE 30 MINUTES BEFORE MEAL BREO ELLIPTA 100-25 mcg/dose inhaler Inhale 1 Inhalation as instructed once daily. levETIRAcetam (KEPPRA) 750 mg tablet Take 2 tablets by mouth twice daily. albuterol HFA (PROAIR HFA) 90 mcg/actuation inhaler Inhale 2 Puffs as instructed every 6 hours as needed for wheezing/shortness of breath (or cough). ondansetron orally disintegrating (ZOFRAN ODT) 4 mg disintegrating tablet TAKE 1 TABLET BY MOUTH EVERY 8 HOURS NEEDED FOR NAUSEA AND VOMITING sertraline (ZOLOFT) 100 mg tablet Take 100 mg by mouth once daily. albuterol (PROVENTIL) 2.5 mg /3 mL (0.083 %) nebulizer solution Use 3 mL via nebulizer every 4 hours as needed for Wheezing/Shortness of Breath. Use over 5-15minutes. biotin 1,000 mcg chew Take 10,000 mcg by mouth twice daily. Pt takes three tabs in the morning and two tabs at night. cyanocobalamin (VITAMIN B-12) 1,000 mcg tab Take 1,000 mcg by mouth once daily. calcium-cholecalciferol, D3, 250-125 mg-unit per tablet Take 1 tablet by mouth once daily. FIBERCON 625 MG TAB 2 po daily No current facility-administered medications for this visit. ALLERGIES Allergen Reactions Environmental Aller* Dust mites, weeds, ragweed Epinephrine intolerance per pt;caused her to black out FAMILY HISTORY Problem Relation Age of Onset Cancer Father throat cancer Heart Father Asthma Father other (Vascular Dementia) Father Breast Cancer Mother Stroke Maternal Grandfather other (hyperlipidemia) Maternal Grandfather multiple relatives Social History Tobacco Use Smoking status: Former Packs/day: 0.50 Years: 10.00 Pack years: 5.00 Types: Cigarettes Quit date: 09/19/2000 Years since quittin.4 Smokeless tobacco: Never Tobacco comments: quit around 2010 Vaping Use Vaping Use: Never used Substance Use Topics Alcohol use: Yes Comment: socially-3 drinks per week Drug use: No History Review: I have reviewed and modified as needed, the following during this visit: Allergies, Past Medical History, Past Surgical History, Past Family History, Past Social History. Review of Systems CONSTITUTIONAL: Recent Weight Gain: No Recent Weight Loss: No Fatigue: Yes Weakness: No Fever: No EYES: Pain: No Redness: No Loss of vision: No Double or blurred vision: No Dryness: No Feels like something in eye: No Itching eyes: No [id number]: Ringing in ears: No Loss of hearing: No Nosebleeds: No Loss of smell: No Dryness in nose: No Runny Nose: No Sore tongue: No Bleeding gums: No Sores in mouth: no Loss of taste: No Dryness of mouth: No Frequent sore throats: No Hoarseness: No Difficulty in swallowing: Yes CARDIOVASCULAR: Pain in chest: Yes Irregular heart beat: No Sudden changes in heart beat: No High blood pressure: No Heart murmurs: No RESPIRATORY: Shortness of breath: Yes Difficulty in breathing at night: No Swollen legs or feet: No Cough: Yes Cough of blood: No Wheezing (asthma): No GASTROINTESTINAL: Nausea: No Vomiting of blood or coffee ground material: No Stomach pain relieved by food or milk: No Jaundice: No Increasing constipation: No Persistent diarrhea: No Blood in stools: No Black stools: No Heartburn: Yes GENITOURINARY: Difficult urination: No Pain or burning on urination: No Blood in urine: No Cloudy, smoky urine: No Pus in urine: No Discharge from penis/vagina: No Getting up at night to pass urine: No Vaginal dryness: No Rash/ulcers: No Sexual difficulties: No Prostate trouble: No MUSCULOSKELETAL: Negative for morning stiffness,muscle weakness, joint swelling,, Joint Pain: Yes and Back Pain: Yes INTEGUMENTARY: Easy Bruising: No Redness: No Rash:no Hives: No Sun sensitive: Yes Tightness: No Nodules/bumps: No Hair loss: No Color changes of hands or feet in the cold: No NEUROLOGICAL SYSTEM: Headaches: No Dizziness: No Fainting: No Muscle spasm: No Loss of consciousness: No Sensitivity or pain of hands and/or feet: Yes Memory loss: No Night sweats: No PSYCHIATRIC: Excessive worries: No Anxiety: Yes Easily losing temper: No Depression: No Agitation: No Difficulty falling asleep: No Difficulty staying asleep: No ENDOCRINE: Excessive thirst: No HEMATOLOGIC/LYMPHATIC: Swollen glands: No Tender glands: No Anemia: No Bleeding tendency: No Transfusion/ when: No ALLERGIC/IMMUNOLOGIC; Frequent sneezing: No Increased susceptibility to infection: No There were no vitals taken for this visit. VIDEO EXAM: (performed via video enabled technology) GENERAL: Well appearing, alert, comfortable, in no acute distress,well nourished. Eyes: vision grossly intact Hearing -grossly intact HEENT: external ears normal. External nose normal, NECK: thyroid appears symmetric Neuro- Speech intact. No facial droop Musculoskeletal- Able to make a tight fist with both hands, good range of motion shoulders. Some pain with range of motion cervical spine Orientation - Oriented to time, place, person & situation. Appropriate mood and affect. Good insight. Good judgment. Lab Results: August 2021 Creatinine 0.76 Liver enzyme normal CRP 0.4 Double-stranded DNA negative, C4 36, C3 low 73 CBC normal ESR 29 July 2021 IgG 503, IgM 24 March 2021 CRP 0.5 C4 36 C3 83 ESR 28 October 2020 CPK 84 Aldolase 3.7 LDH 210 September 2020 IgG 504, IgA 163, IgM 26, IgE 2.28 June 2017 C4 38, C3 84 Serology: August 2021-C4 36, C3 low at 73, double-stranded ALESHA negative October 2020-FRANCES 1: 160, double-stranded DNA negative, ALESHA panel negative, rheumatoid factor negative, anti-CCP negative, WA-3 negative, MPO negative, TB QuantiFERON negative, hepatitis panel negative June 2017 C4 38, C3 84 Radiology: Bone density scan February 2021 The calculated bone mineral density of the lumbar spine is 0.937 g/sq cm, with a corresponding T score of -1.0. The calculated bone mineral density of the left femoral neck is 0.671 g/sq cm, with a corresponding T-score of -1.6. The calculated bone mineral density total of the left hip is 0.839 g/sq cm, with a corresponding T-score of -0.8. By FRAX criteria risk of major osteoporotic fracture is 14% and risk of hip fracture is 1.7% CT chest November 2020 regions of atelectasis or scarring are seen within the superior segment of the lower lobes, bilaterally. Regions of atelectasis seen elsewhere within the lungs. Interval marked improvement, with near resolution of multifocal bilateral airspace opacities, when compared to the prior examination, suggesting nearly completely resolved infectious or inflammatory disease. Stable subcentimeter pulmonary nodules, measuring up to 5 mm in size. Prominent, less than 1 cm bilateral hilar lymph nodes, likely reactive. X-ray lower lumbar spine January 2013 Minimal dextrocurvature of lumbar spine. Alignment otherwise unremarkable. Lumbar vertebral bodies and posterior elements are intact. Mild degenerative anterior vertebral body spurring at L2-3 and L4 without significant disc space narrowing. Mild degenerative facet joint changes at L5-S1 and L4-5 on the left. Pathology September 2020 FINAL DIAGNOSIS Lung, right upper lobe and right lower lobe, transbronchial biopsies (A, B) - Minimal focal chronic inflammation (See comment). COMMENT Together, these biopsies consist of 9 fragments of alveolated lung parenchyma and 2 of bronchial wall. The airspaces contain an occasional macrophage and there an occasional (rare) focus of minimal chronic (lymphocytic) inflammation. No granulomas or malignant cells are identified. There is no evidence of significant tissue eosinophilia. There is no evidence of vasculitis/capillaritis, aspirated particulate material, or viral inclusions. Assessment (M35.9) Undifferentiated connective tissue disease (HCC) (primary encounter diagnosis) (J84.9) ILD (interstitial lung disease) ([facility]) (R53.81, R53.83) Malaise and fatigue (D80.1) Hypogammaglobulinemia ([facility]) (M85.89) Osteopenia of multiple sites (R77.8) Low serum complement C3 66-year-old pleasant lady with 1. Undifferentiated connective tissue disease-positive FRANCES 1: 160 and low C3 -diagnosed with lupus and undifferentiated connective tissue disease in the past? On Plaquenil 200 mg twice daily.Gives history of photosensitivity and has had interstitial lung disease. Continues to have low C3 but stable 2. Interstitial lung disease-hospitalized in February 2020, bronchoscopy and biopsy in September 2020 shows minimal inflammation. Recent repeat CAT scan November 2020 shows significant improvement in infiltrates after long courses of steroids. Also being evaluated for aspiration pneumonia. Stable 3. 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 Continues to have low IgG and IgM levels and recurrent infections-has not seen an straight tooth gear generator operator recently. Candidate for immunoglobulin therapy? 4. Esophageal dysmotility-etiology unclear. Has seen doctor of dental surgery 5. Mild fatigue, photosensitivity 6. History of seizures on Keppra, anxiety depression on SSRI, pacemaker placement in 2008, acid reflux and hiatal hernia #7 osteopenia-T score -1.6 in the femoral neck on bone density February 2021. No fractures Plan She has had some weight loss recently but continues be on Plaquenil 400 mg daily Lower dose to Plaquenil 300 mg daily Continue follow-up with technology education teacher for history of interstitial lung disease although there is some concerns for aspiration pneumonia With recurrent infections, low immunoglobulin levels recommend discussing immunoglobulin therapy with straight tooth gear generator operator She has noticed increase generalized pain during acute infections-can only take Tylenol as needed during these episodes and Voltaren gel if needed. Avoid regular NSAID use with esophageal dysmotility symptoms She has seen doctor of dental surgery and found to have esophageal dysmotility and considering treatment Continue with up-to-date eye exam Bone density shows mild osteopenia with low fracture risk-hold off on treatment. Recommend weightbearing exercises and continue vitamin D supplements Blood work to monitor medication disease activity Follow-up in 6 months [facility] on 03/05/22 CBC + DIFF COMP METABOLIC PANEL C-REACTIVE PROTEIN (CRP) SED RATE WESTERGREN URINALYSIS, WITH MICROSCOPIC C4 COMPLEMENT BLD C3 COMPLEMENT BLD DNA ANTIBODY DS BLD Return in about 6 months (around 09/02/2022). Dereje Chappell MD documented in this encounter [facility] 03-01-2022 Nurse Note EVENT MONITOR DISPOSABLE PATCH INSTRUCTIONS Patient Name: Perla Pavon [facility] Number: [id number] Skin prepped and cleansed with alcohol Patch secured to prepped area Monitor Activated Serial #: [id number] Patient Instructed: Prescribed order timeframe Bathing guidelines Usage of event button and diary documentation Return of monitor at the end of prescribed order Call with problems [phone] or [phone] ext. [phone] Patient expresses a good understanding of instructions Maya Beltran documented in this encounter [facility] 03-01-2022 History of Present illness Narrative Images from the original note were not included. Heart and Vascular [place] Ronnell Rothman Department of Cardiovascular Medicine SECTION OF CLINICAL CARDIOLOGY OUTPATIENT VISIT DATE February 28, 2022 OUTPATIENT VISIT TYPE ESTABLISHED PRIMARY CARE PHYSICIAN: Linda Loving [address] [place] [id number] REASON FOR VISIT: Palpitations HISTORY OF PRESENT ILLNESS: Ms. Pavon is a 66 year old female with a history of sick sinus syndrome S/P dual-chamber PPM (2008), lupus, undifferentiated connective tissue disease, epilepsy, esophagogastric junction outflow obstruction, GERD, mild persistent asthma, interstitial lung disease, AGUILA, and hypogammaglobulinemia. At her last [facility] visit with Dr. Grullon on 08/10/21 for evaluation of recurrent chest discomfort. A pharmacologic MPI stress test was ordered, and results on 09/18/21 demonstrated no evidence for ischemia or infarction, LVEF 87%. On 02/08/22 she sent a [employer] message in reporting unusual fluttering feelings in her chest for over a week or so. At times there is a rapid sensation accompanied by nausea. Dr. Grullon had recommended that she obtain an Invinceaatch to capture some of these events. Since then she has uploaded several strips that were independently reviewed by Dr. Grullon and felt to be PVCs. No further treatment was recommended. Today she states that 3 weeks ago she began experiencing the increased palpitations. She also describes a pressure/dullness around her pacemaker site, particularly in the mornings. She has a regular exercise regimen of 30 minutes x 5 days a week combining aerobic (i.e. bike, treadmill) and strength training exercises. She experiences no chest discomfort with exercise or strenuous exertion. She drinks 3 cups of coffee a day, 2 of which are decaf. She consumes greater than 100 ounces of water a day and sleeps 7-8 hours a night. She is compliant with her CPAP machine. Home blood pressures trend 110s-120 systolic. She denies shortness of breath, near-syncope, syncope, orthopnea, PND, or edema. Intermittent occasional lightheadedness. Subjective PAST MEDICAL HISTORY Diagnosis Date Allergic rhinitis, cause unspecified Allergic rhinitis Asthma COVID-19 virus detected 06/07/2021 Epilepsy ([facility]) on Keppra Generalized anxiety disorder Anxiety, Generalized History of pneumonia ILD (interstitial lung disease) ([facility]) hospitalized 02/2020 Immunodeficiency (cell-mediated) ([facility]) Irritable bowel syndrome Irritable bowel Lupus ([facility]) diag around 2010 AGUILA (obstructive sleep apnea) 06/20/2021 Recurrent major depressive disorder, in partial remission ([facility]) 02/27/2016 PAST SURGICAL HISTORY Procedure Laterality Date ANES PERMANENT TRANSVENOUS PACEMAKER INSERTION Permanent Pacemakerm 11/04 BREAST REDUCTION Bilateral 11/18/2018 COLONOSCOPY SCREENING 09/27/2017 normal EGD 02/02/2021 EGD W/O BRSH SPEC VARICIES INJ 09/27/2017 normal MANOMETRY ESOPHAGEAL 07/13/2021 Dr. Camara PAST SURGICAL HISTORY OF 1971 right knee surgery TONSILLECTOMY HX 1961 TOTAL ABDOMINAL HYSTERECT W/WO RMVL TUBE OVARY 03/04/2009 Hysterectomy, ANANDA SOCIAL HISTORY Social History Tobacco Use Smoking status: Former Packs/day: 0.50 Years: 10.00 Pack years: 5.00 Types: Cigarettes Quit date: 09/19/2000 Years since quittin.4 Smokeless tobacco: Never Tobacco comments: quit around 2010 Vaping Use Vaping Use: Never used Substance Use Topics Alcohol use: Yes Comment: socially-3 drinks per week Drug use: No FAMILY HISTORY Problem Relation Age of Onset Cancer Father throat cancer Heart Father Asthma Father other (Vascular Dementia) Father Breast Cancer Mother Stroke Maternal Grandfather other (hyperlipidemia) Maternal Grandfather multiple relatives ALLERGIES: ALLERGIES Allergen Reactions Environmental Aller* Dust mites, weeds, ragweed Epinephrine intolerance per pt;caused her to black out MEDICATIONS: pantoprazole DR (PROTONIX) 40 mg tablet TAKE 1 TABLET BY MOUTH TWICE A DAY TAKE 30 MINUTES BEFORE MEAL BREO ELLIPTA 100-25 mcg/dose inhaler Inhale 1 Inhalation as instructed once daily. hydrOXYchloroQUINE (PLAQUENIL) 200 mg tablet Take 1.5 tablets by mouth once daily. levETIRAcetam (KEPPRA) 750 mg tablet Take 2 tablets by mouth twice daily. albuterol HFA (PROAIR HFA) 90 mcg/actuation inhaler Inhale 2 Puffs as instructed every 6 hours as needed for wheezing/shortness of breath (or cough). ondansetron orally disintegrating (ZOFRAN ODT) 4 mg disintegrating tablet TAKE 1 TABLET BY MOUTH EVERY 8 HOURS NEEDED FOR NAUSEA AND VOMITING sertraline (ZOLOFT) 100 mg tablet Take 100 mg by mouth once daily. albuterol (PROVENTIL) 2.5 mg /3 mL (0.083 %) nebulizer solution Use 3 mL via nebulizer every 4 hours as needed for Wheezing/Shortness of Breath. Use over 5-15minutes. biotin 1,000 mcg chew Take 10,000 mcg by mouth twice daily. Pt takes three tabs in the morning and two tabs at night. cyanocobalamin (VITAMIN B-12) 1,000 mcg tab Take 1,000 mcg by mouth once daily. calcium-cholecalciferol, D3, 250-125 mg-unit per tablet Take 1 tablet by mouth once daily. FIBERCON 625 MG TAB 2 po daily REVIEW OF SYSTEMS: GENERAL: Negative for: Weight loss or gain, Fever or Chills, Weakness and Sleep difficulties. HEENT: Negative for: Headache, Impaired Vision, Glasses, Hearing Impairment, Ringing in Ears, Nosebleeds, Poor Dental Care, Bleeding Gums and Dentures. NECK: Negative for: Swelling, Pain, Stiffness RESPIRATORY: See HPI CARDIOVASCULAR: See HPI GASTROINTESTINAL: Negative for: Trouble swallowing, Heartburn, Change in bowel habits, Blood in stool, Dark black stools MUSCULOSKELETAL: Negative for: Muscle or joint pain, stiffness, Joint swelling NEUROLOGIC/PSYCHIATRIC: Negative for: Weakness, Paralysis, Numbness, Tingling, Tremor, Nervousness or anxiety, Depressed mood, Memory loss SKIN: Negative for: Rash, Itching HEMATOLOGICAL/LYMPHATIC: Negative for: Easy bruising, Easy bleeding ENDOCRINE: Negative for: Heat or Cold Intolerance, Excessive Sweating, Frequent Urination, Frequent Thirst Objective PHYSICAL EXAMINATION: BP 130/84 (BP Site: Left Arm, BP Position: Sitting, BP Cuff Size: Regular Adult) Pulse 76 Ht 170.2 cm (5' 7 ) Wt 77.1 kg (170 lb) SpO2 97% BMI 26.63 kg/m General: Well appearing, in no acute distress, speaking in complete sentences. Skin: No clubbing, no cyanosis. Eyes: Extra ocular movements intact Oropharynx: Teeth in good repair. Neck: No jugular venous distention, no carotid bruits, carotids have a normal upstroke, no palpable thyromegaly. Lungs: Clear to auscultation bilaterally, no wheezing or rhonchi. Heart: Regular rhythm, no murmur. Abdomen: Soft, nontender, bowel sounds normal, no palpable organomegaly, no bruits. Extremities: No peripheral edema . Grade 2/4 distal pulses bilaterally. Neuro: Oriented to person, place and time, alert. CARDIOVASCULAR MEDICINE TESTING: EKG (02/28/22): A-paced rhyhtm with prolonged AV conduction (WA 268ms), 76bpm Echocardiogram (09/20/2020): CONCLUSIONS: - Exam indication: Shortness of Breath - The left ventricle is normal in size. Left ventricular systolic function is normal. EF = 63 5% (3D) Grade I left ventricular diastolic dysfunction. GLS= -17.5% Normal. - The right ventricle is normal in size. Right ventricular systolic function is normal. - Mild tricuspid regurgitation. - Exam was compared with the prior echocardiographic exam performed on 11/25/2008. There is no significant change. Pharmacologic MPI stress test (09/18/2021): CONCLUSIONS: 1. SPECT Perfusion Study: Normal. 2. There is no scintigraphic evidence for inducible ischemia. 3. No evidence of scarred myocardium. 4. Left ventricle is small. The left ventricle systolic function is normal. 5. This is a low risk scan. Gated Stress IR:3D LVEF % 87 I have personally reviewed the Electrocardiogram. IMPRESSION: 1. Palpitations - Increasing over the past 3 weeks - Invinceaatch strips appear to have frequent PVCs - 14 day Ozmota[employer] event monitor - Check labs including Mag, TSH, BMP 2. Cardiac pacemaker - S/P dual-chamber PPM (Biotronik) implanted in 10/[address] Hodges - S/P generator changeout (Biotronik) in 11/2015 3. Recurrent chest pain - Echo 08/2020: EF 63%, grade I LVDD, 1+ TR - Pharm MPI 08/2021: no ischemia or infarction, LVEF 87% - Not typical for cardiac ischemia given its non-exertional nature 4. Lupus / Undifferentiated connective tissue disease - Follows with rheumatology - Maintained on plaquenil 5. Epilepsy 6. Esophagogastric junction outflow obstruction / GERD - Follows with GI and recommend possible initiation of CCB (diltiazem) in the future 7. Mild persistent asthma / Interstitial lung disease - Follows with pulmonology 8. AGUILA (obstructive sleep apnea) - Compliant on CPAP 9. Hypogammaglobulinemia - Following with immunology PLAN AND RECOMMENDATIONS: Patient here for evaluation of increasing palpitations. Recent uploaded Zartis event strips demonstrate the presence of PVCs. She brought more strips in for review today and these reveal frequent PVCs as well. I will place a 14-day ZIO event monitor to quantify ectopy burden and evaluate for any symptom rhythm correlation. Additionally I will check lab work including magnesium, TSH, and BMP. Heart rate and blood pressure appear under favorable control here today. I have made no additions or changes to her medications. Previous GI recommendations were to consider the initiation of diltiazem in the presence of EGJ outflow obstruction. She should continue to actively engage in cardiovascular risk factor modification and follow up with Dr. Grullon as scheduled in a few months time, or sooner should need arise. CONTACT INFORMATION: Carri David APRN.[facility] Cardiology Nurse Practitioner Section of Regional Cardiology [facility] Dept of Cardiovascular Medicine [facility] Heart and Vascular [place] [address] [place] [address] Office Office This note was partially generated using [employer] voice recognition system, and there may be some incorrect words, spellings, and punctuation that were not noted in checking the note before saving. I personally interviewed, confirmed and edited the above information if obtained by others. documented in this encounter [facility] 02-22-2022 Miscellaneous Notes Images from the original note were not included. FYI Here are some results Attachments ECG 2022-02-18 [id number] ECG 2022-02-18 [id number] ECG [id number].pdf documented in this encounter [facility] 02-05-2022 History of Present illness Narrative Radiology Service Progress Note PATIENT NAME: Perla Pavon DATE OF SERVICE: February 05, 2022 TIME: 3:00 PM PATIENT IDENTITY VERIFICATION COMPLETED USING TWO (2) IDENTIFIERS: Name and Date of confirmed by patient verbally. FALL SCREENING: Has the patient had 2 falls in the last year or 1 fall with injury or currently using an Ambulatory Assistive Device (Walker, Cane, Wheelchair, Crutches, etc.)? No PATIENT GENDER DATA: Female. status: : No status: NO. PATIENT RELEVANT IMPLANT DATA REVIEWED: Yes RADIOLOGY DEPARTMENT: CT; Exam(s) Completed: Chest PERIPHERAL IV DATA: Not applicable SIGNED BY: RT Fran(R) February 05, 2022 3:00 PM documented in this encounter [facility] 02-05-2022 Procedure note Associated Ord er(s): OXIMETRY WITH AMBULATION RESPIRATORY THERAPY OXIMETRY WITH AMBULATION Oximetry with Ambulation Test for This Encounter O2 Device O2 Adapter NC O2 Flow SpO2% HR Activity Ft Walked (ft) Time (min) Avg Speed (MPH) R/A 98 73 Resting R/A 98 116 Walking, usual pace 675 3 2.56 R/A 99 122 Walking, fastest pace 925 3 3.5 General Information Pulse Oximetry Site Total Time Spent O2 Supply Carrier Walking Assistance/Device Forehead 40 -- -- NAME: ELOISE Lu PATIENT NAME: Perla Pavon DATE: February 05, 2022 TIME: 8:44 AM Comment: documented in this encounter [facility] 02-05-2022 History of Present illness Narrative PULM FUNCTION SMARTBLOCK: Provider: SOTO Harper Assisting Tech: ELOISE Lu Spirometry: 1 DLCO: 1 Oximetry - Ambulation: 1 documented in this encounter [facility] 11-27-2021 Miscellaneous Notes Patient phones requesting refills as follows: Pending Prescriptions Disp Refills PANTOPRAZOLE 40 MG TABLET,DELAYED RELEASE 180 tablet 1 Sig: TAKE 1 TABLET BY MOUTH TWICE A DAY TAKE 30 MINUTES BEFORE MEAL ORIANA: Yes Please review and advise. Lita Thakkar MA documented in this encounter [facility] 11-02-2021 Miscellaneous Notes Images from the original note were not included. Refills on BREO signed as patient requested for 3 months Tiffani Michael MA routed conversation to You 2 hours ago (3:13 PM) Tiffani Michael MA 2 hours ago (3:13 PM) AC Pended pt per pt mychart request. Patient has been identified by name and date of : Yes Pending Prescriptions Disp Refills BREO ELLIPTA 100 MCG-25 MCG/DOSE POWDER FOR INHALATION 180 Each 3 Sig: Inhale 1 Inhalation as instructed once daily. ORIANA: Yes RX INSTRUCTIONS: Patient electronically requested- patient will receive notification electronically. Tiffani Michael MA JELENA: 12/12/2020 Future OV: 02/23/2022 Documentation Perla Pavon A You 2 hours ago (2:37 PM) Dr Fabian, Would it be possible to order my Breo Willy s fir three months at a time instead of just one month? I used to get three months but now only one. I use [facility] pharmacy in [place]. [phone]. Thank and hope you are well. Perla documented in this encounter [facility] 11-02-2021 Miscellaneous Notes Farzana, Can you please have one of the PSS's call this patient to schedule a pacer clinic in-person appt. At the [place] office. Thanks JELENA w/ Bhavin 08/10/21 Last remote pace check 09/18/21 Last clinic pace check 01/09/21 documented in this encounter [facility] 10-20-2021 Miscellaneous Notes [facility] pharmacy ([facility]) sent a fax requesting clarification of the patients Breo ellipta 100/25 mcg dose inhaler. Insurance requires ORIANA of name brand or generic needs a prior authorization. Please advise. documented in this encounter [facility] 10-02-2021 Miscellaneous Notes If she has noticed symptoms can go back to her regular dose documented in this encounter [facility] 09-18-2021 Note HNO ID: [id number] Author: CITLALY Miller Service: Nuclear Medicine Author Type: Technologist Type: Progress Notes Filed: 09/18/2021 10:34 AM Note Text: RADIOLOGY SERVICE PROGRESS NOTE SERVICE DATE: 09/18/2021 SERVICE TIME: 10:33 AM PATIENT IDENTITY VERIFICATION COMPLETED USING TWO (2) STANDARD IDENTIFIERS: Name and Date of confirmed by patient verbally and Name and Date of confirmed by identification band FALL SCREENING: Has the patient had 2 falls in the last year or 1 fall with injury or currently using an Ambulatory Assistive Device (Walker, Cane, Wheelchair, Crutches, etc.)? No PATIENT GENDER DATA: .female : No ALLERGIES: Reviewed and unchanged MEDICATIONS REVIEWED: Not applicable PATIENT RELEVANT IMPLANT DATA REVIEWED: Not Applicable CREATININE: Creatinine Date Value Ref Range Status 09/05/2021 0.76 0.58 - 0.96 mg/dL Final 10/13/2020 0.74 0.58 - 0.96 mg/dL Final 07/10/2017 0.71 0.58 - 0.96 mg/dL Final Estimated Glomerular Filtration Rate Date Value Ref Range Status 09/05/2021 88 >=60 mL/min/1.73m? Final Comment: Estimated Glomerular Filtration Rate (eGFR) is calculated using the 2020 CKD-EPI creatinine equation. This equation utilizes serum creatinine, sex, and age as parameters. The creatinine assay has traceable calibration to isotope dilution-mass spectrometry. Refer to KDIGO guidelines for clinical interpretation. In patients with unstable renal function, e.g. those with acute kidney injury, the eGFR may not accurately reflect actual GFR. eGFR- Date Value Ref Range Status 10/13/2020 >60 Final P.O.C.T. RESULTS: N/A September 18, [address] PERFORMED: No IV SITE: Ambulatory: A peripheral IV was started in the Right antecubital site with a Angio cath: 22 gauge. POST EXAM PIV STATUS: Discontinued PROCEDURE TYPE: NM Stress: 12.5mCi [id number] was administered IV for Rest Imaging at 08:51 by CITLALY Miller. 33.4 mCi [id number] was administered IV for Stress Imaging at 09:37 by CITLALY Miller PATIENT DISCHARGED TO: Ambulatory patient, left AR department area. A Diagnostic radioactive procedure has taken place, with no further precautions necessary other than routine body substance precautions. More information regarding radiation safety can be found using this link: [email or web address] SIGNATURE: CITLALY Miller PATIENT NAME: Perla Pavon DATE: September 18, 2021 TIME: 10:33 AM PAGER/CONTACT #: [facility] 09-18-2021 History of Present illness Narrative RADIOLOGY SERVICE PROGRESS NOTE SERVICE DATE: 09/18/2021 SERVICE TIME: 10:33 AM PATIENT IDENTITY VERIFICATION COMPLETED USING TWO (2) STANDARD IDENTIFIERS: Name and Date of confirmed by patient verbally and Name and Date of confirmed by identification band FALL SCREENING: Has the patient had 2 falls in the last year or 1 fall with injury or currently using an Ambulatory Assistive Device (Walker, Cane, Wheelchair, Crutches, etc.)? No PATIENT GENDER DATA: .female : No ALLERGIES: Reviewed and unchanged MEDICATIONS REVIEWED: Not applicable PATIENT RELEVANT IMPLANT DATA REVIEWED: Not Applicable CREATININE: Creatinine Date Value Ref Range Status 09/05/2021 0.76 0.58 - 0.96 mg/dL Final 10/13/2020 0.74 0.58 - 0.96 mg/dL Final 07/10/2017 0.71 0.58 - 0.96 mg/dL Final Estimated Glomerular Filtration Rate Date Value Ref Range Status 09/05/2021 88 >=60 mL/min/1.73m Final Comment: Estimated Glomerular Filtration Rate (eGFR) is calculated using the 2020 CKD-EPI creatinine equation. This equation utilizes serum creatinine, sex, and age as parameters. The creatinine assay has traceable calibration to isotope dilution-mass spectrometry. Refer to KDIGO guidelines for clinical interpretation. In patients with unstable renal function, e.g. those with acute kidney injury, the eGFR may not accurately reflect actual GFR. eGFR- Date Value Ref Range Status 10/13/2020 >60 Final P.O.C.T. RESULTS: N/A September 18, [address] PERFORMED: No IV SITE: Ambulatory: A peripheral IV was started in the Right antecubital site with a Angio cath: 22 gauge. POST EXAM PIV STATUS: Discontinued PROCEDURE TYPE: NM Stress: 12.5mCi [id number] was administered IV for Rest Imaging at 08:51 by CITLALY Miller. 33.4 mCi [id number]-Blrrfrs was administered IV for Stress Imaging at 09:37 by CITLALY Miller PATIENT DISCHARGED TO: Ambulatory patient, left [place] department area. A Diagnostic radioactive procedure has taken place, with no further precautions necessary other than routine body substance precautions. More information regarding radiation safety can be found using this link: [email or web address] SIGNATURE: CITLALY Miller PATIENT NAME: Perla Pavon DATE: September 18, 2021 TIME: 10:33 AM PAGER/CONTACT #: documented in this encounter [facility] 09-14-2021 Miscellaneous Notes Spoke with patient regarding laboratory results. She has adequate titers to tetanus, diphtheria and 8 pneumococcal serotypes. CD4 positive T cell count is mildly elevated. B-cell count is 102 which is at the lower end of the normal range (normal range is 75-660 cells per microliiter) Recommendations: Will hold off on IgG replacement therapy at this time but will follow closely. Depending on clinical course and future laboratory results, treatment with IgG replacement therapy may be considered. We will obtain a CBC with differential platelets, IgG, IgA and IgM in 6 months and see the patient for a follow-up at that time. Nel Estrella MD documented in this encounter [facility] 09-05-2021 Instructions Nel Estrella MD - 09/05/2021 11:48 AM EDT Allergy skin test completed to penicillin were negative. You took a dose of amoxicillin and tolerated this without adverse reaction. You are at low risk for a severe, immediate allergic or anaphylactic reaction to penicillin and other penicillin type antibiotics. Skin tests and oral challenge are unreliable for predicting delayed reactions. You may take uepu-sfr-zodwiwk loratidine (Claritin) 10 mg, cetirizine (Zyrtec) 10 mg, levocetirizine (xyzal) 5 mg OR fexofenadine (Zahra) 180 mg once daily as needed for itching, sneezing or runny nose. You may also use patanol, pataday or zaditor eye drops documented in this encounter [facility] 09-05-2021 History of Present illness Narrative This is a consultation requested by Dr. Fabian for an allergy and immunology evaluation. My final recommendations will be communicated back to the requesting healthcare provider(s) by way of shared medical record or via [place] mail. Perla Pavon is a 66 year old female who presents for further evaluation of hypogammaglobulinemia. On August 18, 2021, IgG was below normal at 503 mg/dL, IgA was normal at 167 mg/dL, IgM was below normal at 26 mg/dL and IgE was 2.7 KU/liter. On October 03, 2020, IgG was 504, IgA 163 and IgM 26. On CDC immunodeficiency panel completed on October 03, 2020, B-cell count was at the lower limit of normal. CD4/CD8 ratio was elevated. She previously has taken multiple courses of stomach corticosteroids, however, hypogammaglobulinemia has persisted despite avoiding treatment with systemic corticosteroids for the past 18 months. She takes Plaquenil for connective tissue disease. She has received Prevnar 13. She reports that she received the Pneumovax through her primary care physician's office several months ago. Regarding infections, in February,, she was hospitalized for 6 weeks for pneumonia with persistent pulmonary infiltrates. Patient underwent bronchoscopy which did not identify an infectious etiology. No other prior hospitalizations for infections. In the past year, she has taken 2-3 courses of antibiotics for sinusitis and/or bronchitis. Visualized paranasal sinuses were clear on CT brain completed in 2012. In May,, she was treated for COVID-19 as an outpatient. Denies a history of cutaneous infections including abscesses, cellulitis and shingles. Denies a history of dental infections. Denies a history of recurring urinary tract infections. She has a history of loose stools associated with irritable bowel syndrome but denies gastrointestinal infections such as Giardia, C. difficile etc. There is no family history of immunodeficiency. On CT chest completed December 26, 2020, regions of atelectasis or scarring were seen within the lower lobes bilaterally. Regions of atelectasis were also seen elsewhere within the lungs. Interval marked improvement compared to CT completed September 28, 2020. Stable pulmonary nodules, measuring up to 5 mm in size. Prominent, less than 1 cm bilateral hilar lymph nodes were noted. Repeat CT chest has been ordered by pulmonary medicine. She has a history of mild persistent asthma. Symptoms include cough, chest tightness and shortness of breath. She uses short acting beta agonists for acute symptoms up to once per week. Denies nocturnal awakenings due to respiratory symptoms in the past month. Denies treatment with systemic steroids or ER visits for respiratory symptoms in the past year. No prior hospitalizations for asthma. She will be having a cardiac stress test completed to rule out cardiac etiology for the shortness of breath. On October 05, 2020, FVC was reduced with a normal FEV1 and FEV1/FVC ratio. Exhaled nitric oxide was 23 PPB. She takes Protonix 40 mg twice daily with good control of her GERD symptoms. She notes very mild nasal and ocular symptoms in the fall. Allergy skin tests completed in this office in 2006 were positive to dust mites, weeds and ragweed. History of large local reactions to insect stings. REVIEW OF SYSTEMS: SINUSITIS: See WAINWRIGHT ASTHMA: See WAINWRIGHT ECZEMA: The patient has no history of eczema. URTICARIA:The patient does not have a history of urticaria and/or angioedema. GERD: See WAINWRIGHT INSECT STING: The patient does not have a history of systemic reaction to insect sting. FOOD ALLERGY:The patient denies history of food allergy. LATEX: The patient does not have a history of adverse reaction to latex. All other review of systems negative except for those listed above. PAST MEDICAL HISTORY Diagnosis Date Allergic rhinitis, cause unspecified Allergic rhinitis Asthma COVID-19 virus detected 06/07/2021 Epilepsy ([facility]) on Keppra Generalized anxiety disorder Anxiety, Generalized History of pneumonia ILD (interstitial lung disease) ([facility]) hospitalized 02/2020 Immunodeficiency (cell-mediated) ([facility]) Irritable bowel syndrome Irritable bowel Lupus ([facility]) diag around 2010 AGUILA (obstructive sleep apnea) 06/20/2021 Recurrent major depressive disorder, in partial remission ([facility]) 02/27/2016 MEDICATIONS: hydrOXYchloroQUINE (PLAQUENIL) 200 mg tablet Take 1.5 tablets by mouth once daily. levETIRAcetam (KEPPRA) 750 mg tablet Take 2 tablets by mouth twice daily. fluticasone-vilanterol (BREO ELLIPTA) 100-25 mcg/dose inhaler Inhale 1 Inhalation as instructed once daily. albuterol HFA (PROAIR HFA) 90 mcg/actuation inhaler Inhale 2 Puffs as instructed every 6 hours as needed for wheezing/shortness of breath (or cough). ondansetron orally disintegrating (ZOFRAN ODT) 4 mg disintegrating tablet TAKE 1 TABLET BY MOUTH EVERY 8 HOURS NEEDED FOR NAUSEA AND VOMITING pantoprazole DR (PROTONIX) 40 mg tablet TAKE 1 TABLET BY MOUTH TWICE DAILY. TAKE 30 MINUTES BEFORE MEAL. sertraline (ZOLOFT) 100 mg tablet Take 100 mg by mouth once daily. albuterol (PROVENTIL) 2.5 mg /3 mL (0.083 %) nebulizer solution Use 3 mL via nebulizer every 4 hours as needed for Wheezing/Shortness of Breath. Use over 5-15minutes. biotin 1,000 mcg chew Take 10,000 mcg by mouth twice daily. Pt takes three tabs in the morning and two tabs at night. cyanocobalamin (VITAMIN B-12) 1,000 mcg tab Take 1,000 mcg by mouth once daily. calcium-cholecalciferol, D3, 250-125 mg-unit per tablet Take 1 tablet by mouth once daily. FIBERCON 625 MG TAB 2 po daily ALLERGIES: Allergies As of Date: 09/05/2021 Allergen Noted Reaction ENVIRONMENTAL ALLERGIES [OTHER] 02/05/2007 EPINEPHRINE 11/23/2008 PENICILLINS 04/20/2005 Rash Fully Assessed 09/05/2021 PAST SURGICAL HISTORY Procedure Laterality Date ANES PERMANENT TRANSVENOUS PACEMAKER INSERTION Permanent Pacemakerm 11/04 BREAST REDUCTION Bilateral 11/18/2018 COLONOSCOPY SCREENING 09/27/2017 normal EGD 02/02/2021 EGD W/O BRSH SPEC VARICIES INJ 09/27/2017 normal MANOMETRY ESOPHAGEAL 07/13/2021 Dr. Camara PAST SURGICAL HISTORY OF 1971 right knee surgery TONSILLECTOMY HX 1961 TOTAL ABDOMINAL HYSTERECT W/WO RMVL TUBE OVARY 03/04/2009 Hysterectomy, ANANDA FAMILY HISTORY: Allergic rhinitis:yes: dad and daughter. Asthma: yes: dad. Eczema: no. Cystic fibrosis: no. Immunodeficiency: no. 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 Pets in the home: There are no pets in the home Outdoor animals: There are no outdoor animals Tobacco smoke: No exposure in the home. Physical Exam: GENERAL APPEARANCE:Well appearing, alert, in no acute distress, well-hydrated, well nourished. HEENT: NCAT. EYES: conjunctiva and sclera normal. EARS: External ears normal. Canals clear. TM's normal. NOSE/SINUS: Nares normal. Septum midline. Mucosa normal. No drainage or sinus tenderness. THROAT: no erythema NECK:neck supple, no adenopathy HEART:RRR with normal S1 and S2 ,no murmurs, no gallops, no rubs LUNGS: clear to auscultation bilaterally, no wheezes, rales or rhonchi ABDOMEN:soft, nontender, nondistended, without organomegaly or palpable masses EXTREMITIES:Extremities normal, No deformities, No skin discoloration and No edema SKIN: Skin color, texture, turgor normal. No rashes or lesions. ALLERGY SKIN TESTS:Negative to penicillin and Pre-Pen on both prick and intradermal tests. Patient took a test dose of amoxicillin 250 mg by mouth and was monitored in the office for 30 minutes afterwards. The patient tolerated the amoxicillin without adverse reaction. 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 CDC immunodeficiency panel will also be completed. Depending on these results and clinical course, treatment with IgG replacement therapy (IV or subcutaneous) may be warranted. Potential risks associated with IgG replacement therapy including anaphylaxis, kidney failure, blood clots and blood-borne illnesses were discussed with the patient. Patient prefers to hold off on IgG replacement therapy if possible-we will discuss further when laboratory results are available for review. Proceed with repeat CT chest as ordered by pulmonary. 2.) Mild persistent asthma: Continue Breo Ellipta 100 25 1 inhalation once daily. Rinse mouth out after use. Continue albuterol HFA inhaler with spacer or albuterol 2.5 mg nebulized every 4 hours as needed. She should receive an annual influenza vaccine. The patient declined vaccination for COVID-19. Evusheld was discussed as a treatment option; she is not interested in proceeding at this time 3.) Allergic rhinitis: Aggressive environmental controls. The patient may also take prbj-eon-voflrap loratidine (Claritin) 10 mg, cetirizine (Zyrtec) 10 mg, levocetirizine (xyzal) 5 mg OR fexofenadine (Zahra) 180 mg once daily as needed for itching, sneezing or runny nose. She may use nqzf-xnl-sntkkeh Patanol, Pataday or Zaditor eyedrops as needed. 4.) History of allergy to penicillin and/or penicillin-type antibiotic: Allergy skin tests to penicillin were negative. The patient took a test dose of amoxicillin and tolerated this without adverse reaction. The patient is at low risk for a severe, immediate, IgE-mediated reaction to penicillin, amoxicillin and other penicillin-type antibiotics. Skin tests are unreliable for predicting delayed reactions. 5.) Discussed medication dosage, usage, side effects, and goals of treatment in detail. 6.) Patient will be contacted regarding laboratory results and further recommendations regarding follow-up will be made at that time- patient will return sooner should new symptoms or problems arise. Nel Estrella MD Medications Antiseizure medications, such as phenytoin, carbamazepine, valproate, and zonisamide, are well-recognized causes of IgA deficiency [17]. Use of antiinflammatory drugs (eg, gold, penicillamine, sulfasalazine, and hydroxychloroquine) is associated with hypogammaglobulinemia [18]. In addition, many immunosuppressive medications, including cyclosporine, tacrolimus, mycophenolate mofetil, cyclophosphamide, azathioprine, and 6-mercaptopurine, can cause hypogammaglobulinemia. Glucocorticoids may induce hypogammaglobulinemia when administered for extended periods of time [18] (see Glucocorticoid effects on the immune system ). Finally, several targeted biologic therapies (eg, rituximab and anti-CD19 chimeric antigen receptor T cells) are intended to cause depletion of B cells and can result in hypogammaglobulinemia. (See Secondary immunodeficiency induced by biologic therapies .) documented in this encounter [facility] 09-05-2021 Nurse Note Patient here for consult regarding immunodeficency disorder. Reports frequent infections and colds about one a month. Currently has coughing.reports some wheezing- uses Pro Air which helps. Takes Breo as prescribed. Takes keppra for brain zaps. Allergy symptoms are itchy eyes mostly in fall. PCN reaction was as child- hives. EPI was during a spinal tap- fainted during procedure. 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 She denies any joint pain or swelling. Stiffness in the mornings 30 minutes. She has now active rashes. She had a cough and suspected respiratory infection recently but denies any significant shortness of breath. She is scheduled to see her technology education teacher in the next month. She also has an appointment with an straight tooth gear generator operator for her history of hypogammaglobulinemia. She continues to be on Plaquenil 400 mg daily and is asking if she can lower dose. She has seen technology education teacher and being evaluated for interstitial lung disease-recent CAT scan December 2020 showed 90% improvement. She is also being evaluated for aspiration pneumonia as she has acid reflux and has seen doctor of dental surgery. She had testing for doctor of dental surgery and found to have esophageal dysmotility. She has found to have low immunoglobulins and was following up closely with her straight tooth gear generator operator in the past she was hospitalized February 2020 for almost 4 months for interstitial lung disease. She was initially suspected to have pneumonia but had persistent symptoms in spite of treatment. Multiple biopsies have shown minimal inflammatory infiltrate in September 2020. She has done multiple courses of steroids. She has mild fatigue. She is on medications for seizures with Keppra. As enzymes have been normal. She had low IgG and IgM on previous labs but while on steroids. She has history of photosensitivity. Bone density scan February 2021 showed mild osteopenia with T score -1.6 with low fracture risk. New patient visit December 29, 2020 Perla Pavon is a 65 year old female who presents with history of lupus?/Undifferentiated connective tissue disease?-History of positive FRANCES, low C3(in June 2017) primarily with pulmonary symptoms and being evaluated for interstitial lung disease is here for evaluation. She was diagnosed with lupus by her ship engines operating engineer in [place] around 10 years ago and has been on Plaquenil 200 mg twice daily since. She is up-to-date with her eye exam. More recently she saw Dr. German who continued her on her Plaquenil. She has been following up closely with her technology education teacher for pulmonary infiltrates. She has had cough, trouble breathing since December 2019 and was hospitalized in February 2020. She was initially suspected to have pneumonia but has had persistent symptoms and is being evaluated for interstitial lung disease. She has had multiple biopsies which showed minimal inflammatory infiltrate on bronchoscopy in September 2020. She has done course of steroids-during hospitalization February 2020 for around 4 months and then went off steroids and then resumed again 2 months later and then recently went off in July 2020. Most recent CAT scan done few days ago shows improvement in overall infiltrates. She describes some photosensitivity and some blotching of her skin on her chest and arms intermittently but no other rashes. She gets occasional mouth sores. She describes some fatigue and has mild dry mouth. She has trouble swallowing and is scheduled for EGD for evaluation. She has acid reflux and hiatal hernia. 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 She is on treatment for anxiety and depression. She describes mild pain 2/10 in the ankles and wrist which is infrequent usually around once a week and worse with activity. She has no stiffness in the morning and no swelling. She takes meloxicam as needed. She has seen straight tooth gear generator operator and has low IgG and IgM. Recent serologies October 2020 showed FRANCES 1: 160 but rest of lupus kankc-qizrmd-qyhdyzuf DNA, ALESHA panel was negative, rheumatoid factor, anti-CCP negative and ANCA negative. Muscle enzymes are also normal. December 12, 2020-office note from Dr. GABO FABIAN Echo 08/2020: EF normal, grade I diastolic dysfunction, RV normal, mild TR. RVSP normal CXR 06/2016: new small bilateral pleural effusions Blood work: IgE antiaspergillus, IgE, IgG antiaspergillus, aspergillus galactomannan, fungitell assay, ESR, CRP, all WNL. TRAVIS showed low IgG and low IgM. To note that prior records showed PPD negative PFT 09/2020: FVC lower limit of normal at 75% and DLCO mildly decreased at 64% EXNO at 23 Walking titration, sat 92% on RA and lowest sat 87% on RA and needs 2LNC on exertion IgE antiaspergillus, IgG antiaspergillus, aspergillus galactomannan assay, fungitell assay, ESR, CRP, PANCA, CANCA, anti DSDNA, CK, HIV all negative FRANCES at 1/160 however reflex negative Hepatitis serologies negative esophagram showed reflux to mid esophagus. CT chest 09/2020: bilateral ground glass and nodular opacities. PAST MEDICAL HISTORY Diagnosis Date Allergic rhinitis, cause unspecified Allergic rhinitis Asthma COVID-19 virus detected 06/07/2021 Epilepsy ([facility]) on Keppra Generalized anxiety disorder Anxiety, Generalized History of pneumonia ILD (interstitial lung disease) ([facility]) hospitalized 02/2020 Irritable bowel syndrome Irritable bowel Lupus ([facility]) diag around 2010 AGUILA (obstructive sleep apnea) 06/20/2021 Recurrent major depressive disorder, in partial remission ([facility]) 02/27/2016 PAST SURGICAL HISTORY Procedure Laterality Date ANES PERMANENT TRANSVENOUS PACEMAKER INSERTION Permanent Pacemakerm 11/04 BREAST REDUCTION Bilateral 11/18/2018 COLONOSCOPY SCREENING 09/27/2017 normal EGD 02/02/2021 EGD W/O BRSH SPEC VARICIES INJ 09/27/2017 normal MANOMETRY ESOPHAGEAL 07/13/2021 Dr. Camara PAST SURGICAL HISTORY OF 1971 right knee surgery TONSILLECTOMY HX 1961 TOTAL ABDOMINAL HYSTERECT W/WO RMVL TUBE OVARY 03/04/2009 Hysterectomy, ANANDA Health Maintenance Procedures COVID-19 VACCINE(1) Never done ANNUAL PCP TEAM CHRONIC DISEASE VISIT Never done SHINGRIX VACCINE(1 of 2) Never done COLORECTAL CANCER SCREENING due on 09/19/2014 DTAP,TDAP,TD(2 - Td or Tdap) due on 01/26/2016 LIPID SCREEN due on 09/19/2018 PAP TESTING due on 09/19/2018 HPV TESTING due on 09/19/2018 MAMMOGRAM due on 05/09/2019 Discussed health maintenance, including regular aerobic exercise, low fat diet, and periodic exams. Health Maintenance Immunizations Given Immunizations: Immunization History Administered Date(s) Administered Influenza Seasonal Trivalent Inj Pres Free 01/27/2015 PPD ([place]) 06/02/2012 Pneumococcal-13 Vac Conjugate 09/29/2020 Tdap (Age 7+) 01/25/2006 Current Outpatient Medications Medication Sig hydrOXYchloroQUINE (PLAQUENIL) 200 mg tablet Take 1.5 tablets by mouth once daily. levETIRAcetam (KEPPRA) 750 mg tablet Take 2 tablets by mouth twice daily. fluticasone-vilanterol (BREO ELLIPTA) 100-25 mcg/dose inhaler Inhale 1 Inhalation as instructed once daily. albuterol HFA (PROAIR HFA) 90 mcg/actuation inhaler Inhale 2 Puffs as instructed every 6 hours as needed for wheezing/shortness of breath (or cough). ondansetron orally disintegrating (ZOFRAN ODT) 4 mg disintegrating tablet TAKE 1 TABLET BY MOUTH EVERY 8 HOURS NEEDED FOR NAUSEA AND VOMITING pantoprazole DR (PROTONIX) 40 mg tablet TAKE 1 TABLET BY MOUTH TWICE DAILY. TAKE 30 MINUTES BEFORE MEAL. sertraline (ZOLOFT) 100 mg tablet Take 100 mg by mouth once daily. albuterol (PROVENTIL) 2.5 mg /3 mL (0.083 %) nebulizer solution Use 3 mL via nebulizer every 4 hours as needed for Wheezing/Shortness of Breath. Use over 5-15minutes. biotin 1,000 mcg chew Take 10,000 mcg by mouth twice daily. Pt takes three tabs in the morning and two tabs at night. cyanocobalamin (VITAMIN B-12) 1,000 mcg tab Take 1,000 mcg by mouth once daily. calcium-cholecalciferol, D3, 250-125 mg-unit per tablet Take 1 tablet by mouth once daily. FIBERCON 625 MG TAB 2 po daily Current Facility-Administered Medications Medication Dose Route Frequency perflutren lipid microspheres 1.3 mL in NaCl (PF) 0.9% 10 mL injection (DEFINITY) INTRAVENOUS DIRECTED PRN sodium chloride 0.9 % (flush) 10 mL (BD POSIFLUSH) 10 mL INTRAVENOUS DIRECTED PRN ALLERGIES Allergen Reactions Environmental Aller* Dust mites, weeds, ragweed Epinephrine intolerance per pt;caused her to black out Penicillins Rash FAMILY HISTORY Problem Relation Age of Onset Cancer Father throat cancer Heart Father Asthma Father other (Vascular Dementia) Father Breast Cancer Mother Stroke Maternal Grandfather other (hyperlipidemia) Maternal Grandfather multiple relatives Social History Tobacco Use Smoking status: Former Smoker Packs/day: 0.50 Years: 10.00 Pack years: 5.00 Types: Cigarettes Quit date: 09/19/2000 Years since quittin.9 Smokeless tobacco: Never Used Tobacco comment: quit around 2010 Vaping Use Vaping Use: Never used Substance Use Topics Alcohol use: Yes Comment: socially-3 drinks per week Drug use: No History Review: I have reviewed and modified as needed, the following during this visit: Allergies, Past Medical History, Past Surgical History, Past Family History, Past Social History. Review of Systems CONSTITUTIONAL: Recent Weight Gain: No Recent Weight Loss: No Fatigue: Yes Weakness: No Fever: No EYES: Pain: No Redness: No Loss of vision: No Double or blurred vision: No Dryness: No Feels like something in eye: No Itching eyes: No [id number]-THROAT: Ringing in ears: No Loss of hearing: No Nosebleeds: No Loss of smell: No Dryness in nose: No Runny Nose: No Sore tongue: No Bleeding gums: No Sores in mouth: no Loss of taste: No Dryness of mouth: No Frequent sore throats: No Hoarseness: No Difficulty in swallowing: Yes CARDIOVASCULAR: Pain in chest: Yes Irregular heart beat: No Sudden changes in heart beat: No High blood pressure: No Heart murmurs: No RESPIRATORY: Shortness of breath: Yes Difficulty in breathing at night: No Swollen legs or feet: No Cough: Yes Cough of blood: No Wheezing (asthma): No GASTROINTESTINAL: Nausea: No Vomiting of blood or coffee ground material: No Stomach pain relieved by food or milk: No Jaundice: No Increasing constipation: No Persistent diarrhea: No Blood in stools: No Black stools: No Heartburn: Yes GENITOURINARY: Difficult urination: No Pain or burning on urination: No Blood in urine: No Cloudy, smoky urine: No Pus in urine: No Discharge from penis/vagina: No Getting up at night to pass urine: No Vaginal dryness: No Rash/ulcers: No Sexual difficulties: No Prostate trouble: No MUSCULOSKELETAL: Negative for morning stiffness,muscle weakness, joint swelling,, Joint Pain: Yes and Back Pain: Yes INTEGUMENTARY: Easy Bruising: No Redness: No Rash:no Hives: No Sun sensitive: Yes Tightness: No Nodules/bumps: No Hair loss: No Color changes of hands or feet in the cold: No NEUROLOGICAL SYSTEM: Headaches: No Dizziness: No Fainting: No Muscle spasm: No Loss of consciousness: No Sensitivity or pain of hands and/or feet: Yes Memory loss: No Night sweats: No PSYCHIATRIC: Excessive worries: No Anxiety: Yes Easily losing temper: No Depression: No Agitation: No Difficulty falling asleep: No Difficulty staying asleep: No ENDOCRINE: Excessive thirst: No HEMATOLOGIC/LYMPHATIC: Swollen glands: No Tender glands: No Anemia: No Bleeding tendency: No Transfusion/ when: No ALLERGIC/IMMUNOLOGIC; Frequent sneezing: No Increased susceptibility to infection: No There were no vitals taken for this visit. VIDEO EXAM: (performed via video enabled technology) GENERAL: Well appearing, alert, comfortable, in no acute distress,well nourished. Eyes: vision grossly intact Hearing -grossly intact HEENT: external ears normal. External nose normal, NECK: thyroid appears symmetric Neuro- Speech intact. No facial droop Musculoskeletal- Able to make a tight fist with both hands, good range of motion shoulders. Some pain with range of motion cervical spine Orientation - Oriented to time, place, person & situation. Appropriate mood and affect. Good insight. Good judgment. Lab Results: July 2021 IgG 503, IgM 24 March 2021 CRP 0.5 C4 36 C3 83 ESR 28 October 2020 CPK 84 Aldolase 3.7 LDH 210 September 2020 IgG 504, IgA 163, IgM 26, IgE 2.28 June 2017 C4 38, C3 84 Serology: October 2020-FRANCES 1: 160, double-stranded DNA negative, ALESHA panel negative, rheumatoid factor negative, anti-CCP negative, WA-3 negative, MPO negative, TB QuantiFERON negative, hepatitis panel negative June 2017 C4 38, C3 84 Radiology: Bone density scan February 2021 The calculated bone mineral density of the lumbar spine is 0.937 g/sq cm, with a corresponding T score of -1.0. The calculated bone mineral density of the left femoral neck is 0.671 g/sq cm, with a corresponding T-score of -1.6. The calculated bone mineral density total of the left hip is 0.839 g/sq cm, with a corresponding T-score of -0.8. By FRAX criteria risk of major osteoporotic fracture is 14% and risk of hip fracture is 1.7% CT chest November 2020 regions of atelectasis or scarring are seen within the superior segment of the lower lobes, bilaterally. Regions of atelectasis seen elsewhere within the lungs. Interval marked improvement, with near resolution of multifocal bilateral airspace opacities, when compared to the prior examination, suggesting nearly completely resolved infectious or inflammatory disease. Stable subcentimeter pulmonary nodules, measuring up to 5 mm in size. Prominent, less than 1 cm bilateral hilar lymph nodes, likely reactive. X-ray lower lumbar spine January 2013 Minimal dextrocurvature of lumbar spine. Alignment otherwise unremarkable. Lumbar vertebral bodies and posterior elements are intact. Mild degenerative anterior vertebral body spurring at L2-3 and L4 without significant disc space narrowing. Mild degenerative facet joint changes at L5-S1 and L4-5 on the left. Pathology September 2020 FINAL DIAGNOSIS Lung, right upper lobe and right lower lobe, transbronchial biopsies (A, B) - Minimal focal chronic inflammation (See comment). COMMENT Together, these biopsies consist of 9 fragments of alveolated lung parenchyma and 2 of bronchial wall. The airspaces contain an occasional macrophage and there an occasional (rare) focus of minimal chronic (lymphocytic) inflammation. No granulomas or malignant cells are identified. There is no evidence of significant tissue eosinophilia. There is no evidence of vasculitis/capillaritis, aspirated particulate material, or viral inclusions. 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 Undifferentiated connective tissue disease-positive FRANCES 1: 160 and low C3 -diagnosed with lupus and undifferentiated connective tissue disease in the past? On Plaquenil 200 mg twice daily.Gives history of photosensitivity and has had interstitial lung disease. Stable on Plaquenil 400 mg daily 2. Interstitial lung disease-hospitalized in February 2020, bronchoscopy and biopsy in September 2020 shows minimal inflammation. Recent repeat CAT scan November 2020 shows significant improvement in infiltrates after long courses of steroids. Continues to be stable. Also being evaluated for aspiration pneumonia 3. 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 Has seen straight tooth gear generator operator. Continues to have low IgG and IgM levels and recurrent infections 4. Esophageal dysmotility-etiology unclear. Has seen doctor of dental surgery 5. Mild fatigue, photosensitivity 6. History of seizures on Keppra, anxiety depression on SSRI, pacemaker placement in 2008, acid reflux and hiatal hernia #7 osteopenia-T score -1.6 in the femoral neck on bone density February 2021 Plan Patient asking about lowering Plaquenil dose-clinically she has been stable Can try lowering dose of Plaquenil 300 mg daily History low C3-continue to monitor complements Continue follow-up with technology education teacher for history of interstitial lung disease(cannot completely rule out aspiration pneumonia) Continues to get recurrent infections and continues have low IgG and [id number] with straight tooth gear generator operator to discuss immunoglobulin therapy if she is a candidate She has seen doctor of dental surgery and found to have esophageal dysmotility and considering treatment Continue with up-to-date eye exam Avoid NSAIDs with history of acid reflux and esophageal dysmotility Bone density shows mild osteopenia with low fracture risk-hold off on treatment. Recommend weightbearing exercises and continue vitamin D supplements Continue regular follow-up with technology education teacher Blood work to monitor medication disease activity Follow-up in 6 months [facility] on 08/31/21 CBC + DIFF COMP METABOLIC PANEL C-REACTIVE PROTEIN (CRP) SED RATE WESTERGREN C4 COMPLEMENT BLD C3 COMPLEMENT BLD DNA ANTIBODY DS BLD URINALYSIS, WITH MICROSCOPIC Return in about 6 months (around 03/03/2022). Dereje Chappell MD documented in this encounter [facility] 08-29-2021 Miscellaneous Notes Reviewed immunoglobulins-she continues to have low IgG and low IgM levels. Needs to be continued to be monitored by straight tooth gear generator operator-they will decide on management if they think it needs to be treated with immunoglobulins documented in this encounter [facility] 08-28-2021 Miscellaneous Notes OK to leave as is Message text Dr. Rocha Patient's nocturnal oximetry results in chart for review. 7.1 mins under 88% while on CPAP. Lupe LEVI documented in this encounter [facility] 08-23-2021 Miscellaneous Notes Patient notified of physician recommendation at this time. Patient denies any further questions. Patient needs a follow up with next available provider. Jumana Perry MD Patient called in to update Dr Perry that she had labs drawn last week and her IgG level was low. She had not been seen since 11/07/2020 and was encouraged to schedule a follow appointment, but would like to know his recommendation. documented in this encounter [facility] 08-10-2021 History of Present illness Narrative Images from the original note were not included. Heart [facility] V[facility] [place] Ronnell Rothman Department of Cardiovascular Medicine Virtual Visit New Patient Date: August 10, 2021 Name: Perla Pavon : 1955 Chief Complaint: New patient for continuation of cardiovascular care IMPRESSION / PLAN: 1. History of sick sinus syndrome status post dual-chamber pacemaker placement in 2008 and replaced on December 16, 2015 with a Biotronik. Patient is being seen in the device clinic with her last remote interrogation on June 09, 2021 showing atrial paced rhythm and 0% ventricular pacing. Patient will change her in person device clinic to [place] office continue remote checks every 90 days. 2. Recurrent chest pain. Patient has a complex history of esophageal motility disorder and pain related to her GI symptoms but certainly is at risk for coronary disease. She did have an EKG performed at [place] in [facility] but unfortunately this is not currently available. She does have some baseline abnormalities with nonspecific ST and T wave changes in the anterolateral precordial leads. She did have an exercise stress physiology test last year which showed no evidence of ischemia but no imaging stress test performed in the past. I will schedule her for Lexiscan nuclear stress testing for further evaluation. 3. History of lupus erythematosus. 4. History of epilepsy. 5. History of persistent dysphagia with esophageal gastric junction outflow obstruction. 6. History of asthma with interstitial lung disease. 7. History of depression. Follow Up Instructions Return in about 1 year (around 08/10/2022). ORDERS FOR TODAY'S VISIT: Pathagility on 08/10/21 NM CARDIAC PERF STRESS/PHARM HISTORY OF PRESENT ILLNESS: Ms. Pavon is a 66 year old female with a past history of sick sinus syndrome status post Biotronik permanent pacemaker placement, lupus erythematosus, recent diagnosis of esophageal gastric junction outflow obstruction, asthma, interstitial lung disease, epilepsy and depression who presents today for continuation of cardiovascular care via virtual visit. FOLLOW UP: 1 year pending results of the nuclear stress test. ORDERS FOR TODAY'S VISIT: Pathagility on 08/10/21 NM CARDIAC PERF STRESS/PHARM PAST MEDICAL HISTORY Diagnosis Date Allergic rhinitis, cause unspecified Allergic rhinitis Asthma COVID-19 virus detected 06/07/2021 Epilepsy (HCC) on Keppra Generalized anxiety disorder Anxiety, Generalized History of pneumonia ILD (interstitial lung disease) ([facility]) hospitalized 02/2020 Irritable bowel syndrome Irritable bowel Lupus ([facility]) diag around 2010 AGUILA (obstructive sleep apnea) 06/20/2021 Recurrent major depressive disorder, in partial remission ([facility]) 02/27/2016 PAST SURGICAL HISTORY Procedure Laterality Date ANES PERMANENT TRANSVENOUS PACEMAKER INSERTION Permanent Pacemakerm 11/04 BREAST REDUCTION Bilateral 11/18/2018 COLONOSCOPY SCREENING 09/27/2017 normal EGD 02/02/2021 EGD W/O BRSH SPEC VARICIES INJ 09/27/2017 normal MANOMETRY ESOPHAGEAL 07/13/2021 Dr. Camara PAST SURGICAL HISTORY OF 1971 right knee surgery TONSILLECTOMY HX 1961 TOTAL ABDOMINAL HYSTERECT W/WO RMVL TUBE OVARY 03/04/2009 Hysterectomy, ANANDA Social History Tobacco Use Smoking status: Former Smoker Packs/day: 0.50 Years: 10.00 Pack years: 5.00 Types: Cigarettes Quit date: 09/19/2000 Years since quittin.9 Smokeless tobacco: Never Used Tobacco comment: quit around 2010 Vaping Use Vaping Use: Never used Substance Use Topics Alcohol use: Yes Comment: socially-3 drinks per week Drug use: No FAMILY HISTORY Problem Relation Age of Onset Cancer Father throat cancer Heart Father Asthma Father other (Vascular Dementia) Father Breast Cancer Mother Stroke Maternal Grandfather other (hyperlipidemia) Maternal Grandfather multiple relatives ALLERGIES Allergen Reactions Environmental Aller* Dust mites, weeds, ragweed Epinephrine intolerance per pt;caused her to black out Penicillins Rash Current Outpatient Medications Medication Sig Dispense Refill levETIRAcetam (KEPPRA) 750 mg tablet Take 2 tablets by mouth twice daily. 360 tablet 3 fluticasone-vilanterol (BREO ELLIPTA) 100-25 mcg/dose inhaler Inhale 1 Inhalation as instructed once daily. 30 Each 5 albuterol HFA (PROAIR HFA) 90 mcg/actuation inhaler Inhale 2 Puffs as instructed every 6 hours as needed for wheezing/shortness of breath (or cough). 1 Inhaler 3 ondansetron orally disintegrating (ZOFRAN ODT) 4 mg disintegrating tablet TAKE 1 TABLET BY MOUTH EVERY 8 HOURS NEEDED FOR NAUSEA AND VOMITING [address] (PROTONIX) 40 mg tablet TAKE 1 TABLET BY MOUTH TWICE DAILY. TAKE 30 MINUTES BEFORE MEAL. 180 tablet 1 sertraline (ZOLOFT) 100 mg tablet Take 100 mg by mouth once daily. albuterol (PROVENTIL) 2.5 mg /3 mL (0.083 %) nebulizer solution Use 3 mL via nebulizer every 4 hours as needed for Wheezing/Shortness of Breath. Use over 5-15minutes. 1 Package 0 biotin 1,000 mcg chew Take 10,000 mcg by mouth twice daily. Pt takes three tabs in the morning and two tabs at night. cyanocobalamin (VITAMIN B-12) 1,000 mcg tab Take 1,000 mcg by mouth once daily. hydroxychloroquine (PLAQUENIL) 200 mg tablet Take 1 tablet by mouth twice daily. 0 calcium-cholecalciferol, D3, 250-125 mg-unit per tablet Take 1 tablet by mouth once daily. FIBERCON 625 MG TAB 2 po daily 0 Current Facility-Administered Medications Medication Dose Route Frequency Provider Last Rate Last Admin perflutren lipid microspheres 1.3 mL in NaCl (PF) 0.9% 10 mL injection (DEFINITY) INTRAVENOUS DIRECTED PRN Gabo Fabian MD sodium chloride 0.9 % (flush) 10 mL (BD POSIFLUSH) 10 mL INTRAVENOUS DIRECTED PRN Gabo Fabian MD REVIEW OF SYSTEMS: GENERAL: Negative for: Weight loss or gain, Fever or Chills NECK: Negative for: Swelling, Pain, Stiffness RESPIRATORY: Negative for: Cough, Blood in Sputum GASTROINTESTINAL: Negative for: Trouble swallowing, Heartburn, Change in bowel habits, Blood in stool, Dark black stools MUSCULOSKELETAL: Negative for: Severe Muscle or joint pain, Stiffness , Joint swelling NEUROLOGIC/PSYCHIATRIC: Negative for: Paralysis, Numbness, Tingling, Tremor SKIN: Negative for: Rashes, Itching HEMATOLOGICAL/LYMPHATIC: Negative for: Easy bruising , Easy bleeding ENDOCRINE: Negative for: Heat or cold intolerance, Excessive sweating, Frequent urination Vital signs: Weight lbs Blood pressure: HR: Time spent charting and documentation along with on the phone with patient was 30 minutes. Shreya Grullon DO, [facility] Staff [employer] Installer Shreya and Lizbeth Montoya Dept. of Cardiovascular Medicine Heart, Vascular and Thoracic [place], [facility] This document was generated using the assistance of voice recognition software. If there are any errors of spelling, grammar, syntax or meaning, please feel free to contact me directly at anytime. documented in this encounter [facility] 08-04-2021 Miscellaneous Notes Order for nocturnal oximetry on CPAP faxed to [facility]. Lupe Ivey ADM documented in this encounter [facility] 07-28-2021 History of Present illness Narrative VIRTUAL VISIT FOLLOW UP I had a virtual visit with Ms. Pavon today for follow up of dysphagia. UPDATED HISTORY: EGD 01/2021 was unremarkable. Started on Protonix 40 mg BID for persistent dysphagia. Advised HREM which showed evidence of EGJ outflow obstruction. Advised pt to try altoid mints sublingually before each meal which she includes have helped somewhat for her. VV 03/16/2021 PMHx positive for CAROLE, IBS, lupus, connective tissue disease, epilepsy. Was started on Protonix 40 mg daily last OV. EGD 02/02/2021 demonstrated normal gastric and duodenal biopsies. Was increased to Protonix 40 mg BID which she includes has been working well for her dysphagia. Still having some intermittent episodes of dysphagia 1-2x per week. BMs are 1-2 per day, normal consistency. Taking fibercon daily with relief. Some urgency with bowel movements. PAST MEDICAL HISTORY Diagnosis Date Allergic rhinitis, cause unspecified Allergic rhinitis Asthma COVID-19 virus detected 06/07/2021 Epilepsy (HCC) on Keppra Generalized anxiety disorder Anxiety, Generalized History of pneumonia ILD (interstitial lung disease) ([facility]) hospitalized 02/2020 Irritable bowel syndrome Irritable bowel Lupus ([facility]) diag around 2010 AGUILA (obstructive sleep apnea) 06/20/2021 Recurrent major depressive disorder, in partial remission ([facility]) 02/27/2016 PAST SURGICAL HISTORY Procedure Laterality Date ANES PERMANENT TRANSVENOUS PACEMAKER INSERTION Permanent Pacemakerm 11/04 BREAST REDUCTION Bilateral 11/18/2018 COLONOSCOPY SCREENING 09/27/2017 normal EGD 02/02/2021 EGD W/O BRSH SPEC VARICIES INJ 09/27/2017 normal MANOMETRY ESOPHAGEAL 07/13/2021 Dr. Camara PAST SURGICAL HISTORY OF 1971 right knee surgery TONSILLECTOMY HX 196 TOTAL ABDOMINAL HYSTERECT W/WO RMVL TUBE OVARY 03/04/2009 Hysterectomy, ANANDA FAMILY HISTORY Problem Relation Age of Onset Cancer Father throat cancer Heart Father Asthma Father other (Vascular Dementia) Father Breast Cancer Mother Stroke Maternal Grandfather other (hyperlipidemia) Maternal Grandfather multiple relatives Social History Tobacco Use Smoking status: Former Smoker Packs/day: 0.50 Years: 10.00 Pack years: 5.00 Types: Cigarettes Quit date: 09/19/2000 Years since quittin.8 Smokeless tobacco: Never Used Tobacco comment: quit around 2010 Vaping Use Vaping Use: Never used Substance Use Topics Alcohol use: Yes Comment: socially-3 drinks per week Drug use: No Current Outpatient Medications Medication Sig Dispense Refill dexAMETHasone (DECADRON) 6 mg tablet Take 6 mg by mouth once daily. levETIRAcetam (KEPPRA) 750 mg tablet Take 2 tablets by mouth twice daily. 360 tablet 3 fluticasone-vilanterol (BREO ELLIPTA) 100-25 mcg/dose inhaler Inhale 1 Inhalation as instructed once daily. 30 Each 5 albuterol HFA (PROAIR HFA) 90 mcg/actuation inhaler Inhale 2 Puffs as instructed every 6 hours as needed for wheezing/shortness of breath (or cough). 1 Inhaler 3 ondansetron orally disintegrating (ZOFRAN ODT) 4 mg disintegrating tablet TAKE 1 TABLET BY MOUTH EVERY 8 HOURS NEEDED FOR NAUSEA AND VOMITING [address] (PROTONIX) 40 mg tablet TAKE 1 TABLET BY MOUTH TWICE DAILY. TAKE 30 MINUTES BEFORE MEAL. 180 tablet 1 sertraline (ZOLOFT) 100 mg tablet Take 100 mg by mouth once daily. albuterol (PROVENTIL) 2.5 mg /3 mL (0.083 %) nebulizer solution Use 3 mL via nebulizer every 4 hours as needed for Wheezing/Shortness of Breath. Use over 5-15minutes. 1 Package 0 biotin 1,000 mcg chew Take 10,000 mcg by mouth twice daily. Pt takes three tabs in the morning and two tabs at night. cyanocobalamin (VITAMIN B-12) 1,000 mcg tab Take 1,000 mcg by mouth once daily. hydroxychloroquine (PLAQUENIL) 200 mg tablet Take 1 tablet by mouth twice daily. 0 calcium-cholecalciferol, D3, 250-125 mg-unit per tablet Take 1 tablet by mouth once daily. aspirin, enteric coated (ECOTRIN LOW STRENGTH) 81 mg ORAL EC tablet Take one(1) tablet daily. 0 FIBERCON 625 MG TAB 2 po daily 0 Current Facility-Administered Medications Medication Dose Route Frequency Provider Last Rate Last Admin perflutren lipid microspheres 1.3 mL in NaCl (PF) 0.9% 10 mL injection (DEFINITY) INTRAVENOUS DIRECTED PRN Gabo Fabian MD sodium chloride 0.9 % (flush) 10 mL (BD POSIFLUSH) 10 mL INTRAVENOUS DIRECTED PRN Gabo Fabian MD ALLERGIES Allergen Reactions Environmental Aller* Dust mites, weeds, ragweed Epinephrine intolerance per pt;caused her to black out Penicillins Rash REVIEW OF SYSTEMS: PAIN ASSESSMENT: Negative for pain, history of chronic pain, or current treatment for a chronic pain condition. GENERAL: No weight loss, malaise or fevers RESPIRATORY: Negative for cough, hemoptysis, wheezing, COPD, dyspnea or shortness of breath CARDIOVASCULAR: Negative for chest pain, leg swelling, hypertension, CHF or palpitations GI: See HPI : No history of dysuria, frequency or incontinence TENNIS PLAYER: Negative for abnormal vaginal bleeding, abnormal vaginal discharge PHYSICAL FINDINGS OF NOTE: General Normal, healthy, cooperative, in no acute distress Able to interact verbally by video conference Psych ORIENTATION: normal to time place, person and situation Mood/Affect: AFFECT AND MOOD: Normal Head/Neuro Normal size and shape Facial appearance normal Pulmonary respiratory effort normal Cardiovascular patient describes extremities normal, warm, no cyanosis,no clubbing and no edema Abdominal Not performed Skin abnormal lesions not visualized Motor patient seen sitting with Normal appearing strength and coordination Anorectal exam Not Performed Assessment/Plan (K22.2) Esophagogastric junction outflow obstruction (primary encounter diagnosis) 1. Esophagogastric junction outflow obstruction - Discussed starting CCB (diltiazem) for EGJ outflow obstruction. Has appointment with Cardio 08/10/2021. Recommended talking to them about this prior to starting medication to determine if this is ok in their opinion. If ok she will mychart me to obtain script. - Continue Protonix 40 mg BID, altoids before meals Recommended to please call office/go to ER if fever, chills, chest pain, SOB, diarrhea, nausea, emesis, worsening abdominal pain, dehydration occurs I spent 20 minutes in the visit, with more than 50% of the total [id number] time of the visit in counseling / coordination of care. I have confirmed and edited as necessary, the PFSH and ROS obtained by others. Miriam Stout PA-C July 28, 2021 3:21 PM documented in this encounter [facility] 07-03-2021 Hospital Discharge instructions Patient Education 07/03/2021 19:15:40 Chest Pain, Uncertain Cause Uncertain Causes of Chest Pain Chest pain can happen for a number of reasons. Sometimes the cause can't be determined. If your condition does not seem serious, and your pain does not appear to be coming from your heart, your healthcare provider may recommend watching it closely. Sometimes the signs of a serious problem take more time to appear. Many problems not related to your heart can cause chest pain. These include: Musculoskeletal. Costochondritis is an inflammation of the tissues around the ribs that can occur from trauma or overuse injuries, or a strain of the muscles of the chest wall Respiratory. Pneumonia, collapsed lung (pneumothorax), or inflammation of the lining of the chest and lungs (pleurisy) Gastrointestinal. Esophageal reflux, heartburn, ulcers, or gallbladder disease Anxiety and panic disorders Nerve compression and inflammation Rare miscellaneous problems such as aortic aneurysm (a swelling of the large artery coming out of the heart) or pulmonary embolism (a blood clot in the lungs) Home care After your visit, follow these recommendations: Rest today and avoid strenuous activity. Take any prescribed medicine as directed. Be aware of any recurrent chest pain and notice any changes Follow-up care Follow up with your healthcare provider if you do not start to feel better within 24 hours, or as advised. Call 911 Call 911 if any of these occur: A change in the type of pain: if it feels different, becomes more severe, lasts longer, or begins to spread into your shoulder, arm, neck, jaw or back Shortness of breath or increased pain with breathing Weakness, dizziness, or fainting Rapid heart beat Crushing sensation in your chest When to seek medical advice Call your healthcare provider right away if any of the following occur: Cough with dark colored sputum (phlegm) or blood Fever of 100.4 F (38 C) or higher, or as directed by your healthcare provider Swelling, pain or redness in one leg [phone] The [employer]. [address] [place] [address]. All rights reserved. This information is not intended as a substitute for professional medical care. Always follow your healthcare professional's instructions. Follow Up Care 07/03/2021 18:57:16 With:SUSANA CARTWRIGHT MD Address: [id number] [facility] [place] [address] [phone] When:2-4 days With:Go to emergency room if symptoms worsen Address:Unknown When:2-4 days With:LINDA LOVING DO Address: [address] [place] [place] [address]- When:2-4 days [facility] documented as of this encounter (statuses as of 08/24/2022) [facility] History of Past illness Narrative* Problem Noted Date Resolved Date Exercise hypoxemia 12/12/2020 08/23/2022 Interstitial pulmonary disease 12/12/2020 0 08/23/2022 Aspergillosis 10/02/2020 12/12/2020 Nocturnal hypoxia 09/29/2020 08/23/2022 Chronic necrotizing pulmonary aspergillosis 08/2812/12/2020 Transient alteration of awareness 07/10/2006 02/01/2016 documented as of this encounter (statuses as of 10/05/2022) [facility] History of Past illness Narrative* Problem Noted Date Resolved Date Exercise hypoxemia 12/12/2020 08/23/2022 Interstitial pulmonary disease 12/12/2020 0 08/23/2022 Aspergillosis 10/02/2020 12/12/2020 Nocturnal hypoxia 09/29/2020 08/23/2022 Chronic necrotizing pulmonary aspergillosis 08/2812/12/2020 Transient alteration of awareness 07/10/2006 02/01/2016 documented as of this encounter (statuses as of 09/27/2022) [facility] History of Past illness Narrative* Problem Noted Date Resolved Date Exercise hypoxemia 12/12/2020 08/23/2022 Interstitial pulmonary disease 12/12/2020 0 08/23/2022 Aspergillosis 10/02/2020 12/12/2020 Nocturnal hypoxia 09/29/2020 08/23/2022 Chronic necrotizing pulmonary aspergillosis 05/07/202012/12/2020 Transient alteration of awareness 07/10/2006 02/01/2016 documented as of this encounter (statuses as of 10/24/2022) [facility] History of Past illness Narrative* Problem Noted Date Diagnosed Date Resolved Date Exercise hypoxemia 12/12/2020 Interstitial pulmonary disease 12/12/2020 08/23/2022 Aspergillosis 10/02/2020 12/12/2020 Nocturnal hypoxia 09/29/2020 08/23/2022 Chronic necrotizing pulmonary aspergillosis 09/19/2020 12/12/2020 Transient alteration of awareness 07/10/2006 02/01/2016 documented as of this encounter (statuses as of 11/12/2022) [facility] of Past illness Narrative* Problem Noted Date Diagnosed Date Resolved Date Exercise hypoxemia 12/12/2020 3 Interstitial pulmonary disease 12/12/2020 08/23/2022 Aspergillosis 10/02/2020 12/12/2020 Nocturnal hypoxia 09/29/2020 08/23/2022 Chronic necrotizing pulmonary aspergillosis 09/19/2020 12/12/2020 Transient alteration of awareness 07/10/2006 02/01/2016 documented as of this encounter (statuses as of 12/18/2022) [facility] of Past illness Narrative* Problem Noted Date Diagnosed Date Resolved Date Exercise hypoxemia 12/12/2020 3 Interstitial pulmonary disease 12/12/2020 08/23/2022 Aspergillosis 10/02/2020 12/12/2020 Nocturnal hypoxia 09/29/2020 08/23/2022 Chronic necrotizing pulmonary aspergillosis 09/19/2020 12/12/2020 Transient alteration of awareness 07/10/2006 02/01/2016 documented as of this encounter (statuses as of 12/21/2022) [facility] of Past illness Narrative* Problem Noted Date Diagnosed Date Resolved Date Exercise hypoxemia 12/12/2020 3 Interstitial pulmonary disease 12/12/2020 08/23/2022 Aspergillosis 10/02/2020 12/12/2020 Nocturnal hypoxia 09/29/2020 08/23/2022 Chronic necrotizing pulmonary aspergillosis 09/19/2020 12/12/2020 Transient alteration of awareness 07/10/2006 02/01/2016 documented as of this encounter (statuses as of 12/25/2022) [facility] of Past illness Narrative* Problem Noted Date Diagnosed Date Resolved Date Exercise hypoxemia 12/12/2020 3 Interstitial pulmonary disease 12/12/2020 08/23/2022 Aspergillosis 10/02/2020 12/12/2020 Nocturnal hypoxia 09/29/2020 08/23/2022 Chronic necrotizing pulmonary aspergillosis 09/19/2020 12/12/2020 Transient alteration of awareness 07/10/2006 02/01/2016 documented as of this encounter (statuses as of 01/08/2023) [facility] of Past illness Narrative* Problem Noted Date Diagnosed Date Resolved Date Exercise hypoxemia 12/12/2020 3 Interstitial pulmonary disease 12/12/2020 08/23/2022 Aspergillosis 10/02/2020 12/12/2020 Nocturnal hypoxia 09/29/2020 08/23/2022 Chronic necrotizing pulmonary aspergillosis 09/19/2020 12/12/2020 Transient alteration of awareness 07/10/2006 02/01/2016 documented as of this encounter (statuses as of 02/20/2023) [facility] of Past illness Narrative* Problem Noted Date Diagnosed Date Resolved Date Exercise hypoxemia 12/12/2020 3 Interstitial pulmonary disease 12/12/2020 08/23/2022 Aspergillosis 10/02/2020 12/12/2020 Nocturnal hypoxia 09/29/2020 08/23/2022 Chronic necrotizing pulmonary aspergillosis 09/19/2020 12/12/2020 Transient alteration of awareness 07/10/2006 02/01/2016 documented as of this encounter (statuses as of 03/03/2023) [facility] of Past illness Narrative* Problem Noted Date Diagnosed Date Resolved Date Exercise hypoxemia 12/12/2020 Interstitial pulmonary disease 12/12/2020 08/23/2022 Aspergillosis 10/02/2020 12/12/2020 Nocturnal hypoxia 09/29/2020 08/23/2022 Chronic necrotizing pulmonary aspergillosis 09/19/2020 12/12/2020 Transient alteration of awareness 07/10/2006 02/01/2016 documented as of this encounter (statuses as of 03/03/2023) [facility] of Past illness Narrative* Problem Noted Date Diagnosed Date Resolved Date Exercise hypoxemia 12/12/2020 Interstitial pulmonary disease 12/12/2020 08/23/2022 Aspergillosis 10/02/2020 12/12/2020 Nocturnal hypoxia 09/29/2020 08/23/2022 Chronic necrotizing pulmonary aspergillosis 09/19/2020 12/12/2020 Transient alteration of awareness 07/10/2006 02/01/2016 documented as of this encounter (statuses as of 03/03/2023) [facility] of Past illness Narrative* Problem Noted Date Diagnosed Date Resolved Date Exercise hypoxemia 12/12/2020 3 Interstitial pulmonary disease 12/12/2020 08/23/2022 Aspergillosis 10/02/2020 12/12/2020 Nocturnal hypoxia 09/29/2020 08/23/2022 Chronic necrotizing pulmonary aspergillosis 09/19/2020 12/12/2020 Transient alteration of awareness 07/10/2006 02/01/2016 documented as of this encounter (statuses as of 03/22/2023) [facility] of Past illness Narrative* Problem Noted Date Diagnosed Date Resolved Date Exercise hypoxemia 12/12/2020 3 Interstitial pulmonary disease 12/12/2020 08/23/2022 Aspergillosis 10/02/2020 12/12/2020 Nocturnal hypoxia 09/29/2020 08/23/2022 Chronic necrotizing pulmonary aspergillosis 09/19/2020 12/12/2020 Transient alteration of awareness 07/10/2006 02/01/2016 documented as of this encounter (statuses as of 04/12/2023) [facility] History of Past illness Narrative* Problem Noted Date Resolved Date Aspergillosis 10/02/2020 12/12/2020 Chronic necrotizing pulmonary aspergillosis 05/2 07/202012/12/2020 Transient alteration of awareness 07/10/2006 02/01/2016 documented as of this encounter (statuses as of 07/24/2021) [facility] History of Past illness Narrative* Problem Noted Date Resolved Date Aspergillosis 10/02/2020 12/12/2020 Chronic necrotizing pulmonary aspergillosis 05/2 07/202012/12/2020 Transient alteration of awareness 07/10/2006 02/01/2016 documented as of this encounter (statuses as of 07/25/2021) [address]06-2021 History of Past illness Narrative* Problem Noted Date Resolved Date Aspergillosis 10/02/2020 12/12/2020 Chronic necrotizing pulmonary aspergillosis 05/2 07/202012/12/2020 Transient alteration of awareness 07/10/2006 02/01/2016 documented as of this encounter (statuses as of 07/28/2021) [address]-2021 History of Past illness Narrative* Problem Noted Date Resolved Date Aspergillosis 10/02/2020 12/12/2020 Chronic necrotizing pulmonary aspergillosis 05/2 07/202012/12/2020 Transient alteration of awareness 07/10/2006 02/01/2016 documented as of this encounter (statuses as of 08/04/2021) [facility] of Past illness Narrative* Problem Noted Date Resolved Date Aspergillosis 10/02/2020 12/12/2020 Chronic necrotizing pulmonary aspergillosis 05/2 07/202012/12/2020 Transient alteration of awareness 07/10/2006 02/01/2016 documented as of this encounter (statuses as of 08/10/2021) [facility] of Past illness Narrative* Problem Noted Date Resolved Date Aspergillosis 10/02/2020 12/12/2020 Chronic necrotizing pulmonary aspergillosis 05/2 07/202012/12/2020 Transient alteration of awareness 07/10/2006 02/01/2016 documented as of this encounter (statuses as of 08/23/2021) [facility] of Past illness Narrative* Problem Noted Date Resolved Date Aspergillosis 10/02/2020 12/12/2020 Chronic necrotizing pulmonary aspergillosis 05/2 07/202012/12/2020 Transient alteration of awareness 07/10/2006 02/01/2016 documented as of this encounter (statuses as of 08/28/2021) [facility] of Past illness Narrative* Problem Noted Date Resolved Date Aspergillosis 10/02/2020 12/12/2020 Chronic necrotizing pulmonary aspergillosis 05/2 07/202012/12/2020 Transient alteration of awareness 07/10/2006 02/01/2016 documented as of this encounter (statuses as of 08/28/2021) [facility] of Past illness Narrative* Problem Noted Date Resolved Date Aspergillosis 10/02/2020 12/12/2020 Chronic necrotizing pulmonary aspergillosis 05/2 07/202012/12/2020 Transient alteration of awareness 07/10/2006 02/01/2016 documented as of this encounter (statuses as of 08/28/2021) [facility] of Past illness Narrative* Problem Noted Date Resolved Date Aspergillosis 10/02/2020 12/12/2020 Chronic necrotizing pulmonary aspergillosis 05/2 07/202012/12/2020 Transient alteration of awareness 07/10/2006 02/01/2016 documented as of this encounter (statuses as of 08/29/2021) [facility] of Past illness Narrative* Problem Noted Date Resolved Date Aspergillosis 10/02/2020 12/12/2020 Chronic necrotizing pulmonary aspergillosis 05/2 07/202012/12/2020 Transient alteration of awareness 07/10/2006 02/01/2016 documented as of this encounter (statuses as of 08/29/2021) [facility] of Past illness Narrative* Problem Noted Date Resolved Date Aspergillosis 10/02/2020 12/12/2020 Chronic necrotizing pulmonary aspergillosis 05/2 07/202012/12/2020 Transient alteration of awareness 07/10/2006 02/01/2016 documented as of this encounter (statuses as of 08/31/2021) [facility] of Past illness Narrative* Problem Noted Date Resolved Date Aspergillosis 10/02/2020 12/12/2020 Chronic necrotizing pulmonary aspergillosis 05/2 07/202012/12/2020 Transient alteration of awareness 07/10/2006 02/01/2016 documented as of this encounter (statuses as of 09/08/2021) [facility] of Past illness Narrative* Problem Noted Date Resolved Date Aspergillosis 10/02/2020 12/12/2020 Chronic necrotizing pulmonary aspergillosis 05/2 07/202012/12/2020 Transient alteration of awareness 07/10/2006 02/01/2016 documented as of this encounter (statuses as of 09/14/2021) [facility] Past illness Narrative* Problem Noted Date Resolved Date Aspergillosis 10/02/2020 12/12/2020 Chronic necrotizing pulmonary aspergillosis 05/2 07/202012/12/2020 Transient alteration of awareness 07/10/2006 02/01/2016 documented as of this encounter (statuses as of 09/18/2021) [facility] Past illness Narrative* Problem Noted Date Resolved Date Aspergillosis 10/02/2020 12/12/2020 Chronic necrotizing pulmonary aspergillosis 05/2 07/202012/12/2020 Transient alteration of awareness 07/10/2006 02/01/2016 documented as of this encounter (statuses as of 09/19/2021) [facility] Past illness Narrative* Problem Noted Date Resolved Date Aspergillosis 10/02/2020 12/12/2020 Chronic necrotizing pulmonary aspergillosis 05/2 07/202012/12/2020 Transient alteration of awareness 07/10/2006 02/01/2016 documented as of this encounter (statuses as of 09/19/2021) [facility] of Past illness Narrative* Problem Noted Date Resolved Date Aspergillosis 10/02/2020 12/12/2020 Chronic necrotizing pulmonary aspergillosis 05/2 07/202012/12/2020 Transient alteration of awareness 07/10/2006 02/01/2016 documented as of this encounter (statuses as of 10/02/2021) [facility] of Past illness Narrative* Problem Noted Date Resolved Date Aspergillosis 10/02/2020 12/12/2020 Chronic necrotizing pulmonary aspergillosis 05/2 07/202012/12/2020 Transient alteration of awareness 07/10/2006 02/01/2016 documented as of this encounter (statuses as of 10/26/2021) [facility] of Past illness Narrative* Problem Noted Date Resolved Date Aspergillosis 10/02/2020 12/12/2020 Chronic necrotizing pulmonary aspergillosis 05/2 07/202012/12/2020 Transient alteration of awareness 07/10/2006 02/01/2016 documented as of this encounter (statuses as of 11/02/2021) [facility] of Past illness Narrative* Problem Noted Date Resolved Date Aspergillosis 10/02/2020 12/12/2020 Chronic necrotizing pulmonary aspergillosis 05/2 07/202012/12/2020 Transient alteration of awareness 07/10/2006 02/01/2016 documented as of this encounter (statuses as of 11/02/2021) [facility] Past [facility] Narrative* Problem Noted Date Resolved Date Aspergillosis 10/02/2020 12/12/2020 Chronic necrotizing pulmonary aspergillosis 05/2 07/202012/12/2020 Transient alteration of awareness 07/10/2006 02/01/2016 documented as of this encounter (statuses as of 11/27/2021) [facility] Past illness Narrative* Problem Noted Date Resolved Date Aspergillosis 10/02/2020 12/12/2020 Chronic necrotizing pulmonary aspergillosis 05/2 07/202012/12/2020 Transient alteration of awareness 07/10/2006 02/01/2016 documented as of this encounter (statuses as of 12/18/2021) [facility] Past [facility] Narrative* Problem Noted Date Resolved Date Aspergillosis 10/02/2020 12/12/2020 Chronic necrotizing pulmonary aspergillosis 05/2 07/202012/12/2020 Transient alteration of awareness 07/10/2006 02/01/2016 documented as of this encounter (statuses as of 01/29/2022) [facility] Past illness Narrative* Problem Noted Date Resolved Date Aspergillosis 10/02/2020 12/12/2020 Chronic necrotizing pulmonary aspergillosis 05/2 07/202012/12/2020 Transient alteration of awareness 07/10/2006 02/01/2016 documented as of this encounter (statuses as of 01/30/2022) [facility] Past [facility] Narrative* Problem Noted Date Resolved Date Aspergillosis 10/02/2020 12/12/2020 Chronic necrotizing pulmonary aspergillosis 05/2 07/202012/12/2020 Transient alteration of awareness 07/10/2006 02/01/2016 documented as of this encounter (statuses as of 02/05/2022) [facility] Past [facility] Narrative* Problem Noted Date Resolved Date Aspergillosis 10/02/2020 12/12/2020 Chronic necrotizing pulmonary aspergillosis 05/2 07/202012/12/2020 Transient alteration of awareness 07/10/2006 02/01/2016 documented as of this encounter (statuses as of 02/06/2022) [facility] Past [facility] Narrative* Problem Noted Date Resolved Date Aspergillosis 10/02/2020 12/12/2020 Chronic necrotizing pulmonary aspergillosis 05/2 07/202012/12/2020 Transient alteration of awareness 07/10/2006 02/01/2016 documented as of this encounter (statuses as of 02/21/2022) [facility] Narrative* Problem Noted Date Resolved Date Aspergillosis 10/02/2020 12/12/2020 Chronic necrotizing pulmonary aspergillosis 05/2 07/202012/12/2020 Transient alteration of awareness 07/10/2006 02/01/2016 documented as of this encounter (statuses as of 02/23/2022) [address]-2021 History of Past illness Narrative* Problem Noted Date Resolved Date Aspergillosis 10/02/2020 12/12/2020 Chronic necrotizing pulmonary aspergillosis 05/2 07/202012/12/2020 Transient alteration of awareness 07/10/2006 02/01/2016 documented as of this encounter (statuses as of 03/01/2022) [address]-2021 History of Past illness Narrative* Problem Noted Date Resolved Date Aspergillosis 10/02/2020 12/12/2020 Chronic necrotizing pulmonary aspergillosis 05/2 07/202012/12/2020 Transient alteration of awareness 07/10/2006 02/01/2016 documented as of this encounter (statuses as of 03/05/2022) [address]-2021 History of Past illness Narrative* Problem Noted Date Resolved Date Aspergillosis 10/02/2020 12/12/2020 Chronic necrotizing pulmonary aspergillosis 05/2 07/202012/12/2020 Transient alteration of awareness 07/10/2006 02/01/2016 documented as of this encounter (statuses as of 03/19/2022) [address]21 History of Past illness Narrative* Problem Noted Date Resolved Date Aspergillosis 10/02/2020 12/12/2020 Chronic necrotizing pulmonary aspergillosis 05/2 07/202012/12/2020 Transient alteration of awareness 07/10/2006 02/01/2016 documented as of this encounter (statuses as of 03/28/2022) [address]-2021 History of Past illness Narrative* Problem Noted Date Resolved Date Aspergillosis 10/02/2020 12/12/2020 Chronic necrotizing pulmonary aspergillosis 05/2 07/202012/12/2020 Transient alteration of awareness 07/10/2006 02/01/2016 documented as of this encounter (statuses as of 03/30/2022) [address]21 History of Past illness Narrative* Problem Noted Date Resolved Date Aspergillosis 10/02/2020 12/12/2020 Chronic necrotizing pulmonary aspergillosis 05/2 07/202012/12/2020 Transient alteration of awareness 07/10/2006 02/01/2016 documented as of this encounter (statuses as of 04/11/2022) [facility]* Problem Noted Date Resolved Date Aspergillosis 10/02/2020 12/12/2020 Chronic necrotizing pulmonary aspergillosis 05/2 07/202012/12/2020 Transient alteration of awareness 07/10/2006 02/01/2016 documented as of this encounter (statuses as of 05/01/2022) [facility] Narr[facility]* Problem Noted Date Resolved Date Aspergillosis 10/02/2020 12/12/2020 Chronic necrotizing pulmonary aspergillosis 05/2 07/202012/12/2020 Transient alteration of awareness 07/10/2006 02/01/2016 documented as of this encounter (statuses as of 05/09/2022) [facility] Narr[facility]* Problem Noted Date Resolved Date Aspergillosis 10/02/2020 12/12/2020 Chronic necrotizing pulmonary aspergillosis 05/2 07/202012/12/2020 Transient alteration of awareness 07/10/2006 02/01/2016 documented as of this encounter (statuses as of 05/14/2022) [facility] Narrative* Problem Noted Date Resolved Date Aspergillosis 10/02/2020 12/12/2020 Chronic necrotizing pulmonary aspergillosis 05/2 07/202012/12/2020 Transient alteration of awareness 07/10/2006 02/01/2016 documented as of this encounter (statuses as of 05/16/2022) [address]-2021 History of Past illness Narrative* Problem Noted Date Resolved Date Aspergillosis 10/02/2020 12/12/2020 Chronic necrotizing pulmonary aspergillosis 05/2 07/202012/12/2020 Transient alteration of awareness 07/10/2006 02/01/2016 documented as of this encounter (statuses as of 05/23/2022) [facility]arr[facility]* Problem Noted Date Resolved Date Aspergillosis 10/02/2020 12/12/2020 Chronic necrotizing pulmonary aspergillosis 05/2 07/202012/12/2020 Transient alteration of awareness 07/10/2006 02/01/2016 documented as of this encounter (statuses as of 05/24/2022) [address]-2021 History of Past illness Narrative* Problem Noted Date Resolved Date Aspergillosis 10/02/2020 12/12/2020 Chronic necrotizing pulmonary aspergillosis 05/2 07/202012/12/2020 Transient alteration of awareness 07/10/2006 02/01/2016 documented as of this encounter (statuses as of 05/31/2022) [facility]* Problem Noted Date Resolved Date Aspergillosis 10/02/2020 12/12/2020 Chronic necrotizing pulmonary aspergillosis 05/2 07/202012/12/2020 Transient alteration of awareness 07/10/2006 02/01/2016 documented as of this encounter (statuses as of 06/04/2022) [facility]* Problem Noted Date Resolved Date Aspergillosis 10/02/2020 12/12/2020 Chronic necrotizing pulmonary aspergillosis 05/2 07/202012/12/2020 Transient alteration of awareness 07/10/2006 02/01/2016 documented as of this encounter (statuses as of 06/05/2022) [facility]* Problem Noted Date Resolved Date Aspergillosis 10/02/2020 12/12/2020 Chronic necrotizing pulmonary aspergillosis 05/2 07/202012/12/2020 Transient alteration of awareness 07/10/2006 02/01/2016 documented as of this encounter (statuses as of 06/05/2022) [facility]* Problem Noted Date Resolved Date Aspergillosis 10/02/2020 12/12/2020 Chronic necrotizing pulmonary aspergillosis 05/2 07/202012/12/2020 Transient alteration of awareness 07/10/2006 02/01/2016 documented as of this encounter (statuses as of 06/18/2022) [facility]arr[facility]* Problem Noted Date Resolved Date Aspergillosis 10/02/2020 12/12/2020 Chronic necrotizing pulmonary aspergillosis 05/2 07/202012/12/2020 Transient alteration of awareness 07/10/2006 02/01/2016 documented as of this encounter (statuses as of 06/22/2022) [facility] N[facility]* Problem Noted Date Resolved Date Aspergillosis 10/02/2020 12/12/2020 Chronic necrotizing pulmonary aspergillosis 05/2 07/202012/12/2020 Transient alteration of awareness 07/10/2006 02/01/2016 documented as of this encounter (statuses as of 06/22/2022) [facility]* Problem Noted Date Resolved Date Aspergillosis 10/02/2020 12/12/2020 Chronic necrotizing pulmonary aspergillosis 05/2 07/202012/12/2020 Transient alteration of awareness 07/10/2006 02/01/2016 documented as of this encounter (statuses as of 07/03/2022) [facility]* Problem Noted Date Resolved Date Aspergillosis 10/02/2020 12/12/2020 Chronic necrotizing pulmonary aspergillosis 05/2 07/202012/12/2020 Transient alteration of awareness 07/10/2006 02/01/2016 documented as of this encounter (statuses as of 07/18/2022) [facility]* Problem Noted Date Resolved Date Aspergillosis 10/02/2020 12/12/2020 Chronic necrotizing pulmonary aspergillosis 05/2 07/202012/12/2020 Transient alteration of awareness 07/10/2006 02/01/2016 documented as of this encounter (statuses as of 07/20/2022) [facility]* Problem Noted Date Resolved Date Aspergillosis 10/02/2020 12/12/2020 Chronic necrotizing pulmonary aspergillosis 05/2 07/202012/12/2020 Transient alteration of awareness 07/10/2006 02/01/2016 documented as of this encounter (statuses as of 08/09/2022) [facility]arr[facility]* Problem Noted Date Resolved Date Aspergillosis 10/02/2020 12/12/2020 Chronic necrotizing pulmonary aspergillosis 08/2812/12/2020 Transient alteration of awareness 07/10/2006 02/01/2016 documented as of this encounter (statuses as of 08/23/2022) [facility] Plan note No data available for this section [facility] note* Diagnosis Esophagogastric junction outflow obstruction- Primary documented in this encounter [facility] note* Diagnosis Chest pain, unspecified type- Primary documented in this encounter [facility] note* Diagnosis Esophagogastric junction outflow obstruction- Primary documented in this encounter [facility] note* Diagnosis Undifferentiated connective tissue disease (HCC)- Primary Unspecified diffuse connective tissue disease ILD (interstitial lung disease) (HCC) 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 Malaise and fatigue Other malaise and fatigue Osteopenia of multiple sites Hypogammaglobulinemia (HCC) Hypogammaglobulinaemia, unspecified Immunodeficiency (HCC) Unspecified immunity deficiency documented in this encounter [facility] note* Diagnosis Hypogammaglobulinemia (HCC)- Primary Hypogammaglobulinaemia, unspecified [id number] adverse effect of medication, initial encounter Mild persistent asthma without complication Unspecified asthma Allergic rhinitis due to dust mite Seasonal allergic rhinitis due to pollen [facility] Diagnosis Hypogammaglobulinemia (HCC)- Primary Hypogammaglobulinaemia, unspecified documented in this encounter [facility] note* Diagnosis Chest pain, unspecified type documented in this encounter [facility] note* Diagnosis Interstitial pulmonary disease (HCC) Postinflammatory pulmonary fibrosis Lung nodules Other nonspecific abnormal finding of lung field Mild persistent asthma without complication Unspecified asthma Nocturnal hypoxia Hypoxemia Shortness of breath Systemic lupus erythematosus, unspecified SLE type, unspecified organ involvement status (HCC) AGUILA (obstructive sleep apnea) Obstructive sleep apnea (adult) (pediatric) documented [facility]* Diagnosis Gastroesophageal reflux disease without esophagitis Esophageal reflux Esophageal dysphagia Dysphagia, pharyngoesophageal phase [facility] Diagnosis Interstitial pulmonary disease (HCC) Postinflammatory pulmonary fibrosis Shortness of breath Mild persistent asthma without complication Unspecified asthma [facility] Diagnosis Interstitial pulmonary disease (HCC) Postinflammatory pulmonary fibrosis Shortness of breath Mild persistent asthma without complication Unspecified asthma [facility] Diagnosis Interstitial pulmonary disease (HCC) Postinflammatory pulmonary fibrosis Shortness of breath Mild persistent asthma without complication Unspecified asthma [facility] Diagnosis Immunodeficiency (HCC) Unspecified immunity deficiency Lung nodules Other nonspecific abnormal finding of lung field Restrictive lung disease Other diseases of lung, not elsewhere classified [facility] Diagnosis Palpitations- Primary Cardiac pacemaker in situ Sinoatrial node dysfunction (HCC) Sinoatrial node dysfunction PVC (premature ventricular contraction) Other premature beats Recurrent chest pain Chest pain, unspecified [facility] Diagnosis Undifferentiated connective tissue disease (HCC)- Primary Unspecified diffuse connective tissue disease ILD (interstitial lung disease) (HCC) Postinflammatory pulmonary fibrosis Malaise and fatigue Other malaise and fatigue Hypogammaglobulinemia (HCC) Hypogammaglobulinaemia, unspecified Osteopenia of multiple sites Low serum complement C3 [facility] Diagnosis Hypogammaglobulinemia (HCC)- Primary Hypogammaglobulinaemia, unspecified Allergic rhinitis due to dust mite Seasonal allergic rhinitis due to pollen Mild persistent asthma without complication Unspecified asthma [facility] Diagnosis Undifferentiated connective tissue disease (HCC)- Primary Unspecified diffuse connective tissue disease ILD (interstitial lung disease) (HCC) Postinflammatory pulmonary fibrosis Malaise and fatigue Other malaise and fatigue Hypogammaglobulinemia (HCC) Hypogammaglobulinaemia, unspecified Osteopenia of multiple sites Low serum complement C3 [facility] Diagnosis Loose stools- Primary Abnormal feces Bilateral upper abdominal pain Abdominal pain, right upper quadrant Esophagogastric junction outflow obstruction [facility] Diagnosis Gastroesophageal reflux disease without esophagitis Esophageal reflux Esophageal dysphagia Dysphagia, pharyngoesophageal phase [facility] Diagnosis Shigella infection- Primary Shigellosis, unspecified [facility] Diagnosis Shigella infection- Primary Shigellosis, unspecified [facility] Diagnosis Partial epilepsy with impairment of consciousness, intractable (HCC) Localization-related (focal) (partial) epilepsy and epileptic syndromes with complex partial seizures, with intractable epilepsy [facility] Diagnosis Vaginal irritation- Primary Unspecified noninflammatory disorder of vagina Urinary urgency Urgency of urination Encounter for screening mammogram for malignant neoplasm of breast Other screening mammogram [facility] Diagnosis Bilateral upper abdominal pain Abdominal pain, right upper quadrant [facility] Diagnosis Abnormal mammogram- Primary Abnormal mammogram, unspecified [facility] Diagnosis Palpitations- Primary Cardiac pacemaker in situ Chest pain, unspecified type Sinoatrial node dysfunction (HCC) Sinoatrial node dysfunction [facility] Diagnosis Follow-up examination of abnormal mammogram- Primary Abnormal mammogram, unspecified [facility] Diagnosis Mild persistent asthma without complication- Primary Unspecified asthma Lung nodules Other nonspecific abnormal finding of lung field AGUILA (obstructive sleep apnea) Obstructive sleep apnea (adult) (pediatric) Low serum IgG1 and IgM levels Other and unspecified nonspecific immunological findings [facility] Mild persistent asthma without complication- Primary Unspecified asthma [facility] Diagnosis Interstitial pulmonary disease (HCC) Postinflammatory pulmonary fibrosis Lung nodules Other nonspecific abnormal finding of lung field Mild persistent asthma without complication Unspecified asthma Nocturnal hypoxia Hypoxemia Shortness of breath Systemic lupus erythematosus, unspecified SLE type, unspecified organ involvement status (HCC) AGUILA (obstructive sleep apnea) Obstructive sleep apnea (adult) (pediatric) [facility] Diagnosis Interstitial pulmonary disease (HCC) Postinflammatory pulmonary fibrosis Lung nodules Other nonspecific abnormal finding of lung field Mild persistent asthma without complication Unspecified asthma Nocturnal hypoxia Hypoxemia Shortness of breath Systemic lupus erythematosus, unspecified SLE type, unspecified organ involvement status (HCC) AGUILA (obstructive sleep apnea) Obstructive sleep apnea (adult) (pediatric) [facility] Diagnosis Partial epilepsy with impairment of consciousness, intractable (HCC)- Primary Localization-related (focal) (partial) epilepsy and epileptic syndromes with complex partial seizures, with intractable epilepsy [facility] Diagnosis Abnormal mammogram Abnormal mammogram, unspecified [facility] Diagnosis Abnormal mammogram Abnormal mammogram, unspecified [facility] Diagnosis Encounter for screening mammogram for malignant neoplasm of breast Other screening mammogram [facility] Diagnosis Undifferentiated connective tissue disease (HCC)- Primary Unspecified diffuse connective tissue disease ILD (interstitial lung disease) (HCC) Postinflammatory pulmonary fibrosis Malaise and fatigue Other malaise and fatigue High risk medication use Encounter for long-term (current) use of other medications Postmenopausal Asymptomatic postmenopausal status (age-related) (natural) [facility] Perla is referred from her family doctor for second opinion regarding incomplete swallowing epigastric pain and a feeling of incomplete swallowing. In addition to that she has intermittent diarrhea and a feeling that food passes right through her. She also has occasional bloating which she is gone on elimination diet and feels better as long as she stays gluten-free and lactose-free. * She has known underlying seizure disorder which is controlled with Keppra and has lupus which she currently takes hydrochloric when 200 mg daily. She does follow with rheumatology. * She is undergoing GI evaluation including clinic having had endoscopy, manometry study and right upper quadrant ultrasound and CT scan. She has even had a HIDA scan showing low gallbladder ejection fraction of 35%. Manometry did disclose ineffective esophageal motility and possible esophageal spasmper patient she was placed on Bentyl and peppermint tablets with minimal improvement. * Her main complaint is feelings of food does not pass properly and she will feel it slowly trickle down her esophagus and then feel as though it is lodged at her GE junction for several minutes she admits that relaxing helps improve symptoms. She denies any true foreign body. She states that her father had a esophageal stricture that required dilatation several times throughout his adult life. There was no mention of dilatation or stricture on her endoscopy performed at [facility]. Unfortunately were unable to produce his records during her examination today. [facility] [place] [id number] Work Phone: History of Present illness Narrative* Perla is referred from her family doctor for second opinion regarding incomplete swallowing epigastric pain and a feeling of incomplete swallowing. In addition to that she has intermittent diarrhea and a feeling that food passes right through her. She also has occasional bloating which she is gone on elimination diet and feels better as long as she stays gluten-free and lactose-free. * She has known underlying seizure disorder which is controlled with Keppra and has lupus which she currently takes hydrochloric when 200 mg daily. She does follow with rheumatology. * She is undergoing GI evaluation including clinic having had endoscopy, manometry study and right upper quadrant ultrasound and CT scan. She has even had a HIDA scan showing low gallbladder ejection fraction of 35%. Manometry did disclose ineffective esophageal motility and possible esophageal spasmper patient she was placed on Bentyl and peppermint tablets with minimal improvement. * Her main complaint is feelings of food does not pass properly and she will feel it slowly trickle down her esophagus and then feel as though it is lodged at her GE junction for several minutes she admits that relaxing helps improve symptoms. She denies any true foreign body. She states that her father had a esophageal stricture that required dilatation several times throughout his adult life. There was no mention of dilatation or stricture on her endoscopy performed at [facility]. Unfortunately were unable to produce his records during her examination today. [place] Work Phone: Reason for referral (narrative)* Diagnostic Procedure Only (Routine) - Pending Review Specialty Diagnoses / Procedures Referred By Samra day Referred To Contact [facility] Diagnoses Chest pain, unspecified type Procedures NM CARDIAC PERF STRESS/PHARM MYOCARDIAL SPECT MULTIPLE STUDIES Shreya Grullon DO [address] [place] [address] [facility] [address] [place] [address] Referral ID Status Reason Start Date Expiration Date Visits Requested Visits Authorized [id number] Pending Review Auto-Generat ed Referral 08/10/2021 09/09/2022 1 1 [facility] for referral (narrative)* Diagnostic Procedure Only (Routine) - Closed Specialty Diagnoses / Procedures Referred By Samra day Referred To Contact [facility]AG[facility] Diagnoses Chest pain, unspecified type Procedures NM CARDIAC PERF STRESS/PHARM MYOCARDIAL SPECT MULTIPLE STUDIES Shreya Grullon DO [address] [place] [address] [facility] [address] [id number] Referral ID Status Reason Start Date Expiration Date V isits Requested Visits Authorized [id number] Closed Auto-Generate d Referral 08/10/2021 10/14/2021 1 1 [facility] for referral (narrative)* Outpatient Procedure (Routine) - Closed Specialty Diagnoses / Procedures Referred By Contac t Referred To Contact [facility] Diagnoses Palpitations Cardiac pacemaker in situ Sinoatrial node dysfunction (HCC) Procedures ECG COMPLETE ECG ROUTINE ECG W/LEAST 12 LDS W/I&R Carri David APRN.CARPENTER LABOR SUPERVISOR [address] [place] [address] [facility] [place] [address] [place] [address] Referral ID Status Reason Start Date Expiration Date V isits Requested Visits Authorized [id number] Closed Auto-Generate d Referral 03/01/2022 02/28/2023 1 1 [facility] for referral (narrative)* Diagnostic Procedure Only (Routine) - Pending Review Specialty Diagnoses / Procedures Referred By Contac t Referred To Contact [facility] Diagnoses Encounter for screening mammogram for malignant neoplasm of breast Procedures AGUSTINA SCREENING SCREENING MAMMOGRAPHY BI 2-VIEW BREAST INC Shweta Ramírez APRN.CNP [address] [place] [address] [facility] [address] [place] [address] Referral ID Status Reason Start Date Expiration Date Visits Requested Visits Authorized [id number] Pending Review Auto-Generat ed Referral 06/18/2022 07/18/2023 1 1 [facility] for referral (narrative)* Diagnostic Procedure Only (Routine) - Pending Review Specialty Diagnoses / Procedures Referred By Samra day Referred To Contact [facility] Diagnoses Abnormal mammogram Procedures US BREAST LTD LT US BREAST UNI REAL TIME WITH IMAGE LIMITED Shweta Jones APRN.CNP [address] [place] [address] [facility] [address] [place] [address] Referral ID Status Reason Start Date Expiration Date Visits Requested Visits Authorized [id number] Pending Review Auto-Generat ed Referral 07/03/2022 08/02/2023 1 1 * Diagnostic Procedure Only (Routine) - Pending Review Specialty Diagnoses / Procedures Referred By Samra day Referred To Contact [facility] Diagnoses Abnormal mammogram Procedures AGUSTINA DIAGNOSTIC LT DIAGNOSTIC MAMMOGRAPHY COMPUTER-AIDED DETCJ UNI Shweta Jones APRN.CNP [address] [place] [address] [facility] [address] [place] [address] Referral ID Status Reason Start Date Expiration Date Visits Requested Visits Authorized [id number] Pending Review Auto-Generat ed Referral 07/03/2022 08/02/2023 1 1 [facility] for referral (narrative)* Diagnostic Procedure Only (Routine) - Pending Review Specialty Diagnoses / Procedures Referred By Samra day Referred To Contact [facility] Diagnoses Follow-up examination of abnormal mammogram Procedures US BREAST LTD LEFT US BREAST UNI REAL TIME WITH IMAGE LIMITED Shweta Jones APRN.CNP [address] [place] [address] [facility] [address] [place] [address] Referral ID Status Reason Start Date Expiration Date Visits Requested Visits Authorized [id number] Pending Review Auto-Generat ed Referral 08/23/2022 09/22/2023 1 1 * Diagnostic Procedure Only (Routine) - Pending Review Specialty Diagnoses / Procedures Referred By Contac t Referred To Contact [facility] Diagnoses Follow-up examination of abnormal mammogram Procedures AGUSTINA DIAGNOSTIC LEFT DIAGNOSTIC MAMMOGRAPHY COMPUTER-AIDED [facility] Shweta Serrano APRN.[employer]PENTER LABOR SUPERVISOR [address] [place] [address] [facility] [address] [place] [address] Referral ID Status Reason Start Date Expiration Date Visits Requested Visits Authorized [id number] Pending Review Auto-Generat ed Referral 08/23/2022 09/22/2023 1 1 [facility] for referral (narrative)* Diagnostic Procedure Only (Routine) - Closed Specialty Diagnoses / Procedures Referred By Samra t Referred To Contact [facility] Diagnoses Abnormal mammogram Procedures AGUSTINA DIAGNOSTIC LT DIAGNOSTIC MAMMOGRAPHY COMPUTER-AIDED [facility] Shweta Jones APRN.CARPENTER LABOR SUPERVISOR [address] [place] [address] [facility] [address] [place] [address] Referral ID Status Reason Start Date Expiration Date V isits Requested Visits Authorized [id number] Closed Auto-Generate d Referral 07/03/2022 08/02/2023 1 1 [facility] for referral (narrative)* Diagnostic Procedure Only (Routine) - Closed Specialty Diagnoses / Procedures Referred By Contac t Referred To Contact [facility] Diagnoses Encounter for screening mammogram for malignant neoplasm of breast Procedures AGUSTINA SCREENING SCREENING MAMMOGRAPHY BI 2-VIEW BREAST INC [facility] Shweta Jones APRN.CARPENTER LABOR SUPERVISOR [address] [place] [address] [facility] [address] [place] [address] Referral ID Status Reason Start Date Expiration Date V isits Requested Visits Authorized [id number] Closed Auto-Generate d Referral 06/18/2022 07/18/2023 1 1 [facility] for referral (narrative)* Diagnostic Procedure Only (Routine) - Closed Specialty Diagnoses / Procedures Referred By Brightac t Referred To Contact XR IMAGING Diagnoses Undifferentiated connective tissue disease (HCC) ILD (interstitial lung disease) (HCC) Malaise and fatigue High risk medication use Postmenopausal Procedures XR HAND GENERAL 3V PA/LAT/OBL LEFT RADEX HAND MINIMUM 3 VIEWS Dereje Chappell MD [address] [place] [address] [place] [address] Referral ID Status Reason Start Date Expiration Date V isits Requested Visits Authorized [id number] Closed Auto-Generate d Referral 04/10/2023 05/09/2024 1 1 * Diagnostic Procedure Only (Routine) - Closed Specialty Diagnoses / Procedures Referred By Contkristal t Referred To Contact XR IMAGING Diagnoses Undifferentiated connective tissue disease (HCC) ILD (interstitial lung disease) (HCC) Malaise and fatigue High risk medication use Postmenopausal Procedures XR HAND GENERAL 3V PA/LAT/OBL RIGHT RADEX HAND MINIMUM 3 VIEWS Dereje Chappell MD [address] [address] [place] [address] Referral ID Status Reason Start Date Expiration Date V isits Requested Visits Authorized [id number] Closed Auto-Generate d Referral 04/10/2023 05/09/2024 1 1 [facility] for visit Narrative* Diagnostic Procedure Only (Routine) - Closed Specialty Diagnoses / Procedures [facility] Diagnoses Chest pain, unspecified type Procedures NM CARDIAC PERF STRESS/PHARM MYOCARDIAL SPECT MULTIPLE STUDIES Shreya Grullon DO [address] [place] [address] Molecular [facility] Functional Imaging [address] [place] [address] Referral ID Status Reason Start Date Expiration Date V isits Requested Visits Authorized [id number] Closed Auto-Generate d Referral 08/10/2021 10/14/2021 1 1 [facility] for visit Narrative* Diagnostic Procedure Only (Routine) - Authorized Specialty Diagnoses / Procedures Referred By Contac t Referred To Contact [facility] Diagnoses Abnormal mammogram Procedures US BREAST LTD LT US BREAST UNI REAL TIME WITH IMAGE LIMITED Shweta Jones APRN.CARPENTER LABOR SUPERVISOR [address] [place] [address] [facility] [address] [place] [address] Referral ID Status Reason Start Date Expiration Date Visits Requested Visits Authorized [id number] Authorized Auto-Generat ed Referral 07/03/2022 08/02/2023 1 1 [facility] for visit Narrative* Diagnostic Procedure Only (Routine) - Closed Specialty Diagnoses / Procedures [facility] Diagnoses Abnormal mammogram Procedures AGUSTINA DIAGNOSTIC LT DIAGNOSTIC MAMMOGRAPHY COMPUTER-AIDED DETCJ UNI Shweta Jones, SIDER MECHANIC.CARPENTER LABOR SUPERVISOR [address] [place] [address] [facility] [address] [place] [address] Referral ID Status Reason Start Date Expiration Date V isits Requested Visits Authorized [id number] Closed Auto-Generate d Referral 07/03/2022 08/02/2023 1 1 [facility] for visit Narrative* Diagnostic Procedure Only (Routine) - Closed Specialty Diagnoses / Procedures Referred By Contac t Referred To Contact [facility] Diagnoses Encounter for screening mammogram for malignant neoplasm of breast Procedures AGUSTINA SCREENING SCREENING MAMMOGRAPHY BI 2-VIEW BREAST INC CAD Shweta Jones, SIDER MECHANIC.CARPENTER LABOR SUPERVISOR [address] [place] [address] [facility] [address] [place] [address] Referral ID Status Reason Start Date Expiration Date V isits Requested Visits Authorized [id number] Closed Auto-Generate d Referral 06/18/2022 07/18/2023 1 1 [facility] Summary Purpose Family History No Family History Records FoundUnknown Family Member Name Dates Details Family history of throat can cer: Father(V16.0, Z80.0) Status:Active Family history of malignant neoplasm of breast: Mother(V16.3, Z80.3) Status:Active Family history of malignant neoplasm of skin: Mother(V16.8, Z80.8) Status:Active Esophageal stricture: Father Status:Active Unknown Family Member Name Dates Details Family history of throat can cer: Father(V16.0, Z80.0) Status:Active Family history of malignant neoplasm of breast: Mother(V16.3, Z80.3) Status:Active Family history of malignant neoplasm of skin: Mother(V16.8, Z80.8) Status:Active Esophageal stricture: Father Status:Active Unknown Family Member Name Dates Details Family history of throat can cer: Father(V16.0, Z80.0) Status:Active Family history of malignant neoplasm of breast: Mother(V16.3, Z80.3) Status:Active Family history of malignant neoplasm of skin: Mother(V16.8, Z80.8) Status:Active Esophageal stricture: Father Status:Active Advance Directives No Advanced Directives Records FoundDocuments on File Type Date Recorded 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 Advance Directive(s) 07/13/2021 7:10 AM Advance Directive(s) 02/02/2021 7:37 AM Advance Directive(s) 12/16/2015 6:07 AM Advance Directive(s) 12/12/2015 12:35 PM Documents on File Type Date Recorded 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 Advance Directive(s) 07/13/2021 7:10 AM Advance Directive(s) 02/02/2021 7:37 AM Advance Directive(s) 12/16/2015 6:07 AM Advance Directive(s) 12/12/2015 12:35 PM Assessments Diagnosis Systemic lupus erythematosus with organ system involvement - Primary Systemic lupus erythematosus Pleurisy Pleurisy without mention of effusion or current tuberculosis Pleural effusion on right Unspecified pleural effusion Osteoarthritis of both hands , unspecified osteoarthritis type Osteoarthritis of both feet, unspecified osteoarthritis type Inflammatory arthritis Unspecified inflammatory polyarthropathy Leukocytosis, unspecified ty pe senior care (current) use of a spirin Positive FRANCES (antinuclear an tibody) Other and unspecified nonspecific immunological findings Encounter for long-term (cur rent) use of non-steroidal anti-inflammatories CRP elevated Elevated C-reactive protein (CRP) Abnormal immunological findi ng in serum Other nonspecific findings on examination of blood Long-term current use of hig h risk medication other than anticoagulant Long-term use of Plaquenil Scoliosis of lumbar spine, u nspecified scoliosis type Bilateral calcaneal spurs Lumbar degenerative disc dis ease Degeneration of lumbar or lumbosacral intervertebral disc DDD (degenerative disc disea se), cervical Degeneration of cervical intervertebral disc Medications Administered Section Inactive Administered Medications - up to 3 most recent administrations Medication Order MAR Action Action Date Dose Rate Site amoxicillin 250 mg oral liquid (AMOXIL) 250 mg, ORAL, ONCE, 1 dose, On Sat09/05/21 at 1300, SHAKE WELL. REFRIGERATE., Please document the antimicrobial indication: Empiric Given 09/05/2021 12:45 PM EDT 250 mg Inactive Administered Medications - up to 3 most recent administrations Medication Order MAR Action Action Date Dose Rate Site regadenoson 0.4 mg injection (LEXISCAN) 0.4 mg, INTRAVENOUS, ONCE, 1 dose, On Sat09/18/21 at 1030, Give 0.4 mg (5 mL) over ~10 seconds, followed immediately by a 5 mL saline flush. Wait 10-20 seconds, then administer the radionuclide myocardial perfusion imaging agent. Given 09/18/2021 9:40 AM EDT 0.4 mg Reason for Referral Specialty Diagnoses / Procedures Referred By Samra day Referred To Contact CT IMAGING Diagnoses Immunodeficiency (HCC) Lung nodules Restrictive lung disease Procedures CT CHEST WO IVCON DIAGNOSTIC COMPUTED TOMOGRAPHY THORAX [place] [id number] Imaging Referral ID Status Reason Start Date Expiration Date V isits Requested Visits Authorized [id number] Closed Auto-Generate d Referral 01/19/2022 03/05/2022 1 1 Chief Complaint NPV in office today referred by Dr. Linda Loving for a motility disorder and states she has some dysphagia and difficulty with food passing sometimes. Bloating after eating, pt states that Dr. Loving had bile reflux on gallbladder scan. Patient states her well at home had e. coli bacteria and got sickfrom that and was placed on an antibiotic. Patient states last coloscopy was several years ago at [facility].NPV in office today referred by Dr. Linda Loving for a motility disorder and states she has some dysphagia and difficulty with food passing sometimes. Bloating after eating, pt states that Dr. Loving had bile reflux on gallbladder scan. Patient states her well at home had e. coli bacteria and got sickfrom that and was placed on an antibiotic. Patient states last coloscopy was several years ago at [facility]. Additional Source Comments INFORMATION SOURCE (unrecogn ized section and content) DATE CREATED AUTHOR AUTHOR'S ORGANIZ ATION 11/09/2017 [facility] DATE CREATED AUTHOR AUTHOR'S ORGANIZ ATION 04/22/2018 [facility] DATE CREATED AUTHOR AUTHOR'S ORGANIZ ATION 03/21/2019 [facility] DATE CREATED AUTHOR AUTHOR'S ORGANIZ ATION 11/04/2020 [facility] DATE CREATED AUTHOR AUTHOR'S ORGANIZ ATION 07/27/2021 [facility] DATE CREATED AUTHOR AUTHOR'S ORGANIZ ATION 09/19/2021 [facility] DATE CREATED AUTHOR AUTHOR[facility]S [facility]GANIZ ATION [facility] DATE CREATED AUTHOR AUTHOR'S ORGANIZ ATION 10/08/2022 [facility] DATE CREATED AUTHOR AUTHOR'S ORGANIZ ATION 10/08/2022 [facility] DATE CREATED AUTHOR AUTHOR'S ORGANIZ ATION 05/02/2023 [facility] DATE CREATED AUTHOR AUTHOR'S ORGANIZ ATION 05/21/2023 [facility] Source Comments (unrecognize d section and content) In the event this informatio n is protected by the Federal Confidentiality of Alcohol and Drug Abuse Patient Records regulations: The Federal rules restrict any use of the information to criminally investigate or prosecute any alcohol or drug abuse patient.[facility] System[facility] the event this information is protected by the Federal Confidentiality of Alcohol and Drug Abuse Patient Records regulations: The Federal rules restrict any use of the information to criminally investigate or prosecute any alcohol or drug abuse patient.[facility] SystemIn the event this information is protected by the Federal Confidentiality of Alcohol and Drug Abuse Patient Records regulations: The Federal rules restrict any use of the information to criminally investigate or prosecute any alcohol or drug abuse patient.[facility] SystemIn the event this information is protected by the Federal Confidentiality of Alcohol and Drug Abuse Patient Records regulations: The Federal rules restrict any use of the information to criminally investigate or prosecute any alcohol or drug abuse patient.[facility] SystemIn the event this information is protected by the Federal Confidentiality of Alcohol and Drug Abuse Patient Records regulations: The Federal rules restrict any use of the information to criminally investigate or prosecute any alcohol or drug abuse patient.[facility] SystemIn the event this information is protected by the Federal Confidentiality of Alcohol and Drug Abuse Patient Records regulations: The Federal rules restrict any use of the information to criminally investigate or prosecute any alcohol or drug abuse patient.[facility] SystemIn the event this information is protected by the Federal Confidentiality of Alcohol and Drug Abuse Patient Records regulations: The Federal rules restrict any use of the information to criminally investigate or prosecute any alcohol or drug abuse patient.[facility] SystemIn the event this information is protected by the Federal Confidentiality of Alcohol and Drug Abuse Patient Records regulations: The Federal rules restrict any use of the information to criminally investigate or prosecute any alcohol or drug abuse patient.[facility] SystemIn the event this information is protected by the Federal Confidentiality of Alcohol and Drug Abuse Patient Records regulations: The Federal rules restrict any use of the information to criminally investigate or prosecute any alcohol or drug abuse patient.[facility] SystemIn the event this information is protected by the Federal Confidentiality of Alcohol and Drug Abuse Patient Records regulations: The Federal rules restrict any use of the information to criminally investigate or prosecute any alcohol or drug abuse patient.[facility] SystemIn the event this information is protected by the Federal Confidentiality of Alcohol and Drug Abuse Patient Records regulations: The Federal rules restrict any use of the information to criminally investigate or prosecute any alcohol or drug abuse patient.[facility] SystemIn the event this information is protected by the Federal Confidentiality of Alcohol and Drug Abuse Patient Records regulations: The Federal rules restrict any use of the information to criminally investigate or prosecute any alcohol or drug abuse patient.[facility] SystemIn the event this information is protected by the Federal Confidentiality of Alcohol and Drug Abuse Patient Records regulations: The Federal rules restrict any use of the information to criminally investigate or prosecute any alcohol or drug abuse patient.[facility] SystemIn the event this information is protected by the Federal Confidentiality of Alcohol and Drug Abuse Patient Records regulations: The Federal rules restrict any use of the information to criminally investigate or prosecute any alcohol or drug abuse patient.[facility] SystemIn the event this information is protected by the Federal Confidentiality of Alcohol and Drug Abuse Patient Records regulations: The Federal rules restrict any use of the information to criminally investigate or prosecute any alcohol or drug abuse patient.[facility] SystemIn the event this information is protected by the Federal Confidentiality of Alcohol and Drug Abuse Patient Records regulations: The Federal rules restrict any use of the information to criminally investigate or prosecute any alcohol or drug abuse patient.[facility] SystemIn the event this information is protected by the Federal Confidentiality of Alcohol and Drug Abuse Patient Records regulations: The Federal rules restrict any use of the information to criminally investigate or prosecute any alcohol or drug abuse patient.[facility] SystemIn the event this information is protected by the Federal Confidentiality of Alcohol and Drug Abuse Patient Records regulations: The Federal rules restrict any use of the information to criminally investigate or prosecute any alcohol or drug abuse patient.[facility] SystemIn the event this information is protected by the Federal Confidentiality of Alcohol and Drug Abuse Patient Records regulations: The Federal rules restrict any use of the information to criminally investigate or prosecute any alcohol or drug abuse patient.[facility] SystemIn the event this information is protected by the Federal Confidentiality of Alcohol and Drug Abuse Patient Records regulations: The Federal rules restrict any use of the information to criminally investigate or prosecute any alcohol or drug abuse patient.[facility] SystemIn the event this information is protected by the Federal Confidentiality of Alcohol and Drug Abuse Patient Records regulations: The Federal rules restrict any use of the information to criminally investigate or prosecute any alcohol or drug abuse patient.[facility] SystemIn the event this information is protected by the Federal Confidentiality of Alcohol and Drug Abuse Patient Records regulations: The Federal rules restrict any use of the information to criminally investigate or prosecute any alcohol or drug abuse patient.[facility] SystemIn the event this information is protected by the Federal Confidentiality of Alcohol and Drug Abuse Patient Records regulations: The Federal rules restrict any use of the information to criminally investigate or prosecute any alcohol or drug abuse patient.[facility] SystemIn the event this information is protected by the Federal Confidentiality of Alcohol and Drug Abuse Patient Records regulations: The Federal rules restrict any use of the information to criminally investigate or prosecute any alcohol or drug abuse patient.[facility] SystemIn the event this information is protected by the Federal Confidentiality of Alcohol and Drug Abuse Patient Records regulations: The Federal rules restrict any use of the information to criminally investigate or prosecute any alcohol or drug abuse patient.[facility] SystemIn the event this information is protected by the Federal Confidentiality of Alcohol and Drug Abuse Patient Records regulations: The Federal rules restrict any use of the information to criminally investigate or prosecute any alcohol or drug abuse patient.[facility] SystemIn the event this information is protected by the Federal Confidentiality of Alcohol and Drug Abuse Patient Records regulations: The Federal rules restrict any use of the information to criminally investigate or prosecute any alcohol or drug abuse patient.[facility] SystemIn the event this information is protected by the Federal Confidentiality of Alcohol and Drug Abuse Patient Records regulations: The Federal rules restrict any use of the information to criminally investigate or prosecute any alcohol or drug abuse patient.[facility] SystemIn the event this information is protected by the Federal Confidentiality of Alcohol and Drug Abuse Patient Records regulations: The Federal rules restrict any use of the information to criminally investigate or prosecute any alcohol or drug abuse patient.[facility] SystemIn the event this information is protected by the Federal Confidentiality of Alcohol and Drug Abuse Patient Records regulations: The Federal rules restrict any use of the information to criminally investigate or prosecute any alcohol or drug abuse patient.[facility] SystemIn the event this information is protected by the Federal Confidentiality of Alcohol and Drug Abuse Patient Records regulations: The Federal rules restrict any use of the information to criminally investigate or prosecute any alcohol or drug abuse patient.[facility] SystemIn the event this information is protected by the Federal Confidentiality of Alcohol and Drug Abuse Patient Records regulations: The Federal rules restrict any use of the information to criminally investigate or prosecute any alcohol or drug abuse patient.[facility] SystemIn the event this information is protected by the Federal Confidentiality of Alcohol and Drug Abuse Patient Records regulations: The Federal rules restrict any use of the information to criminally investigate or prosecute any alcohol or drug abuse patient.[facility] SystemIn the event this information is protected by the Federal Confidentiality of Alcohol and Drug Abuse Patient Records regulations: The Federal rules restrict any use of the information to criminally investigate or prosecute any alcohol or drug abuse patient.[facility] SystemIn the event this information is protected by the Federal Confidentiality of Alcohol and Drug Abuse Patient Records regulations: The Federal rules restrict any use of the information to criminally investigate or prosecute any alcohol or drug abuse patient.[facility] SystemIn the event this information is protected by the Federal Confidentiality of Alcohol and Drug Abuse Patient Records regulations: The Federal rules restrict any use of the information to criminally investigate or prosecute any alcohol or drug abuse patient.[facility] SystemIn the event this information is protected by the Federal Confidentiality of Alcohol and Drug Abuse Patient Records regulations: The Federal rules restrict any use of the information to criminally investigate or prosecute any alcohol or drug abuse patient.[facility] SystemIn the event this information is protected by the Federal Confidentiality of Alcohol and Drug Abuse Patient Records regulations: The Federal rules restrict any use of the information to criminally investigate or prosecute any alcohol or drug abuse patient.[facility] SystemIn the event this information is protected by the Federal Confidentiality of Alcohol and Drug Abuse Patient Records regulations: The Federal rules restrict any use of the information to criminally investigate or prosecute any alcohol or drug abuse patient.[facility] SystemIn the event this information is protected by the Federal Confidentiality of Alcohol and Drug Abuse Patient Records regulations: The Federal rules restrict any use of the information to criminally investigate or prosecute any alcohol or drug abuse patient.[facility] SystemIn the event this information is protected by the Federal Confidentiality of Alcohol and Drug Abuse Patient Records regulations: The Federal rules restrict any use of the information to criminally investigate or prosecute any alcohol or drug abuse patient.[facility] SystemIn the event this information is protected by the Federal Confidentiality of Alcohol and Drug Abuse Patient Records regulations: The Federal rules restrict any use of the information to criminally investigate or prosecute any alcohol or drug abuse patient.[facility] SystemIn the event this information is protected by the Federal Confidentiality of Alcohol and Drug Abuse Patient Records regulations: The Federal rules restrict any use of the information to criminally investigate or prosecute any alcohol or drug abuse patient.[facility] SystemIn the event this information is protected by the Federal Confidentiality of Alcohol and Drug Abuse Patient Records regulations: The Federal rules restrict any use of the information to criminally investigate or prosecute any alcohol or drug abuse patient.[facility] SystemIn the event this information is protected by the Federal Confidentiality of Alcohol and Drug Abuse Patient Records regulations: The Federal rules restrict any use of the information to criminally investigate or prosecute any alcohol or drug abuse patient.[facility] SystemIn the event this information is protected by the Federal Confidentiality of Alcohol and Drug Abuse Patient Records regulations: The Federal rules restrict any use of the information to criminally investigate or prosecute any alcohol or drug abuse patient.[facility] SystemIn the event this information is protected by the Federal Confidentiality of Alcohol and Drug Abuse Patient Records regulations: The Federal rules restrict any use of the information to criminally investigate or prosecute any alcohol or drug abuse patient.[facility] SystemIn the event this information is protected by the Federal Confidentiality of Alcohol and Drug Abuse Patient Records regulations: The Federal rules restrict any use of the information to criminally investigate or prosecute any alcohol or drug abuse patient.[facility] SystemIn the event this information is protected by the Federal Confidentiality of Alcohol and Drug Abuse Patient Records regulations: The Federal rules restrict any use of the information to criminally investigate or prosecute any alcohol or drug abuse patient.[facility] SystemIn the event this information is protected by the Federal Confidentiality of Alcohol and Drug Abuse Patient Records regulations: The Federal rules restrict any use of the information to criminally investigate or prosecute any alcohol or drug abuse patient.[facility] SystemIn the event this information is protected by the Federal Confidentiality of Alcohol and Drug Abuse Patient Records regulations: The Federal rules restrict any use of the information to criminally investigate or prosecute any alcohol or drug abuse patient.[facility] SystemIn the event this information is protected by the Federal Confidentiality of Alcohol and Drug Abuse Patient Records regulations: The Federal rules restrict any use of the information to criminally investigate or prosecute any alcohol or drug abuse patient.[facility] SystemIn the event this information is protected by the Federal Confidentiality of Alcohol and Drug Abuse Patient Records regulations: The Federal rules restrict any use of the information to criminally investigate or prosecute any alcohol or drug abuse patient.[facility] SystemIn the event this information is protected by the Federal Confidentiality of Alcohol and Drug Abuse Patient Records regulations: The Federal rules restrict any use of the information to criminally investigate or prosecute any alcohol or drug abuse patient.[facility] SystemIn the event this information is protected by the Federal Confidentiality of Alcohol and Drug Abuse Patient Records regulations: The Federal rules restrict any use of the information to criminally investigate or prosecute any alcohol or drug abuse patient.[facility] SystemIn the event this information is protected by the Federal Confidentiality of Alcohol and Drug Abuse Patient Records regulations: The Federal rules restrict any use of the information to criminally investigate or prosecute any alcohol or drug abuse patient.[facility] SystemIn the event this information is protected by the Federal Confidentiality of Alcohol and Drug Abuse Patient Records regulations: The Federal rules restrict any use of the information to criminally investigate or prosecute any alcohol or drug abuse patient.[facility] SystemIn the event this information is protected by the Federal Confidentiality of Alcohol and Drug Abuse Patient Records regulations: The Federal rules restrict any use of the information to criminally investigate or prosecute any alcohol or drug abuse patient.[facility] SystemIn the event this information is protected by the Federal Confidentiality of Alcohol and Drug Abuse Patient Records regulations: The Federal rules restrict any use of the information to criminally investigate or prosecute any alcohol or drug abuse patient.[facility] SystemIn the event this information is protected by the Federal Confidentiality of Alcohol and Drug Abuse Patient Records regulations: The Federal rules restrict any use of the information to criminally investigate or prosecute any alcohol or drug abuse patient.[facility] SystemIn the event this information is protected by the Federal Confidentiality of Alcohol and Drug Abuse Patient Records regulations: The Federal rules restrict any use of the information to criminally investigate or prosecute any alcohol or drug abuse patient.[facility] SystemIn the event this information is protected by the Federal Confidentiality of Alcohol and Drug Abuse Patient Records regulations: The Federal rules restrict any use of the information to criminally investigate or prosecute any alcohol or drug abuse patient.[facility] SystemIn the event this information is protected by the Federal Confidentiality of Alcohol and Drug Abuse Patient Records regulations: The Federal rules restrict any use of the information to criminally investigate or prosecute any alcohol or drug abuse patient.[facility] SystemIn the event this information is protected by the Federal Confidentiality of Alcohol and Drug Abuse Patient Records regulations: The Federal rules restrict any use of the information to criminally investigate or prosecute any alcohol or drug abuse patient.[facility] SystemIn the event this information is protected by the Federal Confidentiality of Alcohol and Drug Abuse Patient Records regulations: The Federal rules restrict any use of the information to criminally investigate or prosecute any alcohol or drug abuse patient.[facility] SystemIn the event this information is protected by the Federal Confidentiality of Alcohol and Drug Abuse Patient Records regulations: The Federal rules restrict any use of the information to criminally investigate or prosecute any alcohol or drug abuse patient.[facility] SystemIn the event this information is protected by the Federal Confidentiality of Alcohol and Drug Abuse Patient Records regulations: The Federal rules restrict any use of the information to criminally investigate or prosecute any alcohol or drug abuse patient.[facility] SystemIn the event this information is protected by the Federal Confidentiality of Alcohol and Drug Abuse Patient Records regulations: The Federal rules restrict any use of the information to criminally investigate or prosecute any alcohol or drug abuse patient.[facility] SystemIn the event this information is protected by the Federal Confidentiality of Alcohol and Drug Abuse Patient Records regulations: The Federal rules restrict any use of the information to criminally investigate or prosecute any alcohol or drug abuse patient.[facility] SystemIn the event this information is protected by the Federal Confidentiality of Alcohol and Drug Abuse Patient Records regulations: The Federal rules restrict any use of the information to criminally investigate or prosecute any alcohol or drug abuse patient.[facility] Care Teams (unrecognized sec tion and content) Welfare Worker Relationship Specialty Start Date End Date Linda Loving DO [id number] [facility] [place]ON[place] Willi [place], [place] [id number] PCP - General Family Practice 10/07/17 No, Referral Referring 12/12/18 Yunior Hodges MD Primary Staff Physician Cardiology 07/15/18 Welfare Worker Relationship Specialty Start Date End Date Linda Loving DO [address] [place], [place] [id number] PCP - General Family Practice 10/07/17 No, Referral Referring 12/12/18 Yunior Hodges MD Primary Staff Physician Cardiology 07/15/18 Welfare Worker Relationship Specialty Start Date End Date MarkdannaLinda DO [address] [place], [place] [id number] PCP - General Family Practice 10/07/17 No, Referral Referring 12/12/18 Yunior Hodges MD Primary Staff Physician Cardiology 07/15/18 Welfare Worker Relationship Specialty Start Date End Date MarkdannaLinda DO [address] [place], [place] [id number] PCP - General Family Practice 10/07/17 No, Referral Referring 12/12/18 Yunior Hodges MD Primary Staff Physician Cardiology 07/15/18 Welfare Worker Relationship Specialty Start Date End Date Linda Loving DO [address] [place], [place] [id number] PCP - General Family Practice 10/07/17 No, Referral Referring 12/12/18 Yunior Hodges MD Primary Staff Physician Cardiology 07/15/18 Welfare Worker Relationship Specialty Start Date End Date Linda Loving DO [address] [place], [place] [id number] PCP - General Family Practice 10/07/17 No, Referral Referring 12/12/18 Yunior Hodges MD Primary Staff Physician Cardiology 07/15/18 Welfare Worker Relationship Specialty Start Date End Date Linda Loving DO [address] [place], [place] [id number] PCP - General Family Practice 10/07/17 No, Referral Referring 12/12/18 Yunior Hodges MD Primary Staff Physician Cardiology 07/15/18 Welfare Worker Relationship Specialty Start Date End Date Linda Loving DO [address] [place], [place] [id number] PCP - General Family Practice 10/07/17 No, Referral Referring 12/12/18 Yunior Hodges MD Primary Staff Physician Cardiology 07/15/18 Welfare Worker Relationship Specialty Start Date End Date Linda Loving DO [address] [place], [place] [id number] PCP - General Family Practice 10/07/17 No, Referral Referring 12/12/18 Yunior Hodges MD Primary Staff Physician Cardiology 07/15/18 Welfare Worker Relationship Specialty Start Date End Date Linda Loving DO [address] [place], [place] [id number] PCP - General Family Practice 10/07/17 No, Referral Referring 12/12/18 Yunior Hodges MD Primary Staff Physician Cardiology 07/15/18 Welfare Worker Relationship Specialty Start Date End Date Fabienne Linda A [address] [place], [place] [id number] PCP - General Family Practice 10/07/17 No, Referral Referring 12/12/18 Yunior Hodges MD Primary Staff Physician Cardiology 07/15/18 Welfare Worker Relationship Specialty Start Date End Date Fabienne Lindawilli Márquez DO [address] [place], [place] [id number] PCP - General Family Practice 10/07/17 No, Referral Referring 12/12/18 Yunior Hodges MD Primary Staff Physician Cardiology 07/15/18 Welfare Worker Relationship Specialty Start Date End Date Fabienne Linda WilliDO [address] [place], [place] [id number] PCP - General Family Practice 10/07/17 No, Referral Referring 12/12/18 Yunior Hodges MD Primary Staff Physician Cardiology 07/15/18 Welfare Worker Relationship Specialty Start Date End Date Linda Loving DO [address] [place], [place] [phone] PCP - General Family Practice 10/07/17 No, Referral Referring 12/12/18 Yunior Hodges MD Primary Staff Physician Cardiology 07/15/18 Welfare Worker Relationship Specialty Start Date End Date Linda Loving DO [address] [place], [place] [id number] PCP - General Family Medicine 10/07/17 No, Referral Referring 12/12/18 Yunior Hodges MD Primary Staff Physician Cardiology 07/15/18 Welfare Worker Relationship Specialty Start Date End Date Linda Loving DO [address] [place], [place] [id number] PCP - General Family Medicine 10/07/17 No, Referral Referring 12/12/18 Yunior Hodges MD Primary Staff Physician Cardiology 07/15/18 Welfare Worker Relationship Specialty Start Date End Date Linda Loving DO [address] [place], [place] [id number] PCP - General Family Medicine 10/07/17 No, Referral Referring 12/12/18 Yunior Hodges MD Primary Staff Physician Cardiology 07/15/18 Welfare Worker Relationship Specialty Start Date End Date Linda Loving DO [address] [place], [place] [id number] PCP - General Family Medicine 10/07/17 No, Referral Referring 12/12/18 Yunior Hodges MD Primary Staff Physician Cardiology 07/15/18 Welfare Worker Relationship Specialty Start Date End Date Linda Loving DO [address] [place], [place] [phone] PCP - General Family Medicine 10/07/17 No, Referral Referring 12/12/18 Yuniro Hodges MD Primary Staff Physician Cardiology 07/15/18 Welfare Worker Relationship Specialty Start Date End Date Linda Loving Willi [address] [place], [place] [id number] PCP - General Family Medicine 10/07/17 No, Referral Referring 12/12/18 Yunior Hodges MD Primary Staff Physician Cardiology 07/15/18 Welfare Worker Relationship Specialty Start Date End Date Linda Loving [address] [place], [place] [id number] PCP - General Family Medicine 10/07/17 No, Referral Referring 12/12/18 Yunior Hodges MD Primary Staff Physician Cardiology 07/15/18 Welfare Worker Relationship Specialty Start Date End Date Erica Lovingwilli Márquez DO [address] [place], [place] [phone] PCP - General Family Medicine 10/07/17 No, Referral Referring 12/12/18 Yunior Hodges MD Primary Staff Physician Cardiology 07/15/18 Welfare Worker Relationship Specialty Start Date End Date Linda Loving DO [address] [place] [address] PCP - General Family Medicine 10/07/17 No, Referral Referring 12/12/18 Yunior Hodges MD Primary Staff Physician Cardiology 07/15/18 Welfare Worker Relationship Specialty Start Date End Date Linda Loving DO [address] [place], [place] [id number] PCP - General Family Medicine 10/07/17 No, Referral Referring 12/12/18 Yunior Hodges MD Primary Staff Physician Cardiology 07/15/18 Welfare Worker Relationship Specialty Start Date End Date Linda Loving [address] [place], [place] [id number] PCP - General Family Medicine 10/07/17 No, Referral Referring 12/12/18 Yunior Hodges MD Primary Staff Physician Cardiology 07/15/18 Welfare Worker Relationship Specialty Start Date End Date Linda Loving [address] [place], [place] [id number] PCP - General Family Medicine 10/07/17 No, Referral Referring 12/12/18 Yunior Hodges MD Primary Staff Physician Cardiology 07/15/18 Welfare Worker Relationship Specialty Start Date End Date Linda Loving [address] [place], [place] [id number] PCP - General Family Medicine 10/07/17 No, Referral Referring 12/12/18 Yunior Hodges MD Primary Staff Physician Cardiology 07/15/18 Welfare Worker Relationship Specialty Start Date End Date Linda LovingDO [address] [place], [place] [id number] PCP - General Family Medicine 10/07/17 No, Referral Referring 12/12/18 Yunior Hodges MD Primary Staff Physician Cardiology 07/15/18 Welfare Worker Relationship Specialty Start Date End Date Linda Loving DO [address] [place], [place] [id number] PCP - General Family Medicine 10/07/17 No, Referral Referring 12/12/18 Yunior Hodges MD Primary Staff Physician Cardiology 07/15/18 Welfare Worker Relationship Specialty Start Date End Date Linda Loving DO [address] [place], [place] [phone] PCP - General Family Medicine 10/07/17 No, Referral Referring 12/12/18 Yunior Hodges MD Primary Staff Physician Cardiology 07/15/18 Welfare Worker Relationship Specialty Start Date End Date Linda Loving DO [address] [place], [place] [phone] PCP - General Family Medicine 10/07/17 No, Referral Referring 12/12/18 Yunior Hodges MD Primary Staff Physician Cardiology 07/15/18 Welfare Worker Relationship Specialty Start Date End Date Linda Loving DO [address] [place], [place] [id number] PCP - General Family Medicine 10/07/17 No, Referral Referring 12/12/18 Yunior Hodges MD Primary Staff Physician Cardiology 07/15/18 Welfare Worker Relationship Specialty Start Date End Date Linda Loving DO [address] [place], [place] [phone] PCP - General Family Medicine 10/07/17 No, Referral Referring 12/12/18 Yunior Hodges MD Primary Staff Physician Cardiology 07/15/18 Welfare Worker Relationship Specialty Start Date End Date Linda Loving DO [address] [place], [place] [id number] PCP - General Family Medicine 10/07/17 No, Referral Referring 12/12/18 Yunior Hodges MD Primary Staff Physician Cardiology 07/15/18 Welfare Worker Relationship Specialty Start Date End Date Linda Loving DO [address] [place], [place] [id number] PCP - General Family Medicine 10/07/17 No, Referral Referring 12/12/18 Yunior Hodges MD Primary Staff Physician Cardiology 07/15/18 Welfare Worker Relationship Specialty Start Date End Date Linda Loving DO Willi [address] [place], [place] [phone] PCP - General Family Medicine 10/07/17 No, Referral Referring 12/12/18 Yunior Hodges MD Primary Staff Physician Cardiology 07/15/18 Welfare Worker Relationship Specialty Start Date End Date FabienneLinda DO [address] [place], [place] [id number] PCP - General Family Medicine 10/07/17 No, Referral Referring 12/12/18 Yunior Hodges MD Primary Staff Physician Cardiology 07/15/18 Welfare Worker Relationship Specialty Start Date End Date Linda Loving DO [address] [place], [place] [address] PCP - General Family Medicine 10/07/17 No, Referral Referring 12/12/18 Yunior Hodges MD Primary Staff Physician Cardiology 07/15/18 Welfare Worker Relationship Specialty Start Date End Date Linda LovingDO [address] [place], [place] [phone] PCP - General Family Medicine 10/07/17 No, Referral Referring 12/12/18 Yunior Hodges MD Primary Staff Physician Cardiology 07/15/18 Welfare Worker Relationship Specialty Start Date End Date Linda LovingDO [address] [place], [place] [id number] PCP - General Family Medicine 10/07/17 No, Referral Referring 12/12/18 Yunior Hodges MD Primary Staff Physician Cardiology 07/15/18 Welfare Worker Relationship Specialty Start Date End Date MarkdannaLinda DO [address] [place], [place] [id number] PCP - General Family Medicine 10/07/17 No, Referral Referring 12/12/18 Yunior Hodges MD Primary Staff Physician Cardiology 07/15/18 Welfare Worker Relationship Specialty Start Date End Date Linda LovingDO [address] [place] [phone] PCP - General Family Medicine 10/07/17 No, Referral Referring 12/12/18 Yunior Hodges MD Primary Staff Physician Cardiology 07/15/18 Welfare Worker Relationship Specialty Start Date End Date Linda LovingDO [address] [place], [place] [phone] PCP - General Family Medicine 10/07/17 No, Referral Referring 12/12/18 Yunior Hodges MD Primary Staff Physician Cardiology 07/15/18 Welfare Worker Relationship Specialty Start Date End Date Linda LovingDO [address] [place], [place] [phone] PCP - General Family Medicine 10/07/17 No, Referral Referring 12/12/18 Yunior Hodges MD Primary Staff Physician Cardiology 07/15/18 Welfare Worker Relationship Specialty Start Date End Date FabienneLinda DO [address] [place] [address] PCP - General Family Medicine 10/07/17 No, Referral Referring 12/12/18 Yunior Hodges MD Primary Staff Physician Cardiology 07/15/18 Reason for Visit (unrecogniz ed section and content) Reason Comments FYI-No Action Needed Reason Comments New Patient Reason Comments Patient Question Patient Update Reason Comments Results 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 Patient immunodeficiency con sult Specialty Diagnoses / Procedures Referred By Contac t Referred To Contact Allergy Diagnoses Immunodeficiency (HCC) Procedures CONSULT TO ALLERGY/IMMUNOLOGY OFFICE/OUTPATIENT NEW HIGH MDM 60-[place] [address] [address] [place] [phone] Referral ID Status Reason Start Date Expiration Date V isits Requested Visits Authorized [id number] Closed PCP Requested Referral 08/21/2021 11/19/2021 1 1 Reason Onset Date Comments Refill Request 10/20/2021 Refill Request 10/26/2021 Reason Onset Date Comments Rx Refills 11/02/2021 Reason Comments Refill Request Reason Comments Spirometry Specialty Diagnoses / Procedures [facility] RESPIRATORY BLESSING Diagnoses Interstitial pulmonary disease (HCC) Shortness of breath Mild persistent asthma without complication Procedures LUNG DIFFUSION CAPACITY (DLCO) [place] [address] [place] [address] [place] [phone] Referral ID Status Reason Start Date Expiration Date V isits Requested Visits Authorized [id number] Closed Auto-Generate d Referral 12/15/2021 01/14/2023 1 1 Specialty Diagnoses / Procedures [facility] RESPIRATORY BLESSING Diagnoses Interstitial pulmonary disease (HCC) Shortness of breath Mild persistent asthma without complication Procedures OXIMETRY WITH AMBULATION NONINVASIVE EAR/PULSE O[place]IM[place]RY [place] [address] [place] [address] [address] Referral ID Status Reason Start Date Expiration Date V isits Requested Visits Authorized [id number] Closed Auto-Generate d Referral 12/15/2021 01/14/2023 1 1 Specialty Diagnoses / Procedures [facility] RESPIRATORY BLESSING Diagnoses Interstitial pulmonary disease (HCC) Shortness of breath Mild persistent asthma without complication Procedures SPIROMETRY WITH DILATOR IF OBSTRUCTED BRNCDILAT RSPSE SPMTRY PRE&[place] [address] [place] [phone] Respiratory [place] [address] [place] [address] Referral ID Status Reason Start Date Expiration Date V isits Requested Visits Authorized [id number] Closed Auto-Generate d Referral 12/15/2021 01/14/2023 [address] Specialty Diagnoses / Procedures Referred By Contac t Referred To Contact CT IMAGING Diagnoses Immunodeficiency (HCC) Lung nodules Restrictive lung disease Procedures CT CHEST WO IVCON DIAGNOSTIC COMPUTED TOMOGRAPHY THORAX W/[place] [address] [place] [phone] Imaging Referral ID Status Reason Start Date Expiration Date V isits Requested Visits Authorized [id number] Closed Auto-Generate d Referral 01/19/2022 03/05/2022 1 1 Reason Comments Established Patient Follow-Up Reason Comments Release Of Medical Records Reason Comments Orders Reason Comments Esophageal Dysphagia Reason Onset Date Comments Refill Request 05/30/2022 Reason Comments Seizures Reason Comments Vaginal Problem Vaginal irritation, pain with intercourse Reason Comments Orders Reason Onset Date Comments Refill Request 07/18/2022 Reason Comments Cardiology Follow Up Still having heart fluttering every couple days - lasts 1 to 30 mins. Apple watch has not alerted her to any arrhythmias Reason Comments Follow Up Reason Comments Patient Question Reason Onset Date Comments Refill Request 09/26/2022 Reason Comments Epilepsy Follow Up Refill Request Reason Comments F/U 6 Month FOR RECORDS PERTAINING TO PATIENTS WHO ARE OR HAVE BEEN ENROLLED IN A CHEMICAL DEPENDENCY/SUBSTANCEABUSE PROGRAM, SOME INFORMATION MAY BE OMITTED. This clinical summary was aggregated from multiple sources. Caution should be exercised in using it in the provision of clinical care. This summary normalizes information from multiple sources, and as a consequence, information in this document may materially change the coding, format and clinical context of patient data. In addition, data may be omitted in some cases. CLINICAL DECISIONS SHOULD BE BASED ON THE PRIMARY CLINICAL RECORDS. [employer] provides no warranty or guarantee of the accuracy or completeness of information in this document.
--- NOTE | 2023-05-22 13:00 | RAD_ITS ---
STUDY: INTRAOPERATIVE CHOLANGIOGRAM. REASON FOR EXAM: Female, 68 years old. PAIN, LAP BRAEDEN FLUOROSCOPY TIME (if supplied): ( 9 seconds ) minutes/seconds. 2.53 mGy. TECHNIQUE: An intraoperative cholangiogram was performed by the surgeon. Imaging was submitted. COMPARISON: None. FINDINGS: Contrast was injected by the surgeon. Imaging of the common bile duct was obtained with free flow of contrast into the duodenum. No intraluminal filling defect is seen. RAD/Cholangiogram/ O R,Initial IMPRESSION: Unremarkable intraoperative cholangiogram. Electronically Signed: Genaro Zabala MD at 13:52 EST ,
[2023-05-22] MEDS: Lactated Ringers 1,000 ML 15 ML IV (13:10)
--- NOTE | 2023-05-22 13:51 | PCM.HP.BLA ---
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 Accompanied by: Is patient in pain?: No Allergies epinephrine Allergy (Verified 02/25/23 08:48) SEIZUREPenicillins Allergy (Verified 02/25/23 08:48) Rash Medications cholecalciferol (vitamin D3) 125 mcg (5,000 unit) capsule 5,000 unit PO DAILY supplement 09/19/17 [History Confirmed 02/25/23] cyanocobalamin (vitamin B-12) 500 mcg tablet 1,000 mcg PO DAILY@0800 supplement 09/19/17 [History Confirmed 02/25/23] fluticasone furoate 200 mcg-vilanterol 25 mcg/dose inhalation powder 1 ea inhalation DAILY sob #3 device 06/30/20 [Rx Confirmed 02/25/23] hydroxychloroquine 200 mg tablet (Plaquenil) 100 mg PO QPM 02/25/23 [History Confirmed 02/25/23] hydroxychloroquine 200 mg tablet (Plaquenil) 200 mg PO QAM lupus 02/25/23 [History Confirmed 02/25/23] levetiracetam 500 mg tablet 1,000 mg PO BID seizures 02/25/23 [History Confirmed 02/25/23] omega 4-wzm-lch-fish oil 300 mg-1,000 mg capsule (Fish Oil) 2 cap PO DAILY 02/25/23 [History Confirmed 02/25/23] sertraline 100 mg tablet 50 mg PO DAILY depression 02/25/23 [History Confirmed 02/25/23] sucralfate 1 gram tablet (Carafate) 1 g PO QACHS 02/25/23 [History Confirmed 02/25/23] PFS Medical History (Updated 02/28/23 @ 14:[address] Garland Soto MD) Anxiety Asthma Breast hypertrophy Chronic bronchitis Chronic cervical pain Chronic thoracic back pain Difficulty balancing Dysphagia Fatigue Gallstones GERD (gastroesophageal reflux disease) History of pneumonia IBS (irritable bowel syndrome) Intertrigo Loss of consciousness Lupus Osteoarthritis Pleural effusion Polyp of gallbladder Seasonal allergies Seizure Seizure disorder Shoulder pain Surgical History H/O: hysterectomy History of hysterectomy History of knee surgery Pacemaker S/P bilateral breast reduction S/P tonsillectomy Status post repair of complex wound Family History Mother Breast cancer CAD (coronary artery disease) Anxiety High cholesterol Skin cancerFather Cancer CAD (coronary artery disease) Asthma High cholesterol Social History Smoking Status: Former smoker alcohol intake: current alcohol intake frequency: a few times a month substance use type: does not use additional social history: DOES USE ASPIRIN DOES NOT USE IBUPROFEN HPI HPI HPI: Patient is a 67-year-old female that I have seen in the past. She is here for a gallbladder polyp she is also experiencing right upper quadrant pain. She was seen in the past and had an abnormal HIDA but held off on performing surgery at that time. She had a repeat ultrasound which shows the polyp is grown and she would like her gallbladder removed. ROS General General: No weight change, appetite, fatigue, colon cancer, breast cancer or weakness HEENT HEENT: No difficulty swallowing, eye injury, eye surgery, swollen glands or hoarseness Endo Endocrine: No thyroid disease, diabetes mellitus, thyroid cancer, Hair loss, heat intolerance or cold intolerance Skin Skin: No rash or changing moles Breast Breast: No left breast lump, right breast lump, nipple discharge, breast pain, abnormal mammogram, abnormal US or breast enlargement Musc Musculoskeletal: Yes arthritis; No back problems, rheumatoid arthritis, gout or joint pain Cardio Cardiovascular: Yes pacemaker; No murmur, heart disease, atrial fibrillation, high blood pressure, heart attack, heart stent, palpitations, shortness of breat with exertion or chest pain Psych Psychiatric: No depression, anxiety or hearing voices Resp Respiratory: No shortness of breath, Yes sleep apnea, No cough, No COPD, Yes asthma, No emphysema and No wheezing Gastro Gastrointestinal: Yes abdominal pain, Yes nausea or vomiting, No diarrhea, No constipation, No blood in stool, No acid reflux, No hemorrhoids, No ulcers, No gallbladder problem and No black,tarry stools Hiram Hematologic: No blood thinners, No blood disorders, No bleeding, No anemia and No blood clots Neuro Neurologic: No system reviewed and no additional complaints, except as documented, No as per HPI, No abnormal gait, No abnormal hearing, No abnormal movements, No abnormal speech, No behavioral changes, No burning sensations, No confusion, No convulsions, No disequilibrium, No dizziness, No localized weakness, No frequent falls, No headache(s), No lack of coordination, No loss of vision, No memory loss, No numbness, No other visual disturbances, No radicular pain, No restless legs, No sensory deficit, No syncope, No tingling, No tremor(s), No weakness and No other Exam Const General: cooperative Orientation: alert and oriented x3 HENMT Head: normal to inspection Neck Neck: normal visual inspection and full ROM Chest Chest palpation & inspection: normal inspection of the chest Resp Effort & Inspection: normal respiratory effort Auscultation: clear to auscultation bilaterally Cardio Rate: regular rate Rhythm: regular rhythm GI Inspection: non-distended Palpation: soft and nontender Skin General: no rashes or lesions noted Neuro General: patient alert and patient oriented x3 Extrem General: full ROM Psych Appearance: grossly normal Mental Status: mental status grossly normal Assessment and Plan Assessment and Plan (1) Dyskinesia of gallbladder: Status: Acute (2) Polyp of gallbladder: Status: Acute Orders: Orders Abdomen/Pelvis WITH Contrast 02/25/23 R10.9 - Unspecified abdominal pain Plan The patient has a gallbladder polyp that has doubled in size since her last ultrasound. The patient is also still having right upper quadrant pain and she had a HIDA scan that shows hyperkinesia of the gallbladder. I recommended at this time removing the gallbladder and the patient is agreeable. I recommended laparoscopic cholecystectomy with cholangiogram. I discussed the procedure in detail with the patient. I discussed the risks, benefits, and alternatives of the procedure. I discussed the risks including but not limited to bleeding, infection, injury to surrounding organs such as the liver, bile duct, bowels. I did discuss the possibility of having to convert to an open procedure as well as the possibility that if any injuries occurred this may necessitate further surgery at a tertiary care center. Garland Soto MD Pager: [facility] [address] [place] [address], [address] [place] [phone] Office: I have examined the patient and the H&P has been reviewed. There are no clinical changes since date of exam.
[2023-05-22] MEDS: Clindamycin 900 MG/50 ML BAG 75 MG IV (14:10)
[2023-05-22] MEDS: Bupivacaine 0.25% 30 ML Vial (14:42)
--- NOTE | 2023-05-22 14:53 | PCM.OPRPT ---
Report of Operation Date of Procedure: 05/22/23 Pre-Operative Diagnosis: Biliary hyperkinesia and gallbladder polyp with growth Post-Operative Diagnosis: Same Surgery/Procedure Performed:: Laparoscopic cholecystectomy with cholangiogram Type of Anesthesia: General/Regional Specimen's removed: Gallbladder Estimated Blood Loss (mL): 10 Description of Procedure: After obtaining informed consent patient was brought back to the operating room. General anesthesia was induced. The abdomen was prepped and draped in usual sterile fashion. A small midline incision was made superior to the umbilicus and deepened to the level of fascia. The fascia was elevated and incised. Next the peritoneum was elevated and incised in the same fashion. Finger sweep was performed and the Mcmanus trocar was placed into the abdomen. The balloon was inflated. The abdomen was inflated to 15 mmHg. Next a camera was introduced into the abdomen and the abdomen was inspected. Next under direct visualization three 5-mm ports were placed one subxiphoid and 2 subcostal. Next the gallbladder was elevated and retracted toward the right shoulder. The peritoneum was stripped from the gallbladder. The infundibulum was located and retracted laterally. Next the triangle of Calot was dissected and the cystic duct and cystic artery were identified. Cholangiograms were performed. The Mcbride clamp was used to clamp across the infundibulum and the catheter needle was inserted into the gallbladder. Under fluoroscopy contrast was instilled into the gallbladder and the common duct, cystic duct as well as proximal hepatic ducts were identified. There was good filling of the duodenum. There were no filling defects noted in the common bile duct. The clamp was removed as well as the needle and the infundibulum was grasped once more. Three hemolock clips were placed across the cystic duct. The cystic duct was then divided leaving 2 clips on the stump. The cystic artery was clipped and divided in the same fashion. The hook cautery was then used to take the gallbladder off of the gallbladder bed. Hemostasis was obtained. Gallbladder fossa was irrigated and no active bleeding or bile leakage was noted. Next the camera was introduced in the subxiphoid port. An Endopouch bag was placed through the umbilical port and the gallbladder was placed into it. The gallbladder was then removed through the umbilical incision. The camera was then reinserted through the umbilical port. The gallbladder fossa was inspected once more and noted to be hemostatic with no leaking bile. The abdomen was suctioned dry. The 5 mm ports were removed under direct visualization. The umbilical port was then removed and the air was removed from the abdomen. Next using an 0 Vicryl suture the umbilical fascia was closed in a [id number] fashion. The umbilical port site was irrigated local anesthetic was administered to all the incisions. All the incisions were closed with interrupted subcuticular 4-0 Monocryl sutures followed by Steri-Strips and dressings. The patient was awoken and taken to PACU in stable condition. Admit VTE Documentation VTE Mechan Device Prophylaxis: SCD's
--- NOTE | 2023-05-22 14:59 | DCINST_ITS ---
Discharge Instructions Procedure Gallbladder Diet Discharge Diet: Light diet - advance as tolerated Activity Discharge Activity: May Not Drive (for 2-3 days or while taking narcotic pain medications.) and - (Do not drive, work heavy equipment or sign legal documents for 24 hours.) May shower in (days): 1 Lifting Restrictions: 20 lbs for 2 weeks Additional Activity Instructions:: Pain medication may cause nausea. You should typically eat light foods as you take your pain medications. Pain medication may also cause constipation. If this is a problem for you, please discuss with your doctor. Dressing / Incision Call your doctor if your incision/area has: Continuous Slow Oozing, Sudden Increased Bleeding, Increased Pain/ Swelling, Increased Redness and Foul Smelling Discharge Call your doctor if you observe: Fever of 101 or Higher Suture Line Care: Avoid Pulling/Pushing and Avoid Pinching/Bending Remove Dressing in: 2 days (Remove clear bandages in 2 days, remove Steri-Strips in 7 to 10 days) Cleanse incision/area with: Soap & Water Additional Dressing/Incision Instructions:: Leave operative bandaids on for 2 days. When you remove dressing, leave Steri-Strips on until your follow-up appointment, or until the Steri-Strips fall off on their own. Follow Up Care Please Follow Up With: Garland Soto MD When: Please call to schedule 2 week follow up appointment. [phone] Test Results: Test results from this visit will be discussed in further detail at your follow- up appointment, if applicable. Discharge Plan Admission Attending Provider: Garland Soto Primary Care Provider: Linda Loving Instructions Additional Instructions / Restrictions: Alternate ibuprofen and Tylenol for pain, oxycodone for breakthrough pain. Take MiraLAX for constipation. Discharge Orders/Prescriptions Prescriptions: New oxycodone 5 mg tablet 5 - 10 mg PO Q6H PRN (Reason: pain) 5 Days Qty: 20 0RF No Action hydroxychloroquine [Plaquenil] 200 mg tablet 200 mg PO QAM fluticasone furoate-vilanterol 200-25 mcg/dose blister with device 1 ea INHALATION DAILY Qty: 3 3RF hydroxychloroquine [Plaquenil] 200 mg tablet 100 mg PO QPM omega 5-noi-trl-fish oil [Fish Oil] 300-1,000 mg capsule 2 cap PO DAILY cyanocobalamin (vitamin B-12) 500 MCG tablet 1,000 mcg PO DAILY@0800 cholecalciferol (vitamin D3) 5,000 UNIT capsule 5,000 unit PO DAILY sertraline 100 mg tablet 50 mg PO DAILY levetiracetam 500 mg tablet 1,000 mg PO .QAM levetiracetam 750 mg tablet 750 mg PO QHS Probiotic 3 billion cell capsule 3,000 mmu cells PO DAILY Rx Instructions: administer with a meal calcium polycarbophil [Fiber (calcium polycarbophil)] 625 mg tablet 1,250 mg PO DAILY meloxicam 15 mg tablet 15 mg PO PRN PRN (Reason: PAIN ) Other Ambulatory Orders: 12 Lead EKG (Routine) Timeframe: 20220509 Location: None Selected Ordered By: Dr. Julian Tanner Referrals / Follow Up: Linda Loving DO [Primary Care Provider] - Disposition Disposition (needs filled in before D/C Order can be placed): Home, Self Care
[2023-05-22] MEDS: Acetaminophen 325 MG Tablet 650 MG PO (16:45)
== END 2023-05-22 18:25 | disposition home or self-care (01) ==
LOC: SDC 12:20 → AC 12:21
PROVIDERS: Anesthesiology; PCP Family Medicine; Referring Provider Surgery; Visit Provider Surgery
PROC: (CPT 47610; principal; 2023-05-22 13:40)
DX: K81.1 Chronic cholecystitis (principal); K82.8 Other specified diseases of gallbladder; Z87.891 Personal history of nicotine dependence; J45.909 Unspecified asthma, uncomplicated; I25.10 Atherosclerotic heart disease of native coronary artery without angina pectoris; E78.00 Pure hypercholesterolemia, unspecified; Z79.82 Long term (current) use of aspirin; Z79.51 Long term (current) use of inhaled steroids; K21.9 Gastro-esophageal reflux disease without esophagitis; Z79.899 Other long term (current) drug therapy
CPT/HCPCS: 47563; 00790; 36415; 74300; 76000; 85730; 88304; 93005; J7120; J2405

== ENCOUNTER → 2023-07-30 | Outpatient (CLI) | payer MEDICARE, OTHER, SELFPAY | END | disposition home or self-care (01) | LOC: PSN 07-16 14:23 | PROVIDERS: PCP Family Medicine; Referring Provider Family Medicine; Visit Provider Family Medicine | DX: R00.2 Palpitations (principal); R42 Dizziness and giddiness; Z95.0 Presence of cardiac pacemaker | CPT/HCPCS: 93225; 93226 ==

== ENCOUNTER → 2023-11-06 | Outpatient (CLI) | payer MEDICARE, OTHER, SELFPAY ==
--- NOTE | 2023-11-06 13:00 | RAD_ITS ---
INDICATION: HIP PAIN EXAMINATION/TECHNIQUE: X-RAY - XR Hips Bilateral with Pelvis when performed; 2 Views COMPARISON: FINDINGS: PELVIC BONES: No displaced fracture, destructive or sclerotic lesions. Note that overlapping bowel shadows may however obscure fine detail. Sacroiliac joints are unremarkable. No widening of the pubic symphysis. HIPS: Mild joint space narrowing of both hip joints consistent with mild arthrosis. No displaced fracture seen in this frontal view. SOFT TISSUES: No soft tissue swelling or gas. RAD/HIP, UNI W/ Pelvis 2-3 Views IMPRESSION: Mild bilateral hip arthrosis. Electronically Signed: Boogie Ni MD at 13:41 EDT ,
== END | disposition home or self-care (01) ==
LOC: RAD 12:50
PROVIDERS: PCP Family Medicine; Referring Provider Internal Medicine Rheumatology; Visit Provider Internal Medicine Rheumatology
DX: M25.551 Pain in right hip (principal); M25.552 Pain in left hip
CPT/HCPCS: 73502

== ENCOUNTER 2024-08-10 14:45 | Outpatient (RCR) | payer MEDICARE, OTHER, SELFPAY ==
--- NOTE | 2024-08-10 16:25 | HP.PTEVAL ---
Patient's Visit Information Visit Information Visit Information: BIANCA JONES is a 69 year old F referred to Physical Therapy by ONEIDA Sierra with a diagnosis of L knee pain. Date of Evaluation: 08/10/24 Physical Therapist: Luis Tobias, PT, ATC Visit Plan Frequency: 2x /Week Duration: 4 Weeks Plan: L LE strengthening, core stab ex's, bike, and HEP Subjective Subjective: Pt reports she has had L knee pain for 5-6 months. Pt notes she is very active and exercises 3-4 days per week. Pt reports she was performing knee extensions when she began to notice her pain. Pt reports most of her pain is located on the lateral aspect of L knee. Pt reports she has had to limit her exercising at this time secondary to her increased pain levels. Pt denies tingling or numbness at this time. Pt reports she has sleep difficulty secondary to L knee pain. Pt reports her pain is intermittent in nature. Pt reports she is retired at this time. Pt [place], but goes into her basement 1-2 times per week. Pt reports she has difficulty with ascending stairs at this time. Pt has not had any diagnostic testing performed at this time. 2/10 pain while sitting here in the clinic, 10/10 pain at worst. Pain L knee pain: Pain Intensity (Out of 10): 2 Pain Intensity Range: 10 Objective Objective: Neuro: B LE sensation is WNL to light touch. B patellar reflex= 2/3 Palpation: Pt is very sore along the lateral joint line of L knee. Minor swelling noted. No obvious deformity presesnt. MMT: R knee flex= 43, ext= 42 #F; L knee flex= 41, ext= 42 #F ROM: R knee 0-143 degrees; L knee 0-6-143 degrees Special tests: Pos McMurrays Balance/Special Test Scores Lower Extremity Functional Score: 58 Goals Goal 1:: Decrease L knee pain x 50% to aid with sleep Goal Time Frame: 2-4 Weeks Goal 2:: I with HEP Goal Time Frame: 2-4 Weeks Goal 3:: Return to normal exercise routine without increased pain Goal Time Frame: 2-4 Weeks Rehabilitation Potential Physical Therapy Diagnosis: Pt has L knee pain and limited ROM secondary to degenerative changes in L knee Rehabilitation Potential: Good Anticipated Interventions Patient/Client Instruction: Educate patient on: Condition and Plan of Care For the Purpose of:: To improve self management Therapeutic Exercise to Include: Strength training, Endurance training, Balance training, Active ROM and Dynamic Lumbar Stabilization For the Purpose of:: To decrease pain, To increase ROM and To improve muscle performance and motor function Cryotherapy (ice pack, ice massage): Yes For the Purpose of:: To decrease pain Text: Thank you for the opportunity to evaluate your patient. For Medicare and Medicare HMO plans, please review the plan of care and approve it. It will need to be FAXED BACK to us at [phone] for Medicare purposes. For Medicare only, by signing this I certify the plan of care. Please let me know if there are questions or concerns regarding this plan of care. Physician Signature: Date:
--- NOTE | 2024-10-29 13:48 | HP.PT.NRP ---
Patient Information Patient Information: BIANCA JONES was seen in my office for initial evaluation on 08/10/24. The following Plan of Care was established for this patient: POC Established Initial Frequency: 2x /Week Initial Duration: 4 Weeks Anticipated Interventions Patient/Client Instruction: Educate patient on: Condition and Plan of Care For the Purpose of:: To improve self management Therapeutic Exercise to Include: Strength training, Endurance training, Balance training, Active ROM and Dynamic Lumbar Stabilization For the Purpose of:: To decrease pain, To increase ROM and To improve muscle performance and motor function Cryotherapy (ice pack, ice massage): Yes For the Purpose of:: To decrease pain Last Seen Last Seen: This patient was last seen in our office . Pertinent comments regarding their Physical therapy will appear below: Pt has not returned for greater than 30 days and is discontinued at this time. At this point I will be discontinuing this patient from physical therapy. I would be happy to see this patient again in the future if found appropriate by the physician. Thank you! Luis Tobias, PT, ATC Balance/Gait/Functional tests Balance/Special Test Scores Lower Extremity Functional Score: 58
== END 2024-08-10 19:00 | disposition home or self-care (01) ==
LOC: PT 14:45
PROVIDERS: PCP Family Medicine; Referring Provider Nurse Practitioner Family; Visit Provider Nurse Practitioner Family
DX: M25.562 Pain in left knee (principal)
CPT/HCPCS: 97161

== ENCOUNTER → 2024-11-05 | Outpatient (CLI) | payer MEDICARE, OTHER, SELFPAY ==
[2024-11-05 16:31] LABS: Hematocrit 45.6 % (37-47); Hemoglobin 15.1 g/dL (12.0-15.0); Immature Granulocytes Count 0.010 X10^3/uL (0.0-0.0); Mean Corp Hgb Conc 33.1 g/dL (32-36); Mean Corpuscular Volume 92.9 fL (81-99); Mean Platelet Vol. 9.6 fl (6.2-12.0); NRBC Flagged by Analyzer 0 % (0-5); Platelet Count 264 K/mm3 (150-450); RBC Distribution Width CV 12.5 % (11.6-14.6); RBC Distribution Width SD 42.7 fl (35.1-43.9); Red Blood Count 4.91 M/mm3 (4.2-5.4); White Blood Count 7.0 K/mm3 (4.4-11.0)
[2024-11-05 16:45] LABS: Prothrombin Time (Protime)PT. 12.3 SECONDS (11.7-14.9)
[2024-11-05 17:30] LABS: AST(SGOT) 22 U/L (<=31); Alanine Aminotransfer ALT/SGPT 25 U/L (<=34); Albumin, Serum 4.4 g/dL (3.4-4.8); Alkaline Phosphatase 71 U/L (35-104); Anion Gap 12 (5-15); BUN 19 mg/dL (4-19); BUN/Creat Ratio 27.1 RATIO (10-20); Calcium,Total 9.5 mg/dL (7.6-11.0); Carbon Dioxide 23.6 mmol/L (21.0-32.0); Chloride 102 mmol/L (98-108); Globulin 2.5 g/dL (2.2-4.2); Glucose 98 mg/dL (70-99); Potassium 3.9 mmol/L (3.3-5.1)
== END | disposition home or self-care (01) ==
LOC: LAB 16:04
PROVIDERS: PCP Family Medicine; Referring Provider Family Medicine; Visit Provider Family Medicine
DX: D69.2 Other nonthrombocytopenic purpura (principal); Z51.81 Encounter for therapeutic drug level monitoring
CPT/HCPCS: 36415; 80053; 85025; 85610